=== PATIENT | male | born 2000 | race African-American/Black ===

== ENCOUNTER 2023-09-09 13:59 | Emergency (ER) | payer BC, SELFPAY ==
[2023-09-09 14:13] VITALS: BP 128/70; BP 131/72; PULSE 72; PULSE 73; RESP 18; TEMP 36.7; O2SAT 99; BMI 25.9
--- NOTE | 2023-09-09 14:38 | ED_ITS ---
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 he tells me he has no psychiatric history takes no medications this has never happened to him before. he notes that there was a rumor started about him at school which he will not disclose and he cannot get past it. he knows everyone believes it and it bothers him. He also feels pressure to admit that it is true but he will not. He is only having a hard time with that. complaint: anxiety Onset (ago): day(s) Duration: intermittent History of same: No Relieving factors: none Exacerbating factors: other Context: significant life stressor Associated psychiatric symptoms: none Associated symptoms: denies other symptoms Treatments prior to arrival: placed on mental health hold Related Data Allergies Allergy/AdvReac Type Severity Reaction Status Date / Time No Known Allergies Allergy Verified 09/09/23 14:13 Review of Systems Review of Systems: Constitutional : No Fever, No Chills ENT/Mouth : No Ear Pain, No Nasal Congestion, No sore throat Eyes: No Eye Pain, No Swelling, No Redness Cardiovascular : No Chest Pain, No SOB Respiratory : No Cough, No Sputum, No Dyspnea Gastrointestinal : No Nausea, No Vomiting, No Diarrhea, No Hematochezia, No Melena Genitourinary : No Dysuria, No Urinary Frequency, No Hematuria Musculoskeletal : No Myalgias Skin : No Skin Lesions, No rash Neuro : No Weakness, No Numbness, No Paresthesias, No Dizziness, No Headache Psych : positive Anxiety, no Depression, no SI/HI All other systems reviewed and are negative PMFSH Past Medical History Source: old records reviewed Onset Date is defined in the Problem List Problems that require an onset date and time if occurred within 24 hrs of arrival to the ED Aortic Dissection and Rupture; Neurologic impairment; Cardiopulmonary Arrest; Endotracheal Intubation; Insertion or Replacement of Mechanical Circulatory Assist Device Medical History No pertinent past medical history Social History Social History Smoked in Last 30 Days: No Use of substances other than those prescribed or required for medical reasons: No Physical Exam Vital Signs: Vital Signs: Last Vital Signs Temp 98.0 F 09/09/23 14:13 Pulse 73 09/09/23 14:13 Resp 18 09/09/23 14:13 BP 128/70 09/09/23 14:13 Pulse Ox 99 09/09/23 14:13 O2 Del Method Room Air 09/09/23 14:13 BMI result Body Mass Index 25.9 Appearance: Alert. Oriented X3. No acute distress. calm and cooperative he is not looking around the room, he is not agitated, he is not responding to internal stimuli. Eyes: Pupils equal, round and reactive to light. ENT: Pharynx normal. Neck: Normal inspection. Neck supple. CVS: Normal heart rate and rhythm. Pulses normal. Respiratory: No respiratory distress. Breath sounds normal. Abdomen: Soft and non-tender. Skin: Skin warm and dry. Normal skin color. Normal skin turgor. Extremities: No lower extremity edema. No calf ttp Neuro: Oriented X 3. No motor deficit. No sensory deficit. Course Course Course Narrative: Physician observation started at 306pm. Patient placed in physician observation because the patient needed more time for CARE team to place patient. At the time observation was started the patient's vitals were stable, patient is alert and oriented, Neuro: nonfocal, CV RRR, Lungs clear Medical Decision Making Medical Decision Making [facility] Narrative: 23 yo male with no sig PMH here with c/o being upset about a rumor about him at school - campus notes he is paranoid and in fact he has a full manifesto they have found. He is a section 12 inpatient bed search and will need labs. Differential Diagnosis Differential Diagnoses: The differential diagnosis associated with the presentation includes paranoia Admission/Observation Consideration of admission/observation: Escalation of care including admission/observation considered observe for placement Consult Healthcare Provider Management of the patient was discussed with: Behavioral Health Provider (inpatient) Lab Data [facility] Lab Attestation statement: I reviewed the patient's lab results. Labs: Lab Results 09/09/23 Range/Units 14:45 Urine Color Yellow Urine Appearance Clear Urine pH 8.0 (5.0-9.0) Ur Specific [place] <= 1.005 (1.005-1.025) Urine Protein Negative (Neg-Trace) mg/dL Urine Glucose (UA) Negative (Negative) mg/dL Urine Ketones Negative (Negative) mg/dL Urine Blood Negative (Negative) Urine Nitrite Negative (Negative) Ur Leukocyte Esterase Negative (Negative) Urine Opiates Screen Not Detected (Not Detect) Urine Fentanyl Screen Not Detected (Not Detect) Ur Barbiturates Screen Not Detected (Not Detect) Ur Phencyclidine Scrn Not Detected (Not Detect) Ur Amphetamines Screen Not Detected (Not Detect) U Benzodiazepines Scrn Not Detected (Not Detect) Urine Cocaine Screen Not Detected (Not Detect) U Marijuana (THC) Screen Not Detected (Not Detect) Independent Historian Clinical information obtained from an independent historian. History obtained from or confirmed by: EMS Discharge Plan Discharge Clinical Impression: Acute paranoia Patient Disposition: Still a Patient Interventions: Hannibal-Suicide Risk Severity Scale Last Done: 09/09/23 14:16
--- NOTE | 2023-09-09 14:46 | MHC.CARE ---
Maria Fernanda Chacon w [facility] ([phone]) called w/ expect for this student who has been paranoid, believes people are talking about him, looking at him in a judging manner, and he emailed one of the college crystal to defend himself against these allegations (delusions) but the prasanth who received the email shared it, and it seemed intended to be more broadly distributed to the entire campus. Concerned he has been decompensating for a while.
[2023-09-09 14:55] LABS: Appearance Urine Clear; Color Urine Yellow; Glucose Urine UA Negative (Negative); Leukocyte Esterase Urine Negative (Negative); Nitrite Urine Negative (Negative); Specific Gravity - Urine <= 1.005 (1.005-1.025); Urine Blood Negative (Negative); Urine Ketones Negative (Negative); Urine Protein Negative (Neg-Trace)
--- NOTE | 2023-09-09 14:55 | PC.NURSE ---
trey mayberry at bedside to eval pt- not responding to internal stimuli, no prior psych hx noted, no distress, no si/hi/halluc reported.
[2023-09-09 15:00] LABS: Amphetamine Screen Urine Not Detected (Not Detect); Bacteria Urine None Seen (None Seen); Barbiturates, Urine Not Detected (Not Detect); Benzodiazepines Screen Urine Not Detected (Not Detect); Cannabinoid Screen Urine Not Detected (Not Detect); Cocaine Screen Urine Not Detected (Not Detect); Fentanyl, urine Not Detected (Not Detect); Hyaline Casts Urine 0-2 /LPF (0-2); Opiate Screen Urine Not Detected (Not Detect); Phencyclidine Screen Urine Not Detected (Not Detect); RBC Urine 0-2 /HPF (0-2); Squamous Epithelial Cell Urine 0-2 /HPF (0-2); WBC Urine 0-5 /HPF (0-5)
--- NOTE | 2023-09-09 15:06 | PC.NURSE ---
tech at bedside drawing bloodwork now.
[2023-09-09 15:10] LABS: COVID-19 Test Negative (Negative); IDNOW Serial# 9DB6401D
[2023-09-09 15:21] LABS: MANUAL DIFF FLAG NO
[2023-09-09 15:22] LABS: Basophils Percent Auto 0.8 % (0-2); Eosinophils Absolute Auto 0.4 X10*3/uL (0.0-0.4); Eosinophils Percent Auto 9.5 % (0-4); Hematocrit 46.8 % (42.0-52.0); Hemoglobin 16.2 g/dl (14.0-18.0); Lymphocytes Absolute Auto 1.4 X10*3/uL (1.2-4.9); Lymphocytes Percent Auto 36.6 % (20-40); Mean Corpuscular HGB Conc 34.6 g/dl (31.0-36.0); Mean Corpuscular Hemoglobin 30.4 pg (27.0-33.0); Mean Corpuscular Volume 87.8 fL (80.0-98.0); Mean Platelet Volume 12.4 fL (9.4-12.4); Monocytes Absolute Auto 0.2 X10*3/uL (0.1-1.2); Monocytes Percent Auto 6.1 % (2-11); Neutrophils Absolute Auto 1.8 x10*3/uL (2.0-8.3); Platelet Count 114 X10*3/uL (160-400); Red Blood Count 5.33 X10*6/uL (4.60-5.80); Red Cell Distribution Width 11.3 % (11.0-16.0); White Blood Count 3.8 X10*3/uL (4.8-10.8)
[2023-09-09 15:37] LABS: Ethanol < 10 mg/dL
[2023-09-09 15:39] LABS: Alanine Aminotransferase 13 U/L (0-40); Alkaline Phosphatase 74 U/L (39-117); Anion Gap 12 (12-20); Aspartate Amino Transferase 19 U/L (5-37); Bilirubin Direct 0.2 mg/dL (0.0-0.5); Bilirubin Total 0.7 mg/dL (0.0-1.0); Blood Urea Nitrogen 15 mg/dL (9-16); Calcium 10.1 mg/dL (8.4-10.2); Carbon Dioxide 27 mmol/L (22-29); Chloride 106 mmol/L (96-108); Creatinine Clr Calc Pharmacy 112.2; Estimated Glomerular Filt Rate > 60; Glucose Random 88 mg/dL (60-115); Potassium 4.1 mmol/L (3.3-5.1); Sodium 141 mmol/L (135-145); Total Protein 8.7 g/dL (6.5-8.0)
[2023-09-09 15:40] LABS: Acetaminophen LAB < 3 mcg/mL (<30); Salicylate < 5.0 mg/dL (15-30)
--- NOTE | 2023-09-09 20:43 | MHC.CARE ---
CARE Team evaluation complete. Disposition not reached after consulting with Dr. Zee via phone. Pt will be a psych consult and the order has been put in by the ED provider. director call clinician at [facility] has been updated with this information (Violeta Cole; [phone]). POD RN, ED provider and Pt are aware.
[2023-09-09 22:15] VITALS: BP 132/74; PULSE 60; RESP 18; TEMP 36.9; O2SAT 99
--- NOTE | 2023-09-10 09:20 | PC.NURSE ---
assumed care of pt at 0700. pt awake, ate breakfast, and is now sitting at the desk in room. pt denies SI/HI. wondering when he will see the psych doctor . pt also asking when he will be out of here. laughing when t/w said there is no plan yet. pt sts it's funny that I'm here . pt is calm and cooperative. vitals obtained. awaiting psych consult. plan of care ongoing.
[2023-09-10 09:28] VITALS: BP 144/72; PULSE 72; RESP 16; TEMP 36.9; O2SAT 99
--- NOTE | 2023-09-10 10:58 | PC.NURSE ---
pt came out of room requesting a cup of water. pt provided with water. pt asking how to take off bandage without heat meaning, pain. pt encouraged to take a shower and the water will make it not hurt as much. pt sts he will take a shower later. currently sitting in community area.
--- NOTE | 2023-09-10 11:26 | PC.NURSE ---
pt with care team.
--- NOTE | 2023-09-10 12:48 | MHC.CARE ---
Pt was reassessed by CARE team, plan is for discharge back to [facility]. Transportation will be arranged by the [facility] and will communicate with this inspector automatic typewriter to determine when the pt will be picked up from the ED.
--- NOTE | 2023-09-10 13:18 | PC.NURSE ---
pt ride minutes away. pt provided with belongings. awaiting transportation.
== END 2023-09-10 13:32 | disposition home or self-care (01) ==
PROVIDERS: Emergency Provider Emergency Medicine
DX: F60.0 Paranoid personality disorder (principal); F41.9 Anxiety disorder, unspecified; Z11.52 Encounter for screening for COVID-19
CPT/HCPCS: 36415; 80048; 80076; 80143; 80179; 80307; 81001; 83735; 85025; 87635; 99284; S9485

== ENCOUNTER 2024-04-23 12:27 | Inpatient (IN) | payer BC, SELFPAY ==
--- NOTE | 2024-04-23 12:35 | ED.GENADULT ---
HPI - General Adult General Chief complaint: Psychiatric Symptoms Stated complaint: PSYCH EP,PD ON BOARD,COMBATIVE,PREPARE TO Time Seen by Provider: 04/23/24 12:35 History of Present Illness ED Provider: Alex WOLFE narrative: The patient is a 23-year-old male who is from [facility]. He recently has been a student at [employer]. He has recently been expelled from the [employer] for behavioral reasons. 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 Attempts have been made by the [employer] health services to manage his behavior but all of these attempts seemed to have failed and ultimately the [employer] felt it had to expel the patient. Apparently yesterday he was told that he was expelled and he was given transfer airport to catch a plane to take him to his home country. Apparently he was dropped off at [place] airport but failed to get on the plane. Today he apparently was found trying to get back onto campus looking for the pursuing. Apparently he had left a message on her phone answering machine that implied possible suicidal and homicidal thoughts. The patient was apprehended by [facility] police by paramedics. He was combative with [facility] police and paramedics and received IM haloperidol and midazolam with paramedics. Related Data Allergies Allergy/AdvReac Type Severity Reaction Status Date / Time No Known Allergies Allergy Verified 04/23/24 13:03 Review of Systems Review of Systems: Yes Unobtainable due to mental status PMFSH Past Medical History Medical History No pertinent past medical history Social History Social History Advance Directives: No Advance Directives Information Provided: No Do you have a plan to hurt others: No Plan Physical Exam ED Vital Signs: Vital Signs - 24 hr 04/23/24 12:59 04/23/24 16:07 04/23/24 18:00 Temperature 97.9 F 97.8 F 97.2 F Pulse Rate 60 55 52 Respiratory Rate 16 14 18 Blood Pressure 102/38 L 91/34 L 112/54 L Pulse Oximetry 97 100 99 Oxygen Delivery Method Room Air 04/23/24 19:14 Temperature 98.1 F Pulse Rate 46 L Respiratory Rate 14 Blood Pressure 108/56 L Pulse Oximetry 100 Oxygen Delivery Method Room Air BMI result Body Mass Index 25.4 Const Other: The patient arrived somnolent. He had apparently received haloperidol the pre-hospital setting. He is an athletic and muscular looking 23-year-old. [facility] Other: Face is symmetrical. There is a very small laceration about 4 mm in length near the lateral end of the right eyebrow. No other signs of trauma to the face. No intraoral injury. Dentition intact. No trismus. Eyes Other: Pupils were round equal, conjunctivae clear, extraocular movements intact. Eyelids nonswollen. Neck Other: Moving his neck easily Resp Effort & Inspection: normal respiratory effort Auscultation: clear to auscultation bilaterally Cardio Rate: regular rate Rhythm: regular rhythm Heart sounds: S1 normal heart sound present and S2 normal heart sound present GI Other: Abdomen is soft and nontender Skin Other: There is a 4 mm very small and not very deep laceration to the skin of the face near the lateral aspect of the right eyebrow. Otherwise the skin is intact and unremarkable Neuro Other: The patient seemed somewhat sedated initially but became extremely agitated and combative with any interaction. He has no facial asymmetry. His speech sounded clear. He moves his extremities symmetrically with normal strength and coordination. Extrem Other: No injuries to the extremities Psych Other: The patient seemed sedated initially but became very agitated with any interaction. Medications Administered Discontinued Medications Generic Name Dose Route Start Last Admin Trade Name Freq PRN Reason Stop Dose Admin Diazepam 10 mg 04/23/24 13:56 04/23/24 14:01 Diazepam 10 Mg/2 Ml Cartridge IVPUSH 04/23/24 13:57 10 mg STAT STA Administration Lactated Ringer's 1,000 mls @ 999 mls/hr 04/23/24 16:45 04/23/24 18:10 Lr IV 04/23/24 17:45 Infused .Q1H1M ROSETTE Infusion Olanzapine 10 mg 04/23/24 12:39 04/23/24 12:50 Olanzapine 10 Mg Vial IM 04/23/24 12:40 10 mg ONCE ONE Administration Medical Decision Making Medical Decision Making MDM Narrative: The patient is a 23-year-old male who was brought to the emergency department by ambulance on a section 12 from [employer]. He has been a student at [employer] but has recently been expelled from the [employer] because of erratic and threatening behavior. The patient is from [employer] [facility] and yesterday [facility] had attempted to make arrangements to get the patient on a plane to return home. However apparently the patient was brought to local airport but never border the plane and then returned to [employer] [facility] where he continued male student at [employer]. [employer] [facility] police intercepted the patient. Apparently the patient had sent a threatening message to the female student that suggested possibly both suicidality and homicidality. Therefore a section 12 was issued and he was brought here. The patient was combative with the [employer] [facility] [employer] [facility] police and paramedics and he received IM haloperidol from the paramedics. When he arrived here he was mildly sedated and became agitated and combative so that he was placed in restraints and given additional sedation with diazepam. The patient has a very small and shallow laceration to the skin of the face lateral to the right eye. He has no other concerning findings on exam. During the remainder of my shift the patient has remained sedated by olanzapine and diazepam. He was in 4 point restraints for awhile but was removed from these when it seemed safe to do so. He has been out of restraints for several hours at the end of my shift. The patient will need to be seen by the care team. A consult is in place. I will be signing the patient out to the oncoming emergency physician at change of shift. Lab Data 04/23/24 13:06 Labs: Lab Results 04/23/24 04/23/24 Range/Units 13:06 18:13 WBC 3.7 L (4.8-10.8) X10*3/uL RBC 4.57 L (4.60-5.80) X10*6/uL Hgb 14.5 (14.0-18.0) g/dl Hct 41.1 L (42.0-52.0) % MCV 89.9 (80.0-98.0) fL MCH 31.7 (27.0-33.0) pg MCHC 35.3 (31.0-36.0) g/dl RDW 11.9 (11.0-16.0) % Plt Count 116 L (160-400) X10*3/uL MPV 12.8 H (9.4-12.4) fL Immature Gran % (Auto) 0.3 (0.0-0.4) % Neut % (Auto) 59.7 (45-73) % Lymph % (Auto) 28.2 (20-40) % Hardy % (Auto) 7.2 (2-11) % Eos % (Auto) 3.8 (0-4) % Baso % (Auto) 0.8 (0-2) % Lymph # (Auto) 1.1 L (1.2-4.9) X10*3/uL Hardy # (Auto) 0.3 (0.1-1.2) X10*3/uL Eos # (Auto) 0.1 (0.0-0.4) X10*3/uL Baso # (Auto) 0.0 (0.0-0.2) X10*3/uL Abs Immat Gran (auto) 0.01 (0.00-0.03) X10*3/uL Absolute Neuts (auto) 2.2 (2.0-8.3) x10*3/uL Absolute Nucleated RBC 0.000 (0.0-0.012) X10*3/uL Nucleated RBC % (auto) 0.0 (0.0-0.2) /100WBC Urine Color Yellow Urine Appearance Clear Urine pH 6.0 (5.0-9.0) Ur Specific [place] 1.015 (1.005-1.025) Urine Protein Negative (Neg-Trace) mg/dL Urine Glucose (UA) Negative (Negative) mg/dL Urine Ketones 15 (Negative) mg/dL Urine Blood Negative (Negative) Urine Nitrite Negative (Negative) Ur Leukocyte Esterase Negative (Negative) Urine Opiates Screen Not Detected (Not Detect) Ur Buprenorphine Scrn Not Detected (Not Detect) ng/mL Ur Oxycodone Screen Not Detected (Not Detect) ng/mL Urine Methadone Screen Not Detected (Not Detect) ng/mL Urine Fentanyl Screen Not Detected (Not Detect) Ur Barbiturates Screen Not Detected (Not Detect) Ur Phencyclidine Scrn Not Detected (Not Detect) Ur Amphetamines Screen Not Detected (Not Detect) U Benzodiazepines Scrn POSITIVE H (Not Detect) Urine Cocaine Screen Not Detected (Not Detect) U Marijuana (THC) Screen Not Detected (Not Detect) Ethyl Alcohol < 10 mg/dL Critical Care Time Critical Care Time Critical Care Time: Yes Total Critical Care Time: 35 Attestation: The patient was critically ill with a high probability of imminent or life-threatening deterioration. ?I spent greater than 30 minutes of discontinuous time evaluating the patient, delivering critical care at the bedside, discussing evaluating data with consultants. ?Critical care time does not include time spent performing separately billable procedures or teaching. ?Time spent performing critical care with 35 minutes. Discharge Plan Discharge Clinical Impression: Delusional disorder Patient Disposition: Still a Patient Print Language: Singaporean
[2024-04-23] MEDS: OLANZapine 10 MG VIAL IM (12:50)
[2024-04-23 12:59] VITALS: BP 102/38; PULSE 60; RESP 16; TEMP 36.6; O2SAT 97; BMI 25.4
[2024-04-23 13:11] LABS: MANUAL DIFF FLAG NO
[2024-04-23 13:14] LABS: Basophils Percent Auto 0.8 % (0-2); Eosinophils Absolute Auto 0.1 X10*3/uL (0.0-0.4); Eosinophils Percent Auto 3.8 % (0-4); Hematocrit 41.1 % (42.0-52.0); Hemoglobin 14.5 g/dl (14.0-18.0); Imm Gran Abs Auto 0.01 X10*3/uL (0.00-0.03); Imm Gran Pct Auto 0.3 % (0.0-0.4); Lymphocytes Absolute Auto 1.1 X10*3/uL (1.2-4.9); Lymphocytes Percent Auto 28.2 % (20-40); Mean Corpuscular HGB Conc 35.3 g/dl (31.0-36.0); Mean Corpuscular Hemoglobin 31.7 pg (27.0-33.0); Mean Corpuscular Volume 89.9 fL (80.0-98.0); Mean Platelet Volume 12.8 fL (9.4-12.4); Monocytes Absolute Auto 0.3 X10*3/uL (0.1-1.2); Monocytes Percent Auto 7.2 % (2-11); Neutrophils Absolute Auto 2.2 x10*3/uL (2.0-8.3); Neutrophils Percent Auto 59.7 % (45-73); Platelet Count 116 X10*3/uL (160-400); Red Blood Count 4.57 X10*6/uL (4.60-5.80); Red Cell Distribution Width 11.9 % (11.0-16.0); White Blood Count 3.7 X10*3/uL (4.8-10.8)
[2024-04-23 13:36] LABS: Ethanol < 10 mg/dL
--- NOTE | 2024-04-23 13:54 | PC.NURSE ---
patient presented to the ED with [place] [employer] and EMS, patient placed in ED stretcher, became combative with staff security at bedside, patient needed to be placed in 4 point restraints, IM restraints, see paper charting. 18# placed in the right FA, labs drawn and sent to lab. patient remains in restraints. respirations equal and unlabored, skin dry and intact. patient noted to have small abrasion on right eye lid, bleeding controlled, abrasion cleaned.
[2024-04-23] MEDS: diazePAM 10 MG/2 ML CARTRIDGE IVPUSH (14:01)
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
--- NOTE | 2024-04-23 15:22 | PC.NURSE ---
patient removed from restraints, changed over into hospital attire
[2024-04-23 16:07] VITALS: BP 91/34; PULSE 55; RESP 14; TEMP 36.6; O2SAT 100
--- NOTE | 2024-04-23 16:09 | PC.NURSE ---
patient resting quietly in bed, respirations even and unlabored, skin dry and intact. patient will not answer any questions, remains in behavioral control
[2024-04-23] MEDS: Lactated Ringers 1,000 ML 999 ML IV (16:41)
--- NOTE | 2024-04-23 17:57 | MHC.CARE ---
Addendum entered by Aye Nichole LCSW 04/23/24 19:54: Laurie should be called when there is a disposition: [phone] Original Note: Received a call from [facility] on-call clinician (Laurie Mcintosh; [phone]) who reports that Pt's room was searched by staff today where they found a bunch of printed pictures of the girl he has been following-- they looked like pictures he took without her knowing. She reports that multiple documents were found that he had made which indicated the girl's schedule, where he had looked for her and where she wasn't.
[2024-04-23 18:00] VITALS: BP 112/54; PULSE 52; RESP 18; TEMP 36.2; O2SAT 99
--- NOTE | 2024-04-23 18:09 | PC.NURSE ---
patient VSS, patient awakens to verbal stimuli. patient used bedside urinal, output 900 cc urine. urine sample obtained.
--- NOTE | 2024-04-23 18:23 | MHC.CARE ---
CARE Team attempted to meet with the pt at approx 1815, but the pt was not able to participate in the assessment. Pt was slurring his words and would not open his eyes for t/w. This could be due to all the medications that the pt received earlier in the day. CARE Team will make another attempt to meet with the pt later this evening.
[2024-04-23 18:32] LABS: Appearance Urine Clear; Color Urine Yellow; Glucose Urine UA Negative (Negative); Leukocyte Esterase Urine Negative (Negative); Nitrite Urine Negative (Negative); Specific Gravity - Urine 1.015 (1.005-1.025); Urine Blood Negative (Negative); Urine Ketones 15 mg/dL (Negative); Urine Protein Negative (Neg-Trace)
[2024-04-23 18:39] LABS: Amphetamine Screen Urine Not Detected (Not Detect); Barbiturates, Urine Not Detected (Not Detect); Benzodiazepines Screen Urine POSITIVE (Not Detect); Buprenorphine Scr Not Detected (Not Detect); Cannabinoid Screen Urine Not Detected (Not Detect); Cocaine Screen Urine Not Detected (Not Detect); Fentanyl, urine Not Detected (Not Detect); Methadone Screen, Urine Not Detected (Not Detect); Opiate Screen Urine Not Detected (Not Detect); Oxycodone Screen Urine Not Detected (Not Detect); Phencyclidine Screen Urine Not Detected (Not Detect)
[2024-04-23 19:14] VITALS: BP 108/56; PULSE 46; RESP 14; TEMP 36.7; O2SAT 100
--- NOTE | 2024-04-23 19:15 | MHC.EDTECH ---
This tech took over care of patient/sitter for this patient at 1900,vitals taken,HR is low 46,RN was made aware,patient placed on the event marketing intern at this time,offered patient his food tray,patient refused and went back to sleep.
--- NOTE | 2024-04-23 21:17 | MHC.EDTECH ---
Patient took off monitor,and refused all vitals,RN is aware at bedside
[2024-04-23 21:18] VITALS: PULSE 52; RESP 18
[2024-04-23 22:15] LABS: Alanine Aminotransferase 15 U/L (0-40); Albumin Level 4.4 g/dL (3.5-5.0); Alkaline Phosphatase 47 U/L (39-117); Anion Gap 16 (12-20); Aspartate Amino Transferase 26 U/L (5-37); Bilirubin Direct 0.1 mg/dL (0.0-0.5); Bilirubin Total 0.5 mg/dL (0.0-1.0); Blood Urea Nitrogen 17 mg/dL (9-16); Calcium 9.7 mg/dL (8.4-10.2); Carbon Dioxide 19 mmol/L (22-29); Chloride 109 mmol/L (96-108); Creatinine Clr Calc Pharmacy 100.5; Estimated Glomerular Filt Rate > 60; Glucose Random 116 mg/dL (60-115); Potassium 4.2 mmol/L (3.3-5.1); Sodium 140 mmol/L (135-145); Total Protein 7.8 g/dL (6.5-8.0)
--- NOTE | 2024-04-24 04:03 | PC.NURSE ---
Pt up out of bed stating he is leaving and he doesn't care what time it is. Security called to bedside. PO Ativan ordered per Dr. Phelan, pt refuses at this time. Agreeable to laying back in bed at this time.
[2024-04-24 06:53] VITALS: BP 107/60; PULSE 57; RESP 16; TEMP 37.1; O2SAT 98
[2024-04-24 11:47] VITALS: RESP 16
--- NOTE | 2024-04-24 15:09 | PHA.MEDREC ---
Addendum entered by Sonal Ley RPh 04/24/24 15:27: Reviewed by [facility] Original Note: Pharmacy Consult ? Medication Reconciliation Pharmacy has completed the medication reconciliation. Patient confirmed they are not taking any medications currently.
--- NOTE | 2024-04-24 16:26 | MHC.CARE ---
Dana with [facility] has called numerous times for disposition. [facility] disposition was relayed to her. Glass Installer's cell number Laurie Loyola was given if any information is needed after hours.
[2024-04-24 18:06] VITALS: BP 123/78; PULSE 78; RESP 18; TEMP 36.8; O2SAT 100
--- NOTE | 2024-04-24 18:59 | PC.NURSE ---
this rn assumed care of pt, pt resting in stretcher, no acute distress noted.
--- NOTE | 2024-04-25 02:30 | PC.NURSE ---
resting quielty, resp with ease, no s/s of acute distress,
--- NOTE | 2024-04-25 05:35 | PC.NURSE ---
pt awake and alert at this time, pt ambulatory to bathroom with steady gait at this time.
[2024-04-25 06:23] VITALS: BP 131/75; PULSE 75; RESP 17; TEMP 37.2; O2SAT 100
--- NOTE | 2024-04-25 09:22 | PC.NURSE ---
Patient appears to be in no apparent distress this am, ate small amount of breakfast, ambulated to bathroom and back to room. Offers no complaints to this RN. Continue plan of care for inpatient bedsearch
[2024-04-25 12:49] VITALS: BP 137/71; PULSE 62; RESP 18; TEMP 36.7; O2SAT 100
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
--- NOTE | 2024-04-25 16:34 | PC.ADMIT ---
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 Pt had been placed on a plan and was unable to follow. The school bought him a ticket to [employer] and brought him to [place], but the pt returned to the school and began searching for the student again. Pt made the comment? that one of them (students) would be harmed.The police were notified and he was brought to the hospital. Pt required a restraint for aggression in the field and in the ED.Pt denied all this reported behavior with TW and insisted he doesn?t belong here. Pt was pleasant and calm, but refused to answer most questions when asked by TW.? Pt tox screen was negative. Pt was A&O x4.? Pt denied SI/HI/AH/VH. Pt has no ideation, plan or intent to harm self or others. Pt denies any medical issues or concerns. Pt receives not psychiatric care and is not on any medications. Skin check was completed w/o a difficulty, skin is intact. Pt placed on 15 minute safety checks.
[2024-04-25 19:19] VITALS: BMI 24.1
[2024-04-25 19:50] VITALS: BP 132/60; PULSE 93; RESP 16; TEMP 37.3; O2SAT 99
[2024-04-26 08:35] VITALS: BP 137/78; PULSE 60; RESP 16; TEMP 36.6; O2SAT 99
[2024-04-26 09:07] LABS: Estimated Average Glucose 100 mg/dL; Hemoglobin A1C 134.9327 umol/L; Hemoglobin A1c % 5.1 % (<6.0); Total Hemoglobin (HGBA1C) 4143.1794 umol/L
[2024-04-26 09:10] LABS: Cholesterol 153 mg/dL (<200); HDL Cholesterol 38 mg/dL (>40); LDL Cholesterol Calculated 104 mg/dL (<100); Triglycerides 58 mg/dL (<150)
[2024-04-26 09:20] LABS: Free T4 (Free Thyroxine) 1.02 ng/dL (0.71-1.85)
[2024-04-26 09:37] LABS: Folate 10.3 ng/mL (> or = 4.0); Vitamin B12 327 pg/mL (200-900)
--- NOTE | 2024-04-26 16:06 | P.PNPSI_ITS ---
Subjective Subjective Date of Service: 04/26/24 Reason For Visit: stalking behaviors Interim History: calm, cooperative. states he will not take medication. asking for discharge. informed he will likely be discharged tuesday at the expiration of his 12b. no questions or complaints otherwise. per staff, showered, slept well. Mental Status Exam Mental Status Exam Narrative: adequately dressed and groomed. cooperative. no PMA/PMR. speech incr rate and amount. nml loudness, decr latency. thoughts linear and logical in superficial interaction. affect hyper-intense, non-labile, flexible. mood euthymic. no SI/SIBI/HI/AVH expressed. Diagnostics Vital Signs (24Hr): Vital Signs - 24 hr 04/25/24 19:50 04/26/24 08:35 Temperature 99.1 F 97.8 F Pulse Rate 93 60 Respiratory Rate 16 16 Blood Pressure 132/60 137/78 Pulse Oximetry 99 99 Oxygen Delivery Method Room Air Room Air BMI result Body Mass Index 24.1 Labs 04/23/24 13:06 04/23/24 13:06 Labs: Laboratory Results - last 48 hr 04/26/24 07:42 Estimat Average Glucose 100 Hemoglobin A1c % 5.1 Triglycerides 58 Cholesterol 153 LDL Cholesterol, Calc 104 H HDL Cholesterol 38 L Vitamin B12 327 Folate 10.3 TSH 1.30 Free T4 1.02 Medications Medications Current Medications Acetaminophen (Acetaminophen 325 Mg Tablet) 650 mg PO Q6H PRN PRN Reason: Headache/Pain Mild Scale (1-3) Al Hydroxide/Mg Hydroxide (Magnesium Hydrox/Alum Hydrox 30 Ml Oral.Susp) 30 ml PO Q6H PRN PRN Reason: Heartburn/Nausea Aripiprazole (Aripiprazole 5 Mg Tablet) 5 mg PO DAILY [facility] Last Admin: 04/26/24 15:26 Dose: Not Given Hydroxyzine HCl (Hydroxyzine Hcl 25 Mg Tablet) 25 mg PO Q6H PRN PRN Reason: Anxiety Magnesium Hydroxide (Milk Of Magnesia 30 Ml Oral.Susp) 30 ml PO DAILY PRN PRN Reason: Constipation Olanzapine (Olanzapine Odt 10 Mg Tab.Rapdis) 10 mg TRANSLINGU Q4H PRN PRN Reason: agitation Trazodone HCl (Trazodone Hcl 50 Mg Tablet) 50 mg PO BEDTIME MRX1 PRN PRN Reason: Insomnia Allergies Allergies Allergy/AdvReac Type Severity Reaction Status Date / Time No Known Allergies Allergy Verified 04/23/24 13:03 Assessment & Plan Assessment & Plan (1) Delusional disorder: Status: Acute Code(s): F22 - Delusional disorders Plan 04/25: contain, observe, educate. collect collateral info. 04/26: warrant has been issued for pt's arrest. 12b up tuesday. planning to discharge tuesday unless situation changes. prescribed abilify 5 mg daily, which pt is refusing. Reason for continued inpatient stay Substantial Risk for: harm to self and harm to others Time Spent With Patient Time: Total time managing care of this patient today __25__ minutes.
[2024-04-26 20:05] VITALS: BP 137/76; PULSE 73; RESP 16; TEMP 36.6; O2SAT 100
[2024-04-27 08:00] VITALS: RESP 18
--- NOTE | 2024-04-27 13:37 | P.PNPSI_ITS ---
Subjective Subjective Date of Service: 04/27/24 Reason For Visit: stalking behaviors Interim History: calm, cooperative. denies any complaints, no requests. planning to discharge to the street on tuesday. per staff, 12b up 03/30. refusing meds. withdrawn. up at 040. showered. Mental Status Exam Mental Status Exam Narrative: adequately dressed and groomed. cooperative. no PMA/PMR. speech incr rate, nml amount. nml loudness, decr latency. thoughts linear and logical in superficial interaction. affect hyper-intense, non-labile, flexible. mood euthymic. no SI/SIBI/HI/AVH expressed. Diagnostics Vital Signs (24Hr): Vital Signs - 24 hr 04/26/24 20:05 04/27/24 08:00 Temperature 97.9 F Pulse Rate 73 Respiratory Rate 16 18 Blood Pressure 137/76 Pulse Oximetry 100 Oxygen Delivery Method Room Air BMI result Body Mass Index 24.1 Labs 04/23/24 13:06 04/23/24 13:06 Labs: Laboratory Results - last 48 hr 04/26/24 07:42 Estimat Average Glucose 100 Hemoglobin A1c % 5.1 Triglycerides 58 Cholesterol 153 LDL Cholesterol, Calc 104 H HDL Cholesterol 38 L Vitamin B12 327 Folate 10.3 TSH 1.30 Free T4 1.02 Medications Medications Current Medications Acetaminophen (Acetaminophen 325 Mg Tablet) 650 mg PO Q6H PRN PRN Reason: Headache/Pain Mild Scale (1-3) Al Hydroxide/Mg Hydroxide (Magnesium Hydrox/Alum Hydrox 30 Ml Oral.Susp) 30 ml PO Q6H PRN PRN Reason: Heartburn/Nausea Aripiprazole (Aripiprazole 5 Mg Tablet) 5 mg PO DAILY [facility] Last Admin: 04/27/24 09:41 Dose: Not Given Hydroxyzine HCl (Hydroxyzine Hcl 25 Mg Tablet) 25 mg PO Q6H PRN PRN Reason: Anxiety Magnesium Hydroxide (Milk Of Magnesia 30 Ml Oral.Susp) 30 ml PO DAILY PRN PRN Reason: Constipation Olanzapine (Olanzapine Odt 10 Mg Tab.Rapdis) 10 mg TRANSLINGU Q4H PRN PRN Reason: agitation Trazodone HCl (Trazodone Hcl 50 Mg Tablet) 50 mg PO BEDTIME MRX1 PRN PRN Reason: Insomnia Allergies Allergies Allergy/AdvReac Type Severity Reaction Status Date / Time No Known Allergies Allergy Verified 04/23/24 13:03 Assessment & Plan Assessment & Plan (1) Delusional disorder: Status: Acute Code(s): F22 - Delusional disorders Plan 04/25: contain, observe, educate. collect collateral info. 04/26: warrant has been issued for pt's arrest. 12b up tuesday. planning to discharge tuesday unless situation changes. prescribed abilify 5 mg daily, which pt is refusing. 04/27: refusing meds. no change in presentation. planning for discharge friday 03/30, when section 12b expires. student counseling [facility] has been informed of the discharge plan by KELLY Agudelo. Reason for continued inpatient stay Substantial Risk for: harm to self, harm to others and inability to function Time Spent With Patient Time: Total time managing care of this patient today __25__ minutes.
[2024-04-27 20:00] VITALS: RESP 14
--- NOTE | 2024-04-28 08:05 | HO.PSYCHPN ---
Subjective Subjective Date of Service: 04/28/24 Reason For Visit: stalking behaviors Subjective Notes: Section 12B Interim History: Met with patient. Discussed with Nursing. Continues to decline medications. Very limited insight regarding admission circumstances and ongoing concerns. Spending most of his time in his room singing Judaism songs. Reports he has no concerns regarding being in the hospital, but also does not feel he needs to be there. Reports he will speak with the [employer] around discharge planning and if he cannot return to college, then he will [place]. Medication Compliance: No Side effects from medications: No Attending Groups: No Review of Systems Acute medical concerns: No Review of Systems Review of Systems Unremarkable Mental Status Exam Mental Status Exam Narrative: adequately dressed and groomed. in room singing Judaism songs. Able to stop same and engage in interview. cooperative. no PMA/PMR. speech incr rate, nml amount. nml loudness, decr latency. thoughts linear and logical in superficial interaction. affect hyper-intense, non-labile, flexible. mood euthymic. no SI/SIBI/HI/AVH expressed. Diagnostics Vital Signs (24Hr): Vital Signs - 24 hr 04/27/24 20:00 Respiratory Rate 14 BMI result Body Mass Index 24.1 Labs 04/23/24 13:06 04/23/24 13:06 Labs: Laboratory Results - last 48 hr 04/26/24 07:42 Estimat Average Glucose 100 Hemoglobin A1c % 5.1 Triglycerides 58 Cholesterol 153 LDL Cholesterol, Calc 104 H HDL Cholesterol 38 L Vitamin B12 327 Folate 10.3 TSH 1.30 Free T4 1.02 Medications Medications Current Medications Acetaminophen (Acetaminophen 325 Mg Tablet) 650 mg PO Q6H PRN PRN Reason: Headache/Pain Mild Scale (1-3) Al Hydroxide/Mg Hydroxide (Magnesium Hydrox/Alum Hydrox 30 Ml Oral.Susp) 30 ml PO Q6H PRN PRN Reason: Heartburn/Nausea Aripiprazole (Aripiprazole 5 Mg Tablet) 5 mg PO DAILY [facility] Last Admin: 04/27/24 09:41 Dose: Not Given Hydroxyzine HCl (Hydroxyzine Hcl 25 Mg Tablet) 25 mg PO Q6H PRN PRN Reason: Anxiety Magnesium Hydroxide (Milk Of Magnesia 30 Ml Oral.Susp) 30 ml PO DAILY PRN PRN Reason: Constipation Olanzapine (Olanzapine Odt 10 Mg Tab.Rapdis) 10 mg TRANSLINGU Q4H PRN PRN Reason: agitation Trazodone HCl (Trazodone Hcl 50 Mg Tablet) 50 mg PO BEDTIME MRX1 PRN PRN Reason: Insomnia Allergies Allergies Allergy/AdvReac Type Severity Reaction Status Date / Time No Known Allergies Allergy Verified 04/23/24 13:03 Assessment & Plan Assessment & Plan (1) Delusional disorder: Status: Acute Code(s): F22 - Delusional disorders Plan 04/25: contain, observe, educate. collect collateral info. 04/26: warrant has been issued for pt's arrest. 12b up tuesday. planning to discharge tuesday unless situation changes. prescribed abilify 5 mg daily, which pt is refusing. 04/27: refusing meds. no change in presentation. planning for discharge friday 03/30, when section 12b expires. student counseling at [facility] has been informed of the discharge plan by KELLY Agudelo. 04/28: No changes Reason for continued inpatient stay Substantial Risk for: harm to others Time Spent With Patient Time: Total time managing care of this patient today ____ minutes.
[2024-04-28 21:03] VITALS: RESP 14
--- NOTE | 2024-04-29 08:10 | P.PNPSI_ITS ---
Subjective Subjective Date of Service: 04/29/24 Reason For Visit: stalking behaviors Medical Problems Affecting Mental Status: No Interim History: Met with patient. Discussed with Nursing. Continues to decline medications. going limited insight regarding hospitalization and circumstances. Focused on discharge. Denies all symptoms including depression, SI, HI or hallucinations. when asked about restricting food /fasting states I do not have to tell you, do I? . Medication Compliance: No Side effects from medications: No Attending Groups: No Review of Systems Acute medical concerns: No Review of Systems Review of Systems Unremarkable Mental Status Exam Mental Status Exam Narrative: adequately dressed and groomed. in room singing [employer]. Able to stop same and engage in interview. cooperative. no PMA/PMR. speech incr rate, nml amount. nml loudness, decr latency. thoughts linear and logical in superficial interaction. affect hyper-intense, non-labile, flexible. mood euthymic. no SI/SIBI/HI/AVH expressed. Diagnostics Vital Signs (24Hr): Vital Signs - 24 hr 04/28/24 21:03 Respiratory Rate 14 BMI result Body Mass Index 24.1 Labs 04/23/24 13:06 04/23/24 13:06 Medications Medications Current Medications Acetaminophen (Acetaminophen 325 Mg Tablet) 650 mg PO Q6H PRN PRN Reason: Headache/Pain Mild Scale (1-3) Al Hydroxide/Mg Hydroxide (Magnesium Hydrox/Alum Hydrox 30 Ml Oral.Susp) 30 ml PO Q6H PRN PRN Reason: Heartburn/Nausea Aripiprazole (Aripiprazole 5 Mg Tablet) 5 mg PO DAILY [facility] Last Admin: 04/29/24 08:03 Dose: Not Given Hydroxyzine HCl (Hydroxyzine Hcl 25 Mg Tablet) 25 mg PO Q6H PRN PRN Reason: Anxiety Magnesium Hydroxide (Milk Of Magnesia 30 Ml Oral.Susp) 30 ml PO DAILY PRN PRN Reason: Constipation Olanzapine (Olanzapine Odt 10 Mg Tab.Rapdis) 10 mg TRANSLINGU Q4H PRN PRN Reason: agitation Trazodone HCl (Trazodone Hcl 50 Mg Tablet) 50 mg PO BEDTIME MRX1 PRN PRN Reason: Insomnia Allergies Allergies Allergy/AdvReac Type Severity Reaction Status Date / Time No Known Allergies Allergy Verified 04/23/24 13:03 Assessment & Plan Assessment & Plan (1) Delusional disorder: Status: Acute Code(s): F22 - Delusional disorders Plan 04/25: contain, observe, educate. collect collateral info. 04/26: warrant has been issued for pt's arrest. 12b up tuesday. planning to discharge tuesday unless situation changes. prescribed abilify 5 mg daily, which pt is refusing. 04/27: refusing meds. no change in presentation. planning for discharge friday 03/30, when section 12b expires. student counseling at [facility] has been informed of the discharge plan by KELLY Agudelo. 04/29: No changes Reason for continued inpatient stay Substantial Risk for: harm to others Time Spent With Patient Time: Total time managing care of this patient today ____ minutes.
[2024-04-29 20:07] VITALS: RESP 16
--- NOTE | 2024-04-30 15:40 | P.PNPSI_ITS ---
Subjective Subjective Date of Service: 04/30/24 Reason For Visit: stalking behaviors Interim History: pt disorganized, hyper-jewish, labile, delusional today. states he believes we are trying to turn him into a woman and that we are using witchcraft on him. he asserted this inspector automatic typewriter wants him to . singing loudly in his room in the morning. per staff, did not sleep at all last night. 12b up today. singing loudly. fasted all day yesterday. refusing VS. pt's father has called multiple times but pt refuses to speak with him. security called as pt kicked an exit door. he was able to be de-escalated. Mental Status Exam Mental Status Exam Narrative: adequately dressed and groomed. not cooperative. PMA of yelling, crying, pacing. speech incr rate, amount, loudness, decr latency. thoughts disorganized and bizarre, accusing staff of trying to turn him into a woman and of using witchcraft on him. affect hyper-intense, labile. mood not assessed. denies SI/SIBI. refuses to verify that he is not experiencing HI. no AVH expressed. Diagnostics Vital Signs (24Hr): Vital Signs - 24 hr 04/29/24 20:07 Respiratory Rate 16 BMI result Body Mass Index 24.1 Labs 04/23/24 13:06 04/23/24 13:06 Medications Medications Current Medications Acetaminophen (Acetaminophen 325 Mg Tablet) 650 mg PO Q6H PRN PRN Reason: Headache/Pain Mild Scale (1-3) Al Hydroxide/Mg Hydroxide (Magnesium Hydrox/Alum Hydrox 30 Ml Oral.Susp) 30 ml PO Q6H PRN PRN Reason: Heartburn/Nausea Aripiprazole (Aripiprazole 5 Mg Tablet) 5 mg PO DAILY [facility] Last Admin: 04/30/24 08:03 Dose: Not Given Hydroxyzine HCl (Hydroxyzine Hcl 25 Mg Tablet) 25 mg PO Q6H PRN PRN Reason: Anxiety Magnesium Hydroxide (Milk Of Magnesia 30 Ml Oral.Susp) 30 ml PO DAILY PRN PRN Reason: Constipation Olanzapine (Olanzapine Odt 10 Mg Tab.Rapdis) 10 mg TRANSLINGU Q4H PRN PRN Reason: agitation Trazodone HCl (Trazodone Hcl 50 Mg Tablet) 50 mg PO BEDTIME MRX1 PRN PRN Reason: Insomnia Allergies Allergies Allergy/AdvReac Type Severity Reaction Status Date / Time No Known Allergies Allergy Verified 04/23/24 13:03 Assessment & Plan Assessment & Plan (1) Delusional disorder: Status: Acute Code(s): F22 - Delusional disorders Plan 04/25: contain, observe, educate. collect collateral info. 04/26: warrant has been issued for pt's arrest. 12b up tuesday. planning to discharge tuesday unless situation changes. prescribed abilify 5 mg daily, which pt is refusing. 04/27: refusing meds. no change in presentation. planning for discharge friday 03/30, when section 12b expires. student counseling at [facility] has been informed of the discharge plan by KELLY Agudelo. 04/29: No changes 04/30: refusing meds. frankly psychotic/manic today. disorganized thoughts, hyper-jewish, labile, delusional, no sleep. accusing staff of witchcraft and trying to turn him into a woman. filed for commitment. kicked an exit door, prompting security to be called. Reason for continued inpatient stay Substantial Risk for: harm to self, harm to others and inability to function Time Spent With Patient Time: Total time managing care of this patient today __55__ minutes.
[2024-04-30 20:31] VITALS: RESP 16
--- NOTE | 2024-05-01 15:37 | HO.PSYCHPN ---
Subjective Subjective Date of Service: 05/01/24 Reason For Visit: stalking behaviors Subjective Notes: Inman Warning Interim History: sitting on floor of his room singing/chanting loudly. shredded paper all over the room, like confetti. MD asks what happened, pt remains silent for at least 30 seconds, finally says, i account only to ham[facility]. i do not need to account to you. MD asked if there were anything MD could do for patient today, other than discharge him. pt stated, i don't want you to do anything to me. MD was joined by KELLY Agudelo, who asked about TE for [facility]. pt did not answer in the affirmative to allow contact with [facility], KELLY Agudelo informed pt she interpreted that as a no and would not be discussing his status with [facility]. pt said, you are continuing your evil plans, and added something about the transgender agenda and suggested [facility] staff communicate closely with centre hall staff. per [facility] staffing program manager, angry, paranoid, agitated. kicked exit door again overnight. send me to [facility]. isolyadira zelaya. at 0215 announced at nursing station that he would be leaving now. told no, then was loud, throwing things in his room. send me to senior living or just shoot me. slept on floor a couple of hours. talking about hospital food being poisoned. Mental Status Exam Mental Status Exam Narrative: adequately dressed and groomed. not cooperative. PMA of loud, rapid speech. speech incr rate, amount, loudness, decr latency. thoughts disorganized and bizarre, accusing staff of trying to harm him in some way. affect hyper-intense, labile. mood not assessed. no SI/HI/AVH expressed. Diagnostics Vital Signs (24Hr): Vital Signs - 24 hr 04/30/24 20:31 Respiratory Rate 16 BMI result Body Mass Index 24.1 Labs 04/23/24 13:06 04/23/24 13:06 Medications Medications Current Medications Acetaminophen (Acetaminophen 325 Mg Tablet) 650 mg PO Q6H PRN PRN Reason: Headache/Pain Mild Scale (1-3) Al Hydroxide/Mg Hydroxide (Magnesium Hydrox/Alum Hydrox 30 Ml Oral.Susp) 30 ml PO Q6H PRN PRN Reason: Heartburn/Nausea Aripiprazole (Aripiprazole 5 Mg Tablet) 5 mg PO DAILY [facility] Last Admin: 05/01/24 08:40 Dose: Not Given Hydroxyzine HCl (Hydroxyzine Hcl 25 Mg Tablet) 25 mg PO Q6H PRN PRN Reason: Anxiety Magnesium Hydroxide (Milk Of Magnesia 30 Ml Oral.Susp) 30 ml PO DAILY PRN PRN Reason: Constipation Olanzapine (Olanzapine Odt 10 Mg Tab.Rapdis) 10 mg TRANSLINGU Q4H PRN PRN Reason: agitation Trazodone HCl (Trazodone Hcl 50 Mg Tablet) 50 mg PO BEDTIME MRX1 PRN PRN Reason: Insomnia Allergies Allergies Allergy/AdvReac Type Severity Reaction Status Date / Time No Known Allergies Allergy Verified 04/23/24 13:03 Assessment & Plan Assessment & Plan (1) Natasha: Status: Acute Code(s): F30.9 - Manic episode, unspecified Plan 04/25: contain, observe, educate. collect collateral info. 04/26: warrant has been issued for pt's arrest. 12b up tuesday. planning to discharge tuesday unless situation changes. prescribed abilify 5 mg daily, which pt is refusing. 04/27: refusing meds. no change in presentation. planning for discharge friday 03/30, when section 12b expires. student counseling at [facility] has been informed of the discharge plan by KELLY Agudelo. 04/29: No changes 04/30: refusing meds. frankly psychotic/manic today. disorganized thoughts, hyper-hindu, labile, delusional, no sleep. accusing staff of witchcraft and trying to turn him into a woman. filed for commitment. kicked an exit door, prompting security to be called. 05/01: kicked exit doors again overnight, send me to senior living or just shoot me. talking about hospital food being poisoned. i only account to [employer]. you are continuing your evil plans. refusing medications. refused to meet with doughnut batter mixer today. Reason for continued inpatient stay Substantial Risk for: harm to self, harm to others and inability to function Time Spent With Patient Time: Total time managing care of this patient today _25___ minutes.
[2024-05-01 20:00] VITALS: RESP 17
--- NOTE | 2024-05-01 20:50 | PC.NURSE ---
safety check change-patient wandering into female patient rooms. when re directed, turned and then was standing in front of the [place] exit demanding discharge. placed on CO status when in milieu, 15 minute checks when in his room.
--- NOTE | 2024-05-01 20:53 | PC.NURSE ---
patient was verbally informed of safety check plan. requires reinforcement.
--- NOTE | 2024-05-02 11:24 | P.PNPSI_ITS ---
Subjective Subjective Date of Service: 05/02/24 Reason For Visit: stalking behaviors Subjective Notes: Section 7 Interim History: Pt continues to decline medications. He was in bed, would not wake up after his account underwriter turned on light, called his name several times. He did same with RN. not participating in any conversation with staff today. Diagnostics Vital Signs (24Hr): Vital Signs - 24 hr 05/01/24 20:00 Respiratory Rate 17 BMI result Body Mass Index 24.1 Labs 04/23/24 13:06 04/23/24 13:06 Medications Medications Current Medications Acetaminophen (Acetaminophen 325 Mg Tablet) 650 mg PO Q6H PRN PRN Reason: Headache/Pain Mild Scale (1-3) Al Hydroxide/Mg Hydroxide (Magnesium Hydrox/Alum Hydrox 30 Ml Oral.Susp) 30 ml PO Q6H PRN PRN Reason: Heartburn/Nausea Aripiprazole (Aripiprazole 5 Mg Tablet) 5 mg PO DAILY [facility] Last Admin: 05/02/24 09:11 Dose: Not Given Hydroxyzine HCl (Hydroxyzine Hcl 25 Mg Tablet) 25 mg PO Q6H PRN PRN Reason: Anxiety Magnesium Hydroxide (Milk Of Magnesia 30 Ml Oral.Susp) 30 ml PO DAILY PRN PRN Reason: Constipation Olanzapine (Olanzapine Odt 10 Mg Tab.Rapdis) 10 mg TRANSLINGU Q4H PRN PRN Reason: agitation Trazodone HCl (Trazodone Hcl 50 Mg Tablet) 50 mg PO BEDTIME MRX1 PRN PRN Reason: Insomnia Allergies Allergies Allergy/AdvReac Type Severity Reaction Status Date / Time No Known Allergies Allergy Verified 04/23/24 13:03 Assessment & Plan Assessment & Plan (1) Natasha: Status: Acute Code(s): F30.9 - Manic episode, unspecified Plan 04/25: contain, observe, educate. collect collateral info. 04/26: warrant has been issued for pt's arrest. 12b up tuesday. planning to discharge tuesday unless situation changes. prescribed abilify 5 mg daily, which pt is refusing. 04/27: refusing meds. no change in presentation. planning for discharge friday 03/30, when section 12b expires. student counseling at [facility] has been informed of the discharge plan by KELLY Agudelo. 04/29: No changes 04/30: refusing meds. frankly psychotic/manic today. disorganized thoughts, hyper-spiritism, labile, delusional, no sleep. accusing staff of witchcraft and trying to turn him into a woman. filed for commitment. kicked an exit door, prompting security to be called. 05/01: kicked exit doors again overnight, send me to half-way or just shoot me. talking about hospital food being poisoned. i only account to [facility]. you are continuing your evil plans. refusing medications. refused to meet with operations technician today. 05/02 continue tx. Reason for continued inpatient stay Substantial Risk for: harm to others and inability to function Time Spent With Patient Time: Total time managing care of this patient today ____ minutes.
[2024-05-02 20:00] VITALS: RESP 16
[2024-05-03] MEDS: LORazepam 2 MG/ML VIAL IM (14:38)
[2024-05-03] MEDS: diphenhydrAMINE HCL 50 MG/ML VIAL IM (14:38)
[2024-05-03] MEDS: Haloperidol Lactate 5 MG/ML VIAL 10 MG IM (14:38)
--- NOTE | 2024-05-03 15:09 | HO.PSYEVENT ---
Event Note Date of Service: 05/03/24 Psych Restraint Event Note: 1428 pt attempted to elope and was physically restrained. he was put in restraint chair and given chemical restraints. MD saw pt around 1450 and pt was conversant and appeared adequately comfortable in restraint chair; some pt able top wiggle/move all extremities. he was saying he [place] return to the [place] . pt refusing VS, per staff. Time Spent With Patient Time: Total time managing care of this patient today ____ minutes.
--- NOTE | 2024-05-03 15:12 | HO.PSYCHPN ---
Subjective Subjective Date of Service: 05/03/24 Reason For Visit: stalking behaviors Interim History: agitated throughout the day, pressing on exit doors repeatedly throughout unit. perseverative on his desire to leave the hospital. accusing MD of wanting to kill him, of trying to make him suicide. telling staff to kill him, saying staff could poison him easily if they wanted. 1430 or so attempted elopement required restraint, medications given. per staff, on CO while in milieu due to having been wandering into female peers' rooms 2 nights ago, as well as exit-seeking (kicking doors as well). per staff, refusing meds and VS. no singing yesterday. spent most of day in room. Mental Status Exam Mental Status Exam Narrative: adequately dressed and groomed. not cooperative. PMA of loud, rapid speech. speech incr rate, amount, loudness, decr latency. thoughts perseverative, accusing staff of wanting him , asking to be killed. affect hyper-intense, labile. mood not assessed. no SI/HI/AVH expressed. Diagnostics Vital Signs (24Hr): Vital Signs - 24 hr 05/02/24 20:00 Respiratory Rate 16 BMI result Body Mass Index 24.1 Labs 04/23/24 13:06 04/23/24 13:06 Medications Medications Current Medications Acetaminophen (Acetaminophen 325 Mg Tablet) 650 mg PO Q6H PRN PRN Reason: Headache/Pain Mild Scale (1-3) Al Hydroxide/Mg Hydroxide (Magnesium Hydrox/Alum Hydrox 30 Ml Oral.Susp) 30 ml PO Q6H PRN PRN Reason: Heartburn/Nausea Aripiprazole (Aripiprazole 5 Mg Tablet) 5 mg PO DAILY [facility] Last Admin: 05/03/24 08:49 Dose: Not Given Hydroxyzine HCl (Hydroxyzine Hcl 25 Mg Tablet) 25 mg PO Q6H PRN PRN Reason: Anxiety Magnesium Hydroxide (Milk Of Magnesia 30 Ml Oral.Susp) 30 ml PO DAILY PRN PRN Reason: Constipation Olanzapine (Olanzapine Odt 10 Mg Tab.Rapdis) 10 mg TRANSLINGU Q4H PRN PRN Reason: agitation Trazodone HCl (Trazodone Hcl 50 Mg Tablet) 50 mg PO BEDTIME MRX1 PRN PRN Reason: Insomnia Allergies Allergies Allergy/AdvReac Type Severity Reaction Status Date / Time No Known Allergies Allergy Verified 04/23/24 13:03 Assessment & Plan Assessment & Plan (1) Natasha: Status: Acute Code(s): F30.9 - Manic episode, unspecified Plan 04/25: contain, observe, educate. collect collateral info. 04/26: warrant has been issued for pt's arrest. 12b up tuesday. planning to discharge tuesday unless situation changes. prescribed abilify 5 mg daily, which pt is refusing. 04/27: refusing meds. no change in presentation. planning for discharge friday 03/30, when section 12b expires. student counseling at [facility] has been informed of the discharge plan by KELLY Agudelo. 04/29: No changes 04/30: refusing meds. frankly psychotic/manic today. disorganized thoughts, hyper-zoroastrian, labile, delusional, no sleep. accusing staff of witchcraft and trying to turn him into a woman. filed for commitment. kicked an exit door, prompting security to be called. 05/01: kicked exit doors again overnight, send me to retirement or just shoot me. talking about hospital food being poisoned. i only account to [employer]. you are continuing your evil plans. refusing medications. refused to meet with federal air marshal today. 05/02 continue tx. 05/03: loud, labile, exit-seeking. required med/phys restraint x 1 due to elopement attempt. demanding discharge. refusing meds. continue to offer meds. hearing scheduled for tuesday. Reason for continued inpatient stay Substantial Risk for: harm to self, harm to others and inability to function Time Spent With Patient Time: Total time managing care of this patient today __45__ minutes.
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
[2024-05-03 20:00] VITALS: RESP 16
[2024-05-04 09:49] VITALS: RESP 16
--- NOTE | 2024-05-04 14:30 | P.PNPSI_ITS ---
Subjective Subjective Date of Service: 05/04/24 Reason For Visit: stalking behaviors Interim History: observed interacting with staff attempting to access numbers from his phone. calm, cooperative. attempted interview pt was asleep. it was felt to be more therapeutic to allow pt to sleep than to rouse for interview. per staff, denies Sx. agitated, aggressive. attempted elopement, restraint incident. Mental Status Exam Mental Status Exam Narrative: adequately dressed and groomed. cooperative. no PMA/PMR. speech not observed. affect normo-intense, non-labile. mood not assessed. no SI/SIBI/HI/AVH expressed. Diagnostics Vital Signs (24Hr): Vital Signs - 24 hr 05/03/24 20:00 05/04/24 09:49 Respiratory Rate 16 16 BMI result Body Mass Index 24.1 Labs 04/23/24 13:06 04/23/24 13:06 Medications Medications Current Medications Acetaminophen (Acetaminophen 325 Mg Tablet) 650 mg PO Q6H PRN PRN Reason: Headache/Pain Mild Scale (1-3) Al Hydroxide/Mg Hydroxide (Magnesium Hydrox/Alum Hydrox 30 Ml Oral.Susp) 30 ml PO Q6H PRN PRN Reason: Heartburn/Nausea Aripiprazole (Aripiprazole 5 Mg Tablet) 5 mg PO DAILY [facility] Last Admin: 05/04/24 09:49 Dose: Not Given Hydroxyzine HCl (Hydroxyzine Hcl 25 Mg Tablet) 25 mg PO Q6H PRN PRN Reason: Anxiety Magnesium Hydroxide (Milk Of Magnesia 30 Ml Oral.Susp) 30 ml PO DAILY PRN PRN Reason: Constipation Olanzapine (Olanzapine Odt 10 Mg Tab.Rapdis) 10 mg TRANSLINGU Q4H PRN PRN Reason: agitation Trazodone HCl (Trazodone Hcl 50 Mg Tablet) 50 mg PO BEDTIME MRX1 PRN PRN Reason: Insomnia Allergies Allergies Allergy/AdvReac Type Severity Reaction Status Date / Time No Known Allergies Allergy Verified 04/23/24 13:03 Assessment & Plan Assessment & Plan (1) Natasha: Status: Acute Code(s): F30.9 - Manic episode, unspecified Plan 04/25: contain, observe, educate. collect collateral info. 04/26: warrant has been issued for pt's arrest. 12b up tuesday. planning to discharge tuesday unless situation changes. prescribed abilify 5 mg daily, which pt is refusing. 04/27: refusing meds. no change in presentation. planning for discharge friday 03/30, when section 12b expires. student counseling at [facility] has been informed of the discharge plan by KELLY Agudelo. 04/29: No changes 04/30: refusing meds. frankly psychotic/manic today. disorganized thoughts, hyper-confucianism, labile, delusional, no sleep. accusing staff of witchcraft and trying to turn him into a woman. filed for commitment. kicked an exit door, prompting security to be called. 05/01: kicked exit doors again overnight, send me to nursing home or just shoot me. talking about hospital food being poisoned. i only account to [employer]. you are continuing your evil plans. refusing medications. refused to meet with cytotechnologist/histotechnologist today. 05/02 continue tx. 05/03: loud, labile, exit-seeking. required med/phys restraint x 1 due to elopement attempt. demanding discharge. refusing meds. continue to offer meds. hearing scheduled for tuesday. 05/04: calm, trying to get into phone to get numbers. declining same numbers from KELLY Agudelo. sleeping in afternoon. slept most of evening and all NOC last night. Reason for continued inpatient stay Substantial Risk for: harm to self, harm to others and inability to function Time Spent With Patient Time: Total time managing care of this patient today ____ minutes.
[2024-05-04 20:10] VITALS: RESP 18
--- NOTE | 2024-05-05 09:52 | HO.PSYCHPN ---
Subjective Subjective Date of Service: 05/05/24 Reason For Visit: stalking behaviors Subjective Notes: Section 7 Interim History: Pt up all night signing confucianist songs. He kept several pts up. He had signs of Jehovah, following Jehovah and being aware of false prophets. He reports he believes he is the donaldiah' He reports hearing voices of Yves telling him that he has to preach to the world for salvation. He reports girl he was looking for in the community he was looking for her to preach to her. He is sure he felt the same way and was looking for him but evil forces preventing him from doing so. He denies SI/HI. He declines medications, he does not think he has a mental illness, even after explaining that symptoms he is presenting with are signs of this. Review of Systems Review of Systems Unremarkable Yes Unobtainable due to mental status Mental Status Exam Mental Status Exam Narrative: adequately dressed and groomed. cooperative. no PMA/PMR. speech not observed. affect normo-intense, non-labile. mood not assessed. no SI/SIBI/HI/AVH expressed. Diagnostics Vital Signs (24Hr): Vital Signs - 24 hr 05/04/24 20:10 Respiratory Rate 18 BMI result Body Mass Index 24.1 Labs 04/23/24 13:06 04/23/24 13:06 Medications Medications Current Medications Acetaminophen (Acetaminophen 325 Mg Tablet) 650 mg PO Q6H PRN PRN Reason: Headache/Pain Mild Scale (1-3) Al Hydroxide/Mg Hydroxide (Magnesium Hydrox/Alum Hydrox 30 Ml Oral.Susp) 30 ml PO Q6H PRN PRN Reason: Heartburn/Nausea Aripiprazole (Aripiprazole 5 Mg Tablet) 5 mg PO DAILY [facility] Last Admin: 05/05/24 09:23 Dose: Not Given Hydroxyzine HCl (Hydroxyzine Hcl 25 Mg Tablet) 25 mg PO Q6H PRN PRN Reason: Anxiety Magnesium Hydroxide (Milk Of Magnesia 30 Ml Oral.Susp) 30 ml PO DAILY PRN PRN Reason: Constipation Olanzapine (Olanzapine Odt 10 Mg Tab.Rapdis) 10 mg TRANSLINGU Q4H PRN PRN Reason: agitation Trazodone HCl (Trazodone Hcl 50 Mg Tablet) 50 mg PO BEDTIME MRX1 PRN PRN Reason: Insomnia Allergies Allergies Allergy/AdvReac Type Severity Reaction Status Date / Time No Known Allergies Allergy Verified 04/23/24 13:03 Assessment & Plan Assessment & Plan (1) Bipolar disorder with psychotic features: Status: Acute Code(s): F31.9 - Bipolar disorder, unspecified Plan 04/25: contain, observe, educate. collect collateral info. 04/26: warrant has been issued for pt's arrest. 12b up tuesday. planning to discharge tuesday unless situation changes. prescribed abilify 5 mg daily, which pt is refusing. 04/27: refusing meds. no change in presentation. planning for discharge friday 03/30, when section 12b expires. student counseling at [facility] has been informed of the discharge plan by KELLY Agudelo. 04/29: No changes 04/30: refusing meds. frankly psychotic/manic today. disorganized thoughts, hyper-confucianist, labile, delusional, no sleep. accusing staff of witchcraft and trying to turn him into a woman. filed for commitment. kicked an exit door, prompting security to be called. 05/01: kicked exit doors again overnight, send me to penitentiary or just shoot me. talking about hospital food being poisoned. i only account to [employer]. you are continuing your evil plans. refusing medications. refused to meet with mechanical designer today. 05/02 continue tx. 05/03: loud, labile, exit-seeking. required med/phys restraint x 1 due to elopement attempt. demanding discharge. refusing meds. continue to offer meds. hearing scheduled for tuesday. 05/04: calm, trying to get into phone to get numbers. declining same numbers from KELLY Agudelo. sleeping in afternoon. slept most of evening and all NOC last night. 05/05 continue tx. pt declines medications. Reason for continued inpatient stay Substantial Risk for: harm to others and inability to function Time Spent With Patient Time: Total time managing care of this patient today ____ minutes.
[2024-05-05 20:12] VITALS: RESP 16
--- NOTE | 2024-05-06 11:49 | HO.PSYCHPN ---
Subjective Subjective Date of Service: 05/06/24 Reason For Visit: stalking behaviors Subjective Notes: Section 7 Interim History: Pt slept about few hrs, then up singing holiness songs again.He reports he believes he is the mackenzie' He reports hearing voices of Yves telling him that he has to preach to the world for salvation. He reports girl he was looking for in the community he was looking for her to preach to her. He is sure he felt the same way and was looking for him but evil forces preventing him from doing so. He denies SI/HI. He declines medications, he does not think he has a mental illness, even after explaining that symptoms he is presenting with are signs of this. Explained to pt upcoming court hearing- to determine if he is safe to discharge without psychiatric treatment. Review of Systems Review of Systems Unremarkable Yes Unobtainable due to mental status Mental Status Exam Mental Status Exam Narrative: adequately dressed and groomed. cooperative. no PMA/PMR. speech not observed. affect normo-intense, non-labile. mood not assessed. no SI/SIBI/HI/AVH expressed. Diagnostics Vital Signs (24Hr): Vital Signs - 24 hr 05/05/24 20:12 Respiratory Rate 16 BMI result Body Mass Index 24.1 Labs 04/23/24 13:06 04/23/24 13:06 Medications Medications Current Medications Acetaminophen (Acetaminophen 325 Mg Tablet) 650 mg PO Q6H PRN PRN Reason: Headache/Pain Mild Scale (1-3) Al Hydroxide/Mg Hydroxide (Magnesium Hydrox/Alum Hydrox 30 Ml Oral.Susp) 30 ml PO Q6H PRN PRN Reason: Heartburn/Nausea Aripiprazole (Aripiprazole 5 Mg Tablet) 5 mg PO DAILY [facility] Last Admin: 05/06/24 08:49 Dose: Not Given Hydroxyzine HCl (Hydroxyzine Hcl 25 Mg Tablet) 25 mg PO Q6H PRN PRN Reason: Anxiety Magnesium Hydroxide (Milk Of Magnesia 30 Ml Oral.Susp) 30 ml PO DAILY PRN PRN Reason: Constipation Olanzapine (Olanzapine Odt 10 Mg Tab.Rapdis) 10 mg TRANSLINGU Q4H PRN PRN Reason: agitation Trazodone HCl (Trazodone Hcl 50 Mg Tablet) 50 mg PO BEDTIME MRX1 PRN PRN Reason: Insomnia Allergies Allergies Allergy/AdvReac Type Severity Reaction Status Date / Time No Known Allergies Allergy Verified 04/23/24 13:03 Assessment & Plan Assessment & Plan (1) Bipolar disorder with psychotic features: Status: Acute Code(s): F31.9 - Bipolar disorder, unspecified Plan 04/25: contain, observe, educate. collect collateral info. 04/26: warrant has been issued for pt's arrest. 12b up tuesday. planning to discharge tuesday unless situation changes. prescribed abilify 5 mg daily, which pt is refusing. 04/27: refusing meds. no change in presentation. planning for discharge friday 03/30, when section 12b expires. student counseling at [facility] has been informed of the discharge plan by KELLY Agudelo. 04/29: No changes 04/30: refusing meds. frankly psychotic/manic today. disorganized thoughts, hyper-holiness, labile, delusional, no sleep. accusing staff of witchcraft and trying to turn him into a woman. filed for commitment. kicked an exit door, prompting security to be called. 05/01: kicked exit doors again overnight, send me to care home or just shoot me. talking about hospital food being poisoned. i only account to [employer]. you are continuing your evil plans. refusing medications. refused to meet with centrifugal machine tender today. 05/02 continue tx. 05/03: loud, labile, exit-seeking. required med/phys restraint x 1 due to elopement attempt. demanding discharge. refusing meds. continue to offer meds. hearing scheduled for tuesday. 05/04: calm, trying to get into phone to get numbers. declining same numbers from KELLY Agudelo. sleeping in afternoon. slept most of evening and all NOC last night. 05/05 continue tx. pt declines medications. 05/[address]. Reason for continued inpatient stay Substantial Risk for: inability to function Time Spent With Patient Time: Total time managing care of this patient today ____ minutes.
[2024-05-06 20:00] VITALS: RESP 14
--- NOTE | 2024-05-07 13:49 | HO.PSYCHPN ---
Subjective Subjective Date of Service: 05/07/24 Reason For Visit: stalking behaviors Interim History: singing loudly in his room all morning. states he does not really wish to speak with MD. MD informed him of hearing this afternoon. some paranoia around the time, as MD noted a time which was unexpected to pt, and pt expressed alarm. pt stated he is feeling afraid today. briefly attended hearing, then left after 10 minutes or so. per staff, elevated affect. hyper-rastafarian. not attending groups. slept 6-7 hours. threatening to take staff member's badge. Mental Status Exam Mental Status Exam Narrative: adequately dressed and groomed. cooperative. energetically singing in his room all morning. speech not observed. affect hyper-intense, non-labile. mood not assessed. no SI/SIBI/HI/AVH expressed. Diagnostics Vital Signs (24Hr): Vital Signs - 24 hr 05/06/24 20:00 Respiratory Rate 14 BMI result Body Mass Index 24.1 Labs 04/23/24 13:06 04/23/24 13:06 Medications Medications Current Medications Acetaminophen (Acetaminophen 325 Mg Tablet) 650 mg PO Q6H PRN PRN Reason: Headache/Pain Mild Scale (1-3) Al Hydroxide/Mg Hydroxide (Magnesium Hydrox/Alum Hydrox 30 Ml Oral.Susp) 30 ml PO Q6H PRN PRN Reason: Heartburn/Nausea Aripiprazole (Aripiprazole 5 Mg Tablet) 5 mg PO DAILY ROSETTE Last Admin: 05/07/24 08:32 Dose: Not Given Hydroxyzine HCl (Hydroxyzine Hcl 25 Mg Tablet) 25 mg PO Q6H PRN PRN Reason: Anxiety Magnesium Hydroxide (Milk Of Magnesia 30 Ml Oral.Susp) 30 ml PO DAILY PRN PRN Reason: Constipation Olanzapine (Olanzapine Odt 10 Mg Tab.Rapdis) 10 mg TRANSLINGU Q4H PRN PRN Reason: agitation Trazodone HCl (Trazodone Hcl 50 Mg Tablet) 50 mg PO BEDTIME MRX1 PRN PRN Reason: Insomnia Allergies Allergies Allergy/AdvReac Type Severity Reaction Status Date / Time No Known Allergies Allergy Verified 04/23/24 13:03 Assessment & Plan Assessment & Plan (1) Bipolar disorder with psychotic features: Status: Acute Code(s): F31.9 - Bipolar disorder, unspecified Plan 04/25: contain, observe, educate. collect collateral info. 04/26: warrant has been issued for pt's arrest. 12b up tuesday. planning to discharge tuesday unless situation changes. prescribed abilify 5 mg daily, which pt is refusing. 04/27: refusing meds. no change in presentation. planning for discharge friday 03/30, when section 12b expires. student counseling at formerly [facility] has been informed of the discharge plan by KELLY Agudelo. 04/29: No changes 04/30: refusing meds. frankly psychotic/manic today. disorganized thoughts, hyper-rastafarian, labile, delusional, no sleep. accusing staff of witchcraft and trying to turn him into a woman. filed for commitment. kicked an exit door, prompting security to be called. 05/01: kicked exit doors again overnight, send me to [facility] or just shoot me. talking about hospital food being poisoned. i only account to hamzah. you are continuing your evil plans. refusing medications. refused to meet with push connector assembler today. 05/02 continue tx. 05/03: loud, labile, exit-seeking. required med/phys restraint x 1 due to elopement attempt. demanding discharge. refusing meds. continue to offer meds. hearing scheduled for tuesday. 05/04: calm, trying to get into phone to get numbers. declining same numbers from KELLY Agudelo. sleeping in afternoon. slept most of evening and all NOC last night. 05/05 continue tx. pt declines medications. 05/[address] hearing. 05/07: no change in presentation. reported he was the [facility] over the weekend and that the voice of hamzah was commanding him to preach. committed, ordered medications. Reason for continued inpatient stay Substantial Risk for: harm to self, harm to others and inability to function Time Spent With Patient Time: Total time managing care of this patient today __170__ minutes.
[2024-05-07 20:00] VITALS: RESP 16
[2024-05-08] MEDS: diazePAM 10 MG/2 ML CARTRIDGE IM (11:59)
[2024-05-08] MEDS: Haloperidol Lactate 5 MG/ML VIAL 10 MG IM (11:59)
[2024-05-08] MEDS: diphenhydrAMINE HCL 50 MG/ML VIAL IM (12:19)
--- NOTE | 2024-05-08 12:26 | HO.EVEPSY_ITS ---
Event Note Date of Service: 05/08/24 Psych Restraint Event Note: pt refusing PO medications as ordered by the court. was given court-ordered medications as well as benadryl 50 mg to minimize any risk of adverse event due to substantial dose of IM haldol. pt seen several minutes after restraint, crying on his bed, working with KELLY Agudelo to phone his father in [facility]. did not appear to be in any physical distress. Time Spent With Patient Time: Total time managing care of this patient today ____ minutes.
--- NOTE | 2024-05-08 14:24 | P.PNPSI_ITS ---
Subjective Subjective Date of Service: 05/08/24 Reason For Visit: stalking behaviors Interim History: refusing medication despite explanation by MD of court order and IM if PO refused. irritable, stand-offish. meds given IM by staff psychologist as pt refused PO dosing. pt disconsolate after medical service technician. appears to have fallen asleep after (received haldol 10, benadryl 50, valium 10). Mental Status Exam Mental Status Exam Narrative: adequately dressed and groomed. not cooperative. PMA of yelling, crying. speech incr rate, amount, loudness, decr latency. thoughts superficially organized but with paranoid delusions, accusing staff of trying to turn him into a woman. affect hyper-intense, labile. mood not assessed. no SI/SIBI/HI/AVH expressed. Diagnostics Vital Signs (24Hr): Vital Signs - 24 hr 05/07/24 20:00 Respiratory Rate 16 BMI result Body Mass Index 24.1 Labs 04/23/24 13:06 04/23/24 13:06 Medications Medications Current Medications Acetaminophen (Acetaminophen 325 Mg Tablet) 650 mg PO Q6H PRN PRN Reason: Headache/Pain Mild Scale (1-3) Al Hydroxide/Mg Hydroxide (Magnesium Hydrox/Alum Hydrox 30 Ml Oral.Susp) 30 ml PO Q6H PRN PRN Reason: Heartburn/Nausea Diazepam (Diazepam 10 Mg/2 Ml Cartridge) 10 mg IM DAILY PRN PRN Reason: refusal of PO paliperidone Last Admin: 05/08/24 11:59 Dose: 10 mg Haloperidol Lactate (Haloperidol Lactate 5 Mg/Ml Vial) 10 mg IM DAILY PRN PRN Reason: refusal of PO paliperidone Last Admin: 05/08/24 11:59 Dose: 10 mg Hydroxyzine HCl (Hydroxyzine Hcl 25 Mg Tablet) 25 mg PO Q6H PRN PRN Reason: Anxiety [place] Carbonate ([place] Carbonate Er 300 Mg Tablet.Er) 600 mg PO BID ROSETTE Magnesium Hydroxide (Milk Of Magnesia 30 Ml Oral.Susp) 30 ml PO DAILY PRN PRN Reason: Constipation Olanzapine (Olanzapine Odt 10 Mg Tab.Rapdis) 10 mg TRANSLINGU Q4H PRN PRN Reason: agitation Paliperidone (Paliperidone Er 3 Mg Tab.Er.24) 3 mg PO DAILY ROSETTE Last Admin: 05/08/24 12:18 Dose: Not Given Trazodone HCl (Trazodone Hcl 50 Mg Tablet) 50 mg PO BEDTIME MRX1 PRN PRN Reason: Insomnia Allergies Allergies Allergy/AdvReac Type Severity Reaction Status Date / Time No Known Allergies Allergy Verified 04/23/24 13:03 Assessment & Plan Assessment & Plan (1) Bipolar disorder with psychotic features: Status: Acute Code(s): F31.9 - Bipolar disorder, unspecified Plan 04/25: contain, observe, educate. collect collateral info. 04/26: warrant has been issued for pt's arrest. 12b up tuesday. planning to discharge tuesday unless situation changes. prescribed abilify 5 mg daily, which pt is refusing. 04/27: refusing meds. no change in presentation. planning for discharge friday 03/30, when section 12b expires. student counseling at [facility] has been informed of the discharge plan by KELLY Agudelo. 04/29: No changes 04/30: refusing meds. frankly psychotic/manic today. disorganized thoughts, hyper-temple, labile, delusional, no sleep. accusing staff of witchcraft and trying to turn him into a woman. filed for commitment. kicked an exit door, prompting security to be called. 05/01: kicked exit doors again overnight, send me to custodial or just shoot me. talking about hospital food being poisoned. i only account to hamzah. you are continuing your evil plans. refusing medications. refused to meet with school transportation director today. 05/02 continue tx. 05/03: loud, labile, exit-seeking. required med/phys restraint x 1 due to elopement attempt. demanding discharge. refusing meds. continue to offer meds. hearing scheduled for tuesday. 05/04: calm, trying to get into phone to get numbers. declining same numbers from KELLY Agudelo. sleeping in afternoon. slept most of evening and all NOC last night. 05/05 continue tx. pt declines medications. 05/[address] hearing. 05/07: no change in presentation. 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 committed, ordered medications. 05/08: received IM meds as refused PO. believes we are trying to turn him into a woman. Reason for continued inpatient stay Substantial Risk for: harm to self, harm to others and inability to function Time Spent With Patient Time: Total time managing care of this patient today _35___ minutes.
--- NOTE | 2024-05-08 14:29 | PC.NURSE ---
RN approached pt with court-ordered PO Invega. Security was present. Pt was given the option to take medication by mouth or by injection. Pt stated I don't want to take any medication. RN administered Haldol 10mg IM and Valium 10mg IM per Jonas's order. Pt accepted injections without any issue. Pt also received one time order for Benadryl 50mg IM to minimize any risk of adverse event due to substantial dose of IM Haldol. Attempted to assess pt's vitals but pt refused. Pt spent majority of shift napping in room.
[2024-05-08 20:00] VITALS: RESP 16; TEMP 36.6
[2024-05-09] MEDS: Paliperidone ER 3 MG TAB.ER.24 PO (09:21)
[2024-05-09] MEDS: diphenhydrAMINE HCL 25 MG CAPSULE 50 MG PO (14:45)
[2024-05-09] MEDS: Benztropine Mesylate 1 MG TABLET PO (14:45)
[2024-05-09] MEDS: LORazepam 1 MG TABLET 2 MG PO (14:45)
--- NOTE | 2024-05-09 15:00 | HO.PSYCHPN ---
Subjective Subjective Date of Service: 05/09/24 Reason For Visit: stalking behaviors Interim History: more calm, asking to leave the hospital and return to [facility]. no signing or sikh talk today. later in afternoon appeared to have dystonic rxn of trapezius or levator scapulae perhaps. agreeable to take ativan, benadryl, and cogentin PO. informed paliperidone would be discontinued and lithium only would be given for now. per staff, withdrawn, labile. attended 1 group yesterday. slept most of the day after getting IM medications, then slept through the night. took PO invega this morning. refused lithium last night. Mental Status Exam Mental Status Exam Narrative: adequately dressed and groomed. cooperative. no PMA/PMR. speech incr rate. nml amount. nml loudness, decr latency. thoughts linear and questionably logical. affect hyper-intense, non-labile, constricted. mood not assessed. no SI/SIBI/HI/AVH expressed. Diagnostics Vital Signs (24Hr): Vital Signs - 24 hr 05/08/24 20:00 Temperature 97.8 F Respiratory Rate 16 BMI result Body Mass Index 24.1 Labs 04/23/24 13:06 04/23/24 13:06 Medications Medications Current Medications Acetaminophen (Acetaminophen 325 Mg Tablet) 650 mg PO Q6H PRN PRN Reason: Headache/Pain Mild Scale (1-3) Al Hydroxide/Mg Hydroxide (Magnesium Hydrox/Alum Hydrox 30 Ml Oral.Susp) 30 ml PO Q6H PRN PRN Reason: Heartburn/Nausea Diazepam (Diazepam 10 Mg/2 Ml Cartridge) 10 mg IM BID PRN PRN Reason: refusal of lithium Haloperidol Lactate (Haloperidol Lactate 5 Mg/Ml Vial) 5 mg IM DAILY PRN PRN Reason: refusal of PO paliperidone Hydroxyzine HCl (Hydroxyzine Hcl 25 Mg Tablet) 25 mg PO Q6H PRN PRN Reason: Anxiety [place] Carbonate ([place] Carbonate Er 300 Mg Tablet.Er) 600 mg PO BID ROSETTE Last Admin: 05/09/24 09:24 Dose: Not Given Magnesium Hydroxide (Milk Of Magnesia 30 Ml Oral.Susp) 30 ml PO DAILY PRN PRN Reason: Constipation Olanzapine (Olanzapine Odt 10 Mg Tab.Rapdis) 10 mg TRANSLINGU Q4H PRN PRN Reason: agitation Trazodone HCl (Trazodone Hcl 50 Mg Tablet) 50 mg PO BEDTIME MRX1 PRN PRN Reason: Insomnia Allergies Allergies Allergy/AdvReac Type Severity Reaction Status Date / Time No Known Allergies Allergy Verified 04/23/24 13:03 Assessment & Plan Assessment & Plan (1) Bipolar disorder with psychotic features: Status: Acute Code(s): F31.9 - Bipolar disorder, unspecified Plan 04/25: contain, observe, educate. collect collateral info. 04/26: warrant has been issued for pt's arrest. 12b up tuesday. planning to discharge tuesday unless situation changes. prescribed abilify 5 mg daily, which pt is refusing. 04/27: refusing meds. no change in presentation. planning for discharge friday 03/30, when section 12b expires. student counseling at [facility] has been informed of the discharge plan by KELLY Agudelo. 04/29: No changes 04/30: refusing meds. frankly psychotic/manic today. disorganized thoughts, hyper-sikh, labile, delusional, no sleep. accusing staff of witchcraft and trying to turn him into a woman. filed for commitment. kicked an exit door, prompting security to be called. 05/01: kicked exit doors again overnight, send me to longterm or just shoot me. talking about hospital food being poisoned. i only account to hamzah. you are continuing your evil plans. refusing medications. refused to meet with solar energy sales specialist today. 05/02 continue tx. 05/03: loud, labile, exit-seeking. required med/phys restraint x 1 due to elopement attempt. demanding discharge. refusing meds. continue to offer meds. hearing scheduled for tuesday. 05/04: calm, trying to get into phone to get numbers. declining same numbers from KELLY Agudelo. sleeping in afternoon. slept most of evening and all NOC last night. 05/05 continue tx. pt declines medications. 05/[address] hearing. 05/07: no change in presentation. 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 committed, ordered medications. 05/08: received IM meds as refused PO. believes we are trying to turn him into a woman. 05/09: asking to leave, saying he does not want meds. took PO invega this morning. dystonia this afternoon, invega DCed. took PO ativan, benadryl, cogentin. will attempt with lithium only for the time being, backed up by valium IM. seems less energetic, labile, hyper-sikh today. Reason for continued inpatient stay Substantial Risk for: harm to self, harm to others, inability to function and rapid decompensation Time Spent With Patient Time: Total time managing care of this patient today __35__ minutes.
--- NOTE | 2024-05-09 18:57 | PC.NURSE ---
Po Ativan, Benadryl and cogentin administered per Dr. Sally Pace order for suspected dystonic shoulder
[2024-05-09 20:00] VITALS: RESP 16
[2024-05-09] MEDS: Lithium Carbonate ER 300 MG TABLET.ER 600 MG PO (22:59)
[2024-05-10 07:00] VITALS: BMI 23.4
[2024-05-10 08:00] VITALS: RESP 18
[2024-05-10] MEDS: Lithium Carbonate ER 300 MG TABLET.ER 600 MG PO ×2 (09:43→20:13)
--- NOTE | 2024-05-10 13:38 | P.PNPSI_ITS ---
Subjective Subjective Date of Service: 05/10/24 Reason For Visit: stalking behaviors Interim History: dramatic shivering during early interview which pt attributes to medication. once MD moves on, it does not recur. circular conversation about his desire to leave the hospital and return to [facility]. per staff, irritable, withdrawn. dystonic Rxn. taking meds. believes we are trying to make him transgender. slept 8 hours. Mental Status Exam Mental Status Exam Narrative: adequately dressed and groomed. cooperative. no PMA/PMR. speech incr rate. nml amount. nml loudness, decr latency. thoughts perseverative. affect normo- intense, non-labile, constricted. mood not assessed. no SI/SIBI/HI/AVH expressed. Diagnostics Vital Signs (24Hr): Vital Signs - 24 hr 05/09/24 20:00 05/10/24 08:00 Respiratory Rate 16 18 BMI result Body Mass Index 24.1 Labs 04/23/24 13:06 04/23/24 13:06 Medications Medications Current Medications Acetaminophen (Acetaminophen 325 Mg Tablet) 650 mg PO Q6H PRN PRN Reason: Headache/Pain Mild Scale (1-3) Al Hydroxide/Mg Hydroxide (Magnesium Hydrox/Alum Hydrox 30 Ml Oral.Susp) 30 ml PO Q6H PRN PRN Reason: Heartburn/Nausea Diazepam (Diazepam 10 Mg/2 Ml Cartridge) 10 mg IM BID PRN PRN Reason: refusal of lithium Haloperidol Lactate (Haloperidol Lactate 5 Mg/Ml Vial) 5 mg IM DAILY PRN PRN Reason: refusal of PO paliperidone Hydroxyzine HCl (Hydroxyzine Hcl 25 Mg Tablet) 25 mg PO Q6H PRN PRN Reason: Anxiety [place] Carbonate ([place] Carbonate Er 300 Mg Tablet.Er) 600 mg PO BID RSOETTE Last Admin: 05/10/24 09:43 Dose: 600 mg Magnesium Hydroxide (Milk Of Magnesia 30 Ml Oral.Susp) 30 ml PO DAILY PRN PRN Reason: Constipation Olanzapine (Olanzapine Odt 10 Mg Tab.Rapdis) 10 mg TRANSLINGU Q4H PRN PRN Reason: agitation Trazodone HCl (Trazodone Hcl 50 Mg Tablet) 50 mg PO BEDTIME MRX1 PRN PRN Reason: Insomnia Allergies Allergies Allergy/AdvReac Type Severity Reaction Status Date / Time No Known Allergies Allergy Verified 04/23/24 13:03 Assessment & Plan Assessment & Plan (1) Bipolar disorder with psychotic features: Status: Acute Code(s): F31.9 - Bipolar disorder, unspecified Plan 04/25: contain, observe, educate. collect collateral info. 04/26: warrant has been issued for pt's arrest. 12b up tuesday. planning to discharge tuesday unless situation changes. prescribed abilify 5 mg daily, which pt is refusing. 04/27: refusing meds. no change in presentation. planning for discharge friday 03/30, when section 12b expires. student counseling at [facility] has been informed of the discharge plan by KELLY Agudelo. 04/29: No changes 04/30: refusing meds. frankly psychotic/manic today. disorganized thoughts, hyper-hinduism, labile, delusional, no sleep. accusing staff of witchcraft and trying to turn him into a woman. filed for commitment. kicked an exit door, prompting security to be called. 05/01: kicked exit doors again overnight, send me to retirement or just shoot me. talking about hospital food being poisoned. i only account to hamzah. you are continuing your evil plans. refusing medications. refused to meet with manager of procurement today. 05/02 continue tx. 05/03: loud, labile, exit-seeking. required med/phys restraint x 1 due to elopement attempt. demanding discharge. refusing meds. continue to offer meds. hearing scheduled for tuesday. 05/04: calm, trying to get into phone to get numbers. declining same numbers from KELLY Agudelo. sleeping in afternoon. slept most of evening and all NOC last night. 05/05 continue tx. pt declines medications. 05/[address]. 05/07: no change in presentation. reported he was the [facility] over the weekend and that the voice of hamzah was commanding him to preach. committed, ordered medications. 05/08: received IM meds as refused PO. believes we are trying to turn him into a woman. 05/09: asking to leave, saying he does not want meds. took PO invega this morning. dystonia this afternoon, invega DCed. took PO ativan, benadryl, cogentin. will attempt with lithium only for the time being, backed up by valium IM. seems less energetic, labile, hyper-hinduism today. 05/10: calm, but perseverative about discharge. taking lithium. continue current mgmt. paranoid delusions we are trying to turn him transgendered. remains focused on object of his stalking. Reason for continued inpatient stay Substantial Risk for: harm to self, harm to others and inability to function Time Spent With Patient Time: Total time managing care of this patient today __25__ minutes.
[2024-05-10 20:00] VITALS: RESP 16
[2024-05-11] MEDS: LITHIUM CITRATE 600 MG PO ×2 (09:21→20:17)
--- NOTE | 2024-05-11 13:15 | P.PNPSI_ITS ---
Subjective Subjective Date of Service: 05/11/24 Reason For Visit: stalking behaviors Interim History: hyperverbal, grandiose, hyper-restorationism. signs taped all around his room with restorationism quotes and statements. one extolling the virtue of the object of his stalking. has written out a list of questions/arguments for MD, going through each with MD. requesting discharge. challenging mental illness diagnosis. per staff, guarded. taking meds. singing and chanting. showered. reading bible most of shift. slept well. Mental Status Exam Mental Status Exam Narrative: adequately dressed and groomed. cooperative. no PMA/PMR, but very animated. speech incr rate, amount, loudness, decr latency. thoughts perseverative. affect hyper-intense, min-labile, full range. mood not assessed. no SI/SIBI/HI/AVH expressed. Diagnostics Vital Signs (24Hr): Vital Signs - 24 hr 05/10/24 20:00 Respiratory Rate 16 BMI result Body Mass Index 23.4 Labs 04/23/24 13:06 04/23/24 13:06 Medications Medications Current Medications Acetaminophen (Acetaminophen 325 Mg Tablet) 650 mg PO Q6H PRN PRN Reason: Headache/Pain Mild Scale (1-3) Al Hydroxide/Mg Hydroxide (Magnesium Hydrox/Alum Hydrox 30 Ml Oral.Susp) 30 ml PO Q6H PRN PRN Reason: Heartburn/Nausea Aripiprazole (Aripiprazole 5 Mg Tablet) 5 mg PO DAILY [facility] Diazepam (Diazepam 10 Mg/2 Ml Cartridge) 10 mg IM BID PRN PRN Reason: refusal of lithium Diphenhydramine HCl (Diphenhydramine Hcl 25 Mg Capsule) 50 mg PO DAILY [facility] Fluphenazine HCl (Fluphenazine Hcl 2.5 Mg/Ml 10 Ml Vial) 1.25 mg IM DAILY PRN PRN Reason: refusal of PO abilify Hydroxyzine HCl (Hydroxyzine Hcl 25 Mg Tablet) 25 mg PO Q6H PRN PRN Reason: Anxiety [place] Citrate ([place] Citrate Oral [place] 8 Meq (300 Mg)/5 Ml) 600 mg PO BID [facility] Last Admin: 05/11/24 09:21 Dose: 600 mg Magnesium Hydroxide (Milk Of Magnesia 30 Ml Oral.Susp) 30 ml PO DAILY PRN PRN Reason: Constipation Olanzapine (Olanzapine Odt 10 Mg Tab.Rapdis) 10 mg TRANSLINGU Q4H PRN PRN Reason: agitation Trazodone HCl (Trazodone Hcl 50 Mg Tablet) 50 mg PO BEDTIME MRX1 PRN PRN Reason: Insomnia Allergies Allergies Allergy/AdvReac Type Severity Reaction Status Date / Time No Known Allergies Allergy Verified 04/23/24 13:03 Assessment & Plan Assessment & Plan (1) Bipolar disorder with psychotic features: Status: Acute Code(s): F31.9 - Bipolar disorder, unspecified Plan 04/25: contain, observe, educate. collect collateral info. 04/26: warrant has been issued for pt's arrest. 12b up tuesday. planning to discharge tuesday unless situation changes. prescribed abilify 5 mg daily, which pt is refusing. 04/27: refusing meds. no change in presentation. planning for discharge friday 03/30, when section 12b expires. student counseling at [facility] has been informed of the discharge plan by KELLY Agudelo. 04/29: No changes 04/30: refusing meds. frankly psychotic/manic today. disorganized thoughts, hyper-restorationism, labile, delusional, no sleep. accusing staff of witchcraft and trying to turn him into a woman. filed for commitment. kicked an exit door, prompting security to be called. 05/01: kicked exit doors again overnight, send me to long term or just shoot me. talking about hospital food being poisoned. i only account to hamzah. you are continuing your evil plans. refusing medications. refused to meet with mechanical apprentice today. 05/02 continue tx. 05/03: loud, labile, exit-seeking. required med/phys restraint x 1 due to elopement attempt. demanding discharge. refusing meds. continue to offer meds. hearing scheduled for tuesday. 05/04: calm, trying to get into phone to get numbers. declining same numbers from KELLY Agudelo. sleeping in afternoon. slept most of evening and all NOC last night. 05/05 continue tx. pt declines medications. 05/[address]. 05/07: no change in presentation. 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 committed, ordered medications. 05/08: received IM meds as refused PO. believes we are trying to turn him into a woman. 05/09: asking to leave, saying he does not want meds. took PO invega this morning. dystonia this afternoon, invega DCed. took PO ativan, benadryl, cogentin. will attempt with lithium only for the time being, backed up by valium IM. seems less energetic, labile, hyper-restorationism today. 05/10: calm, but perseverative about discharge. taking lithium. continue current mgmt. paranoid delusions we are trying to turn him transgendered. remains focused on object of his stalking. 05/11: much more manic Sx today. re-trial of anti-psychotics. start with low- dose abilify with fluphenazine back-up. lithium switched to liquid formulation today. on 30 min CO after meds. Reason for continued inpatient stay Substantial Risk for: harm to self, harm to others and inability to function Time Spent With Patient Time: Total time managing care of this patient today __35__ minutes.
[2024-05-11] MEDS: diazePAM 10 MG/2 ML CARTRIDGE IM (14:05)
[2024-05-11] MEDS: fluPHENAZine HCL 2.5 MG/ML 10 ML VIAL 1.25 MG IM (14:05)
--- NOTE | 2024-05-11 14:12 | HO.PSYEVENT ---
Event Note Date of Service: 05/11/24 Psych Restraint Event Note: physical hold for administration of court-ordered medications. objecting with loud voice. Time Spent With Patient Time: Total time managing care of this patient today ____ minutes.
--- NOTE | 2024-05-11 15:29 | PC.NURSE ---
Pt refused oral medications. Per court order contingency medications ordered IM. Pt refused IM meds requiring 1 minute hold by security.
[2024-05-11 19:56] VITALS: RESP 16
--- NOTE | 2024-05-12 09:01 | P.PNPSI_ITS ---
Subjective Subjective Date of Service: 05/12/24 Reason For Visit: stalking behaviors Subjective Notes: Section 8 Interim History: Patient was seen and discussed in rounds today. Records and plans were reviewed. He continues to be isolative, mostly in his room. We denies any psych symptoms and was asking to be discharged. He is an elopement risk and is fresh air privileges were held today. Continues to be religiously preoccupied. Eating and sleeping adequately. No changes were made today Review of Systems Review of Systems Yes all other systems are reviewed and are negative Mental Status Exam Mental Status Exam Narrative: In today's visit he is alert, mostly cooperative. Speech is slightly pressured. Little eye contact. Affect is appropriate and intense. Religiously preoccupied. Denies AVH. No dangerous behaviors. No active SI. Cognitively is preoccupied. Judgment is marginal. Diagnostics Vital Signs (24Hr): Vital Signs - 24 hr 05/11/24 19:56 Respiratory Rate 16 BMI result Body Mass Index 23.4 Labs 04/23/24 13:06 04/23/24 13:06 Medications Medications Current Medications Acetaminophen (Acetaminophen 325 Mg Tablet) 650 mg PO Q6H PRN PRN Reason: Headache/Pain Mild Scale (1-3) Al Hydroxide/Mg Hydroxide (Magnesium Hydrox/Alum Hydrox 30 Ml Oral.Susp) 30 ml PO Q6H PRN PRN Reason: Heartburn/Nausea Aripiprazole (Aripiprazole 5 Mg Tablet) 5 mg PO DAILY [facility] Last Admin: 05/11/24 13:44 Dose: Not Given Diazepam (Diazepam 10 Mg/2 Ml Cartridge) 10 mg IM BID PRN PRN Reason: refusal of lithium or abilify Last Admin: 05/11/24 14:05 Dose: 10 mg Diphenhydramine HCl (Diphenhydramine Hcl 25 Mg Capsule) 50 mg PO DAILY [facility] Last Admin: 05/11/24 13:45 Dose: Not Given Fluphenazine HCl (Fluphenazine Hcl 2.5 Mg/Ml 10 Ml Vial) 1.25 mg IM DAILY PRN PRN Reason: refusal of PO abilify Last Admin: 05/11/24 14:05 Dose: 1.25 mg Hydroxyzine HCl (Hydroxyzine Hcl 25 Mg Tablet) 25 mg PO Q6H PRN PRN Reason: Anxiety [place] Citrate ([place] Citrate Oral Tierney 8 Meq (300 Mg)/5 Ml) 600 mg PO BID [facility] Last Admin: 05/11/24 20:17 Dose: 600 mg Magnesium Hydroxide (Milk Of Magnesia 30 Ml Oral.Susp) 30 ml PO DAILY PRN PRN Reason: Constipation Olanzapine (Olanzapine Odt 10 Mg Tab.Rapdis) 10 mg TRANSLINGU Q4H PRN PRN Reason: agitation Trazodone HCl (Trazodone Hcl 50 Mg Tablet) 50 mg PO BEDTIME MRX1 PRN PRN Reason: Insomnia Allergies Allergies Allergy/AdvReac Type Severity Reaction Status Date / Time No Known Allergies Allergy Verified 04/23/24 13:03 Assessment & Plan Assessment & Plan (1) Bipolar disorder with psychotic features: Status: Acute Code(s): F31.9 - Bipolar disorder, unspecified Plan 04/25: contain, observe, educate. collect collateral info. 04/26: warrant has been issued for pt's arrest. 12b up tuesday. planning to discharge tuesday unless situation changes. prescribed abilify 5 mg daily, which pt is refusing. 04/27: refusing meds. no change in presentation. planning for discharge friday 03/30, when section 12b expires. student counseling at [facility] has been informed of the discharge plan by KELLY Agudelo. 04/29: No changes 04/30: refusing meds. frankly psychotic/manic today. disorganized thoughts, hyper-uatsdin, labile, delusional, no sleep. accusing staff of witchcraft and trying to turn him into a woman. filed for commitment. kicked an exit door, prompting security to be called. 05/01: kicked exit doors again overnight, send me to [facility] or just shoot me. talking about hospital food being poisoned. i only account to [employer]. you are continuing your evil plans. refusing medications. refused to meet with automotive engineering teacher today. 05/02 continue tx. 05/03: loud, labile, exit-seeking. required med/phys restraint x 1 due to elopement attempt. demanding discharge. refusing meds. continue to offer meds. hearing scheduled for tuesday. 05/04: calm, trying to get into phone to get numbers. declining same numbers from KELLY Agudelo. sleeping in afternoon. slept most of evening and all NOC last night. 05/05 continue tx. pt declines medications. 05/[address]. 05/07: no change in presentation. 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 committed, ordered medications. 05/08: received IM meds as refused PO. believes we are trying to turn him into a woman. 05/09: asking to leave, saying he does not want meds. took PO invega this morning. dystonia this afternoon, invega DCed. took PO ativan, benadryl, cogentin. will attempt with lithium only for the time being, backed up by valium IM. seems less energetic, labile, hyper-uatsdin today. 05/10: calm, but perseverative about discharge. taking lithium. continue current mgmt. paranoid delusions we are trying to turn him transgendered. remains focused on object of his stalking. 05/11: much more manic Sx today. re-trial of anti-psychotics. start with low- dose abilify with fluphenazine back-up. lithium switched to liquid formulation today. on 30 min CO after meds. 05/12: Continue current regimen and plans Reason for continued inpatient stay Substantial Risk for: med/psych decompensation Time Spent With Patient Time: Total time managing care of this patient today ____ minutes.
[2024-05-12] MEDS: LITHIUM CITRATE 600 MG PO ×2 (09:49→20:08)
[2024-05-12] MEDS: diphenhydrAMINE HCL 25 MG CAPSULE 50 MG PO (09:49)
[2024-05-12] MEDS: ARIPiprazole 5 MG TABLET PO (09:49)
[2024-05-12 20:00] VITALS: RESP 16
[2024-05-13] MEDS: LITHIUM CITRATE 600 MG PO ×2 (09:18→22:56)
[2024-05-13] MEDS: ARIPiprazole 5 MG TABLET PO (09:18)
[2024-05-13] MEDS: diphenhydrAMINE HCL 25 MG CAPSULE 50 MG PO (09:18)
--- NOTE | 2024-05-13 09:40 | P.PNPSI_ITS ---
Subjective Subjective Date of Service: 05/13/24 Reason For Visit: stalking behaviors Subjective Notes: Section 8 Interim History: Patient was seen and discussed in rounds today. Records and plans were reviewed. He is mostly in his room, reading the Bible and is religiously preoccupied. Eating and sleeping well. He denies any side effects and had a lot of questions about why he is being held here against his will and I tried to explain to him but he is not quite able to grasp the situation. No changes were made today. Review of Systems Review of Systems Yes all other systems are reviewed and are negative Mental Status Exam Mental Status Exam Narrative: In today's visit he is alert, mostly cooperative. Speech is slightly pressured. Little eye contact. Affect is appropriate and intense. Religiously preoccupied. Denies AVH. No dangerous behaviors. No active SI. Cognitively is preoccupied. Judgment is marginal. Diagnostics Vital Signs (24Hr): Vital Signs - 24 hr 05/12/24 20:00 Respiratory Rate 16 BMI result Body Mass Index 23.4 Labs 04/23/24 13:06 04/23/24 13:06 Medications Medications Current Medications Acetaminophen (Acetaminophen 325 Mg Tablet) 650 mg PO Q6H PRN PRN Reason: Headache/Pain Mild Scale (1-3) Al Hydroxide/Mg Hydroxide (Magnesium Hydrox/Alum Hydrox 30 Ml Oral.Susp) 30 ml PO Q6H PRN PRN Reason: Heartburn/Nausea Aripiprazole (Aripiprazole 5 Mg Tablet) 5 mg PO DAILY [facility] Last Admin: 05/13/24 09:18 Dose: 5 mg Diazepam (Diazepam 10 Mg/2 Ml Cartridge) 10 mg IM BID PRN PRN Reason: refusal of lithium or abilify Last Admin: 05/11/24 14:05 Dose: 10 mg Diphenhydramine HCl (Diphenhydramine Hcl 25 Mg Capsule) 50 mg PO DAILY [facility] Last Admin: 05/13/24 09:18 Dose: 50 mg Fluphenazine HCl (Fluphenazine Hcl 2.5 Mg/Ml 10 Ml Vial) 1.25 mg IM DAILY PRN PRN Reason: refusal of PO abilify Last Admin: 05/11/24 14:05 Dose: 1.25 mg Hydroxyzine HCl (Hydroxyzine Hcl 25 Mg Tablet) 25 mg PO Q6H PRN PRN Reason: Anxiety [place] Citrate ([place] Citrate Oral Tierney 8 Meq (300 Mg)/5 Ml) 600 mg PO BID [facility] Last Admin: 05/13/24 09:18 Dose: 600 mg Magnesium Hydroxide (Milk Of Magnesia 30 Ml Oral.Susp) 30 ml PO DAILY PRN PRN Reason: Constipation Olanzapine (Olanzapine Odt 10 Mg Tab.Rapdis) 10 mg TRANSLINGU Q4H PRN PRN Reason: agitation Trazodone HCl (Trazodone Hcl 50 Mg Tablet) 50 mg PO BEDTIME MRX1 PRN PRN Reason: Insomnia Allergies Allergies Allergy/AdvReac Type Severity Reaction Status Date / Time No Known Allergies Allergy Verified 04/23/24 13:03 Assessment & Plan Assessment & Plan (1) Bipolar disorder with psychotic features: Status: Acute Code(s): F31.9 - Bipolar disorder, unspecified Plan 04/25: contain, observe, educate. collect collateral info. 04/26: warrant has been issued for pt's arrest. 12b up tuesday. planning to discharge tuesday unless situation changes. prescribed abilify 5 mg daily, which pt is refusing. 04/27: refusing meds. no change in presentation. planning for discharge friday 03/30, when section 12b expires. student counseling at [facility] has been informed of the discharge plan by KELLY Agudelo. 04/29: No changes 04/30: refusing meds. frankly psychotic/manic today. disorganized thoughts, hyper-anabaptist, labile, delusional, no sleep. accusing staff of witchcraft and trying to turn him into a woman. filed for commitment. kicked an exit door, prompting security to be called. 05/01: kicked exit doors again overnight, send me to [facility] or just shoot me. talking about hospital food being poisoned. i only account to [employer]. you are continuing your evil plans. refusing medications. refused to meet with top tile decorator today. 05/02 continue tx. 05/03: loud, labile, exit-seeking. required med/phys restraint x 1 due to elopement attempt. demanding discharge. refusing meds. continue to offer meds. hearing scheduled for tuesday. 05/04: calm, trying to get into phone to get numbers. declining same numbers from KELLY Agudelo. sleeping in afternoon. slept most of evening and all NOC last night. 05/05 continue tx. pt declines medications. 05/[address]. 05/07: no change in presentation. reported he was the [facility] over the weekend and that the voice of hamzah was commanding him to preach. committed, ordered medications. 05/08: received IM meds as refused PO. believes we are trying to turn him into a woman. 05/09: asking to leave, saying he does not want meds. took PO invega this morning. dystonia this afternoon, invega DCed. took PO ativan, benadryl, cogentin. will attempt with lithium only for the time being, backed up by valium IM. seems less energetic, labile, hyper-anabaptist today. 05/10: calm, but perseverative about discharge. taking lithium. continue current mgmt. paranoid delusions we are trying to turn him transgendered. remains focused on object of his stalking. 05/11: much more manic Sx today. re-trial of anti-psychotics. start with low- dose abilify with fluphenazine back-up. lithium switched to liquid formulation today. on 30 min CO after meds. 05/12: Continue current regimen and plans 05/13: Continue current regimen and plans Reason for continued inpatient stay Substantial Risk for: med/psych decompensation Time Spent With Patient Time: Total time managing care of this patient today ____ minutes.
[2024-05-13 20:06] VITALS: RESP 16
[2024-05-14] MEDS: ARIPiprazole 5 MG TABLET PO (09:19)
[2024-05-14] MEDS: LITHIUM CITRATE 600 MG PO ×2 (09:19→21:41)
[2024-05-14] MEDS: diphenhydrAMINE HCL 25 MG CAPSULE 50 MG PO (09:19)
[2024-05-14] MEDS: chlorproMAZINE HCl 100 MG TABLET PO (10:53)
[2024-05-14] MEDS: LORazepam 1 MG TABLET 2 MG PO (10:53)
--- NOTE | 2024-05-14 13:37 | HO.PSYCHPN ---
Subjective Subjective Date of Service: 05/14/24 Reason For Visit: stalking behaviors Interim History: perseverative about discharging today. alleges we are trying to make him have sex with a man or with any woman on the unit. blocks MD's egress from room, refuses to allow MD to leave after repeated requests to do so. MD yells for help, staff from [facility] force door open, moving patient, who steps aside laughing. per staff, taking meds. isolative. slept well. Mental Status Exam Mental Status Exam Narrative: adequately dressed and groomed. variably cooperative. no PMA/PMR, but very animated. speech incr rate, amount, loudness, decr latency. thoughts perseverative. affect hyper-intense, min-labile, full range. mood not assessed. no SI/SIBI/HI/AVH expressed. Diagnostics Vital Signs (24Hr): Vital Signs - 24 hr 05/13/24 20:06 Respiratory Rate 16 BMI result Body Mass Index 23.4 Labs 04/23/24 13:06 04/23/24 13:06 Medications Medications Current Medications Acetaminophen (Acetaminophen 325 Mg Tablet) 650 mg PO Q6H PRN PRN Reason: Headache/Pain Mild Scale (1-3) Al Hydroxide/Mg Hydroxide (Magnesium Hydrox/Alum Hydrox 30 Ml Oral.Susp) 30 ml PO Q6H PRN PRN Reason: Heartburn/Nausea Aripiprazole (Aripiprazole 10 Mg Tablet) 10 mg PO DAILY [facility] Diazepam (Diazepam 10 Mg/2 Ml Cartridge) 10 mg IM BID PRN PRN Reason: refusal of lithium or abilify Last Admin: 05/11/24 14:05 Dose: 10 mg Diphenhydramine HCl (Diphenhydramine Hcl 25 Mg Capsule) 50 mg PO DAILY [facility] Last Admin: 05/14/24 09:19 Dose: 50 mg Fluphenazine HCl (Fluphenazine Hcl 2.5 Mg/Ml 10 Ml Vial) 1.25 mg IM DAILY PRN PRN Reason: refusal of PO abilify Last Admin: 05/11/24 14:05 Dose: 1.25 mg Hydroxyzine HCl (Hydroxyzine Hcl 25 Mg Tablet) 25 mg PO Q6H PRN PRN Reason: Anxiety [place] Citrate ([place] Citrate Oral Tierney 8 Meq (300 Mg)/5 Ml) 600 mg PO BID [facility] Last Admin: 05/14/24 09:19 Dose: 600 mg Magnesium Hydroxide (Milk Of Magnesia 30 Ml Oral.Susp) 30 ml PO DAILY PRN PRN Reason: Constipation Olanzapine (Olanzapine Odt 10 Mg Tab.Rapdis) 10 mg TRANSLINGU Q4H PRN PRN Reason: agitation Trazodone HCl (Trazodone Hcl 50 Mg Tablet) 50 mg PO BEDTIME MRX1 PRN PRN Reason: Insomnia Allergies Allergies Allergy/AdvReac Type Severity Reaction Status Date / Time No Known Allergies Allergy Verified 04/23/24 13:03 Assessment & Plan Assessment & Plan (1) Bipolar disorder with psychotic features: Status: Acute Code(s): F31.9 - Bipolar disorder, unspecified Plan 04/25: contain, observe, educate. collect collateral info. 04/26: warrant has been issued for pt's arrest. 12b up tuesday. planning to discharge tuesday unless situation changes. prescribed abilify 5 mg daily, which pt is refusing. 04/27: refusing meds. no change in presentation. planning for discharge friday 03/30, when section 12b expires. student counseling at [facility] has been informed of the discharge plan by KELLY Agudelo. 04/29: No changes 04/30: refusing meds. frankly psychotic/manic today. disorganized thoughts, hyper-mandaen, labile, delusional, no sleep. accusing staff of witchcraft and trying to turn him into a woman. filed for commitment. kicked an exit door, prompting security to be called. 05/01: kicked exit doors again overnight, send me to long-term or just shoot me. talking about hospital food being poisoned. i only account to [facility]. you are continuing your evil plans. refusing medications. refused to meet with calibration technician today. 05/02 continue tx. 05/03: loud, labile, exit-seeking. required med/phys restraint x 1 due to elopement attempt. demanding discharge. refusing meds. continue to offer meds. hearing scheduled for tuesday. 05/04: calm, trying to get into phone to get numbers. declining same numbers from KELLY Agudelo. sleeping in afternoon. slept most of evening and all NOC last night. 05/05 continue tx. pt declines medications. 05/[address]. 05/07: no change in presentation. 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 committed, ordered medications. 05/08: received IM meds as refused PO. believes we are trying to turn him into a woman. 05/09: asking to leave, saying he does not want meds. took PO invega this morning. dystonia this afternoon, invega DCed. took PO ativan, benadryl, cogentin. will attempt with lithium only for the time being, backed up by valium IM. seems less energetic, labile, hyper-mandaen today. 05/10: calm, but perseverative about discharge. taking lithium. continue current mgmt. paranoid delusions we are trying to turn him transgendered. remains focused on object of his stalking. 05/11: much more manic Sx today. re-trial of anti-psychotics. start with low-dose abilify with fluphenazine back-up. lithium switched to liquid formulation today. on 30 min CO after meds. 05/12: Continue current regimen and plans 05/13: Continue current regimen and plans 05/14: blocking MD's egress from room demanding immediate discharge. accepted thorazine 100 and ativan 2 PO. initial rapid pacing up and down the [place], eventually settled. check labs 05/16. Reason for continued inpatient stay Substantial Risk for: harm to self, harm to others, inability to function and rapid decompensation Time Spent With Patient Time: Total time managing care of this patient today __35__ minutes.
[2024-05-14 21:53] VITALS: RESP 16
--- NOTE | 2024-05-15 03:52 | PC.NURSE ---
This RN attempted to place an international call for the patient several times however each time the call was placed for either number the service stated that the phone number was invalid. This information will be passed to the clinical coordinator for clarification. patient stated theat he wishes he could make the call himself without having staff assist him with the call
[2024-05-15] MEDS: diazePAM 10 MG/2 ML CARTRIDGE IM (11:38)
[2024-05-15] MEDS: fluPHENAZine HCL 2.5 MG/ML 10 ML VIAL IM (11:38)
[2024-05-15 11:40] VITALS: BP 137/73; PULSE 110; RESP 24; TEMP 37.2; O2SAT 100
[2024-05-15 11:55] VITALS: BP 123/67; PULSE 89; RESP 18; TEMP 37.2; O2SAT 99
[2024-05-15 12:10] VITALS: BP 111/62; PULSE 80; RESP 16; TEMP 37; O2SAT 98
--- NOTE | 2024-05-15 12:10 | PC.NURSE ---
Patient refused prescribed court ordered oral medications this morning. He was informed that he would receive contingency medications IM. Security was called and pt was held physically and then assisted to chair restraint. He was agitated, thrashing and uncooperative with this process. He was yelling, I am not casper, I don't believe in your transgender society. I know you want to kill me. IM medications were administered per MD and court order.
--- NOTE | 2024-05-15 12:30 | HO.PSYEVENT ---
Event Note Date of Service: 05/15/24 Psych Restraint Event Note: [address]-ordered medications. physical hold and restraint chair were needed. Time Spent With Patient Time: Total time managing care of this patient today ____ minutes.
--- NOTE | 2024-05-15 13:07 | P.PNPSI_ITS ---
Subjective Subjective Date of Service: 05/15/24 Reason For Visit: stalking behaviors Interim History: perseverative, circular conversation about being discharged from the hospital. expressing paranoid delusions that we are giving him medicine to turn him into a woman. later during restraint to give court ordered medications alleges we are trying to get him to have sex with men. required physical hold and restraint chair for meds. per staff, angry, agitated. got ativan and thorazine yesterday after blocking MD in his room. mostly pleasant eves. slept most of the afternoon through 0300, then was up. Mental Status Exam Mental Status Exam Narrative: adequately dressed and groomed. not cooperative. no PMA/PMR, but very animated. speech incr rate, amount, loudness, decr latency. thoughts perseverative, paranoid delusions. affect hyper-intense, min-labile, full range. mood not assessed. no SI/SIBI/HI/AVH expressed. Diagnostics Vital Signs (24Hr): Vital Signs - 24 hr 05/14/24 21:53 05/15/24 11:40 05/15/24 11:55 Temperature 99.0 F 98.9 F Pulse Rate 110 H 89 Respiratory Rate 16 24 H 18 Blood Pressure 137/73 123/67 Pulse Oximetry 100 99 Oxygen Delivery Method Room Air Room Air 05/15/24 12:10 Temperature 98.6 F Pulse Rate 80 Respiratory Rate 16 Blood Pressure 111/62 Pulse Oximetry 98 Oxygen Delivery Method Room Air BMI result Body Mass Index 23.4 Labs 04/23/24 13:06 04/23/24 13:06 Medications Medications Current Medications Acetaminophen (Acetaminophen 325 Mg Tablet) 650 mg PO Q6H PRN PRN Reason: Headache/Pain Mild Scale (1-3) Al Hydroxide/Mg Hydroxide (Magnesium Hydrox/Alum Hydrox 30 Ml Oral.Susp) 30 ml PO Q6H PRN PRN Reason: Heartburn/Nausea Aripiprazole (Aripiprazole 10 Mg Tablet) 10 mg PO DAILY [facility] Last Admin: 05/15/24 10:35 Dose: Not Given Diazepam (Diazepam 10 Mg/2 Ml Cartridge) 10 mg IM BID PRN PRN Reason: refusal of lithium or abilify Last Admin: 05/15/24 11:38 Dose: 10 mg Diphenhydramine HCl (Diphenhydramine Hcl 25 Mg Capsule) 50 mg PO DAILY [facility] Last Admin: 05/15/24 10:36 Dose: Not Given Fluphenazine HCl (Fluphenazine Hcl 2.5 Mg/Ml 10 Ml Vial) 2.5 mg IM DAILY PRN PRN Reason: refusal of PO abilify Last Admin: 05/15/24 11:38 Dose: 2.5 mg Hydroxyzine HCl (Hydroxyzine Hcl 25 Mg Tablet) 25 mg PO Q6H PRN PRN Reason: Anxiety [place] Citrate ([place] Citrate Oral Tierney 8 Meq (300 Mg)/5 Ml) 600 mg PO BID [facility] Last Admin: 05/15/24 10:36 Dose: Not Given Magnesium Hydroxide (Milk Of Magnesia 30 Ml Oral.Susp) 30 ml PO DAILY PRN PRN Reason: Constipation Olanzapine (Olanzapine Odt 10 Mg Tab.Rapdis) 10 mg TRANSLINGU Q4H PRN PRN Reason: agitation Trazodone HCl (Trazodone Hcl 50 Mg Tablet) 50 mg PO BEDTIME MRX1 PRN PRN Reason: Insomnia Allergies Allergies Allergy/AdvReac Type Severity Reaction Status Date / Time No Known Allergies Allergy Verified 04/23/24 13:03 Assessment & Plan Assessment & Plan (1) Bipolar disorder with psychotic features: Status: Acute Code(s): F31.9 - Bipolar disorder, unspecified Plan 04/25: contain, observe, educate. collect collateral info. 04/26: warrant has been issued for pt's arrest. 12b up tuesday. planning to discharge tuesday unless situation changes. prescribed abilify 5 mg daily, which pt is refusing. 04/27: refusing meds. no change in presentation. planning for discharge friday 03/30, when section 12b expires. [facility] plan by KELLY Agudelo. 04/29: No changes 04/30: refusing meds. frankly psychotic/manic today. disorganized thoughts, hyper-sabianism, labile, delusional, no sleep. accusing staff of witchcraft and trying to turn him into a woman. filed for commitment. kicked an exit door, prompting security to be called. 05/01: kicked exit doors again overnight, send me to snf or just shoot me. talking about hospital food being poisoned. i only account to [facility]. you are continuing your evil plans. refusing medications. refused to meet with intake specialist today. 05/02 continue tx. 05/03: loud, labile, exit-seeking. required med/phys restraint x 1 due to elopement attempt. demanding discharge. refusing meds. continue to offer meds. hearing scheduled for tuesday. 05/04: calm, trying to get into phone to get numbers. declining same numbers from KELLY Agudelo. sleeping in afternoon. slept most of evening and all NOC last night. 05/05 continue tx. pt declines medications. 05/[address]. 05/07: no change in presentation. reported he was the [facility] over the weekend and that the voice of hamzah was commanding him to preach. committed, ordered medications. 05/08: received IM meds as refused PO. believes we are trying to turn him into a woman. 05/09: asking to leave, saying he does not want meds. took PO invega this morning. dystonia this afternoon, invega DCed. took PO ativan, benadryl, cogentin. will attempt with lithium only for the time being, backed up by valium IM. seems less energetic, labile, hyper-sabianism today. 05/10: calm, but perseverative about discharge. taking lithium. continue current mgmt. paranoid delusions we are trying to turn him transgendered. remains focused on object of his stalking. 05/11: much more manic Sx today. re-trial of anti-psychotics. start with low- dose abilify with fluphenazine back-up. lithium switched to liquid formulation today. on 30 min CO after meds. 05/12: Continue current regimen and plans 05/13: Continue current regimen and plans 05/14: blocking MD's egress from room demanding immediate discharge. accepted thorazine 100 and ativan 2 PO. initial rapid pacing up and down the [place], eventually settled. check labs 05/16. 05/15: believes we are giving him medication to turn him into a woman, believes we are trying to get him to have sex with men. required restraint chair for court-ordered medication. Reason for continued inpatient stay Substantial Risk for: harm to self, harm to others and inability to function Time Spent With Patient Time: Total time managing care of this patient today __55__ minutes.
[2024-05-15] MEDS: LITHIUM CITRATE 600 MG PO (22:10)
[2024-05-16] MEDS: diphenhydrAMINE HCL 25 MG CAPSULE 50 MG PO (09:06)
[2024-05-16] MEDS: LITHIUM CITRATE 600 MG PO ×2 (09:06→21:16)
[2024-05-16] MEDS: ARIPiprazole 10 MG TABLET PO (09:06)
--- NOTE | 2024-05-16 14:18 | HO.PSYCHPN ---
Subjective Subjective Date of Service: 05/16/24 Reason For Visit: stalking behaviors Interim History: calm, cooperative. c/o medications making him shiver, otherwise no complaints. only request is discharge. per staff, paranoid, labile. just kill me, i'm not casper! took meds PO last night and this morning. Mental Status Exam Mental Status Exam Narrative: adequately dressed and groomed. cooperative. no PMA/PMR. speech incr rate. nml amount. nml loudness, decr latency. thoughts perseverative. affect normo-intense, non-labile, constricted. mood i am in a good mood. no SI/SIBI/HI/AVH expressed. Diagnostics Vital Signs (24Hr): BMI result Body Mass Index 23.4 Labs 04/23/24 13:06 04/23/24 13:06 Medications Medications Current Medications Acetaminophen (Acetaminophen 325 Mg Tablet) 650 mg PO Q6H PRN PRN Reason: Headache/Pain Mild Scale (1-3) Al Hydroxide/Mg Hydroxide (Magnesium Hydrox/Alum Hydrox 30 Ml Oral.Susp) 30 ml PO Q6H PRN PRN Reason: Heartburn/Nausea Aripiprazole (Aripiprazole 15 Mg Tablet) 15 mg PO DAILY [facility] Diazepam (Diazepam 10 Mg/2 Ml Cartridge) 10 mg IM BID PRN PRN Reason: refusal of lithium or abilify Last Admin: 05/15/24 11:38 Dose: 10 mg Diphenhydramine HCl (Diphenhydramine Hcl 25 Mg Capsule) 50 mg PO DAILY [facility] Last Admin: 05/16/24 09:06 Dose: 50 mg Fluphenazine HCl (Fluphenazine Hcl 2.5 Mg/Ml 10 Ml Vial) 3.75 mg IM DAILY PRN PRN Reason: refusal of PO abilify Hydroxyzine HCl (Hydroxyzine Hcl 25 Mg Tablet) 25 mg PO Q6H PRN PRN Reason: Anxiety [place] Citrate ([place] Citrate Oral Tierney 8 Meq (300 Mg)/5 Ml) 600 mg PO BID [facility] Last Admin: 05/16/24 09:06 Dose: 600 mg Magnesium Hydroxide (Milk Of Magnesia 30 Ml Oral.Susp) 30 ml PO DAILY PRN PRN Reason: Constipation Olanzapine (Olanzapine Odt 10 Mg Tab.Rapdis) 10 mg TRANSLINGU Q4H PRN PRN Reason: agitation Trazodone HCl (Trazodone Hcl 50 Mg Tablet) 50 mg PO BEDTIME MRX1 PRN PRN Reason: Insomnia Allergies Allergies Allergy/AdvReac Type Severity Reaction Status Date / Time No Known Allergies Allergy Verified 04/23/24 13:03 Assessment & Plan Assessment & Plan (1) Bipolar disorder with psychotic features: Status: Acute Code(s): F31.9 - Bipolar disorder, unspecified Plan 04/25: contain, observe, educate. collect collateral info. 04/26: warrant has been issued for pt's arrest. 12b up tuesday. planning to discharge tuesday unless situation changes. prescribed abilify 5 mg daily, which pt is refusing. 04/27: refusing meds. no change in presentation. planning for discharge friday 03/30, when section 12b expires. student counseling at [facility] has been informed of the discharge plan by KELLY Agudelo. 04/29: No changes 04/30: refusing meds. frankly psychotic/manic today. disorganized thoughts, hyper-mandaen, labile, delusional, no sleep. accusing staff of witchcraft and trying to turn him into a woman. filed for commitment. kicked an exit door, prompting security to be called. 05/01: kicked exit doors again overnight, send me to [facility] or just shoot me. talking about hospital food being poisoned. i only account to [facility]. you are continuing your evil plans. refusing medications. refused to meet with fuel oil clerk today. 05/02 continue tx. 05/03: loud, labile, exit-seeking. required med/phys restraint x 1 due to elopement attempt. demanding discharge. refusing meds. continue to offer meds. hearing scheduled for tuesday. 05/04: calm, trying to get into phone to get numbers. declining same numbers from KELLY Agudelo. sleeping in afternoon. slept most of evening and all NOC last night. 05/05 continue tx. pt declines medications. 05/[address] hearing. 05/07: no change in presentation. 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 committed, ordered medications. 05/08: received IM meds as refused PO. believes we are trying to turn him into a woman. 05/09: asking to leave, saying he does not want meds. took PO invega this morning. dystonia this afternoon, invega DCed. took PO ativan, benadryl, cogentin. will attempt with lithium only for the time being, backed up by valium IM. seems less energetic, labile, hyper-mandaen today. 05/10: calm, but perseverative about discharge. taking lithium. continue current mgmt. paranoid delusions we are trying to turn him transgendered. remains focused on object of his stalking. 05/11: much more manic Sx today. re-trial of anti-psychotics. start with low-dose abilify with fluphenazine back-up. lithium switched to liquid formulation today. on 30 min CO after meds. 05/12: Continue current regimen and plans 05/13: Continue current regimen and plans 05/14: blocking MD's egress from room demanding immediate discharge. accepted thorazine 100 and ativan 2 PO. initial rapid pacing up and down the [place], eventually settled. check labs 05/16. 05/15: believes we are giving him medication to turn him into a woman, believes we are trying to get him to have sex with men. required restraint chair for court-ordered medication. required medications IM. 05/16: more subdued today. took meds PO last night and this morning. increase abilify to 15 mg daily. delay labs as pt has missed lithium dosing. Reason for continued inpatient stay Substantial Risk for: harm to self, harm to others, inability to function and rapid decompensation Time Spent With Patient Time: Total time managing care of this patient today __25__ minutes.
[2024-05-17 07:00] VITALS: BMI 52.1
[2024-05-17] MEDS: ARIPiprazole 15 MG TABLET PO (09:06)
[2024-05-17] MEDS: diphenhydrAMINE HCL 25 MG CAPSULE 50 MG PO (09:06)
[2024-05-17] MEDS: LITHIUM CITRATE 600 MG PO ×2 (09:06→20:57)
--- NOTE | 2024-05-17 13:21 | P.PNPSI_ITS ---
Subjective Subjective Date of Service: 05/17/24 Reason For Visit: stalking behaviors Interim History: calm, in his room. states he is great. informed of plan to continue to increase abilify by 5 mg daily until reaching 30 mg. also informed of plan to check lithium level and reenal fxn tonight. pt states MD should know the effect on his body of medications and attacks MD's professionalism, states he will decline to allow blood draw tonight. per staff, dep/anx. taking meds PO. attended a couple groups. showered at 0245. +RIS, slept about 7 hours. Mental Status Exam Mental Status Exam Narrative: adequately dressed and groomed. cooperative. no PMA/PMR. speech incr rate. nml amount. nml loudness, decr latency. thoughts linear. affect hyper- intense, min-labile, constricted. mood great. no SI/SIBI/HI/AVH expressed. Diagnostics Vital Signs (24Hr): BMI result Body Mass Index 52.1 Labs 04/23/24 13:06 04/23/24 13:06 Medications Medications Current Medications Acetaminophen (Acetaminophen 325 Mg Tablet) 650 mg PO Q6H PRN PRN Reason: Headache/Pain Mild Scale (1-3) Al Hydroxide/Mg Hydroxide (Magnesium Hydrox/Alum Hydrox 30 Ml Oral.Susp) 30 ml PO Q6H PRN PRN Reason: Heartburn/Nausea Aripiprazole (Aripiprazole 20 Mg Tablet) 20 mg PO DAILY [facility] Diazepam (Diazepam 10 Mg/2 Ml Cartridge) 10 mg IM BID PRN PRN Reason: refusal of lithium or abilify Last Admin: 05/15/24 11:38 Dose: 10 mg Diphenhydramine HCl (Diphenhydramine Hcl 25 Mg Capsule) 50 mg PO DAILY [facility] Last Admin: 05/17/24 09:06 Dose: 50 mg Fluphenazine HCl (Fluphenazine Hcl 2.5 Mg/Ml 10 Ml Vial) 3.75 mg IM DAILY PRN PRN Reason: refusal of PO abilify Hydroxyzine HCl (Hydroxyzine Hcl 25 Mg Tablet) 25 mg PO Q6H PRN PRN Reason: Anxiety [place] Citrate ([place] Citrate Oral Tierney 8 Meq (300 Mg)/5 Ml) 600 mg PO BID [facility] Last Admin: 05/17/24 09:06 Dose: 600 mg Magnesium Hydroxide (Milk Of Magnesia 30 Ml Oral.Susp) 30 ml PO DAILY PRN PRN Reason: Constipation Olanzapine (Olanzapine Odt 10 Mg Tab.Rapdis) 10 mg TRANSLINGU Q4H PRN PRN Reason: agitation Trazodone HCl (Trazodone Hcl 50 Mg Tablet) 50 mg PO BEDTIME MRX1 PRN PRN Reason: Insomnia Allergies Allergies Allergy/AdvReac Type Severity Reaction Status Date / Time No Known Allergies Allergy Verified 04/23/24 13:03 Assessment & Plan Assessment & Plan (1) Bipolar disorder with psychotic features: Status: Acute Code(s): F31.9 - Bipolar disorder, unspecified Plan 04/25: contain, observe, educate. collect collateral info. 04/26: warrant has been issued for pt's arrest. 12b up tuesday. planning to discharge tuesday unless situation changes. prescribed abilify 5 mg daily, which pt is refusing. 04/27: refusing meds. no change in presentation. planning for discharge friday 03/30, when section 12b expires. student counseling at [facility] has been informed of the discharge plan by KELLY Agudelo. 04/29: No changes 04/30: refusing meds. frankly psychotic/manic today. disorganized thoughts, hyper-mormonism, labile, delusional, no sleep. accusing staff of witchcraft and trying to turn him into a woman. filed for commitment. kicked an exit door, prompting security to be called. 05/01: kicked exit doors again overnight, send me to [facility] or just shoot me. talking about hospital food being poisoned. i only account to [facility]. you are continuing your evil plans. refusing medications. refused to meet with divorce lawyer today. 05/02 continue tx. 05/03: loud, labile, exit-seeking. required med/phys restraint x 1 due to elopement attempt. demanding discharge. refusing meds. continue to offer meds. hearing scheduled for tuesday. 05/04: calm, trying to get into phone to get numbers. declining same numbers from KELLY Agudelo. sleeping in afternoon. slept most of evening and all NOC last night. 05/05 continue tx. pt declines medications. 05/[address] hearing. 05/07: no change in presentation. 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 committed, ordered medications. 05/08: received IM meds as refused PO. believes we are trying to turn him into a woman. 05/09: asking to leave, saying he does not want meds. took PO invega this morning. dystonia this afternoon, invega DCed. took PO ativan, benadryl, cogentin. will attempt with lithium only for the time being, backed up by valium IM. seems less energetic, labile, hyper-mormonism today. 05/10: calm, but perseverative about discharge. taking lithium. continue current mgmt. paranoid delusions we are trying to turn him transgendered. remains focused on object of his stalking. 05/11: much more manic Sx today. re-trial of anti-psychotics. start with low- dose abilify with fluphenazine back-up. lithium switched to liquid formulation today. on 30 min CO after meds. 05/12: Continue current regimen and plans 05/13: Continue current regimen and plans 05/14: blocking MD's egress from room demanding immediate discharge. accepted thorazine 100 and ativan 2 PO. initial rapid pacing up and down the [place], eventually settled. check labs 05/16. 05/15: believes we are giving him medication to turn him into a woman, believes we are trying to get him to have sex with men. required restraint chair for court-ordered medication. required medications IM. 05/16: more subdued today. took meds PO last night and this morning. increase abilify to 15 mg daily. delay labs as pt has missed lithium dosing. 05/17: labs ordered. increase abilify dosing to 20 mg daily as of tomorrow. Reason for continued inpatient stay Substantial Risk for: harm to self, harm to others and inability to function Time Spent With Patient Time: Total time managing care of this patient today __25__ minutes.
[2024-05-18 08:00] VITALS: BP 144/67; PULSE 87; RESP 16; TEMP 37; O2SAT 100
[2024-05-18] MEDS: ARIPiprazole 20 MG TABLET PO (09:30)
[2024-05-18] MEDS: diphenhydrAMINE HCL 25 MG CAPSULE 50 MG PO (09:31)
[2024-05-18] MEDS: LITHIUM CITRATE 600 MG PO ×2 (09:32→22:32)
--- NOTE | 2024-05-18 14:30 | HO.PSYCHPN ---
Subjective Subjective Date of Service: 05/18/24 Reason For Visit: stalking behaviors Interim History: perhaps more calm. continues to believe we are trying to turn him into a trans woman and get him to sleep with anyone on the unit. per staff, full affect, taking meds PO. less pressured. no behavioral issues. Mental Status Exam Mental Status Exam Narrative: adequately dressed and groomed. cooperative. no PMA/PMR. speech incr rate. nml amount. nml loudness, decr latency. thoughts linear, paranid delusions. affect hyper-intense, min-labile, constricted. mood great. no SI/SIBI/HI/AVH expressed. Diagnostics Vital Signs (24Hr): Vital Signs - 24 hr 05/18/24 08:00 Temperature 98.6 F Pulse Rate 87 Respiratory Rate 16 Blood Pressure 144/67 H Pulse Oximetry 100 Oxygen Delivery Method Room Air BMI result Body Mass Index 52.1 Labs 04/23/24 13:06 04/23/24 13:06 Medications Medications Current Medications Acetaminophen (Acetaminophen 325 Mg Tablet) 650 mg PO Q6H PRN PRN Reason: Headache/Pain Mild Scale (1-3) Al Hydroxide/Mg Hydroxide (Magnesium Hydrox/Alum Hydrox 30 Ml Oral.Susp) 30 ml PO Q6H PRN PRN Reason: Heartburn/Nausea Aripiprazole (Aripiprazole 5 Mg Tablet) 25 mg PO ONCE ONE Stop: 05/18/24 21:01 Aripiprazole (Aripiprazole 30 Mg Tablet) 30 mg PO BEDTIME [facility] Diazepam (Diazepam 10 Mg/2 Ml Cartridge) 10 mg IM BID PRN PRN Reason: refusal of lithium or abilify Last Admin: 05/15/24 11:38 Dose: 10 mg Diphenhydramine HCl (Diphenhydramine Hcl 25 Mg Capsule) 50 mg PO DAILY [facility] Last Admin: 05/18/24 09:31 Dose: 50 mg Fluphenazine HCl (Fluphenazine Hcl 2.5 Mg/Ml 10 Ml Vial) 3.75 mg IM DAILY PRN PRN Reason: refusal of PO abilify Hydroxyzine HCl (Hydroxyzine Hcl 25 Mg Tablet) 25 mg PO Q6H PRN PRN Reason: Anxiety [place] Citrate ([place] Citrate Oral Tierney 8 Meq (300 Mg)/5 Ml) 600 mg PO BID [facility] Last Admin: 05/18/24 09:32 Dose: 600 mg Magnesium Hydroxide (Milk Of Magnesia 30 Ml Oral.Susp) 30 ml PO DAILY PRN PRN Reason: Constipation Olanzapine (Olanzapine Odt 10 Mg Tab.Rapdis) 10 mg TRANSLINGU Q4H PRN PRN Reason: agitation Trazodone HCl (Trazodone Hcl 50 Mg Tablet) 50 mg PO BEDTIME MRX1 PRN PRN Reason: Insomnia Allergies Allergies Allergy/AdvReac Type Severity Reaction Status Date / Time No Known Allergies Allergy Verified 04/23/24 13:03 Assessment & Plan Assessment & Plan (1) Bipolar disorder with psychotic features: Status: Acute Code(s): F31.9 - Bipolar disorder, unspecified Plan 04/25: contain, observe, educate. collect collateral info. 04/26: warrant has been issued for pt's arrest. 12b up tuesday. planning to discharge tuesday unless situation changes. prescribed abilify 5 mg daily, which pt is refusing. 04/27: refusing meds. no change in presentation. planning for discharge friday 03/30, when section 12b expires. student counseling at [facility] has been informed of the discharge plan by KELLY Agudelo. 04/29: No changes 04/30: refusing meds. frankly psychotic/manic today. disorganized thoughts, hyper-baptism, labile, delusional, no sleep. accusing staff of witchcraft and trying to turn him into a woman. filed for commitment. kicked an exit door, prompting security to be called. 05/01: kicked exit doors again overnight, send me to [facility] or just shoot me. talking about hospital food being poisoned. i only account to [employer]. you are continuing your evil plans. refusing medications. refused to meet with home health aide today. 05/02 continue tx. 05/03: loud, labile, exit-seeking. required med/phys restraint x 1 due to elopement attempt. demanding discharge. refusing meds. continue to offer meds. hearing scheduled for tuesday. 05/04: calm, trying to get into phone to get numbers. declining same numbers from KELLY Agudelo. sleeping in afternoon. slept most of evening and all NOC last night. 05/05 continue tx. pt declines medications. 05/[address] hearing. 05/07: no change in presentation. 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 committed, ordered medications. 05/08: received IM meds as refused PO. believes we are trying to turn him into a woman. 05/09: asking to leave, saying he does not want meds. took PO invega this morning. dystonia this afternoon, invega DCed. took PO ativan, benadryl, cogentin. will attempt with lithium only for the time being, backed up by valium IM. seems less energetic, labile, hyper-baptism today. 05/10: calm, but perseverative about discharge. taking lithium. continue current mgmt. paranoid delusions we are trying to turn him transgendered. remains focused on object of his stalking. 05/11: much more manic Sx today. re-trial of anti-psychotics. start with low-dose abilify with fluphenazine back-up. lithium switched to liquid formulation today. on 30 min CO after meds. 05/12: Continue current regimen and plans 05/13: Continue current regimen and plans 05/14: blocking MD's egress from room demanding immediate discharge. accepted thorazine 100 and ativan 2 PO. initial rapid pacing up and down the [place], eventually settled. check labs 05/16. 05/15: believes we are giving him medication to turn him into a woman, believes we are trying to get him to have sex with men. required restraint chair for court-ordered medication. required medications IM. 05/16: more subdued today. took meds PO last night and this morning. increase abilify to 15 mg daily. delay labs as pt has missed lithium dosing. 05/17: labs ordered. increase abilify dosing to 20 mg daily as of tomorrow. 05/18: refused labs. less labile and agitated. remains with paranoid delusions. labs ordered again. abilify to 25 mg tonight and 30 mg as of tomorrow night. Reason for continued inpatient stay Substantial Risk for: harm to self, harm to others, inability to function and rapid decompensation Time Spent With Patient Time: Total time managing care of this patient today __25__ minutes.
[2024-05-18 20:20] VITALS: RESP 16
[2024-05-19] MEDS: diphenhydrAMINE HCL 25 MG CAPSULE 50 MG PO (08:50)
[2024-05-19] MEDS: LITHIUM CITRATE 600 MG PO ×2 (08:50→22:05)
--- NOTE | 2024-05-19 10:08 | HO.PSYCHPN ---
Subjective Subjective Date of Service: 05/19/24 Reason For Visit: stalking behaviors Subjective Notes: Section 8 Interim History: Reviewed with Dr. Kirk. Keeping to self. Singing loudly in room. Malodorous. Calm and polite during assessment. Patient guarded during conversation. He reports feeling okay ; denies any issues at this time. Medication Compliance: Yes Side effects from medications: No Review of Systems Review of Systems Yes Unobtainable due to mental status Mental Status Exam Mental Status Exam Patient Appearance: Malodorous Patient Orientation: Person, Place and Situation Level of Consciousness: Awake and Alert Patient Behavior: Guarded and Good Eye Contact Mood Description: Calm Ability to Follow Directions: Fair Speech Pattern: Soft-Spoken Diagnostics Vital Signs (24Hr): Vital Signs - 24 hr 05/18/24 20:20 Respiratory Rate 16 BMI result Body Mass Index 52.1 Labs 04/23/24 13:06 04/23/24 13:06 Medications Medications Current Medications Acetaminophen (Acetaminophen 325 Mg Tablet) 650 mg PO Q6H PRN PRN Reason: Headache/Pain Mild Scale (1-3) Al Hydroxide/Mg Hydroxide (Magnesium Hydrox/Alum Hydrox 30 Ml Oral.Susp) 30 ml PO Q6H PRN PRN Reason: Heartburn/Nausea Aripiprazole (Aripiprazole 30 Mg Tablet) 30 mg PO BEDTIME [facility] Diazepam (Diazepam 10 Mg/2 Ml Cartridge) 10 mg IM BID PRN PRN Reason: refusal of lithium or abilify Last Admin: 05/15/24 11:38 Dose: 10 mg Diphenhydramine HCl (Diphenhydramine Hcl 25 Mg Capsule) 50 mg PO DAILY [facility] Last Admin: 05/19/24 08:50 Dose: 50 mg Fluphenazine HCl (Fluphenazine Hcl 2.5 Mg/Ml 10 Ml Vial) 3.75 mg IM DAILY PRN PRN Reason: refusal of PO abilify Hydroxyzine HCl (Hydroxyzine Hcl 25 Mg Tablet) 25 mg PO Q6H PRN PRN Reason: Anxiety [place] Citrate ([place]y Citrate Oral Tierney 8 Meq (300 Mg)/5 Ml) 600 mg PO BID [facility] Last Admin: 05/19/24 08:50 Dose: 600 mg Magnesium Hydroxide (Milk Of Magnesia 30 Ml Oral.Susp) 30 ml PO DAILY PRN PRN Reason: Constipation Olanzapine (Olanzapine Odt 10 Mg Tab.Rapdis) 10 mg TRANSLINGU Q4H PRN PRN Reason: agitation Trazodone HCl (Trazodone Hcl 50 Mg Tablet) 50 mg PO BEDTIME MRX1 PRN PRN Reason: Insomnia Allergies Allergies Allergy/AdvReac Type Severity Reaction Status Date / Time No Known Allergies Allergy Verified 04/23/24 13:03 Assessment & Plan Assessment & Plan (1) Bipolar disorder with psychotic features: Status: Acute Code(s): F31.9 - Bipolar disorder, unspecified Plan 04/25: contain, observe, educate. collect collateral info. 04/26: warrant has been issued for pt's arrest. 12b up tuesday. planning to discharge tuesday unless situation changes. prescribed abilify 5 mg daily, which pt is refusing. 04/27: refusing meds. no change in presentation. planning for discharge friday 03/30, when section 12b expires. student counseling at [facility] has been informed of the discharge plan by KELLY Agudelo. 04/29: No changes 04/30: refusing meds. frankly psychotic/manic today. disorganized thoughts, hyper-jew, labile, delusional, no sleep. accusing staff of witchcraft and trying to turn him into a woman. filed for commitment. kicked an exit door, prompting security to be called. 05/01: kicked exit doors again overnight, send me to shelter or just shoot me. talking about hospital food being poisoned. i only account to [facility]. you are continuing your evil plans. refusing medications. refused to meet with mobile ui/ux designer today. 05/02 continue tx. 05/03: loud, labile, exit-seeking. required med/phys restraint x 1 due to elopement attempt. demanding discharge. refusing meds. continue to offer meds. hearing scheduled for tuesday. 05/04: calm, trying to get into phone to get numbers. declining same numbers from KELLY Agudelo. sleeping in afternoon. slept most of evening and all NOC last night. 05/05 continue tx. pt declines medications. 05/[address] hearing. 05/07: no change in presentation. [facility] and that the voice of hamzah was commanding him to preach. committed, ordered medications. 05/08: received IM meds as refused PO. believes we are trying to turn him into a woman. 05/09: asking to leave, saying he does not want meds. took PO invega this morning. dystonia this afternoon, invega DCed. took PO ativan, benadryl, cogentin. will attempt with lithium only for the time being, backed up by valium IM. seems less energetic, labile, hyper-jew today. 05/10: calm, but perseverative about discharge. taking lithium. continue current mgmt. paranoid delusions we are trying to turn him transgendered. remains focused on object of his stalking. 05/11: much more manic Sx today. re-trial of anti-psychotics. start with low-dose abilify with fluphenazine back-up. lithium switched to liquid formulation today. on 30 min CO after meds. 05/12: Continue current regimen and plans 05/13: Continue current regimen and plans 05/14: blocking MD's egress from room demanding immediate discharge. accepted thorazine 100 and ativan 2 PO. initial rapid pacing up and down the [place], eventually settled. check labs 05/16. 05/15: believes we are giving him medication to turn him into a woman, believes we are trying to get him to have sex with men. required restraint chair for court-ordered medication. required medications IM. 05/16: more subdued today. took meds PO last night and this morning. increase abilify to 15 mg daily. delay labs as pt has missed lithium dosing. 05/17: labs ordered. increase abilify dosing to 20 mg daily as of tomorrow. 05/18: refused labs. less labile and agitated. remains with paranoid delusions. labs ordered again. abilify to 25 mg tonight and 30 mg as of tomorrow night. 05/19: Continue current treatment plan. Reason for continued inpatient stay Substantial Risk for: med/psych decompensation Time Spent With Patient Time: Total time managing care of this patient today _20___ minutes.
[2024-05-19 21:50] VITALS: RESP 16
[2024-05-19] MEDS: ARIPiprazole 30 MG TABLET PO (22:05)
--- NOTE | 2024-05-20 08:59 | P.PNPSI_ITS ---
Subjective Subjective Date of Service: 05/20/24 Reason For Visit: stalking behaviors Subjective Notes: Section 7 Interim History: Reviewed with Dr. Kirk. Similar to yesterday's presentation. Singing loudly in room. Malodorous. Calm and polite during assessment. guarded during conversation. He reports feeling okay ; denies any issues at this time. Denies SI/HI. Medication Compliance: Yes Side effects from medications: No Attending Groups: No Review of Systems Review of Systems Yes Unobtainable due to mental status Mental Status Exam Mental Status Exam Patient Appearance: Malodorous Patient Orientation: Person, Place and Situation Level of Consciousness: Awake and Alert Patient Behavior: Guarded and Good Eye Contact Mood Description: Calm Affect Description: Blunted Ability to Follow Directions: Fair Speech Pattern: Soft-Spoken Diagnostics Vital Signs (24Hr): Vital Signs - 24 hr 05/19/24 21:50 Respiratory Rate 16 BMI result Body Mass Index 52.1 Labs 04/23/24 13:06 04/23/24 13:06 Medications Medications Current Medications Acetaminophen (Acetaminophen 325 Mg Tablet) 650 mg PO Q6H PRN PRN Reason: Headache/Pain Mild Scale (1-3) Al Hydroxide/Mg Hydroxide (Magnesium Hydrox/Alum Hydrox 30 Ml Oral.Susp) 30 ml PO Q6H PRN PRN Reason: Heartburn/Nausea Aripiprazole (Aripiprazole 30 Mg Tablet) 30 mg PO BEDTIME [facility] Last Admin: 05/19/24 22:05 Dose: 30 mg Diazepam (Diazepam 10 Mg/2 Ml Cartridge) 10 mg IM BID PRN PRN Reason: refusal of lithium or abilify Last Admin: 05/15/24 11:38 Dose: 10 mg Diphenhydramine HCl (Diphenhydramine Hcl 25 Mg Capsule) 50 mg PO DAILY [facility] Last Admin: 05/19/24 08:50 Dose: 50 mg Fluphenazine HCl (Fluphenazine Hcl 2.5 Mg/Ml 10 Ml Vial) 3.75 mg IM DAILY PRN PRN Reason: refusal of PO abilify Hydroxyzine HCl (Hydroxyzine Hcl 25 Mg Tablet) 25 mg PO Q6H PRN PRN Reason: Anxiety [place] Citrate ([place] Citrate Oral Tierney 8 Meq (300 Mg)/5 Ml) 600 mg PO BID [facility] Last Admin: 05/19/24 22:05 Dose: 600 mg Magnesium Hydroxide (Milk Of Magnesia 30 Ml Oral.Susp) 30 ml PO DAILY PRN PRN Reason: Constipation Olanzapine (Olanzapine Odt 10 Mg Tab.Rapdis) 10 mg TRANSLINGU Q4H PRN PRN Reason: agitation Trazodone HCl (Trazodone Hcl 50 Mg Tablet) 50 mg PO BEDTIME MRX1 PRN PRN Reason: Insomnia Allergies Allergies Allergy/AdvReac Type Severity Reaction Status Date / Time No Known Allergies Allergy Verified 04/23/24 13:03 Assessment & Plan Assessment & Plan (1) Bipolar disorder with psychotic features: Status: Acute Code(s): F31.9 - Bipolar disorder, unspecified Plan 04/25: contain, observe, educate. collect collateral info. 04/26: warrant has been issued for pt's arrest. 12b up tuesday. planning to discharge tuesday unless situation changes. prescribed abilify 5 mg daily, which pt is refusing. 04/27: refusing meds. no change in presentation. planning for discharge friday 03/30, when section 12b expires. student counseling at [facility] has been informed of the discharge plan by KELLY Agudelo. 04/29: No changes 04/30: refusing meds. frankly psychotic/manic today. disorganized thoughts, hyper-faith, labile, delusional, no sleep. accusing staff of witchcraft and trying to turn him into a woman. filed for commitment. kicked an exit door, prompting security to be called. 05/01: kicked exit doors again overnight, send me to long term or just shoot me. talking about hospital food being poisoned. i only account to [facility]. you are continuing your evil plans. refusing medications. refused to meet with display director today. 05/02 continue tx. 05/03: loud, labile, exit-seeking. required med/phys restraint x 1 due to elopement attempt. demanding discharge. refusing meds. continue to offer meds. hearing scheduled for tuesday. 05/04: calm, trying to get into phone to get numbers. declining same numbers from KELLY Agudelo. sleeping in afternoon. slept most of evening and all NOC last night. 05/05 continue tx. pt declines medications. 05/[address] hearing. 05/07: no change in presentation. 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 committed, ordered medications. 05/08: received IM meds as refused PO. believes we are trying to turn him into a woman. 05/09: asking to leave, saying he does not want meds. took PO invega this morning. dystonia this afternoon, invega DCed. took PO ativan, benadryl, cogentin. will attempt with lithium only for the time being, backed up by valium IM. seems less energetic, labile, hyper-faith today. 05/10: calm, but perseverative about discharge. taking lithium. continue current mgmt. paranoid delusions we are trying to turn him transgendered. remains focused on object of his stalking. 05/11: much more manic Sx today. re-trial of anti-psychotics. start with low- dose abilify with fluphenazine back-up. lithium switched to liquid formulation today. on 30 min CO after meds. 05/12: Continue current regimen and plans 05/13: Continue current regimen and plans 05/14: blocking MD's egress from room demanding immediate discharge. accepted thorazine 100 and ativan 2 PO. initial rapid pacing up and down the [place], eventually settled. check labs 05/16. 05/15: believes we are giving him medication to turn him into a woman, believes we are trying to get him to have sex with men. required restraint chair for court-ordered medication. required medications IM. 05/16: more subdued today. took meds PO last night and this morning. increase abilify to 15 mg daily. delay labs as pt has missed lithium dosing. 05/17: labs ordered. increase abilify dosing to 20 mg daily as of tomorrow. 05/18: refused labs. less labile and agitated. remains with paranoid delusions. labs ordered again. abilify to 25 mg tonight and 30 mg as of tomorrow night. 05/19: Continue current treatment plan. 05/20: Similar to yesterday's presentation. Continue current treatment plan. Reason for continued inpatient stay Substantial Risk for: med/psych decompensation Time Spent With Patient Time: Total time managing care of this patient today _20___ minutes.
[2024-05-20] MEDS: diphenhydrAMINE HCL 25 MG CAPSULE 50 MG PO (10:20)
[2024-05-20] MEDS: Lithium Carbonate 300 MG TABLET 600 MG PO ×2 (10:20→21:29)
[2024-05-20] MEDS: ARIPiprazole 30 MG TABLET PO (21:24)
[2024-05-21] MEDS: diazePAM 10 MG/2 ML CARTRIDGE IM ×2 (10:26→22:51)
--- NOTE | 2024-05-21 10:35 | HO.PSYEVENT ---
Event Note Date of Service: 05/21/24 Psych Restraint Event Note: pt refusing PO meds. per patton order, IM back-ups given, requiring physical hold. Time Spent With Patient Time: Total time managing care of this patient today ____ minutes.
--- NOTE | 2024-05-21 11:59 | PC.NURSE ---
Rocky refused MD prescribed court ordered oral medications this morning. He then declined IM contingency medications. He was placed in a physical hold for IM medication administration. No adverse effects noted. He refused vital signs.
--- NOTE | 2024-05-21 15:35 | HO.PSYCHPN ---
Subjective Subjective Date of Service: 05/21/24 Reason For Visit: stalking behaviors Interim History: refused PO meds today, got IMs. calm afterward, met with MD and medical student. asking to be repatriated to [facility]. denying mental illness. asking to speak with non destructive testing engineer. advised to call his power equipment mechanics instructor. per staff, denies anx/dep. taking meds all w/e. slept all NOC. Mental Status Exam Mental Status Exam Narrative: adequately dressed and groomed. cooperative. no PMA/PMR. speech incr rate. nml amount. decr loudness, decr latency. thoughts linear, illogical. affect normo-intense, non-labile, constricted. mood not assessed. no SI/SIBI/HI/AVH expressed. Diagnostics Vital Signs (24Hr): BMI result Body Mass Index 52.1 Labs 04/23/24 13:06 04/23/24 13:06 Medications Medications Current Medications Acetaminophen (Acetaminophen 325 Mg Tablet) 650 mg PO Q6H PRN PRN Reason: Headache/Pain Mild Scale (1-3) Al Hydroxide/Mg Hydroxide (Magnesium Hydrox/Alum Hydrox 30 Ml Oral.Susp) 30 ml PO Q6H PRN PRN Reason: Heartburn/Nausea Aripiprazole (Aripiprazole 30 Mg Tablet) 30 mg PO BEDTIME [facility] Last Admin: 05/20/24 21:24 Dose: 30 mg Diazepam (Diazepam 10 Mg/2 Ml Cartridge) 10 mg IM BID PRN PRN Reason: refusal of lithium or abilify Last Admin: 05/21/24 10:26 Dose: 10 mg Diphenhydramine HCl (Diphenhydramine Hcl 25 Mg Capsule) 50 mg PO DAILY [facility] Last Admin: 05/21/24 09:38 Dose: Not Given Fluphenazine HCl (Fluphenazine Hcl 2.5 Mg/Ml 10 Ml Vial) 5 mg IM DAILY PRN PRN Reason: refusal of PO abilify Hydroxyzine HCl (Hydroxyzine Hcl 25 Mg Tablet) 25 mg PO Q6H PRN PRN Reason: Anxiety [place] Citrate ([place] Citrate Oral Tierney 8 Meq (300 Mg)/5 Ml) 600 mg PO BID [facility] Last Admin: 05/21/24 09:38 Dose: Not Given Magnesium Hydroxide (Milk Of Magnesia 30 Ml Oral.Susp) 30 ml PO DAILY PRN PRN Reason: Constipation Olanzapine (Olanzapine Odt 10 Mg Tab.Rapdis) 10 mg TRANSLINGU Q4H PRN PRN Reason: agitation Trazodone HCl (Trazodone Hcl 50 Mg Tablet) 50 mg PO BEDTIME MRX1 PRN PRN Reason: Insomnia Allergies Allergies Allergy/AdvReac Type Severity Reaction Status Date / Time No Known Allergies Allergy Verified 04/23/24 13:03 Assessment & Plan Assessment & Plan (1) Bipolar disorder with psychotic features: Status: Acute Code(s): F31.9 - Bipolar disorder, unspecified Plan 04/25: contain, observe, educate. collect collateral info. 04/26: warrant has been issued for pt's arrest. 12b up tuesday. planning to discharge tuesday unless situation changes. prescribed abilify 5 mg daily, which pt is refusing. 04/27: refusing meds. no change in presentation. planning for discharge friday 03/30, when section 12b expires. student counseling at [facility] has been informed of the discharge plan by KELLY Agudelo. 04/29: No changes 04/30: refusing meds. frankly psychotic/manic today. disorganized thoughts, hyper-hinduism, labile, delusional, no sleep. accusing staff of witchcraft and trying to turn him into a woman. filed for commitment. kicked an exit door, prompting security to be called. 05/01: kicked exit doors again overnight, send me to senior living or just shoot me. talking about hospital food being poisoned. i only account to [facility]. you are continuing your evil plans. refusing medications. refused to meet with power equipment mechanics instructor today. 05/02 continue tx. 05/03: loud, labile, exit-seeking. required med/phys restraint x 1 due to elopement attempt. demanding discharge. refusing meds. continue to offer meds. hearing scheduled for tuesday. 05/04: calm, trying to get into phone to get numbers. declining same numbers from KELLY Agudelo. sleeping in afternoon. slept most of evening and all NOC last night. 05/05 continue tx. pt declines medications. 05/[address]. 05/07: no change in presentation. reported [facility] and that the voice of hamzah was commanding him to preach. committed, ordered medications. 05/08: received IM meds as refused PO. believes we are trying to turn him into a woman. 05/09: asking to leave, saying he does not want meds. took PO invega this morning. dystonia this afternoon, invega DCed. took PO ativan, benadryl, cogentin. will attempt with lithium only for the time being, backed up by valium IM. seems less energetic, labile, hyper-hinduism today. 05/10: calm, but perseverative about discharge. taking lithium. continue current mgmt. paranoid delusions we are trying to turn him transgendered. remains focused on object of his stalking. 05/11: much more manic Sx today. re-trial of anti-psychotics. start with low-dose abilify with fluphenazine back-up. lithium switched to liquid formulation today. on 30 min CO after meds. 05/12: Continue current regimen and plans 05/13: Continue current regimen and plans 05/14: blocking MD's egress from room demanding immediate discharge. accepted thorazine 100 and ativan 2 PO. initial rapid pacing up and down the [place], eventually settled. check labs 05/16. 05/15: believes we are giving him medication to turn him into a woman, believes we are trying to get him to have sex with men. required restraint chair for court-ordered medication. required medications IM. 05/16: more subdued today. took meds PO last night and this morning. increase abilify to 15 mg daily. delay labs as pt has missed lithium dosing. 05/17: labs ordered. increase abilify dosing to 20 mg daily as of tomorrow. 05/18: refused labs. less labile and agitated. remains with paranoid delusions. labs ordered again. abilify to 25 mg tonight and 30 mg as of tomorrow night. 05/19: Continue current treatment plan. 05/20: Similar to yesterday's presentation. Continue current treatment plan. 05/21: refused PO meds this morning (too PO all w/e). received IMs. continut current mgmt. Reason for continued inpatient stay Substantial Risk for: harm to self, inability to function and rapid decompensation Time Spent With Patient Time: Total time managing care of this patient today ___25_ minutes.
[2024-05-21] MEDS: fluPHENAZine HCL 2.5 MG/ML 10 ML VIAL 5 MG IM (22:48)
--- NOTE | 2024-05-22 04:14 | PC.NURSE ---
writings posted in patients room includes a sigh that reads -Sujatha Ibarra my only choice forever
--- NOTE | 2024-05-22 04:35 | PC.NURSE ---
Pt refused HS meds and requested for IM meds. Hence, IM Valium and IM Fluphenazine was administered per Jonas's order. IM Valium vial was wasted and duly witness during withdrawal due to spillage/inadequate dose.
[2024-05-22] MEDS: diphenhydrAMINE HCL 25 MG CAPSULE 50 MG PO (09:30)
[2024-05-22] MEDS: LITHIUM CITRATE 600 MG PO ×2 (09:30→21:29)
--- NOTE | 2024-05-22 13:46 | P.PNPSI_ITS ---
Subjective Subjective Date of Service: 05/22/24 Reason For Visit: stalking behaviors Interim History: lying in bed asleep. rouses self. states he is feeling fine, asks to return to [place] country. per staff, labile, isolative. refused HS Meds, got IMs last NOC. slept through the NOC. Mental Status Exam Mental Status Exam Narrative: adequately dressed and groomed. cooperative. no PMA/PMR. speech decr rate, amount. decr loudness, incr latency. thoughts linear, illogical. affect normo-intense, non-labile, constricted. mood not assessed. no SI/SIBI/HI/AVH expressed. Diagnostics Vital Signs (24Hr): BMI result Body Mass Index 52.1 Labs 04/23/24 13:06 04/23/24 13:06 Medications Medications Current Medications Acetaminophen (Acetaminophen 325 Mg Tablet) 650 mg PO Q6H PRN PRN Reason: Headache/Pain Mild Scale (1-3) Al Hydroxide/Mg Hydroxide (Magnesium Hydrox/Alum Hydrox 30 Ml Oral.Susp) 30 ml PO Q6H PRN PRN Reason: Heartburn/Nausea Aripiprazole (Aripiprazole 30 Mg Tablet) 30 mg PO BEDTIME [facility] Last Admin: 05/21/24 22:44 Dose: Not Given Diazepam (Diazepam 10 Mg/2 Ml Cartridge) 10 mg IM BID PRN PRN Reason: refusal of lithium or abilify Last Admin: 05/21/24 22:51 Dose: 10 mg Diphenhydramine HCl (Diphenhydramine Hcl 25 Mg Capsule) 50 mg PO DAILY [facility] Last Admin: 05/22/24 09:30 Dose: 50 mg Fluphenazine HCl (Fluphenazine Hcl 2.5 Mg/Ml 10 Ml Vial) 5 mg IM DAILY PRN PRN Reason: refusal of PO abilify Last Admin: 05/21/24 22:48 Dose: 5 mg Hydroxyzine HCl (Hydroxyzine Hcl 25 Mg Tablet) 25 mg PO Q6H PRN PRN Reason: Anxiety [place] Citrate ([place] Citrate Oral Tierney 8 Meq (300 Mg)/5 Ml) 600 mg PO BID [facility] Last Admin: 05/22/24 09:30 Dose: 600 mg Magnesium Hydroxide (Milk Of Magnesia 30 Ml Oral.Susp) 30 ml PO DAILY PRN PRN Reason: Constipation Olanzapine (Olanzapine Odt 10 Mg Tab.Rapdis) 10 mg TRANSLINGU Q4H PRN PRN Reason: agitation Trazodone HCl (Trazodone Hcl 50 Mg Tablet) 50 mg PO BEDTIME MRX1 PRN PRN Reason: Insomnia Allergies Allergies Allergy/AdvReac Type Severity Reaction Status Date / Time No Known Allergies Allergy Verified 04/23/24 13:03 Assessment & Plan Assessment & Plan (1) Bipolar disorder with psychotic features: Status: Acute Code(s): F31.9 - Bipolar disorder, unspecified Plan 04/25: contain, observe, educate. collect collateral info. 04/26: warrant has been issued for pt's arrest. 12b up tuesday. planning to discharge tuesday unless situation changes. prescribed abilify 5 mg daily, which pt is refusing. 04/27: refusing meds. no change in presentation. planning for discharge friday 03/30, when section 12b expires. student counseling at [facility] has been informed of the discharge plan by KELLY Agudelo. 04/29: No changes 04/30: refusing meds. frankly psychotic/manic today. disorganized thoughts, hyper-shinto, labile, delusional, no sleep. accusing staff of witchcraft and trying to turn him into a woman. filed for commitment. kicked an exit door, prompting security to be called. 05/01: kicked exit doors again overnight, send me to penitentiary or just shoot me. talking about hospital food being poisoned. i only account to [facility]. you are continuing your evil plans. refusing medications. refused to meet with mill labor supervisor today. 05/02 continue tx. 05/03: loud, labile, exit-seeking. required med/phys restraint x 1 due to elopement attempt. demanding discharge. refusing meds. continue to offer meds. hearing scheduled for tuesday. 05/04: calm, trying to get into phone to get numbers. declining same numbers from KELLY Agudelo. sleeping in afternoon. slept most of evening and all NOC last night. 05/05 continue tx. pt declines medications. 05/[address]. 05/07: no change in presentation. 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 committed, ordered medications. 05/08: received IM meds as refused PO. believes we are trying to turn him into a woman. 05/09: asking to leave, saying he does not want meds. took PO invega this morning. dystonia this afternoon, invega DCed. took PO ativan, benadryl, cogentin. will attempt with lithium only for the time being, backed up by valium IM. seems less energetic, labile, hyper-shinto today. 05/10: calm, but perseverative about discharge. taking lithium. continue current mgmt. paranoid delusions we are trying to turn him transgendered. remains focused on object of his stalking. 05/11: much more manic Sx today. re-trial of anti-psychotics. start with low- dose abilify with fluphenazine back-up. lithium switched to liquid formulation today. on 30 min CO after meds. 05/12: Continue current regimen and plans 05/13: Continue current regimen and plans 05/14: blocking MD's egress from room demanding immediate discharge. accepted thorazine 100 and ativan 2 PO. initial rapid pacing up and down the [place], eventually settled. check labs 05/16. 05/15: believes we are giving him medication to turn him into a woman, believes we are trying to get him to have sex with men. required restraint chair for court-ordered medication. required medications IM. 05/16: more subdued today. took meds PO last night and this morning. increase abilify to 15 mg daily. delay labs as pt has missed lithium dosing. 05/17: labs ordered. increase abilify dosing to 20 mg daily as of tomorrow. 05/18: refused labs. less labile and agitated. remains with paranoid delusions. labs ordered again. abilify to 25 mg tonight and 30 mg as of tomorrow night. 05/19: Continue current treatment plan. 05/20: Similar to yesterday's presentation. Continue current treatment plan. 05/21: refused PO meds this morning (took PO all w/e). received IMs. continue current mgmt. 05/22: refused PO last night and got IMs. took PO today. per collateral from KELLY Agudelo, improved insight, increased flexibility in thinking. continue current mgmt. Reason for continued inpatient stay Substantial Risk for: harm to self, harm to others, inability to function and rapid decompensation Time Spent With Patient Time: Total time managing care of this patient today _25___ minutes.
[2024-05-22] MEDS: ARIPiprazole 30 MG TABLET PO (21:29)
[2024-05-23] MEDS: diphenhydrAMINE HCL 25 MG CAPSULE 50 MG PO (09:09)
[2024-05-23] MEDS: LITHIUM CITRATE 600 MG PO ×2 (09:10→22:31)
--- NOTE | 2024-05-23 12:55 | P.PNPSI_ITS ---
Subjective Subjective Date of Service: 05/23/24 Reason For Visit: stalking behaviors Interim History: calm, appears somewhat tired or sedated. denies feeling that medications this morning have made him such, rather blames it on IM meds from tuesday. reports he is feeling fine. asking how much longer he'll need to remain in the hospital. observed lying in his bed resting later in the morning. per staff, flat, withdrawn, guarded. PO meds. not singing. not social. slept 8 hours. Mental Status Exam Mental Status Exam Narrative: adequately dressed and groomed. cooperative. no PMA/PMR. speech decr rate, amount. decr loudness, incr latency. thoughts linear, logical. affect normo- intense, non-labile, constricted. mood not assessed. no SI/SIBI/HI/AVH expressed. Diagnostics Vital Signs (24Hr): BMI result Body Mass Index 52.1 Labs 04/23/24 13:06 04/23/24 13:06 Medications Medications Current Medications Acetaminophen (Acetaminophen 325 Mg Tablet) 650 mg PO Q6H PRN PRN Reason: Headache/Pain Mild Scale (1-3) Al Hydroxide/Mg Hydroxide (Magnesium Hydrox/Alum Hydrox 30 Ml Oral.Susp) 30 ml PO Q6H PRN PRN Reason: Heartburn/Nausea Aripiprazole (Aripiprazole 30 Mg Tablet) 30 mg PO BEDTIME [facility] Last Admin: 05/22/24 21:29 Dose: 30 mg Diazepam (Diazepam 10 Mg/2 Ml Cartridge) 10 mg IM BID PRN PRN Reason: refusal of lithium or abilify Last Admin: 05/21/24 22:51 Dose: 10 mg Diphenhydramine HCl (Diphenhydramine Hcl 25 Mg Capsule) 50 mg PO DAILY [facility] Last Admin: 05/23/24 09:09 Dose: 50 mg Fluphenazine HCl (Fluphenazine Hcl 2.5 Mg/Ml 10 Ml Vial) 5 mg IM DAILY PRN PRN Reason: refusal of PO abilify Last Admin: 05/21/24 22:48 Dose: 5 mg Hydroxyzine HCl (Hydroxyzine Hcl 25 Mg Tablet) 25 mg PO Q6H PRN PRN Reason: Anxiety [place] Citrate ([place] Citrate Oral Tierney 8 Meq (300 Mg)/5 Ml) 600 mg PO BID [facility] Last Admin: 05/23/24 09:10 Dose: 600 mg Magnesium Hydroxide (Milk Of Magnesia 30 Ml Oral.Susp) 30 ml PO DAILY PRN PRN Reason: Constipation Olanzapine (Olanzapine Odt 10 Mg Tab.Rapdis) 10 mg TRANSLINGU Q4H PRN PRN Reason: agitation Trazodone HCl (Trazodone Hcl 50 Mg Tablet) 50 mg PO BEDTIME MRX1 PRN PRN Reason: Insomnia Allergies Allergies Allergy/AdvReac Type Severity Reaction Status Date / Time No Known Allergies Allergy Verified 04/23/24 13:03 Assessment & Plan Assessment & Plan (1) Bipolar disorder with psychotic features: Status: Acute Code(s): F31.9 - Bipolar disorder, unspecified Plan 04/25: contain, observe, educate. collect collateral info. 04/26: warrant has been issued for pt's arrest. 12b up tuesday. planning to discharge tuesday unless situation changes. prescribed abilify 5 mg daily, which pt is refusing. 04/27: refusing meds. no change in presentation. planning for discharge friday 03/30, when section 12b expires. student counseling at [facility] has been informed of the discharge plan by KELLY Agudelo. 04/29: No changes 04/30: refusing meds. frankly psychotic/manic today. disorganized thoughts, hyper-shinto, labile, delusional, no sleep. accusing staff of witchcraft and trying to turn him into a woman. filed for commitment. kicked an exit door, prompting security to be called. 05/01: kicked exit doors again overnight, send me to long-term or just shoot me. talking about hospital food being poisoned. i only account to [facility]. you are continuing your evil plans. refusing medications. refused to meet with it applications analyst today. 05/02 continue tx. 05/03: loud, labile, exit-seeking. required med/phys restraint x 1 due to elopement attempt. demanding discharge. refusing meds. continue to offer meds. hearing scheduled for tuesday. 05/04: calm, trying to get into phone to get numbers. declining same numbers from KELLY Agudelo. sleeping in afternoon. slept most of evening and all NOC last night. 05/05 continue tx. pt declines medications. 05/[address] hearing. 05/07: no change in presentation. 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 committed, ordered medications. 05/08: received IM meds as refused PO. believes we are trying to turn him into a woman. 05/09: asking to leave, saying he does not want meds. took PO invega this morning. dystonia this afternoon, invega DCed. took PO ativan, benadryl, cogentin. will attempt with lithium only for the time being, backed up by valium IM. seems less energetic, labile, hyper-shinto today. 05/10: calm, but perseverative about discharge. taking lithium. continue current mgmt. paranoid delusions we are trying to turn him transgendered. remains focused on object of his stalking. 05/11: much more manic Sx today. re-trial of anti-psychotics. start with low- dose abilify with fluphenazine back-up. lithium switched to liquid formulation today. on 30 min CO after meds. 05/12: Continue current regimen and plans 05/13: Continue current regimen and plans 05/14: blocking MD's egress from room demanding immediate discharge. accepted thorazine 100 and ativan 2 PO. initial rapid pacing up and down the [place], eventually settled. check labs 05/16. 05/15: believes we are giving him medication to turn him into a woman, believes we are trying to get him to have sex with men. required restraint chair for court-ordered medication. required medications IM. 05/16: more subdued today. took meds PO last night and this morning. increase abilify to 15 mg daily. delay labs as pt has missed lithium dosing. 05/17: labs ordered. increase abilify dosing to 20 mg daily as of tomorrow. 05/18: refused labs. less labile and agitated. remains with paranoid delusions. labs ordered again. abilify to 25 mg tonight and 30 mg as of tomorrow night. 05/19: Continue current treatment plan. 05/20: Similar to yesterday's presentation. Continue current treatment plan. 05/21: refused PO meds this morning (took PO all w/e). received IMs. continue current mgmt. 05/22: refused PO last night and got IMs. took PO today. per collateral from KELLY Agudelo, improved insight, increased flexibility in thinking. continue current mgmt. 05/23: calm, appears tired. napping in the morning. PO meds. no singing in the past day. slept 8 hours. declining labs. continue current mgmt. Reason for continued inpatient stay Substantial Risk for: harm to self, harm to others, inability to function and rapid decompensation Time Spent With Patient Time: Total time managing care of this patient today __25__ minutes.
[2024-05-23 21:46] VITALS: RESP 16
[2024-05-23] MEDS: ARIPiprazole 30 MG TABLET PO (22:31)
[2024-05-24 07:00] VITALS: BMI 24.0
[2024-05-24 08:00] VITALS: RESP 18
[2024-05-24] MEDS: diphenhydrAMINE HCL 25 MG CAPSULE 50 MG PO (09:04)
[2024-05-24] MEDS: LITHIUM CITRATE 600 MG PO ×2 (09:04→21:01)
--- NOTE | 2024-05-24 13:24 | HO.PSYCHPN ---
Subjective Subjective Date of Service: 05/24/24 Reason For Visit: stalking behaviors Interim History: calm, soft-spoken. reports he is feeling fine. c/o some constipation, declines stool softener. per staff, blunted, visible. guarded. in bed all shift eves. denies issues. taking meds. slept 7 hours. Mental Status Exam Mental Status Exam Narrative: adequately dressed and groomed. cooperative. no PMA/PMR. speech nml rate, amount. decr loudness, nml latency. thoughts linear, logical. affect hypo-intense, non-labile, constricted. mood euthymic. no SI/SIBI/HI/AVH expressed. Diagnostics Vital Signs (24Hr): Vital Signs - 24 hr 05/23/24 21:46 05/24/24 08:00 Respiratory Rate 16 18 BMI result Body Mass Index 24.0 Labs 04/23/24 13:06 04/23/24 13:06 Medications Medications Current Medications Acetaminophen (Acetaminophen 325 Mg Tablet) 650 mg PO Q6H PRN PRN Reason: Headache/Pain Mild Scale (1-3) Al Hydroxide/Mg Hydroxide (Magnesium Hydrox/Alum Hydrox 30 Ml Oral.Susp) 30 ml PO Q6H PRN PRN Reason: Heartburn/Nausea Aripiprazole (Aripiprazole 30 Mg Tablet) 30 mg PO BEDTIME [facility] Last Admin: 05/23/24 22:31 Dose: 30 mg Diazepam (Diazepam 10 Mg/2 Ml Cartridge) 10 mg IM BID PRN PRN Reason: refusal of lithium or abilify Last Admin: 05/21/24 22:51 Dose: 10 mg Diphenhydramine HCl (Diphenhydramine Hcl 25 Mg Capsule) 50 mg PO DAILY [facility] Last Admin: 05/24/24 09:04 Dose: 50 mg Fluphenazine HCl (Fluphenazine Hcl 2.5 Mg/Ml 10 Ml Vial) 5 mg IM DAILY PRN PRN Reason: refusal of PO abilify Last Admin: 05/21/24 22:48 Dose: 5 mg Hydroxyzine HCl (Hydroxyzine Hcl 25 Mg Tablet) 25 mg PO Q6H PRN PRN Reason: Anxiety [place] Citrate ([place] Citrate Oral Tierney 8 Meq (300 Mg)/5 Ml) 600 mg PO BID [facility] Last Admin: 05/24/24 09:04 Dose: 600 mg Magnesium Hydroxide (Milk Of Magnesia 30 Ml Oral.Susp) 30 ml PO DAILY PRN PRN Reason: Constipation Olanzapine (Olanzapine Odt 10 Mg Tab.Rapdis) 10 mg TRANSLINGU Q4H PRN PRN Reason: agitation Trazodone HCl (Trazodone Hcl 50 Mg Tablet) 50 mg PO BEDTIME MRX1 PRN PRN Reason: Insomnia Allergies Allergies Allergy/AdvReac Type Severity Reaction Status Date / Time No Known Allergies Allergy Verified 04/23/24 13:03 Assessment & Plan Assessment & Plan (1) Bipolar disorder with psychotic features: Status: Acute Code(s): F31.9 - Bipolar disorder, unspecified Plan 04/25: contain, observe, educate. collect collateral info. 04/26: warrant has been issued for pt's arrest. 12b up tuesday. planning to discharge tuesday unless situation changes. prescribed abilify 5 mg daily, which pt is refusing. 04/27: refusing meds. no change in presentation. planning for discharge friday 03/30, when section 12b expires. student counseling at [facility] has been informed of the discharge plan by KELLY Agudelo. 04/29: No changes 04/30: refusing meds. frankly psychotic/manic today. disorganized thoughts, hyper-mosque, labile, delusional, no sleep. accusing staff of witchcraft and trying to turn him into a woman. filed for commitment. kicked an exit door, prompting security to be called. 05/01: kicked exit doors again overnight, send me to [facility] or just shoot me. talking about hospital food being poisoned. i only account to [facility]. you are continuing your evil plans. refusing medications. refused to meet with outreach nurse today. 05/02 continue tx. 05/03: loud, labile, exit-seeking. required med/phys restraint x 1 due to elopement attempt. demanding discharge. refusing meds. continue to offer meds. hearing scheduled for tuesday. 05/04: calm, trying to get into phone to get numbers. declining same numbers from KELLY Agudelo. sleeping in afternoon. slept most of evening and all NOC last night. 05/05 continue tx. pt declines medications. 05/[address]. 05/07: no change in presentation. 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 committed, ordered medications. 05/08: received IM meds as refused PO. believes we are trying to turn him into a woman. 05/09: asking to leave, saying he does not want meds. took PO invega this morning. dystonia this afternoon, invega DCed. took PO ativan, benadryl, cogentin. will attempt with lithium only for the time being, backed up by valium IM. seems less energetic, labile, hyper-mosque today. 05/10: calm, but perseverative about discharge. taking lithium. continue current mgmt. paranoid delusions we are trying to turn him transgendered. remains focused on object of his stalking. 05/11: much more manic Sx today. re-trial of anti-psychotics. start with low-dose abilify with fluphenazine back-up. lithium switched to liquid formulation today. on 30 min CO after meds. 05/12: Continue current regimen and plans 05/13: Continue current regimen and plans 05/14: blocking MD's egress from room demanding immediate discharge. accepted thorazine 100 and ativan 2 PO. initial rapid pacing up and down the [place], eventually settled. check labs 05/16. 05/15: believes we are giving him medication to turn him into a woman, believes we are trying to get him to have sex with men. required restraint chair for court-ordered medication. required medications IM. 05/16: more subdued today. took meds PO last night and this morning. increase abilify to 15 mg daily. delay labs as pt has missed lithium dosing. 05/17: labs ordered. increase abilify dosing to 20 mg daily as of tomorrow. 05/18: refused labs. less labile and agitated. remains with paranoid delusions. labs ordered again. abilify to 25 mg tonight and 30 mg as of tomorrow night. 05/19: Continue current treatment plan. 05/20: Similar to yesterday's presentation. Continue current treatment plan. 05/21: refused PO meds this morning (took PO all w/e). received IMs. continue current mgmt. 05/22: refused PO last night and got IMs. took PO today. per collateral from KELLY Agudelo, improved insight, increased flexibility in thinking. continue current mgmt. 05/23: calm, appears tired. napping in the morning. PO meds. no singing in the past day. slept 8 hours. declining labs. continue current mgmt. 05/24: calm, quiet. no notable events or behaviors. continues far more subdued than prior. slept well. Reason for continued inpatient stay Substantial Risk for: harm to self, harm to others, inability to function and rapid decompensation Time Spent With Patient Time: Total time managing care of this patient today __25__ minutes.
[2024-05-24 20:18] VITALS: RESP 16
[2024-05-24] MEDS: ARIPiprazole 30 MG TABLET PO (21:01)
[2024-05-25] MEDS: LITHIUM CITRATE 600 MG PO ×2 (09:30→20:30)
[2024-05-25] MEDS: diphenhydrAMINE HCL 25 MG CAPSULE 50 MG PO ×2 (09:30→20:30)
--- NOTE | 2024-05-25 13:48 | P.PNPSI_ITS ---
Subjective Subjective Date of Service: 05/25/24 Reason For Visit: stalking behaviors Interim History: calm, soft-spoken, linear, logical. asking to take more medication than MD is suggesting (benadryl 50 rather than 25) agreeable to move benadryl to . per staff, denies Sx. affect depressed, brighter eves. some groups. some humor eves. laughing with nurse. refused VS. taking meds PO. sleeping. Mental Status Exam Mental Status Exam Narrative: adequately dressed and groomed. cooperative. no PMA/PMR. speech nml rate, amount. decr loudness, nml latency. thoughts linear, logical. affect hypo- intense, non-labile, constricted. mood euthymic. no SI/SIBI/HI/AVH expressed. Diagnostics Vital Signs (24Hr): Vital Signs - 24 hr 05/24/24 20:18 Respiratory Rate 16 BMI result Body Mass Index 24.0 Labs 04/23/24 13:06 04/23/24 13:06 Medications Medications Current Medications Acetaminophen (Acetaminophen 325 Mg Tablet) 650 mg PO Q6H PRN PRN Reason: Headache/Pain Mild Scale (1-3) Al Hydroxide/Mg Hydroxide (Magnesium Hydrox/Alum Hydrox 30 Ml Oral.Susp) 30 ml PO Q6H PRN PRN Reason: Heartburn/Nausea Aripiprazole (Aripiprazole 30 Mg Tablet) 30 mg PO BEDTIME [facility] Last Admin: 05/24/24 21:01 Dose: 30 mg Diazepam (Diazepam 10 Mg/2 Ml Cartridge) 10 mg IM BID PRN PRN Reason: refusal of lithium or abilify Last Admin: 05/21/24 22:51 Dose: 10 mg Diphenhydramine HCl (Diphenhydramine Hcl 25 Mg Capsule) 50 mg PO BEDTIME [facility] Fluphenazine HCl (Fluphenazine Hcl 2.5 Mg/Ml 10 Ml Vial) 5 mg IM DAILY PRN PRN Reason: refusal of PO abilify Last Admin: 05/21/24 22:48 Dose: 5 mg Hydroxyzine HCl (Hydroxyzine Hcl 25 Mg Tablet) 25 mg PO Q6H PRN PRN Reason: Anxiety [place] Citrate ([place] Citrate Oral Tierney 8 Meq (300 Mg)/5 Ml) 600 mg PO BID [facility] Last Admin: 05/25/24 09:30 Dose: 600 mg Magnesium Hydroxide (Milk Of Magnesia 30 Ml Oral.Susp) 30 ml PO DAILY PRN PRN Reason: Constipation Olanzapine (Olanzapine Odt 10 Mg Tab.Rapdis) 10 mg TRANSLINGU Q4H PRN PRN Reason: agitation Trazodone HCl (Trazodone Hcl 50 Mg Tablet) 50 mg PO BEDTIME MRX1 PRN PRN Reason: Insomnia Allergies Allergies Allergy/AdvReac Type Severity Reaction Status Date / Time No Known Allergies Allergy Verified 04/23/24 13:03 Assessment & Plan Assessment & Plan (1) Bipolar disorder with psychotic features: Status: Acute Code(s): F31.9 - Bipolar disorder, unspecified Plan 04/25: contain, observe, educate. collect collateral info. 04/26: warrant has been issued for pt's arrest. 12b up tuesday. planning to discharge tuesday unless situation changes. prescribed abilify 5 mg daily, which pt is refusing. 04/27: refusing meds. no change in presentation. planning for discharge friday 03/30, when section 12b expires. student counseling at [facility] has been informed of the discharge plan by KELLY Agudelo. 04/29: No changes 04/30: refusing meds. frankly psychotic/manic today. disorganized thoughts, hyper-sikhism, labile, delusional, no sleep. accusing staff of witchcraft and trying to turn him into a woman. filed for commitment. kicked an exit door, prompting security to be called. 05/01: kicked exit doors again overnight, send me to detention or just shoot me. talking about hospital food being poisoned. i only account to [facility]. you are continuing your evil plans. refusing medications. refused to meet with home connect lpn today. 05/02 continue tx. 05/03: loud, labile, exit-seeking. required med/phys restraint x 1 due to elopement attempt. demanding discharge. refusing meds. continue to offer meds. hearing scheduled for tuesday. 05/04: calm, trying to get into phone to get numbers. declining same numbers from KELLY Agudelo. sleeping in afternoon. slept most of evening and all NOC last night. 05/05 continue tx. pt declines medications. 05/[address]. 05/07: no change in presentation. reported he [facility] and that the voice of hamzah was commanding him to preach. committed, ordered medications. 05/08: received IM meds as refused PO. believes we are trying to turn him into a woman. 05/09: asking to leave, saying he does not want meds. took PO invega this morning. dystonia this afternoon, invega DCed. took PO ativan, benadryl, cogentin. will attempt with lithium only for the time being, backed up by valium IM. seems less energetic, labile, hyper-sikhism today. 05/10: calm, but perseverative about discharge. taking lithium. continue current mgmt. paranoid delusions we are trying to turn him transgendered. remains focused on object of his stalking. 05/11: much more manic Sx today. re-trial of anti-psychotics. start with low- dose abilify with fluphenazine back-up. lithium switched to liquid formulation today. on 30 min CO after meds. 05/12: Continue current regimen and plans 05/13: Continue current regimen and plans 05/14: blocking MD's egress from room demanding immediate discharge. accepted thorazine 100 and ativan 2 PO. initial rapid pacing up and down the [place], eventually settled. check labs 05/16. 05/15: believes we are giving him medication to turn him into a woman, believes we are trying to get him to have sex with men. required restraint chair for court-ordered medication. required medications IM. 05/16: more subdued today. took meds PO last night and this morning. increase abilify to 15 mg daily. delay labs as pt has missed lithium dosing. 05/17: labs ordered. increase abilify dosing to 20 mg daily as of tomorrow. 05/18: refused labs. less labile and agitated. remains with paranoid delusions. labs ordered again. abilify to 25 mg tonight and 30 mg as of tomorrow night. 05/19: Continue current treatment plan. 05/20: Similar to yesterday's presentation. Continue current treatment plan. 05/21: refused PO meds this morning (took PO all w/e). received IMs. continue current mgmt. 05/22: refused PO last night and got IMs. took PO today. per collateral from KELLY Agudelo, improved insight, increased flexibility in thinking. continue current mgmt. 05/23: calm, appears tired. napping in the morning. PO meds. no singing in the past day. slept 8 hours. declining labs. continue current mgmt. 05/24: calm, quiet. no notable events or behaviors. continues far more subdued than prior. slept well. 05/25: stable presentation. continue current mgmt. Reason for continued inpatient stay Substantial Risk for: harm to self, harm to others, inability to function and rapid decompensation Time Spent With Patient Time: Total time managing care of this patient today __25__ minutes.
[2024-05-25 20:00] VITALS: BP 143/79; PULSE 98; RESP 16; TEMP 37; O2SAT 100
[2024-05-25] MEDS: ARIPiprazole 30 MG TABLET PO (20:30)
--- NOTE | 2024-05-26 08:16 | HO.PSYCHPN ---
Subjective Subjective Date of Service: 05/26/24 Reason For Visit: stalking behaviors Subjective Notes: Section 8 Healthcare Proxy: No Guardianship: No Medical Problems Affecting Mental Status: No Interim History: 23yo with no insight into issues that got him to hospital- Reports he is taking medication and that side effects would get better with time- nursing reports some humor- Medication Compliance: Yes Side effects from medications: Yes (but wouldn't specify) Attending Groups: Intermittent Review of Systems Acute medical concerns: No Medical Review of Systems: unchanged Mental Status Exam Mental Status Exam Patient Appearance: Well Grooomed and Appropriate Patient Orientation: Person, Place, Time and Situation Level of Consciousness: Awake and Alert Patient Behavior: Cooperative, Passive and Good Eye Contact Mood Description: Anxious Affect Description: Blunted Patient Cognition Impaired: No Ability to Follow Directions: Fair Speech Pattern: Appropriate and Poor Articulation (due to Slovak 2nd language) Thought Process: Intact and Goal Oriented Abnormal Motor Activity Signs and Symptoms: Restlessness Judgement: Poor Diagnostics Vital Signs (24Hr): Vital Signs - 24 hr 05/25/24 20:00 Temperature 98.6 F Pulse Rate 98 Respiratory Rate 16 Blood Pressure 143/79 H Pulse Oximetry 100 Oxygen Delivery Method Room Air BMI result Body Mass Index 24.0 Labs 04/23/24 13:06 04/23/24 13:06 Medications Medications Current Medications Acetaminophen (Acetaminophen 325 Mg Tablet) 650 mg PO Q6H PRN PRN Reason: Headache/Pain Mild Scale (1-3) Al Hydroxide/Mg Hydroxide (Magnesium Hydrox/Alum Hydrox 30 Ml Oral.Susp) 30 ml PO Q6H PRN PRN Reason: Heartburn/Nausea Aripiprazole (Aripiprazole 30 Mg Tablet) 30 mg PO BEDTIME [facility] Last Admin: 05/25/24 20:30 Dose: 30 mg Diazepam (Diazepam 10 Mg/2 Ml Cartridge) 10 mg IM BID PRN PRN Reason: refusal of lithium or abilify Last Admin: 05/21/24 22:51 Dose: 10 mg Diphenhydramine HCl (Diphenhydramine Hcl 25 Mg Capsule) 50 mg PO BEDTIME [facility] Last Admin: 05/25/24 20:30 Dose: 50 mg Fluphenazine HCl (Fluphenazine Hcl 2.5 Mg/Ml 10 Ml Vial) 5 mg IM DAILY PRN PRN Reason: refusal of PO abilify Last Admin: 05/21/24 22:48 Dose: 5 mg Hydroxyzine HCl (Hydroxyzine Hcl 25 Mg Tablet) 25 mg PO Q6H PRN PRN Reason: Anxiety [place] Citrate ([place]incent Citrate Oral Tierney 8 Meq (300 Mg)/5 Ml) 600 mg PO BID [facility] Last Admin: 05/25/24 20:30 Dose: 600 mg Magnesium Hydroxide (Milk Of Magnesia 30 Ml Oral.Susp) 30 ml PO DAILY PRN PRN Reason: Constipation Olanzapine (Olanzapine Odt 10 Mg Tab.Rapdis) 10 mg TRANSLINGU Q4H PRN PRN Reason: agitation Trazodone HCl (Trazodone Hcl 50 Mg Tablet) 50 mg PO BEDTIME MRX1 PRN PRN Reason: Insomnia Allergies Allergies Allergy/AdvReac Type Severity Reaction Status Date / Time No Known Allergies Allergy Verified 04/23/24 13:03 Assessment & Plan Assessment & Plan (1) Bipolar disorder with psychotic features: Status: Acute Code(s): F31.9 - Bipolar disorder, unspecified Plan 04/25: contain, observe, educate. collect collateral info. 04/26: warrant has been issued for pt's arrest. 12b up tuesday. planning to discharge tuesday unless situation changes. prescribed abilify 5 mg daily, which pt is refusing. 04/27: refusing meds. no change in presentation. planning for discharge friday 03/30, when section 12b expires. student counseling at [facility] has been informed of the discharge plan by KELLY Agudelo. 04/29: No changes 04/30: refusing meds. frankly psychotic/manic today. disorganized thoughts, hyper-mandaeism, labile, delusional, no sleep. accusing staff of witchcraft and trying to turn him into a woman. filed for commitment. kicked an exit door, prompting security to be called. 05/01: kicked exit doors again overnight, send me to shelter or just shoot me. talking about hospital food being poisoned. i only account to leif. you are continuing your evil plans. refusing medications. refused to meet with conche loader and unloader today. 05/02 continue tx. 05/03: loud, labile, exit-seeking. required med/phys restraint x 1 due to elopement attempt. demanding discharge. refusing meds. continue to offer meds. hearing scheduled for tuesday. 05/04: calm, trying to get into phone to get numbers. declining same numbers from KELLY Agudelo. sleeping in afternoon. slept most of evening and all NOC last night. 05/05 continue tx. pt declines medications. 05/[address] hearing. 05/07: no change in presentation. 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 committed, ordered medications. 05/08: received IM meds as refused PO. believes we are trying to turn him into a woman. 05/09: asking to leave, saying he does not want meds. took PO invega this morning. dystonia this afternoon, invega DCed. took PO ativan, benadryl, cogentin. will attempt with lithium only for the time being, backed up by valium IM. seems less energetic, labile, hyper-mandaeism today. 05/10: calm, but perseverative about discharge. taking lithium. continue current mgmt. paranoid delusions we are trying to turn him transgendered. remains focused on object of his stalking. 05/11: much more manic Sx today. re-trial of anti-psychotics. start with low-dose abilify with fluphenazine back-up. lithium switched to liquid formulation today. on 30 min CO after meds. 05/12: Continue current regimen and plans 05/13: Continue current regimen and plans 05/14: blocking MD's egress from room demanding immediate discharge. accepted thorazine 100 and ativan 2 PO. initial rapid pacing up and down the [place], eventually settled. check labs 05/16. 05/15: believes we are giving him medication to turn him into a woman, believes we are trying to get him to have sex with men. required restraint chair for court-ordered medication. required medications IM. 05/16: more subdued today. took meds PO last night and this morning. increase abilify to 15 mg daily. delay labs as pt has missed lithium dosing. 05/17: labs ordered. increase abilify dosing to 20 mg daily as of tomorrow. 05/18: refused labs. less labile and agitated. remains with paranoid delusions. labs ordered again. abilify to 25 mg tonight and 30 mg as of tomorrow night. 05/19: Continue current treatment plan. 05/20: Similar to yesterday's presentation. Continue current treatment plan. 05/21: refused PO meds this morning (took PO all w/e). received IMs. continue current mgmt. 05/22: refused PO last night and got IMs. took PO today. per collateral from KELLY Agudelo, improved insight, increased flexibility in thinking. continue current mgmt. 05/23: calm, appears tired. napping in the morning. PO meds. no singing in the past day. slept 8 hours. declining labs. continue current mgmt. 05/24: calm, quiet. no notable events or behaviors. continues far more subdued than prior. slept well. 05/25: stable presentation. continue current mgmt. 05/26 CTP Patient educated on: medication risk/benefits Informed Consent: understands Reason for continued inpatient stay Substantial Risk for: rapid decompensation Time Spent With Patient Time: Total time managing care of this patient today ____ minutes.
[2024-05-26] MEDS: LITHIUM CITRATE 600 MG PO ×2 (08:57→20:03)
[2024-05-26 20:00] VITALS: RESP 16
[2024-05-26] MEDS: diphenhydrAMINE HCL 25 MG CAPSULE 50 MG PO (20:03)
[2024-05-26] MEDS: ARIPiprazole 30 MG TABLET PO (20:03)
[2024-05-27] MEDS: LITHIUM CITRATE 600 MG PO ×2 (08:32→20:15)
--- NOTE | 2024-05-27 11:00 | HO.PSYCHPN ---
Subjective Subjective Date of Service: 05/27/24 Reason For Visit: stalking behaviors Subjective Notes: Section 8 Healthcare Proxy: No Guardianship: No Medical Problems Affecting Mental Status: No Interim History: 23 yo who is hard to hear with his manner of speech out in open area- problems with poor articulation due to Amharic as 2nd language or also disorganized TP? factor unclear- IN his room he asked why I keep asking him about thoughts of harming others- and told pt that was standard question to most patients who come in- Pt reports he is taking lithium and some tremor but hopes it will improve over time- currently planning to go back to [facility] prior to restarting [facility] or other return to [place]=- Attempt was made to give him fresh air break but Security didn't feel comfortable- Nursing played cards with him but then pt leaned over to kiss nurse- and contacted MD about need for CO again- Will keep on 5min checks and see if any further incidents- Medication Compliance: Yes Side effects from medications: Yes (mild tremor) Attending Groups: Yes Review of Systems Acute medical concerns: Yes constipation denies bm x 6 days Review of Systems: mild tremor from lithium Mental Status Exam Mental Status Exam Patient Appearance: Appropriate Patient Orientation: Person, Place, Time and Situation Level of Consciousness: Awake and Alert Patient Behavior: Invasion - Personal Space Mood Description: Calm Affect Description: Blunted Patient Cognition Impaired: No Ability to Follow Directions: Fair Speech Pattern: Poor Articulation Hallucinations: None Thought Process: Intact Thought Content: positive for Circumstantial Judgement: Fair (-poor- given leaning in to attempt kiss nurse/staff) Diagnostics Vital Signs (24Hr): Vital Signs - 24 hr 05/26/24 20:00 Respiratory Rate 16 BMI result Body Mass Index 24.0 Labs 04/23/24 13:06 04/23/24 13:06 Medications Medications Current Medications Acetaminophen (Acetaminophen 325 Mg Tablet) 650 mg PO Q6H PRN PRN Reason: Headache/Pain Mild Scale (1-3) Al Hydroxide/Mg Hydroxide (Magnesium Hydrox/Alum Hydrox 30 Ml Oral.Susp) 30 ml PO Q6H PRN PRN Reason: Heartburn/Nausea Aripiprazole (Aripiprazole 30 Mg Tablet) 30 mg PO BEDTIME [facility] Last Admin: 05/26/24 20:03 Dose: 30 mg Diazepam (Diazepam 10 Mg/2 Ml Cartridge) 10 mg IM BID PRN PRN Reason: refusal of lithium or abilify Last Admin: 05/21/24 22:51 Dose: 10 mg Diphenhydramine HCl (Diphenhydramine Hcl 25 Mg Capsule) 50 mg PO BEDTIME [facility] Last Admin: 05/26/24 20:03 Dose: 50 mg Fluphenazine HCl (Fluphenazine Hcl 2.5 Mg/Ml 10 Ml Vial) 5 mg IM DAILY PRN PRN Reason: refusal of PO abilify Last Admin: 05/21/24 22:48 Dose: 5 mg Hydroxyzine HCl (Hydroxyzine Hcl 25 Mg Tablet) 25 mg PO Q6H PRN PRN Reason: Anxiety [place] Citrate ([place] Citrate Oral Tierney 8 Meq (300 Mg)/5 Ml) 600 mg PO BID [facility] Last Admin: 05/27/24 08:32 Dose: 600 mg Magnesium Hydroxide (Milk Of Magnesia 30 Ml Oral.Susp) 30 ml PO DAILY PRN PRN Reason: Constipation Olanzapine (Olanzapine Odt 10 Mg Tab.Rapdis) 10 mg TRANSLINGU Q4H PRN PRN Reason: agitation Trazodone HCl (Trazodone Hcl 50 Mg Tablet) 50 mg PO BEDTIME MRX1 PRN PRN Reason: Insomnia Allergies Allergies Allergy/AdvReac Type Severity Reaction Status Date / Time No Known Allergies Allergy Verified 04/23/24 13:03 Assessment & Plan Assessment & Plan (1) Bipolar disorder with psychotic features: Status: Acute Code(s): F31.9 - Bipolar disorder, unspecified Plan 04/25: contain, observe, educate. collect collateral info. 04/26: warrant has been issued for pt's arrest. 12 up tuesday. planning to discharge tuesday unless situation changes. prescribed abilify 5 mg daily, which pt is refusing. 04/27: refusing meds. no change in presentation. planning for discharge friday 03/30, when section 12b expires. [facility] by KELLY Agudelo. 04/29: No changes 04/30: refusing meds. frankly psychotic/manic today. disorganized thoughts, hyper-anabaptism, labile, delusional, no sleep. accusing staff of witchcraft and trying to turn him into a woman. filed for commitment. kicked an exit door, prompting security to be called. 9/10: kicked exit doors again overnight, send me to retirement or just shoot me. talking about hospital food being poisoned. i only account to [facility]. you are continuing your evil plans. refusing medications. refused to meet with animal husbandry teacher today. 05/02 continue tx. 05/03: loud, labile, exit-seeking. required med/phys restraint x 1 due to elopement attempt. demanding discharge. refusing meds. continue to offer meds. hearing scheduled for tuesday. 05/04: calm, trying to get into phone to get numbers. declining same numbers from KELLY Agudelo. sleeping in afternoon. slept most of evening and all NOC last night. 05/05 continue tx. pt declines medications. 05/[address] hearing. 05/07: no change in presentation. 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 committed, ordered medications. 05/08: received IM meds as refused PO. believes we are trying to turn him into a woman. 05/09: asking to leave, saying he does not want meds. took PO invega this morning. dystonia this afternoon, invega DCed. took PO ativan, benadryl, cogentin. will attempt with lithium only for the time being, backed up by valium IM. seems less energetic, labile, hyper-anabaptism today. 05/10: calm, but perseverative about discharge. taking lithium. continue current mgmt. paranoid delusions we are trying to turn him transgendered. remains focused on object of his stalking. 05/11: much more manic Sx today. re-trial of anti-psychotics. start with low-dose abilify with fluphenazine back-up. lithium switched to liquid formulation today. on 30 min CO after meds. 05/12: Continue current regimen and plans 05/13: Continue current regimen and plans 05/14: blocking MD's egress from room demanding immediate discharge. accepted thorazine 100 and ativan 2 PO. initial rapid pacing up and down the [place], eventually settled. check labs 05/16. 05/15: believes we are giving him medication to turn him into a woman, believes we are trying to get him to have sex with men. required restraint chair for court-ordered medication. required medications IM. 05/16: more subdued today. took meds PO last night and this morning. increase abilify to 15 mg daily. delay labs as pt has missed lithium dosing. 05/17: labs ordered. increase abilify dosing to 20 mg daily as of tomorrow. 05/18: refused labs. less labile and agitated. remains with paranoid delusions. labs ordered again. abilify to 25 mg tonight and 30 mg as of tomorrow night. 05/19: Continue current treatment plan. 05/20: Similar to yesterday's presentation. Continue current treatment plan. 05/21: refused PO meds this morning (took PO all w/e). received IMs. continue current mgmt. 05/22: refused PO last night and got IMs. took PO today. per collateral from KELLY Agudelo, improved insight, increased flexibility in thinking. continue current mgmt. 05/23: calm, appears tired. napping in the morning. PO meds. no singing in the past day. slept 8 hours. declining labs. continue current mgmt. 05/24: calm, quiet. no notable events or behaviors. continues far more subdued than prior. slept well. 05/25: stable presentation. continue current mgmt. 05/26 CTP 05/27 - some inapp behaviors with staff- keep on 5s, CTP Patient educated on: medication risk/benefits Informed Consent: understands and further education needed (around boundaries with staff/others) Reason for continued inpatient stay Substantial Risk for: inability to function and rapid decompensation Time Spent With Patient Time: Total time managing care of this patient today ____ minutes.
--- NOTE | 2024-05-27 15:26 | PC.NURSE ---
Patient and RN engaged in card game, patient stood up, placed his hands on this RN's shoulders and began to lean forward toward web content writer's face, invading personal boundaries. This RN immediately stood up and blocked patient from getting closer. RN set firm limits with patient regarding personal boundaries and maintaining personal space. Informed patient touching others was not acceptable behavior. Patient stated I'm sorry I thought I could do that , he apologized and verbalized understanding of maintaining personal boundaries/space. Dr. Arias notified, advised to keep patient on 5 minute safety checks at this time.
[2024-05-27 19:46] VITALS: BP 149/85; PULSE 90; TEMP 36.8; O2SAT 98
[2024-05-27] MEDS: diphenhydrAMINE HCL 25 MG CAPSULE 50 MG PO (20:15)
[2024-05-27] MEDS: Psyllium seed 3.7 GM PACKET PO (20:15)
[2024-05-27] MEDS: ARIPiprazole 30 MG TABLET PO (20:15)
[2024-05-28] MEDS: LITHIUM CITRATE 600 MG PO ×2 (08:47→20:47)
[2024-05-28 13:51] LABS: Anion Gap 9 (12-20); Blood Urea Nitrogen 10 mg/dL (9-16); Calcium 10.5 mg/dL (8.4-10.2); Carbon Dioxide 28 mmol/L (22-29); Chloride 105 mmol/L (96-108); Estimated Glomerular Filt Rate > 60; Glucose Random 116 mg/dL (60-115); Potassium 4.1 mmol/L (3.3-5.1); Sodium 138 mmol/L (135-145)
--- NOTE | 2024-05-28 13:52 | P.PNPSI_ITS ---
Subjective Subjective Date of Service: 05/28/24 Reason For Visit: stalking behaviors Interim History: appeared somewhat somnolent. cooperative. more reasonable than previously. states he has forgotten about the object of his stalking, but of course has not. does discuss with more apparent insight that if someone tells you once, twice they don't want to be in touch with you, then you should leave them alone. he states he made a mistake. discusses his desire to return to [facility] and pursue research. requesting MD contact [facility] on his behalf. per staff, attending groups. invading personal space with RN, touching her shoulders. slept 7 hours. increasingly bright and cheerful. no singing. Mental Status Exam Mental Status Exam Narrative: adequately dressed and groomed. cooperative. no PMA/PMR. speech nml rate, amount. decr loudness, nml latency. thoughts linear, logical. affect hypo- intense, non-labile, constricted. mood euthymic. no SI/SIBI/HI/AVH expressed. Diagnostics Vital Signs (24Hr): Vital Signs - 24 hr 05/27/24 19:46 Temperature 98.2 F Pulse Rate 90 Blood Pressure 149/85 H Pulse Oximetry 98 Oxygen Delivery Method Room Air BMI result Body Mass Index 24.0 Labs 04/23/24 13:06 05/28/24 13:24 Labs: Laboratory Results - last 48 hr 05/28/24 13:24 Sodium 138 Potassium 4.1 Chloride 105 Carbon Dioxide 28 Anion Gap 9 L BUN 10 Creatinine 0.98 Estim Creat Clear Calc 121.0 Estimated GFR > 60 Random Glucose 116 H Calcium 10.5 H D [place] 0.80 Medications Medications Current Medications Acetaminophen (Acetaminophen 325 Mg Tablet) 650 mg PO Q6H PRN PRN Reason: Headache/Pain Mild Scale (1-3) Al Hydroxide/Mg Hydroxide (Magnesium Hydrox/Alum Hydrox 30 Ml Oral.Susp) 30 ml PO Q6H PRN PRN Reason: Heartburn/Nausea Aripiprazole (Aripiprazole 30 Mg Tablet) 30 mg PO BEDTIME ROSETTE Last Admin: 05/27/24 20:15 Dose: 30 mg Diazepam (Diazepam 10 Mg/2 Ml Cartridge) 10 mg IM BID PRN PRN Reason: refusal of lithium or abilify Last Admin: 05/21/24 22:51 Dose: 10 mg Diphenhydramine HCl (Diphenhydramine Hcl 25 Mg Capsule) 50 mg PO BEDTIME [facility] Last Admin: 05/27/24 20:15 Dose: 50 mg Fluphenazine HCl (Fluphenazine Hcl 2.5 Mg/Ml 10 Ml Vial) 5 mg IM DAILY PRN PRN Reason: refusal of PO abilify Last Admin: 05/21/24 22:48 Dose: 5 mg Hydroxyzine HCl (Hydroxyzine Hcl 25 Mg Tablet) 25 mg PO Q6H PRN PRN Reason: Anxiety [place] Citrate ([place] Citrate Oral Tierney 8 Meq (300 Mg)/5 Ml) 600 mg PO BID [facility] Last Admin: 05/28/24 08:47 Dose: 600 mg Magnesium Hydroxide (Milk Of Magnesia 30 Ml Oral.Susp) 30 ml PO DAILY PRN PRN Reason: Constipation Olanzapine (Olanzapine Odt 10 Mg Tab.Rapdis) 10 mg TRANSLINGU Q4H PRN PRN Reason: agitation Trazodone HCl (Trazodone Hcl 50 Mg Tablet) 50 mg PO BEDTIME MRX1 PRN PRN Reason: Insomnia Allergies Allergies Allergy/AdvReac Type Severity Reaction Status Date / Time No Known Allergies Allergy Verified 04/23/24 13:03 Assessment & Plan Assessment & Plan (1) Bipolar disorder with psychotic features: Status: Acute Code(s): F31.9 - Bipolar disorder, unspecified Plan 04/25: contain, observe, educate. collect collateral info. 04/26: warrant has been issued for pt's arrest. 12b up tuesday. planning to discharge tuesday unless situation changes. prescribed abilify 5 mg daily, which pt is refusing. 04/27: refusing meds. no change in presentation. planning for discharge friday 03/30, when section 12b expires. student counseling at [facility] has been informed of the discharge plan by KELLY Agudelo. 04/29: No changes 04/30: refusing meds. frankly psychotic/manic today. disorganized thoughts, hyper-jain, labile, delusional, no sleep. accusing staff of witchcraft and trying to turn him into a woman. filed for commitment. kicked an exit door, prompting security to be called. 05/01: kicked exit doors again overnight, send me to [facility] or just shoot me. talking about hospital food being poisoned. i only account to hamzah. you are continuing your evil plans. refusing medications. refused to meet with aircraft powertrain repairer today. 05/02 continue tx. 05/03: loud, labile, exit-seeking. required med/phys restraint x 1 due to elopement attempt. demanding discharge. refusing meds. continue to offer meds. hearing scheduled for tuesday. 05/04: calm, trying to get into phone to get numbers. declining same numbers from KELLY Agudelo. sleeping in afternoon. slept most of evening and all NOC last night. 05/05 continue tx. pt declines medications. 05/[address]. 05/07: no change in presentation. [facility] and that the voice of marthajuan jdustin was commanding him to preach. committed, ordered medications. 05/08: received IM meds as refused PO. believes we are trying to turn him into a woman. 05/09: asking to leave, saying he does not want meds. took PO invega this morning. dystonia this afternoon, invega DCed. took PO ativan, benadryl, cogentin. will attempt with lithium only for the time being, backed up by valium IM. seems less energetic, labile, hyper-jain today. 05/10: calm, but perseverative about discharge. taking lithium. continue current mgmt. paranoid delusions we are trying to turn him transgendered. remains focused on object of his stalking. 05/11: much more manic Sx today. re-trial of anti-psychotics. start with low- dose abilify with fluphenazine back-up. lithium switched to liquid formulation today. on 30 min CO after meds. 05/12: Continue current regimen and plans 05/13: Continue current regimen and plans 05/14: blocking MD's egress from room demanding immediate discharge. accepted thorazine 100 and ativan 2 PO. initial rapid pacing up and down the [place], eventually settled. check labs 05/16. 05/15: believes we are giving him medication to turn him into a woman, believes we are trying to get him to have sex with men. required restraint chair for court-ordered medication. required medications IM. 05/16: more subdued today. took meds PO last night and this morning. increase abilify to 15 mg daily. delay labs as pt has missed lithium dosing. 05/17: labs ordered. increase abilify dosing to 20 mg daily as of tomorrow. 05/18: refused labs. less labile and agitated. remains with paranoid delusions. labs ordered again. abilify to 25 mg tonight and 30 mg as of tomorrow night. 05/19: Continue current treatment plan. 05/20: Similar to yesterday's presentation. Continue current treatment plan. 05/21: refused PO meds this morning (took PO all w/e). received IMs. continue current mgmt. 05/22: refused PO last night and got IMs. took PO today. per collateral from KELLY Agudelo, improved insight, increased flexibility in thinking. continue current mgmt. 05/23: calm, appears tired. napping in the morning. PO meds. no singing in the past day. slept 8 hours. declining labs. continue current mgmt. 05/24: calm, quiet. no notable events or behaviors. continues far more subdued than prior. slept well. 05/25: stable presentation. continue current mgmt. 05/26 CTP 05/27 - some inapp behaviors with staff- keep on 5s, CTP 05/28: touching female RN on shoulders. some wandering into others' rooms. more logical and with more insight than ever previous in interacting with this policy writer typist. allowed lithium level, which is 0.8. labs otherwise reassuring. declined bowel regimen. continue current mgmt. Reason for continued inpatient stay Substantial Risk for: harm to self, harm to others, inability to function and rapid decompensation Time Spent With Patient Time: Total time managing care of this patient today _35___ minutes.
[2024-05-28] MEDS: Milk of Magnesia 30 ML ORAL.SUSP PO (16:42)
[2024-05-28] MEDS: polyethylene glycoL 3350 17 GM POWD.PACK PO (18:35)
[2024-05-28 19:36] VITALS: BP 160/86; PULSE 100; TEMP 36.8; O2SAT 100
[2024-05-28] MEDS: ARIPiprazole 30 MG TABLET PO (20:47)
[2024-05-28] MEDS: diphenhydrAMINE HCL 25 MG CAPSULE 50 MG PO (20:47)
[2024-05-29] MEDS: LITHIUM CITRATE 600 MG PO ×2 (08:30→20:26)
[2024-05-29 09:25] VITALS: RESP 18
[2024-05-29 13:58] VITALS: BP 155/73
--- NOTE | 2024-05-29 16:02 | HO.PSYCHPN ---
Subjective Subjective Date of Service: 05/29/24 Reason For Visit: stalking behaviors Interim History: calm, cooperative. soft spoken. resistant to med changes, but informed benadryl will be decreased to 25 mg tonight in attempt to streamline regimen. reports he has already filled out an TE for [email or web address]. per staff, flat, withdrawn. attending groups. med-compliant. more broad affect, cheerful. Mental Status Exam Mental Status Exam Narrative: adequately dressed and groomed. cooperative. no PMA/PMR. speech nml rate, amount. decr loudness, nml latency. thoughts linear, logical. affect hypo-intense, non-labile, constricted. mood euthymic. no SI/SIBI/HI/AVH expressed. Diagnostics Vital Signs (24Hr): Vital Signs - 24 hr 05/28/24 19:36 05/29/24 09:25 05/29/24 13:58 Temperature 98.2 F Pulse Rate 100 Respiratory Rate 18 Blood Pressure 160/86 H 155/73 H Pulse Oximetry 100 Oxygen Delivery Method Room Air BMI result Body Mass Index 24.0 Labs 04/23/24 13:06 05/28/24 13:24 Labs: Laboratory Results - last 48 hr 05/28/24 13:24 Sodium 138 Potassium 4.1 Chloride 105 Carbon Dioxide 28 Anion Gap 9 L BUN 10 Creatinine 0.98 Estim Creat Clear Calc 121.0 Estimated GFR > 60 Random Glucose 116 H Calcium 10.5 H D [place] 0.80 Medications Medications Current Medications Acetaminophen (Acetaminophen 325 Mg Tablet) 650 mg PO Q6H PRN PRN Reason: Headache/Pain Mild Scale (1-3) Al Hydroxide/Mg Hydroxide (Magnesium Hydrox/Alum Hydrox 30 Ml Oral.Susp) 30 ml PO Q6H PRN PRN Reason: Heartburn/Nausea Aripiprazole (Aripiprazole 30 Mg Tablet) 30 mg PO BEDTIME ROSETTE Last Admin: 05/28/24 20:47 Dose: 30 mg Diazepam (Diazepam 10 Mg/2 Ml Cartridge) 10 mg IM BID PRN PRN Reason: refusal of lithium or abilify Last Admin: 05/21/24 22:51 Dose: 10 mg Diphenhydramine HCl (Diphenhydramine Hcl 25 Mg Capsule) 25 mg PO BEDTIME ROSETTE Fluphenazine HCl (Fluphenazine Hcl 2.5 Mg/Ml 10 Ml Vial) 5 mg IM DAILY PRN PRN Reason: refusal of PO abilify Last Admin: 05/21/24 22:48 Dose: 5 mg Hydroxyzine HCl (Hydroxyzine Hcl 25 Mg Tablet) 25 mg PO Q6H PRN PRN Reason: Anxiety [place] Citrate ([place] Citrate Oral Tierney 8 Meq (300 Mg)/5 Ml) 600 mg PO BID ROSETTE Last Admin: 05/29/24 08:30 Dose: 600 mg Magnesium Hydroxide (Milk Of Magnesia 30 Ml Oral.Susp) 30 ml PO DAILY PRN PRN Reason: Constipation Last Admin: 05/28/24 16:42 Dose: 30 ml Olanzapine (Olanzapine Odt 10 Mg Tab.Rapdis) 10 mg TRANSLINGU Q4H PRN PRN Reason: agitation Polyethylene Glycol (Polyethylene Glycol 3350 17 Gm Powd.Pack) 17 gm PO DAILY PRN PRN Reason: Constipation Last Admin: 05/28/24 18:35 Dose: 17 gm Trazodone HCl (Trazodone Hcl 50 Mg Tablet) 50 mg PO BEDTIME MRX1 PRN PRN Reason: Insomnia Allergies Allergies Allergy/AdvReac Type Severity Reaction Status Date / Time No Known Allergies Allergy Verified 04/23/24 13:03 Assessment & Plan Assessment & Plan (1) Bipolar disorder with psychotic features: Status: Acute Code(s): F31.9 - Bipolar disorder, unspecified Plan 04/25: contain, observe, educate. collect collateral info. 04/26: warrant has been issued for pt's arrest. 12b up tuesday. planning to discharge tuesday unless situation changes. prescribed abilify 5 mg daily, which pt is refusing. 04/27: refusing meds. no change in presentation. planning for discharge friday 03/30, when section 12b expires. student counseling at formerly [facility] has been informed of the discharge plan by KELLY Agudelo. 04/29: No changes 04/30: refusing meds. frankly psychotic/manic today. disorganized thoughts, hyper-hinduism, labile, delusional, no sleep. accusing staff of witchcraft and trying to turn him into a woman. filed for commitment. kicked an exit door, prompting security to be called. 05/01: kicked exit doors again overnight, send me to prison or just shoot me. talking about hospital food being poisoned. i only account to hamzah. you are continuing your evil plans. refusing medications. refused to meet with customer service engineer today. 05/02 continue tx. 05/03: loud, labile, exit-seeking. required med/phys restraint x 1 due to elopement attempt. demanding discharge. refusing meds. continue to offer meds. hearing scheduled for tuesday. 05/04: calm, trying to get into phone to get numbers. declining same numbers from KELLY Agudelo. sleeping in afternoon. slept most of evening and all NOC last night. 05/05 continue tx. pt declines medications. 05/[address] hearing. 05/07: no change in presentation. [facility] and that the voice of hamzah was commanding him to preach. committed, ordered medications. 05/08: received IM meds as refused PO. believes we are trying to turn him into a woman. 05/09: asking to leave, saying he does not want meds. took PO invega this morning. dystonia this afternoon, invega DCed. took PO ativan, benadryl, cogentin. will attempt with lithium only for the time being, backed up by valium IM. seems less energetic, labile, hyper-hinduism today. 05/10: calm, but perseverative about discharge. taking lithium. continue current mgmt. paranoid delusions we are trying to turn him transgendered. remains focused on object of his stalking. 05/11: much more manic Sx today. re-trial of anti-psychotics. start with low-dose abilify with fluphenazine back-up. lithium switched to liquid formulation today. on 30 min CO after meds. 05/12: Continue current regimen and plans 05/13: Continue current regimen and plans 05/14: blocking MD's egress from room demanding immediate discharge. accepted thorazine 100 and ativan 2 PO. initial rapid pacing up and down the [place], eventually settled. check labs 05/16. 05/15: believes we are giving him medication to turn him into a woman, believes we are trying to get him to have sex with men. required restraint chair for court-ordered medication. required medications IM. 05/16: more subdued today. took meds PO last night and this morning. increase abilify to 15 mg daily. delay labs as pt has missed lithium dosing. 05/17: labs ordered. increase abilify dosing to 20 mg daily as of tomorrow. 05/18: refused labs. less labile and agitated. remains with paranoid delusions. labs ordered again. abilify to 25 mg tonight and 30 mg as of tomorrow night. 05/19: Continue current treatment plan. 05/20: Similar to yesterday's presentation. Continue current treatment plan. 05/21: refused PO meds this morning (took PO all w/e). received IMs. continue current mgmt. 05/22: refused PO last night and got IMs. took PO today. per collateral from KELLY Agudelo, improved insight, increased flexibility in thinking. continue current mgmt. 05/23: calm, appears tired. napping in the morning. PO meds. no singing in the past day. slept 8 hours. declining labs. continue current mgmt. 05/24: calm, quiet. no notable events or behaviors. continues far more subdued than prior. slept well. 05/25: stable presentation. continue current mgmt. 05/26 CTP 05/27 - some inapp behaviors with staff- keep on 5s, CTP 05/28: touching female RN on shoulders. some wandering into others' rooms. more logical and with more insight than ever previous in interacting with this contract technical writer. allowed lithium level, which is 0.8. labs otherwise reassuring. declined bowel regimen. continue current mgmt. 05/29: appears as yesterday. no notable events. labs reviewed with pt. decrease benadryl to 25 mg QHS. Reason for continued inpatient stay Substantial Risk for: harm to self, harm to others, inability to function and rapid decompensation Time Spent With Patient Time: Total time managing care of this patient today __25__ minutes.
[2024-05-29] MEDS: ARIPiprazole 30 MG TABLET PO (20:25)
[2024-05-29] MEDS: diphenhydrAMINE HCL 25 MG CAPSULE PO (20:25)
[2024-05-30 07:15] VITALS: BP 142/83; PULSE 102; RESP 18; TEMP 36.4; O2SAT 100
[2024-05-30] MEDS: LITHIUM CITRATE 600 MG PO ×2 (08:26→20:48)
[2024-05-30] MEDS: Milk of Magnesia 30 ML ORAL.SUSP PO (09:34)
[2024-05-30 10:46] VITALS: BP 134/74; PULSE 88; RESP 16; TEMP 36.9; O2SAT 98
--- NOTE | 2024-05-30 14:14 | P.PNPSI_ITS ---
Subjective Subjective Date of Service: 05/30/24 Reason For Visit: stalking behaviors Interim History: up and about morning, resting in bed afternoon. reports he feels well. appears tired. informed of plan to decrease abilify to 20 mg moving forward and to DC benadryl. appears to be in agreement. no questions or complaints. per staff, visible. taking meds. shivering episode. refusing VS. slept 6.5 hours. Mental Status Exam Mental Status Exam Narrative: adequately dressed and groomed. cooperative. general PMR. speech decr rate, amount. decr loudness, incr latency. thoughts linear, logical. affect hypo- intense, non-labile, constricted. mood euthymic. no SI/SIBI/HI/AVH expressed. Diagnostics Vital Signs (24Hr): Vital Signs - 24 hr 05/30/24 07:15 05/30/24 10:46 Temperature 97.5 F 98.4 F Pulse Rate 102 H 88 Respiratory Rate 18 16 Blood Pressure 142/83 H 134/74 Pulse Oximetry 100 98 Oxygen Delivery Method Room Air Room Air BMI result Body Mass Index 24.0 Labs 04/23/24 13:06 05/28/24 13:24 Medications Medications Current Medications Acetaminophen (Acetaminophen 325 Mg Tablet) 650 mg PO Q6H PRN PRN Reason: Headache/Pain Mild Scale (1-3) Al Hydroxide/Mg Hydroxide (Magnesium Hydrox/Alum Hydrox 30 Ml Oral.Susp) 30 ml PO Q6H PRN PRN Reason: Heartburn/Nausea Aripiprazole (Aripiprazole 20 Mg Tablet) 20 mg PO BEDTIME COUNTS [facility] Diazepam (Diazepam 10 Mg/2 Ml Cartridge) 10 mg IM BID PRN PRN Reason: refusal of lithium or abilify Last Admin: 05/21/24 22:51 Dose: 10 mg Fluphenazine HCl (Fluphenazine Hcl 2.5 Mg/Ml 10 Ml Vial) 5 mg IM DAILY PRN PRN Reason: refusal of PO abilify Last Admin: 05/21/24 22:48 Dose: 5 mg Hydroxyzine HCl (Hydroxyzine Hcl 25 Mg Tablet) 25 mg PO Q6H PRN PRN Reason: Anxiety [place] Citrate ([place] Citrate Oral [place] 8 Meq (300 Mg)/5 Ml) 600 mg PO BID COUNTS [facility] Last Admin: 05/30/24 08:26 Dose: 600 mg Magnesium Hydroxide (Milk Of Magnesia 30 Ml Oral.Susp) 30 ml PO DAILY PRN PRN Reason: Constipation Last Admin: 05/30/24 09:34 Dose: 30 ml Olanzapine (Olanzapine Odt 10 Mg Tab.Rapdis) 10 mg TRANSLINGU Q4H PRN PRN Reason: agitation Polyethylene Glycol (Polyethylene Glycol 3350 17 Gm Powd.Pack) 17 gm PO DAILY PRN PRN Reason: Constipation Last Admin: 05/28/24 18:35 Dose: 17 gm Trazodone HCl (Trazodone Hcl 50 Mg Tablet) 50 mg PO BEDTIME MRX1 PRN PRN Reason: Insomnia Allergies Allergies Allergy/AdvReac Type Severity Reaction Status Date / Time No Known Allergies Allergy Verified 04/23/24 13:03 Assessment & Plan Assessment & Plan (1) Bipolar disorder with psychotic features: Status: Acute Code(s): F31.9 - Bipolar disorder, unspecified Plan 04/25: contain, observe, educate. collect collateral info. 04/26: warrant has been issued for pt's arrest. 12b up tuesday. planning to discharge tuesday unless situation changes. prescribed abilify 5 mg daily, which pt is refusing. 04/27: refusing meds. no change in presentation. planning for discharge friday 03/30, when section 12b expires. student counseling at [facility] has been informed of the discharge plan by KELLY Agudelo. 04/29: No changes 04/30: refusing meds. frankly psychotic/manic today. disorganized thoughts, hyper-moravian, labile, delusional, no sleep. accusing staff of witchcraft and trying to turn him into a woman. filed for commitment. kicked an exit door, prompting security to be called. 05/01: kicked exit doors again overnight, send me to half-way or just shoot me. talking about hospital food being poisoned. i only account to [employer]. you are continuing your evil plans. refusing medications. refused to meet with clinical data manager today. 05/02 continue tx. 05/03: loud, labile, exit-seeking. required med/phys restraint x 1 due to elopement attempt. demanding discharge. refusing meds. continue to offer meds. hearing scheduled for tuesday. 05/04: calm, trying to get into phone to get numbers. declining same numbers from KELLY Agudelo. sleeping in afternoon. slept most of evening and all NOC last night. 05/05 continue tx. pt declines medications. 05/[address] hearing. 05/07: no change in presentation. 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 committed, ordered medications. 05/08: received IM meds as refused PO. believes we are trying to turn him into a woman. 05/09: asking to leave, saying he does not want meds. took PO invega this morning. dystonia this afternoon, invega DCed. took PO ativan, benadryl, cogentin. will attempt with lithium only for the time being, backed up by valium IM. seems less energetic, labile, hyper-moravian today. 05/10: calm, but perseverative about discharge. taking lithium. continue current mgmt. paranoid delusions we are trying to turn him transgendered. remains focused on object of his stalking. 05/11: much more manic Sx today. re-trial of anti-psychotics. start with low- dose abilify with fluphenazine back-up. lithium switched to liquid formulation today. on 30 min CO after meds. 05/12: Continue current regimen and plans 05/13: Continue current regimen and plans 05/14: blocking MD's egress from room demanding immediate discharge. accepted thorazine 100 and ativan 2 PO. initial rapid pacing up and down the [place], eventually settled. check labs 05/16. 05/15: believes we are giving him medication to turn him into a woman, believes we are trying to get him to have sex with men. required restraint chair for court-ordered medication. required medications IM. 05/16: more subdued today. took meds PO last night and this morning. increase abilify to 15 mg daily. delay labs as pt has missed lithium dosing. 05/17: labs ordered. increase abilify dosing to 20 mg daily as of tomorrow. 05/18: refused labs. less labile and agitated. remains with paranoid delusions. labs ordered again. abilify to 25 mg tonight and 30 mg as of tomorrow night. 05/19: Continue current treatment plan. 05/20: Similar to yesterday's presentation. Continue current treatment plan. 05/21: refused PO meds this morning (took PO all w/e). received IMs. continue current mgmt. 05/22: refused PO last night and got IMs. took PO today. per collateral from KELLY Agudelo, improved insight, increased flexibility in thinking. continue current mgmt. 05/23: calm, appears tired. napping in the morning. PO meds. no singing in the past day. slept 8 hours. declining labs. continue current mgmt. 05/24: calm, quiet. no notable events or behaviors. continues far more subdued than prior. slept well. 05/25: stable presentation. continue current mgmt. 05/26 CTP 05/27 - some inapp behaviors with staff- keep on 5s, CTP 05/28: touching female RN on shoulders. some wandering into others' rooms. more logical and with more insight than ever previous in interacting with this engineering writer. allowed lithium level, which is 0.8. labs otherwise reassuring. declined bowel regimen. continue current mgmt. 05/29: appears as yesterday. no notable events. labs reviewed with pt. decrease benadryl to 25 mg QHS. 05/30: DC benadryl. lower abilify from 30 mg QHS to 20 mg QHS due to sedation/confusion for past several days. slept 6.5 hours. appears flat, tired. Reason for continued inpatient stay Substantial Risk for: inability to function and rapid decompensation Time Spent With Patient Time: Total time managing care of this patient today __25__ minutes.
[2024-05-30] MEDS: ARIPiprazole 20 MG TABLET PO (20:47)
[2024-05-31 07:00] VITALS: BMI 24.1
[2024-05-31 07:39] VITALS: BP 127/84; PULSE 91; RESP 18; TEMP 37.4; O2SAT 100
[2024-05-31] MEDS: LITHIUM CITRATE 600 MG PO ×2 (08:45→21:12)
--- NOTE | 2024-05-31 14:38 | P.PNPSI_ITS ---
Subjective Subjective Date of Service: 05/31/24 Reason For Visit: stalking behaviors Interim History: calm, cooperative. appears a bit tired. c/o feeling tired and that his brain is not working. per staff, attending groups. taking meds. knocking on others' doors. c/o feeling tired, heavy, can't think. Mental Status Exam Mental Status Exam Narrative: adequately dressed and groomed. cooperative. general PMR. speech decr rate, amount. decr loudness, incr latency. thoughts linear, logical. affect hypo- intense, non-labile, constricted. mood euthymic. no SI/SIBI/HI/AVH expressed. Diagnostics Vital Signs (24Hr): Vital Signs - 24 hr 05/31/24 07:39 Temperature 99.4 F Pulse Rate 91 Respiratory Rate 18 Blood Pressure 127/84 Pulse Oximetry 100 Oxygen Delivery Method Room Air BMI result Body Mass Index 24.1 Labs 04/23/24 13:06 05/28/24 13:24 Medications Medications Current Medications Acetaminophen (Acetaminophen 325 Mg Tablet) 650 mg PO Q6H PRN PRN Reason: Headache/Pain Mild Scale (1-3) Al Hydroxide/Mg Hydroxide (Magnesium Hydrox/Alum Hydrox 30 Ml Oral.Susp) 30 ml PO Q6H PRN PRN Reason: Heartburn/Nausea Aripiprazole (Aripiprazole 20 Mg Tablet) 20 mg PO BEDTIME [facility] Last Admin: 05/30/24 20:47 Dose: 20 mg Diazepam (Diazepam 10 Mg/2 Ml Cartridge) 10 mg IM BID PRN PRN Reason: refusal of lithium or abilify Last Admin: 05/21/24 22:51 Dose: 10 mg Fluphenazine HCl (Fluphenazine Hcl 2.5 Mg/Ml 10 Ml Vial) 5 mg IM DAILY PRN PRN Reason: refusal of PO abilify Last Admin: 05/21/24 22:48 Dose: 5 mg Hydroxyzine HCl (Hydroxyzine Hcl 25 Mg Tablet) 25 mg PO Q6H PRN PRN Reason: Anxiety [place] Citrate ([place] Citrate Oral Tierney 8 Meq (300 Mg)/5 Ml) 600 mg PO BID ROSETTE Last Admin: 05/31/24 08:45 Dose: 600 mg Magnesium Hydroxide (Milk Of Magnesia 30 Ml Oral.Susp) 30 ml PO DAILY PRN PRN Reason: Constipation Last Admin: 05/30/24 09:34 Dose: 30 ml Olanzapine (Olanzapine Odt 10 Mg Tab.Rapdis) 10 mg TRANSLINGU Q4H PRN PRN Reason: agitation Polyethylene Glycol (Polyethylene Glycol 3350 17 Gm Powd.Pack) 17 gm PO DAILY PRN PRN Reason: Constipation Last Admin: 05/28/24 18:35 Dose: 17 gm Trazodone HCl (Trazodone Hcl 50 Mg Tablet) 50 mg PO BEDTIME MRX1 PRN PRN Reason: Insomnia Allergies Allergies Allergy/AdvReac Type Severity Reaction Status Date / Time No Known Allergies Allergy Verified 04/23/24 13:03 Assessment & Plan Assessment & Plan (1) Bipolar disorder with psychotic features: Status: Acute Code(s): F31.9 - Bipolar disorder, unspecified Plan 04/25: contain, observe, educate. collect collateral info. 04/26: warrant has been issued for pt's arrest. 12b up tuesday. planning to discharge tuesday unless situation changes. prescribed abilify 5 mg daily, which pt is refusing. 04/27: refusing meds. no change in presentation. planning for discharge friday 03/30, when section 12b expires. [facility] by KELLY Agudelo. 04/29: No changes 04/30: refusing meds. frankly psychotic/manic today. disorganized thoughts, hyper-bahai, labile, delusional, no sleep. accusing staff of witchcraft and trying to turn him into a woman. filed for commitment. kicked an exit door, prompting security to be called. 05/01: kicked exit doors again overnight, send me to senior living or just shoot me. talking about hospital food being poisoned. i only account to [facility]. you are continuing your evil plans. refusing medications. refused to meet with manager of selection and assessment today. 05/02 continue tx. 05/03: loud, labile, exit-seeking. required med/phys restraint x 1 due to elopement attempt. demanding discharge. refusing meds. continue to offer meds. hearing scheduled for tuesday. 05/04: calm, trying to get into phone to get numbers. declining same numbers from KELLY Agudelo. sleeping in afternoon. slept most of evening and all NOC last night. 05/05 continue tx. pt declines medications. 05/[address] hearing. 05/07: no change in presentation. 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 committed, ordered medications. 05/08: received IM meds as refused PO. believes we are trying to turn him into a woman. 05/09: asking to leave, saying he does not want meds. took PO invega this morning. dystonia this afternoon, invega DCed. took PO ativan, benadryl, cogentin. will attempt with lithium only for the time being, backed up by valium IM. seems less energetic, labile, hyper-bahai today. 05/10: calm, but perseverative about discharge. taking lithium. continue current mgmt. paranoid delusions we are trying to turn him transgendered. remains focused on object of his stalking. 05/11: much more manic Sx today. re-trial of anti-psychotics. start with low- dose abilify with fluphenazine back-up. lithium switched to liquid formulation today. on 30 min CO after meds. 05/12: Continue current regimen and plans 05/13: Continue current regimen and plans 05/14: blocking MD's egress from room demanding immediate discharge. accepted thorazine 100 and ativan 2 PO. initial rapid pacing up and down the [place], eventually settled. check labs 05/16. 05/15: believes we are giving him medication to turn him into a woman, believes we are trying to get him to have sex with men. required restraint chair for court-ordered medication. required medications IM. 05/16: more subdued today. took meds PO last night and this morning. increase abilify to 15 mg daily. delay labs as pt has missed lithium dosing. 05/17: labs ordered. increase abilify dosing to 20 mg daily as of tomorrow. 05/18: refused labs. less labile and agitated. remains with paranoid delusions. labs ordered again. abilify to 25 mg tonight and 30 mg as of tomorrow night. 05/19: Continue current treatment plan. 05/20: Similar to yesterday's presentation. Continue current treatment plan. 05/21: refused PO meds this morning (took PO all w/e). received IMs. continue current mgmt. 05/22: refused PO last night and got IMs. took PO today. per collateral from KELLY Agudelo, improved insight, increased flexibility in thinking. continue current mgmt. 05/23: calm, appears tired. napping in the morning. PO meds. no singing in the past day. slept 8 hours. declining labs. continue current mgmt. 05/24: calm, quiet. no notable events or behaviors. continues far more subdued than prior. slept well. 05/25: stable presentation. continue current mgmt. 05/26 CTP 05/27 - some inapp behaviors with staff- keep on 5s, CTP 05/28: touching female RN on shoulders. some wandering into others' rooms. more logical and with more insight than ever previous in interacting with this securities underwriter. allowed lithium level, which is 0.8. labs otherwise reassuring. declined bowel regimen. continue current mgmt. 05/29: appears as yesterday. no notable events. labs reviewed with pt. decrease benadryl to 25 mg QHS. 05/30: DC benadryl. lower abilify from 30 mg QHS to 20 mg QHS due to sedation/confusion for past several days. slept 6.5 hours. appears flat, tired. 05/31: less sedated today. continue current mgmt. Reason for continued inpatient stay Substantial Risk for: harm to self, harm to others, inability to function and rapid decompensation Time Spent With Patient Time: Total time managing care of this patient today __25__ minutes.
[2024-05-31] MEDS: polyethylene glycoL 3350 17 GM POWD.PACK PO (15:59)
[2024-05-31] MEDS: ARIPiprazole 20 MG TABLET PO (21:12)
[2024-06-01 07:52] VITALS: BP 150/77; PULSE 98; RESP 16; TEMP 36.9; O2SAT 100
[2024-06-01] MEDS: LITHIUM CITRATE 600 MG PO ×2 (08:32→21:20)
--- NOTE | 2024-06-01 13:14 | PC.NURSE ---
Rocky attempted to kiss a female staff member while playing cards. He was able to be redirected, Soraida Robni MD made aware.
--- NOTE | 2024-06-01 15:26 | P.PNPSI_ITS ---
Subjective Subjective Date of Service: 06/01/24 Reason For Visit: stalking behaviors Interim History: attempting to look quite tired when with this racebook writer, looking rather wide awake when observed in the milieu. c/o sedation from medication. per staff, flat, subdued. attempted to kiss female CO today. c/o feeling tired from meds. slept 8 hours. Mental Status Exam Mental Status Exam Narrative: adequately dressed and groomed. cooperative. general PMR. speech decr rate, amount. decr loudness, incr latency. thoughts linear, logical. affect hypo- intense, non-labile, constricted. mood euthymic. no SI/SIBI/HI/AVH expressed. Diagnostics Vital Signs (24Hr): Vital Signs - 24 hr 06/01/24 07:52 Temperature 98.4 F Pulse Rate 98 Respiratory Rate 16 Blood Pressure 150/77 H Pulse Oximetry 100 Oxygen Delivery Method Room Air BMI result Body Mass Index 24.1 Labs 04/23/24 13:06 05/28/24 13:24 Medications Medications Current Medications Acetaminophen (Acetaminophen 325 Mg Tablet) 650 mg PO Q6H PRN PRN Reason: Headache/Pain Mild Scale (1-3) Al Hydroxide/Mg Hydroxide (Magnesium Hydrox/Alum Hydrox 30 Ml Oral.Susp) 30 ml PO Q6H PRN PRN Reason: Heartburn/Nausea Aripiprazole (Aripiprazole 20 Mg Tablet) 20 mg PO BEDTIME [facility] Last Admin: 05/31/24 21:12 Dose: 20 mg Diazepam (Diazepam 10 Mg/2 Ml Cartridge) 10 mg IM BID PRN PRN Reason: refusal of lithium or abilify Last Admin: 05/21/24 22:51 Dose: 10 mg Fluphenazine HCl (Fluphenazine Hcl 2.5 Mg/Ml 10 Ml Vial) 5 mg IM DAILY PRN PRN Reason: refusal of PO abilify Last Admin: 05/21/24 22:48 Dose: 5 mg Hydroxyzine HCl (Hydroxyzine Hcl 25 Mg Tablet) 25 mg PO Q6H PRN PRN Reason: Anxiety [place] Citrate ([place] Citrate Oral Tierney 8 Meq (300 Mg)/5 Ml) 600 mg PO BID ROSETTE Last Admin: 06/01/24 08:32 Dose: 600 mg Magnesium Hydroxide (Milk Of Magnesia 30 Ml Oral.Susp) 30 ml PO DAILY PRN PRN Reason: Constipation Last Admin: 05/30/24 09:34 Dose: 30 ml Olanzapine (Olanzapine Odt 10 Mg Tab.Rapdis) 10 mg TRANSLINGU Q4H PRN PRN Reason: agitation Polyethylene Glycol (Polyethylene Glycol 3350 17 Gm Powd.Pack) 17 gm PO DAILY PRN PRN Reason: Constipation Last Admin: 05/31/24 15:59 Dose: 17 gm Trazodone HCl (Trazodone Hcl 50 Mg Tablet) 50 mg PO BEDTIME MRX1 PRN PRN Reason: Insomnia Allergies Allergies Allergy/AdvReac Type Severity Reaction Status Date / Time No Known Allergies Allergy Verified 04/23/24 13:03 Assessment & Plan Assessment & Plan (1) Bipolar disorder with psychotic features: Status: Acute Code(s): F31.9 - Bipolar disorder, unspecified Plan 04/25: contain, observe, educate. collect collateral info. 04/26: warrant has been issued for pt's arrest. 12b up tuesday. planning to discharge tuesday unless situation changes. prescribed abilify 5 mg daily, which pt is refusing. 04/27: refusing meds. no change in presentation. planning for discharge friday 03/30, when section 12b expires. student counseling at [facility] has been informed of the discharge plan by KELLY Agudelo. 04/29: No changes 04/30: refusing meds. frankly psychotic/manic today. disorganized thoughts, hyper-protestant, labile, delusional, no sleep. accusing staff of witchcraft and trying to turn him into a woman. filed for commitment. kicked an exit door, prompting security to be called. 05/01: kicked exit doors again overnight, send me to group home or just shoot me. talking about hospital food being poisoned. i only account to [employer]. you are continuing your evil plans. refusing medications. refused to meet with resolution expert today. 05/02 continue tx. 05/03: loud, labile, exit-seeking. required med/phys restraint x 1 due to elopement attempt. demanding discharge. refusing meds. continue to offer meds. hearing scheduled for tuesday. 05/04: calm, trying to get into phone to get numbers. declining same numbers from KELLY Agudelo. sleeping in afternoon. slept most of evening and all NOC last night. 05/05 continue tx. pt declines medications. 05/[address] hearing. 05/07: no change in presentation. 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 committed, ordered medications. 05/08: received IM meds as refused PO. believes we are trying to turn him into a woman. 05/09: asking to leave, saying he does not want meds. took PO invega this morning. dystonia this afternoon, invega DCed. took PO ativan, benadryl, cogentin. will attempt with lithium only for the time being, backed up by valium IM. seems less energetic, labile, hyper-protestant today. 05/10: calm, but perseverative about discharge. taking lithium. continue current mgmt. paranoid delusions we are trying to turn him transgendered. remains focused on object of his stalking. 05/11: much more manic Sx today. re-trial of anti-psychotics. start with low- dose abilify with fluphenazine back-up. lithium switched to liquid formulation today. on 30 min CO after meds. 05/12: Continue current regimen and plans 05/13: Continue current regimen and plans 05/14: blocking MD's egress from room demanding immediate discharge. accepted thorazine 100 and ativan 2 PO. initial rapid pacing up and down the [place], eventually settled. check labs 05/16. 05/15: believes we are giving him medication to turn him into a woman, believes we are trying to get him to have sex with men. required restraint chair for court-ordered medication. required medications IM. 05/16: more subdued today. took meds PO last night and this morning. increase abilify to 15 mg daily. delay labs as pt has missed lithium dosing. 05/17: labs ordered. increase abilify dosing to 20 mg daily as of tomorrow. 05/18: refused labs. less labile and agitated. remains with paranoid delusions. labs ordered again. abilify to 25 mg tonight and 30 mg as of tomorrow night. 05/19: Continue current treatment plan. 05/20: Similar to yesterday's presentation. Continue current treatment plan. 05/21: refused PO meds this morning (took PO all w/e). received IMs. continue current mgmt. 05/22: refused PO last night and got IMs. took PO today. per collateral from KELLY Agudelo, improved insight, increased flexibility in thinking. continue current mgmt. 05/23: calm, appears tired. napping in the morning. PO meds. no singing in the past day. slept 8 hours. declining labs. continue current mgmt. 05/24: calm, quiet. no notable events or behaviors. continues far more subdued than prior. slept well. 05/25: stable presentation. continue current mgmt. 05/26 CTP 05/27 - some inapp behaviors with staff- keep on 5s, CTP 05/28: touching female RN on shoulders. some wandering into others' rooms. more logical and with more insight than ever previous in interacting with this racebook writer. allowed lithium level, which is 0.8. labs otherwise reassuring. declined bowel regimen. continue current mgmt. 05/29: appears as yesterday. no notable events. labs reviewed with pt. decrease benadryl to 25 mg QHS. 05/30: DC benadryl. lower abilify from 30 mg QHS to 20 mg QHS due to sedation/confusion for past several days. slept 6.5 hours. appears flat, tired. 05/31: less sedated today. continue current mgmt. 06/01: as for yesterday. attempted to kiss female staff doing CO today. Reason for continued inpatient stay Substantial Risk for: harm to self, harm to others, inability to function and rapid decompensation Time Spent With Patient Time: Total time managing care of this patient today __35__ minutes.
[2024-06-01 20:05] VITALS: BP 140/88; PULSE 100; RESP 18; TEMP 37.2; O2SAT 98
[2024-06-01] MEDS: ARIPiprazole 20 MG TABLET PO (21:20)
[2024-06-02] MEDS: LITHIUM CITRATE 600 MG PO ×2 (08:35→20:43)
[2024-06-02 12:25] VITALS: BP 146/67; PULSE 93; RESP 16; TEMP 37.2; O2SAT 98
[2024-06-02] MEDS: Docusate Sodium 100 MG CAPSULE PO ×2 (12:37→20:43)
--- NOTE | 2024-06-02 19:30 | HO.PSYCHPN ---
Subjective Subjective Date of Service: 06/02/24 Reason For Visit: stalking behaviors Interim History: calm, cooperative. appears more awake. states to MD, i feel like my brain is being weakened. also c/o blurry vision and stutter speech when he is initiating speech. asks for something to help with bowels, agrees to colace. per staff, no groups. taking meds. slept 8+ hours. Mental Status Exam Mental Status Exam Narrative: adequately dressed and groomed. cooperative. less PMR. speech decr rate, nml amount. decr loudness, nml latency. thoughts linear, logical. affect hypo-intense, non-labile, constricted. mood euthymic. no SI/SIBI/HI/AVH expressed. Diagnostics Vital Signs (24Hr): Vital Signs - 24 hr 06/01/24 20:05 06/02/24 12:25 Temperature 98.9 F 99.0 F Pulse Rate 100 93 Respiratory Rate 18 16 Blood Pressure 140/88 H 146/67 H Pulse Oximetry 98 98 Oxygen Delivery Method Room Air Room Air BMI result Body Mass Index 24.1 Labs 04/23/24 13:06 05/28/24 13:24 Medications Medications Current Medications Acetaminophen (Acetaminophen 325 Mg Tablet) 650 mg PO Q6H PRN PRN Reason: Headache/Pain Mild Scale (1-3) Al Hydroxide/Mg Hydroxide (Magnesium Hydrox/Alum Hydrox 30 Ml Oral.Susp) 30 ml PO Q6H PRN PRN Reason: Heartburn/Nausea Aripiprazole (Aripiprazole 20 Mg Tablet) 20 mg PO BEDTIME [facility] Last Admin: 06/01/24 21:20 Dose: 20 mg Diazepam (Diazepam 10 Mg/2 Ml Cartridge) 10 mg IM BID PRN PRN Reason: refusal of lithium or abilify Last Admin: 05/21/24 22:51 Dose: 10 mg Docusate Sodium (Docusate Sodium 100 Mg Capsule) 100 mg PO BID [facility] Last Admin: 06/02/24 12:37 Dose: 100 mg Fluphenazine HCl (Fluphenazine Hcl 2.5 Mg/Ml 10 Ml Vial) 5 mg IM DAILY PRN PRN Reason: refusal of PO abilify Last Admin: 05/21/24 22:48 Dose: 5 mg Hydroxyzine HCl (Hydroxyzine Hcl 25 Mg Tablet) 25 mg PO Q6H PRN PRN Reason: Anxiety [place] Citrate ([place] Citrate Oral Tierney 8 Meq (300 Mg)/5 Ml) 600 mg PO BID ROSETTE Last Admin: 06/02/24 08:35 Dose: 600 mg Magnesium Hydroxide (Milk Of Magnesia 30 Ml Oral.Susp) 30 ml PO DAILY PRN PRN Reason: Constipation Last Admin: 05/30/24 09:34 Dose: 30 ml Olanzapine (Olanzapine Odt 10 Mg Tab.Rapdis) 10 mg TRANSLINGU Q4H PRN PRN Reason: agitation Polyethylene Glycol (Polyethylene Glycol 3350 17 Gm Powd.Pack) 17 gm PO DAILY PRN PRN Reason: Constipation Last Admin: 05/31/24 15:59 Dose: 17 gm Trazodone HCl (Trazodone Hcl 50 Mg Tablet) 50 mg PO BEDTIME MRX1 PRN PRN Reason: Insomnia Allergies Allergies Allergy/AdvReac Type Severity Reaction Status Date / Time No Known Allergies Allergy Verified 04/23/24 13:03 Assessment & Plan Assessment & Plan (1) Bipolar disorder with psychotic features: Status: Acute Code(s): F31.9 - Bipolar disorder, unspecified Plan 04/25: contain, observe, educate. collect collateral info. 04/26: warrant has been issued for pt's arrest. 12b up tuesday. planning to discharge tuesday unless situation changes. prescribed abilify 5 mg daily, which pt is refusing. 04/27: refusing meds. no change in presentation. planning for discharge friday 03/30, when section 12b expires. student counseling at [facility] has been informed of the discharge plan by KELLY Agudelo. 04/29: No changes 04/30: refusing meds. frankly psychotic/manic today. disorganized thoughts, hyper-yazidi, labile, delusional, no sleep. accusing staff of witchcraft and trying to turn him into a woman. filed for commitment. kicked an exit door, prompting security to be called. 05/01: kicked exit doors again overnight, send me to [facility] or just shoot me. talking about hospital food being poisoned. i only account to [facility]. you are continuing your evil plans. refusing medications. refused to meet with gift shop clerk today. 05/02 continue tx. 05/03: loud, labile, exit-seeking. required med/phys restraint x 1 due to elopement attempt. demanding discharge. refusing meds. continue to offer meds. hearing scheduled for tuesday. 05/04: calm, trying to get into phone to get numbers. declining same numbers from KELLY Agudelo. sleeping in afternoon. slept most of evening and all NOC last night. 05/05 continue tx. pt declines medications. 05/[address] hearing. 05/07: no change in presentation. reported he was the [facility] over the weekend and that the voice of hamzah was commanding him to preach. committed, ordered medications. 05/08: received IM meds as refused PO. believes we are trying to turn him into a woman. 05/09: asking to leave, saying he does not want meds. took PO invega this morning. dystonia this afternoon, invega DCed. took PO ativan, benadryl, cogentin. will attempt with lithium only for the time being, backed up by valium IM. seems less energetic, labile, hyper-yazidi today. 05/10: calm, but perseverative about discharge. taking lithium. continue current mgmt. paranoid delusions we are trying to turn him transgendered. remains focused on object of his stalking. 05/11: much more manic Sx today. re-trial of anti-psychotics. start with low-dose abilify with fluphenazine back-up. lithium switched to liquid formulation today. on 30 min CO after meds. 05/12: Continue current regimen and plans 05/13: Continue current regimen and plans 05/14: blocking MD's egress from room demanding immediate discharge. accepted thorazine 100 and ativan 2 PO. initial rapid pacing up and down the [place], eventually settled. check labs 05/16. 05/15: believes we are giving him medication to turn him into a woman, believes we are trying to get him to have sex with men. required restraint chair for court-ordered medication. required medications IM. 05/16: more subdued today. took meds PO last night and this morning. increase abilify to 15 mg daily. delay labs as pt has missed lithium dosing. 05/17: labs ordered. increase abilify dosing to 20 mg daily as of tomorrow. 05/18: refused labs. less labile and agitated. remains with paranoid delusions. labs ordered again. abilify to 25 mg tonight and 30 mg as of tomorrow night. 05/19: Continue current treatment plan. 05/20: Similar to yesterday's presentation. Continue current treatment plan. 05/21: refused PO meds this morning (took PO all w/e). received IMs. continue current mgmt. 05/22: refused PO last night and got IMs. took PO today. per collateral from KELLY Agudelo, improved insight, increased flexibility in thinking. continue current mgmt. 05/23: calm, appears tired. napping in the morning. PO meds. no singing in the past day. slept 8 hours. declining labs. continue current mgmt. 05/24: calm, quiet. no notable events or behaviors. continues far more subdued than prior. slept well. 05/25: stable presentation. continue current mgmt. 05/26 CTP 10/ - some inapp behaviors with staff- keep on 5s, CTP 05/28: touching female RN on shoulders. some wandering into others' rooms. more logical and with more insight than ever previous in interacting with this travel writer. allowed lithium level, which is 0.8. labs otherwise reassuring. declined bowel regimen. continue current mgmt. 05/29: appears as yesterday. no notable events. labs reviewed with pt. decrease benadryl to 25 mg QHS. 05/30: DC benadryl. lower abilify from 30 mg QHS to 20 mg QHS due to sedation/confusion for past several days. slept 6.5 hours. appears flat, tired. 05/31: less sedated today. continue current mgmt. 06/01: as for yesterday. attempted to kiss female staff doing CO today. 06/02: appearing more awake than several days ago. c/o blurry vision, stuttering, brain being weakened. continue current mgmt. Reason for continued inpatient stay Substantial Risk for: harm to self, harm to others, inability to function and rapid decompensation Time Spent With Patient Time: Total time managing care of this patient today _25___ minutes.
[2024-06-02 19:56] VITALS: BP 136/91; PULSE 95; RESP 16; TEMP 36.9; O2SAT 100
[2024-06-02] MEDS: ARIPiprazole 20 MG TABLET PO (20:43)
[2024-06-02] MEDS: polyethylene glycoL 3350 17 GM POWD.PACK PO (20:47)
[2024-06-03 07:33] VITALS: BP 134/86; PULSE 97; RESP 16; TEMP 36.9; O2SAT 100
[2024-06-03] MEDS: Docusate Sodium 100 MG CAPSULE PO ×2 (08:49→21:07)
[2024-06-03] MEDS: LITHIUM CITRATE 600 MG PO ×2 (08:49→21:07)
[2024-06-03] MEDS: polyethylene glycoL 3350 17 GM POWD.PACK PO (08:49)
--- NOTE | 2024-06-03 17:20 | HO.PSYCHPN ---
Subjective Subjective Date of Service: 06/03/24 Reason For Visit: stalking behaviors Interim History: calm, cooperative. appears more awake, denies feeling tired. per staff, denies dep/anx. blunted. withdrawn, guarded. taking meds. pleasant. broader affect with 1:1 engagement. responds to humor. excessively watching female peer. slept 8-9 hours. Mental Status Exam Mental Status Exam Narrative: adequately dressed and groomed. cooperative. less PMR. speech decr rate, nml amount. decr loudness, nml latency. thoughts linear, logical. affect hypo-intense, non-labile, constricted. mood euthymic. no SI/SIBI/HI/AVH expressed. Diagnostics Vital Signs (24Hr): Vital Signs - 24 hr 06/02/24 19:56 06/03/24 07:33 Temperature 98.4 F 98.5 F Pulse Rate 95 97 Respiratory Rate 16 16 Blood Pressure 136/91 H 134/86 Pulse Oximetry 100 100 Oxygen Delivery Method Room Air Room Air BMI result Body Mass Index 24.1 Labs 04/23/24 13:06 05/28/24 13:24 Medications Medications Current Medications Acetaminophen (Acetaminophen 325 Mg Tablet) 650 mg PO Q6H PRN PRN Reason: Headache/Pain Mild Scale (1-3) Al Hydroxide/Mg Hydroxide (Magnesium Hydrox/Alum Hydrox 30 Ml Oral.Susp) 30 ml PO Q6H PRN PRN Reason: Heartburn/Nausea Aripiprazole (Aripiprazole 20 Mg Tablet) 20 mg PO BEDTIME [facility] Last Admin: 06/02/24 20:43 Dose: 20 mg Diazepam (Diazepam 10 Mg/2 Ml Cartridge) 10 mg IM BID PRN PRN Reason: refusal of lithium or abilify Last Admin: 05/21/24 22:51 Dose: 10 mg Docusate Sodium (Docusate Sodium 100 Mg Capsule) 100 mg PO BID [facility] Last Admin: 06/03/24 08:49 Dose: 100 mg Fluphenazine HCl (Fluphenazine Hcl 2.5 Mg/Ml 10 Ml Vial) 5 mg IM DAILY PRN PRN Reason: refusal of PO abilify Last Admin: 05/21/24 22:48 Dose: 5 mg Hydroxyzine HCl (Hydroxyzine Hcl 25 Mg Tablet) 25 mg PO Q6H PRN PRN Reason: Anxiety [place] Citrate ([place] Citrate Oral Tierney 8 Meq (300 Mg)/5 Ml) 600 mg PO BID [facility] Last Admin: 06/03/24 08:49 Dose: 600 mg Magnesium Hydroxide (Milk Of Magnesia 30 Ml Oral.Susp) 30 ml PO DAILY PRN PRN Reason: Constipation Last Admin: 05/30/24 09:34 Dose: 30 ml Olanzapine (Olanzapine Odt 10 Mg Tab.Rapdis) 10 mg TRANSLINGU Q4H PRN PRN Reason: agitation Polyethylene Glycol (Polyethylene Glycol 3350 17 Gm Powd.Pack) 17 gm PO DAILY PRN PRN Reason: Constipation Last Admin: 06/03/24 08:49 Dose: 17 gm Trazodone HCl (Trazodone Hcl 50 Mg Tablet) 50 mg PO BEDTIME MRX1 PRN PRN Reason: Insomnia Allergies Allergies Allergy/AdvReac Type Severity Reaction Status Date / Time No Known Allergies Allergy Verified 04/23/24 13:03 Assessment & Plan Assessment & Plan (1) Bipolar disorder with psychotic features: Status: Acute Code(s): F31.9 - Bipolar disorder, unspecified Plan 04/25: contain, observe, educate. collect collateral info. 04/26: warrant has been issued for pt's arrest. 12b up tuesday. planning to discharge tuesday unless situation changes. prescribed abilify 5 mg daily, which pt is refusing. 04/27: refusing meds. no change in presentation. planning for discharge friday 03/30, when section 12b expires. student counseling at [facility] has been informed of the discharge plan by KELLY Agudelo. 04/29: No changes 04/30: refusing meds. frankly psychotic/manic today. disorganized thoughts, hyper-sabianism, labile, delusional, no sleep. accusing staff of witchcraft and trying to turn him into a woman. filed for commitment. kicked an exit door, prompting security to be called. 05/01: kicked exit doors again overnight, send me to group home or just shoot me. talking about hospital food being poisoned. i only account to [facility]. you are continuing your evil plans. refusing medications. refused to meet with auditor in charge today. 05/02 continue tx. 05/03: loud, labile, exit-seeking. required med/phys restraint x 1 due to elopement attempt. demanding discharge. refusing meds. continue to offer meds. hearing scheduled for tuesday. 05/04: calm, trying to get into phone to get numbers. declining same numbers from KELLY Agudelo. sleeping in afternoon. slept most of evening and all NOC last night. 05/05 continue tx. pt declines medications. 05/[address] hearing. 05/07: no change in presentation. 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 committed, ordered medications. 05/08: received IM meds as refused PO. believes we are trying to turn him into a woman. 05/09: asking to leave, saying he does not want meds. took PO invega this morning. dystonia this afternoon, invega DCed. took PO ativan, benadryl, cogentin. will attempt with lithium only for the time being, backed up by valium IM. seems less energetic, labile, hyper-sabianism today. 05/10: calm, but perseverative about discharge. taking lithium. continue current mgmt. paranoid delusions we are trying to turn him transgendered. remains focused on object of his stalking. 05/11: much more manic Sx today. re-trial of anti-psychotics. start with low-dose abilify with fluphenazine back-up. lithium switched to liquid formulation today. on 30 min CO after meds. 05/12: Continue current regimen and plans 05/13: Continue current regimen and plans 05/14: blocking MD's egress from room demanding immediate discharge. accepted thorazine 100 and ativan 2 PO. initial rapid pacing up and down the [place], eventually settled. check labs 05/16. 05/15: believes we are giving him medication to turn him into a woman, believes we are trying to get him to have sex with men. required restraint chair for court-ordered medication. required medications IM. 05/16: more subdued today. took meds PO last night and this morning. increase abilify to 15 mg daily. delay labs as pt has missed lithium dosing. 05/17: labs ordered. increase abilify dosing to 20 mg daily as of tomorrow. 05/18: refused labs. less labile and agitated. remains with paranoid delusions. labs ordered again. abilify to 25 mg tonight and 30 mg as of tomorrow night. 05/19: Continue current treatment plan. 05/20: Similar to yesterday's presentation. Continue current treatment plan. 05/21: refused PO meds this morning (took PO all w/e). received IMs. continue current mgmt. 05/22: refused PO last night and got IMs. took PO today. per collateral from KELLY Agudelo, improved insight, increased flexibility in thinking. continue current mgmt. 05/23: calm, appears tired. napping in the morning. PO meds. no singing in the past day. slept 8 hours. declining labs. continue current mgmt. 05/24: calm, quiet. no notable events or behaviors. continues far more subdued than prior. slept well. 05/25: stable presentation. continue current mgmt. 05/26 CTP 05/27 - some inapp behaviors with staff- keep on 5s, CTP 05/28: touching female RN on shoulders. some wandering into others' rooms. more logical and with more insight than ever previous in interacting with this bond writer. allowed lithium level, which is 0.8. labs otherwise reassuring. declined bowel regimen. continue current mgmt. 05/29: appears as yesterday. no notable events. labs reviewed with pt. decrease benadryl to 25 mg QHS. 05/30: DC benadryl. lower abilify from 30 mg QHS to 20 mg QHS due to sedation/confusion for past several days. slept 6.5 hours. appears flat, tired. 05/31: less sedated today. continue current mgmt. 06/01: as for yesterday. attempted to kiss female staff doing CO today. 06/02: appearing more awake than several days ago. c/o blurry vision, stuttering, brain being weakened. continue current mgmt. 06/03: appears more awake. no complaints. continue current mgmt. paying excessive attention to young female peer, making her uncomfortable. Reason for continued inpatient stay Substantial Risk for: harm to self, harm to others, inability to function and rapid decompensation Time Spent With Patient Time: Total time managing care of this patient today ____ minutes.
[2024-06-03 19:55] VITALS: BP 142/80; PULSE 88; RESP 16; TEMP 36.6; O2SAT 100
[2024-06-03] MEDS: ARIPiprazole 20 MG TABLET PO (21:07)
[2024-06-04 07:41] VITALS: BP 132/81; PULSE 87; RESP 16; TEMP 37.1; O2SAT 100
[2024-06-04] MEDS: LITHIUM CITRATE 600 MG PO ×2 (08:42→20:21)
[2024-06-04] MEDS: Docusate Sodium 100 MG CAPSULE PO (08:42)
[2024-06-04] MEDS: Lactulose 20 GM/30 ML SOLUTION 30 GM PO (09:55)
--- NOTE | 2024-06-04 17:46 | HO.PSYCHPN ---
Subjective Subjective Date of Service: 06/04/24 Reason For Visit: stalking behaviors Interim History: c/o constipation. agreeable to lactulose. no complaints or requests otherwise. per staff, slept well. Mental Status Exam Mental Status Exam Narrative: adequately dressed and groomed. cooperative. less PMR. speech decr rate, nml amount. decr loudness, nml latency. thoughts linear, logical. affect normo-intense, non-labile, constricted. mood euthymic. no SI/SIBI/HI/AVH expressed. Diagnostics Vital Signs (24Hr): Vital Signs - 24 hr 06/03/24 19:55 06/04/24 07:41 Temperature 97.9 F 98.7 F Pulse Rate 88 87 Respiratory Rate 16 16 Blood Pressure 142/80 H 132/81 Pulse Oximetry 100 100 Oxygen Delivery Method Room Air Room Air BMI result Body Mass Index 24.1 Labs 04/23/24 13:06 05/28/24 13:24 Medications Medications Current Medications Acetaminophen (Acetaminophen 325 Mg Tablet) 650 mg PO Q6H PRN PRN Reason: Headache/Pain Mild Scale (1-3) Al Hydroxide/Mg Hydroxide (Magnesium Hydrox/Alum Hydrox 30 Ml Oral.Susp) 30 ml PO Q6H PRN PRN Reason: Heartburn/Nausea Aripiprazole (Aripiprazole 20 Mg Tablet) 20 mg PO BEDTIME [facility] Last Admin: 06/03/24 21:07 Dose: 20 mg Diazepam (Diazepam 10 Mg/2 Ml Cartridge) 10 mg IM BID PRN PRN Reason: refusal of lithium or abilify Last Admin: 05/21/24 22:51 Dose: 10 mg Docusate Sodium (Docusate Sodium 100 Mg Capsule) 200 mg PO BID [facility] Fluphenazine HCl (Fluphenazine Hcl 2.5 Mg/Ml 10 Ml Vial) 5 mg IM DAILY PRN PRN Reason: refusal of PO abilify Last Admin: 05/21/24 22:48 Dose: 5 mg Hydroxyzine HCl (Hydroxyzine Hcl 25 Mg Tablet) 25 mg PO Q6H PRN PRN Reason: Anxiety Lactulose (Lactulose 20 Gm/30 Ml Solution) 30 gm PO DAILY PRN PRN Reason: Constipation Last Admin: 06/04/24 09:55 Dose: 30 gm [place] Citrate ([place] Citrate Oral Tierney 8 Meq (300 Mg)/5 Ml) 600 mg PO BID [facility] Last Admin: 06/04/24 08:42 Dose: 600 mg Magnesium Hydroxide (Milk Of Magnesia 30 Ml Oral.Susp) 30 ml PO DAILY PRN PRN Reason: Constipation Last Admin: 05/30/24 09:34 Dose: 30 ml Olanzapine (Olanzapine Odt 10 Mg Tab.Rapdis) 10 mg TRANSLINGU Q4H PRN PRN Reason: agitation Polyethylene Glycol (Polyethylene Glycol 3350 17 Gm Powd.Pack) 17 gm PO DAILY PRN PRN Reason: Constipation Last Admin: 06/03/24 08:49 Dose: 17 gm Trazodone HCl (Trazodone Hcl 50 Mg Tablet) 50 mg PO BEDTIME MRX1 PRN PRN Reason: Insomnia Allergies Allergies Allergy/AdvReac Type Severity Reaction Status Date / Time No Known Allergies Allergy Verified 04/23/24 13:03 Assessment & Plan Assessment & Plan (1) Bipolar disorder with psychotic features: Status: Acute Code(s): F31.9 - Bipolar disorder, unspecified Plan 04/25: contain, observe, educate. collect collateral info. 04/26: warrant has been issued for pt's arrest. 12b up tuesday. planning to discharge tuesday unless situation changes. prescribed abilify 5 mg daily, which pt is refusing. 04/27: refusing meds. no change in presentation. planning for discharge friday 03/30, when section 12b expires. student counseling at [facility] has been informed of the discharge plan by KELLY Agudelo. 04/29: No changes 04/30: refusing meds. frankly psychotic/manic today. disorganized thoughts, hyper-spiritism, labile, delusional, no sleep. accusing staff of witchcraft and trying to turn him into a woman. filed for commitment. kicked an exit door, prompting security to be called. 05/01: kicked exit doors again overnight, send me to group home or just shoot me. talking about hospital food being poisoned. i only account to [facility]. you are continuing your evil plans. refusing medications. refused to meet with film processing shift supervisor today. 05/02 continue tx. 05/03: loud, labile, exit-seeking. required med/phys restraint x 1 due to elopement attempt. demanding discharge. refusing meds. continue to offer meds. hearing scheduled for tuesday. 05/04: calm, trying to get into phone to get numbers. declining same numbers from KELLY Agudelo. sleeping in afternoon. slept most of evening and all NOC last night. 05/05 continue tx. pt declines medications. 05/[address] hearing. 05/07: no change in presentation. 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 committed, ordered medications. 05/08: received IM meds as refused PO. believes we are trying to turn him into a woman. 05/09: asking to leave, saying he does not want meds. took PO invega this morning. dystonia this afternoon, invega DCed. took PO ativan, benadryl, cogentin. will attempt with lithium only for the time being, backed up by valium IM. seems less energetic, labile, hyper-spiritism today. 05/10: calm, but perseverative about discharge. taking lithium. continue current mgmt. paranoid delusions we are trying to turn him transgendered. remains focused on object of his stalking. 05/11: much more manic Sx today. re-trial of anti-psychotics. start with low-dose abilify with fluphenazine back-up. lithium switched to liquid formulation today. on 30 min CO after meds. 05/12: Continue current regimen and plans 05/13: Continue current regimen and plans 05/14: blocking MD's egress from room demanding immediate discharge. accepted thorazine 100 and ativan 2 PO. initial rapid pacing up and down the [place], eventually settled. check labs 05/16. 05/15: believes we are giving him medication to turn him into a woman, believes we are trying to get him to have sex with men. required restraint chair for court-ordered medication. required medications IM. 05/16: more subdued today. took meds PO last night and this morning. increase abilify to 15 mg daily. delay labs as pt has missed lithium dosing. 05/17: labs ordered. increase abilify dosing to 20 mg daily as of tomorrow. 05/18: refused labs. less labile and agitated. remains with paranoid delusions. labs ordered again. abilify to 25 mg tonight and 30 mg as of tomorrow night. 05/19: Continue current treatment plan. 05/20: Similar to yesterday's presentation. Continue current treatment plan. 05/21: refused PO meds this morning (took PO all w/e). received IMs. continue current mgmt. 05/22: refused PO last night and got IMs. took PO today. per collateral from KELLY Agudelo, improved insight, increased flexibility in thinking. continue current mgmt. 05/23: calm, appears tired. napping in the morning. PO meds. no singing in the past day. slept 8 hours. declining labs. continue current mgmt. 05/24: calm, quiet. no notable events or behaviors. continues far more subdued than prior. slept well. 05/25: stable presentation. continue current mgmt. 05/26 CTP 05/27 - some inapp behaviors with staff- keep on 5s, CTP 05/28: touching female RN on shoulders. some wandering into others' rooms. more logical and with more insight than ever previous in interacting with this junior technical writer. allowed lithium level, which is 0.8. labs otherwise reassuring. declined bowel regimen. continue current mgmt. 05/29: appears as yesterday. no notable events. labs reviewed with pt. decrease benadryl to 25 mg QHS. 05/30: DC benadryl. lower abilify from 30 mg QHS to 20 mg QHS due to sedation/confusion for past several days. slept 6.5 hours. appears flat, tired. 05/31: less sedated today. continue current mgmt. 06/01: as for yesterday. attempted to kiss female staff doing CO today. 06/02: appearing more awake than several days ago. c/o blurry vision, stuttering, brain being weakened. continue current mgmt. 06/03: appears more awake. no complaints. continue current mgmt. paying excessive attention to young female peer, making her uncomfortable. 06/04: stable presentation. continue current mgmt. T/C abilify [facility] soon. Reason for continued inpatient stay Substantial Risk for: harm to self, harm to others and rapid decompensation Time Spent With Patient Time: Total time managing care of this patient today ____ minutes.
[2024-06-04] MEDS: ARIPiprazole 20 MG TABLET PO (20:20)
[2024-06-04] MEDS: Docusate Sodium 100 MG CAPSULE 200 MG PO (20:20)
[2024-06-05 08:00] VITALS: RESP 18
[2024-06-05] MEDS: Docusate Sodium 100 MG CAPSULE 200 MG PO ×2 (08:33→19:19)
[2024-06-05] MEDS: LITHIUM CITRATE 600 MG PO ×2 (08:33→19:20)
--- NOTE | 2024-06-05 15:29 | HO.PSYCHPN ---
Subjective Subjective Date of Service: 06/05/24 Reason For Visit: stalking behaviors Interim History: calm, cooperative, subdued. had a BM. agreeable to start ST[facility]ENSON abilify. declines to change lithium to pill formulation. per staff, staring at female peer. isolative. no issues. slept about 7 hours. Mental Status Exam Mental Status Exam Narrative: adequately dressed and groomed. cooperative. less PMR. speech decr rate, nml amount. decr loudness, nml latency. thoughts linear, logical. affect normo-intense, non-labile, constricted. mood euthymic. no SI/SIBI/HI/AVH expressed. Diagnostics Vital Signs (24Hr): Vital Signs - 24 hr 06/05/24 08:00 Respiratory Rate 18 BMI result Body Mass Index 24.1 Labs 04/23/24 13:06 05/28/24 13:24 Medications Medications Current Medications Acetaminophen (Acetaminophen 325 Mg Tablet) 650 mg PO Q6H PRN PRN Reason: Headache/Pain Mild Scale (1-3) Al Hydroxide/Mg Hydroxide (Magnesium Hydrox/Alum Hydrox 30 Ml Oral.Susp) 30 ml PO Q6H PRN PRN Reason: Heartburn/Nausea Aripiprazole (Aripiprazole 20 Mg Tablet) 20 mg PO BEDTIME [facility] Stop: 06/19/24 21:01 Last Admin: 06/04/24 20:20 Dose: 20 mg Diazepam (Diazepam 10 Mg/2 Ml Cartridge) 10 mg IM BID PRN PRN Reason: refusal of lithium or abilify Last Admin: 05/21/24 22:51 Dose: 10 mg Docusate Sodium (Docusate Sodium 100 Mg Capsule) 200 mg PO BID [facility] Last Admin: 06/05/24 08:33 Dose: 200 mg Fluphenazine HCl (Fluphenazine Hcl 2.5 Mg/Ml 10 Ml Vial) 5 mg IM DAILY PRN PRN Reason: refusal of PO abilify Last Admin: 05/21/24 22:48 Dose: 5 mg Hydroxyzine HCl (Hydroxyzine Hcl 25 Mg Tablet) 25 mg PO Q6H PRN PRN Reason: Anxiety Lactulose (Lactulose 20 Gm/30 Ml Solution) 30 gm PO DAILY PRN PRN Reason: Constipation Last Admin: 06/04/24 09:55 Dose: 30 gm [place] Citrate ([place] Citrate Oral [place] 8 Meq (300 Mg)/5 Ml) 600 mg PO BID [facility] Last Admin: 06/05/24 08:33 Dose: 600 mg Magnesium Hydroxide (Milk Of Magnesia 30 Ml Oral.Susp) 30 ml PO DAILY PRN PRN Reason: Constipation Last Admin: 05/30/24 09:34 Dose: 30 ml Olanzapine (Olanzapine Odt 10 Mg Tab.Rapdis) 10 mg TRANSLINGU Q4H PRN PRN Reason: agitation Polyethylene Glycol (Polyethylene Glycol 3350 17 Gm Powd.Pack) 17 gm PO DAILY PRN PRN Reason: Constipation Last Admin: 06/03/24 08:49 Dose: 17 gm Trazodone HCl (Trazodone Hcl 50 Mg Tablet) 50 mg PO BEDTIME MRX1 PRN PRN Reason: Insomnia Allergies Allergies Allergy/AdvReac Type Severity Reaction Status Date / Time No Known Allergies Allergy Verified 04/23/24 13:03 Assessment & Plan Assessment & Plan (1) Bipolar disorder with psychotic features: Status: Acute Code(s): F31.9 - Bipolar disorder, unspecified Plan 04/25: contain, observe, educate. collect collateral info. 04/26: warrant has been issued for pt's arrest. 12b up tuesday. planning to discharge tuesday unless situation changes. prescribed abilify 5 mg daily, which pt is refusing. 04/27: refusing meds. no change in presentation. planning for discharge friday 03/30, when section 12b expires. [facility] by KELLY Agudelo. 04/29: No changes 04/30: refusing meds. frankly psychotic/manic today. disorganized thoughts, hyper-orthodoxy, labile, delusional, no sleep. accusing staff of witchcraft and trying to turn him into a woman. filed for commitment. kicked an exit door, prompting security to be called. 05/01: kicked exit doors again overnight, send me to group home or just shoot me. talking about hospital food being poisoned. i only account to [facility] you are continuing your evil plans. refusing medications. refused to meet with elementary reading tutor today. 05/02 continue tx. 05/03: loud, labile, exit-seeking. required med/phys restraint x 1 due to elopement attempt. demanding discharge. refusing meds. continue to offer meds. hearing scheduled for tuesday. 05/04: calm, trying to get into phone to get numbers. declining same numbers from KELLY Agudelo. sleeping in afternoon. slept most of evening and all NOC last night. 05/05 continue tx. pt declines medications. 05/[address] hearing. 05/07: no change in presentation. 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 committed, ordered medications. 05/08: received IM meds as refused PO. believes we are trying to turn him into a woman. 05/09: asking to leave, saying he does not want meds. took PO invega this morning. dystonia this afternoon, invega DCed. took PO ativan, benadryl, cogentin. will attempt with lithium only for the time being, backed up by valium IM. seems less energetic, labile, hyper-orthodoxy today. 05/10: calm, but perseverative about discharge. taking lithium. continue current mgmt. paranoid delusions we are trying to turn him transgendered. remains focused on object of his stalking. 05/11: much more manic Sx today. re-trial of anti-psychotics. start with low-dose abilify with fluphenazine back-up. lithium switched to liquid formulation today. on 30 min CO after meds. 05/12: Continue current regimen and plans 05/13: Continue current regimen and plans 05/14: blocking MD's egress from room demanding immediate discharge. accepted thorazine 100 and ativan 2 PO. initial rapid pacing up and down the [place], eventually settled. check labs 05/16. 05/15: believes we are giving him medication to turn him into a woman, believes we are trying to get him to have sex with men. required restraint chair for court-ordered medication. required medications IM. 05/16: more subdued today. took meds PO last night and this morning. increase abilify to 15 mg daily. delay labs as pt has missed lithium dosing. 05/17: labs ordered. increase abilify dosing to 20 mg daily as of tomorrow. 05/18: refused labs. less labile and agitated. remains with paranoid delusions. labs ordered again. abilify to 25 mg tonight and 30 mg as of tomorrow night. 05/19: Continue current treatment plan. 05/20: Similar to yesterday's presentation. Continue current treatment plan. 05/21: refused PO meds this morning (took PO all w/e). received IMs. continue current mgmt. 05/22: refused PO last night and got IMs. took PO today. per collateral from KELLY Agudelo, improved insight, increased flexibility in thinking. continue current mgmt. 05/23: calm, appears tired. napping in the morning. PO meds. no singing in the past day. slept 8 hours. declining labs. continue current mgmt. 05/24: calm, quiet. no notable events or behaviors. continues far more subdued than prior. slept well. 05/25: stable presentation. continue current mgmt. 05/26 CTP 05/27 - some inapp behaviors with staff- keep on 5s, CTP 05/28: touching female RN on shoulders. some wandering into others' rooms. more logical and with more insight than ever previous in interacting with this life underwriter. allowed lithium level, which is 0.8. labs otherwise reassuring. declined bowel regimen. continue current mgmt. 05/29: appears as yesterday. no notable events. labs reviewed with pt. decrease benadryl to 25 mg QHS. 05/30: DC benadryl. lower abilify from 30 mg QHS to 20 mg QHS due to sedation/confusion for past several days. slept 6.5 hours. appears flat, tired. 05/31: less sedated today. continue current mgmt. 06/01: as for yesterday. attempted to kiss female staff doing CO today. 06/02: appearing more awake than several days ago. c/o blurry vision, stuttering, brain being weakened. continue current mgmt. 06/03: appears more awake. no complaints. continue current mgmt. paying excessive attention to young female peer, making her uncomfortable. 06/04: stable presentation. continue current mgmt. T/C abilify [facility] soon. 06/05: declines to change lithium to tab form. had BM with lactulose. agre4s to abilify [facility]EVENSNO. will give 400 mg IM tomorrow and DC PO abilify after 2 weeks. then continue 400 mg IM Q30 days from first ST[facility]ENSON. Reason for continued inpatient stay Substantial Risk for: harm to self, harm to others, inability to function and rapid decompensation Time Spent With Patient Time: Total time managing care of this patient today _25___ minutes.
[2024-06-05] MEDS: ARIPiprazole 20 MG TABLET PO (19:19)
[2024-06-06] MEDS: Docusate Sodium 100 MG CAPSULE 200 MG PO ×2 (09:24→20:24)
[2024-06-06] MEDS: LITHIUM CITRATE 600 MG PO ×2 (09:24→20:23)
[2024-06-06] MEDS: ARIPiprazole ER 400 MG SUSER.SYR IM (09:34)
--- NOTE | 2024-06-06 11:03 | HO.PSYCHPN ---
Subjective Subjective Date of Service: 06/06/24 Reason For Visit: stalking behaviors Subjective Notes: Section 8 Interim History: Reviewed with Dr. Kirk. Active on unit. attending groups. social with select peers. Pt reports feeling okay today; superficially pleasant. denies any issues at this time. He reports sleeping well. Medication Compliance: Yes Side effects from medications: No Attending Groups: Yes Review of Systems Constitutional: Reports as per HPI Eyes: Reports as per HPI Reports as per HPI Cardiovascular: Reports as per HPI Respiratory: Reports as per HPI Gastrointestinal: Reports as per HPI Genitourinary: Reports as per HPI Musculoskeletal: Reports as per HPI Skin/Breast: Reports as per HPI Reports as per HPI Psychiatric: Reports as per HPI Endocrine: Reports as per HPI Hematologic/Lymphatic: Reports as per HPI Allergic/Immunologic: Reports as per HPI Mental Status Exam Mental Status Exam Narrative: Pt is alert and oriented; behavior is calm; dressed in casual attire; mood is described as good ; eye contact appropriate; Speech is normal rate, volume and not pressured; superficially pleasant. Diagnostics Vital Signs (24Hr): BMI result Body Mass Index 24.1 Labs 04/23/24 13:06 05/28/24 13:24 Medications Medications Current Medications Acetaminophen (Acetaminophen 325 Mg Tablet) 650 mg PO Q6H PRN PRN Reason: Headache/Pain Mild Scale (1-3) Al Hydroxide/Mg Hydroxide (Magnesium Hydrox/Alum Hydrox 30 Ml Oral.Susp) 30 ml PO Q6H PRN PRN Reason: Heartburn/Nausea Aripiprazole (Aripiprazole 20 Mg Tablet) 20 mg PO BEDTIME [facility] Stop: 06/19/24 21:01 Last Admin: 06/05/24 19:19 Dose: 20 mg Aripiprazole (Aripiprazole Er 400 Mg Suser.Syr) 400 mg IM Q30D [facility] Last Admin: 06/06/24 09:34 Dose: 400 mg Diazepam (Diazepam 10 Mg/2 Ml Cartridge) 10 mg IM BID PRN PRN Reason: refusal of lithium or abilify Last Admin: 05/21/24 22:51 Dose: 10 mg Docusate Sodium (Docusate Sodium 100 Mg Capsule) 200 mg PO BID [facility] Last Admin: 06/06/24 09:24 Dose: 200 mg Fluphenazine HCl (Fluphenazine Hcl 2.5 Mg/Ml 10 Ml Vial) 5 mg IM DAILY PRN PRN Reason: refusal of PO abilify Last Admin: 05/21/24 22:48 Dose: 5 mg Hydroxyzine HCl (Hydroxyzine Hcl 25 Mg Tablet) 25 mg PO Q6H PRN PRN Reason: Anxiety Lactulose (Lactulose 20 Gm/30 Ml Solution) 30 gm PO DAILY PRN PRN Reason: Constipation Last Admin: 06/04/24 09:55 Dose: 30 gm [place] Citrate ([place] Citrate Oral Tierney 8 Meq (300 Mg)/5 Ml) 600 mg PO BID ROSETTE Last Admin: 06/06/24 09:24 Dose: 600 mg Magnesium Hydroxide (Milk Of Magnesia 30 Ml Oral.Susp) 30 ml PO DAILY PRN PRN Reason: Constipation Last Admin: 05/30/24 09:34 Dose: 30 ml Olanzapine (Olanzapine Odt 10 Mg Tab.Rapdis) 10 mg TRANSLINGU Q4H PRN PRN Reason: agitation Polyethylene Glycol (Polyethylene Glycol 3350 17 Gm Powd.Pack) 17 gm PO DAILY PRN PRN Reason: Constipation Last Admin: 06/03/24 08:49 Dose: 17 gm Trazodone HCl (Trazodone Hcl 50 Mg Tablet) 50 mg PO BEDTIME MRX1 PRN PRN Reason: Insomnia Allergies Allergies Allergy/AdvReac Type Severity Reaction Status Date / Time No Known Allergies Allergy Verified 04/23/24 13:03 Assessment & Plan Assessment & Plan (1) Bipolar disorder with psychotic features: Status: Acute Code(s): F31.9 - Bipolar disorder, unspecified Plan 04/25: contain, observe, educate. collect collateral info. 04/26: warrant has been issued for pt's arrest. 12b up tuesday. planning to discharge tuesday unless situation changes. prescribed abilify 5 mg daily, which pt is refusing. 04/27: refusing meds. no change in presentation. planning for discharge friday 03/30, when section 12b expires. student counseling at [facility] has been informed of the discharge plan by KELLY Agudelo. 04/29: No changes 04/30: refusing meds. frankly psychotic/manic today. disorganized thoughts, hyper-roman catholic, labile, delusional, no sleep. accusing staff of witchcraft and trying to turn him into a woman. filed for commitment. kicked an exit door, prompting security to be called. 05/01: kicked exit doors again overnight, send me to senior care or just shoot me. talking about hospital food being poisoned. i only account to jaycearianne. you are continuing your evil plans. refusing medications. refused to meet with spark tester today. 05/02 continue tx. 05/03: loud, labile, exit-seeking. required med/phys restraint x 1 due to elopement attempt. demanding discharge. refusing meds. continue to offer meds. hearing scheduled for tuesday. 05/04: calm, trying to get into phone to get numbers. declining same numbers from KELLY Agudelo. sleeping in afternoon. slept most of evening and all NOC last night. 05/05 continue tx. pt declines medications. 05/[address] hearing. 05/07: no change in presentation. 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 committed, ordered medications. 05/08: received IM meds as refused PO. believes we are trying to turn him into a woman. 05/09: asking to leave, saying he does not want meds. took PO invega this morning. dystonia this afternoon, invega DCed. took PO ativan, benadryl, cogentin. will attempt with lithium only for the time being, backed up by valium IM. seems less energetic, labile, hyper-roman catholic today. 05/10: calm, but perseverative about discharge. taking lithium. continue current mgmt. paranoid delusions we are trying to turn him transgendered. remains focused on object of his stalking. 05/11: much more manic Sx today. re-trial of anti-psychotics. start with low-dose abilify with fluphenazine back-up. lithium switched to liquid formulation today. on 30 min CO after meds. 05/12: Continue current regimen and plans 05/13: Continue current regimen and plans 05/14: blocking MD's egress from room demanding immediate discharge. accepted thorazine 100 and ativan 2 PO. initial rapid pacing up and down the [place], eventually settled. check labs 05/16. 05/15: believes we are giving him medication to turn him into a woman, believes we are trying to get him to have sex with men. required restraint chair for court-ordered medication. required medications IM. 05/16: more subdued today. took meds PO last night and this morning. increase abilify to 15 mg daily. delay labs as pt has missed lithium dosing. 05/17: labs ordered. increase abilify dosing to 20 mg daily as of tomorrow. 05/18: refused labs. less labile and agitated. remains with paranoid delusions. labs ordered again. abilify to 25 mg tonight and 30 mg as of tomorrow night. 05/19: Continue current treatment plan. 05/20: Similar to yesterday's presentation. Continue current treatment plan. 05/21: refused PO meds this morning (took PO all w/e). received IMs. continue current mgmt. 05/22: refused PO last night and got IMs. took PO today. per collateral from KELLY Agudelo, improved insight, increased flexibility in thinking. continue current mgmt. 05/23: calm, appears tired. napping in the morning. PO meds. no singing in the past day. slept 8 hours. declining labs. continue current mgmt. 05/24: calm, quiet. no notable events or behaviors. continues far more subdued than prior. slept well. 05/25: stable presentation. continue current mgmt. 05/26 CTP 05/27 - some inapp behaviors with staff- keep on 5s, CTP 05/28: touching female RN on shoulders. some wandering into others' rooms. more logical and with more insight than ever previous in interacting with this telegraphic typewriter operator. allowed lithium level, which is 0.8. labs otherwise reassuring. declined bowel regimen. continue current mgmt. 05/29: appears as yesterday. no notable events. labs reviewed with pt. decrease benadryl to 25 mg QHS. 05/30: DC benadryl. lower abilify from 30 mg QHS to 20 mg QHS due to sedation/confusion for past several days. slept 6.5 hours. appears flat, tired. 05/31: less sedated today. continue current mgmt. 06/01: as for yesterday. attempted to kiss female staff doing CO today. 06/02: appearing more awake than several days ago. c/o blurry vision, stuttering, brain being weakened. continue current mgmt. 06/03: appears more awake. no complaints. continue current mgmt. paying excessive attention to young female peer, making her uncomfortable. 06/04: stable presentation. continue current mgmt. T/C abilify STEVENSON soon. 06/05: declines to change lithium to tab form. had BM with lactulose. agre4s to abilify STEVENSON. will give 400 mg IM tomorrow and DC PO abilify after 2 weeks. then continue 400 mg IM Q30 days from first TSEVENSON. 06/06: continue current tx plan. Reason for continued inpatient stay Substantial Risk for: med/psych decompensation Time Spent With Patient Time: Total time managing care of this patient today _20___ minutes.
[2024-06-06 15:17] VITALS: BP 141/71; PULSE 79; RESP 18; TEMP 36.9; O2SAT 100
[2024-06-06 20:00] VITALS: BP 134/68; PULSE 80; RESP 16; TEMP 37.2; O2SAT 99
[2024-06-06] MEDS: ARIPiprazole 20 MG TABLET PO (20:29)
[2024-06-07 07:00] VITALS: BMI 24.7
[2024-06-07] MEDS: Docusate Sodium 100 MG CAPSULE 200 MG PO ×2 (09:23→20:37)
[2024-06-07] MEDS: LITHIUM CITRATE 600 MG PO ×2 (09:24→20:36)
[2024-06-07 09:39] VITALS: BP 132/70; PULSE 112; RESP 18; TEMP 36.7; O2SAT 95
--- NOTE | 2024-06-07 15:03 | P.PNPSI_ITS ---
Subjective Subjective Date of Service: 06/07/24 Reason For Visit: stalking behaviors Interim History: calm, cooperative. called [facility] with KELLY Agudelo today, outcome indeterminate. the [facility] will send information to pt here re disciplinary procedure. suggested pt allow TE for us to speak with DA re his charges. per staff, taking meds. full range of affect. singing in his room a bit, not as loudly as prior. reporting he hears the voice of god. Mental Status Exam Mental Status Exam Narrative: adequately dressed and groomed. cooperative. no PMA/PMR. speech nml rate, nml amount. decr loudness, nml latency. thoughts linear, logical. affect normo- intense, non-labile, constricted. mood euthymic. no SI/SIBI/HI/AVH expressed. Diagnostics Vital Signs (24Hr): Vital Signs - 24 hr 06/06/24 15:17 06/06/24 20:00 06/07/24 09:39 Temperature 98.4 F 99 F 98.0 F Pulse Rate 79 80 112 H Respiratory Rate 18 16 18 Blood Pressure 141/71 H 134/68 132/70 Pulse Oximetry 100 99 95 Oxygen Delivery Method Room Air Room Air Room Air BMI result Body Mass Index 24.7 Labs 04/23/24 13:06 05/28/24 13:24 Medications Medications Current Medications Acetaminophen (Acetaminophen 325 Mg Tablet) 650 mg PO Q6H PRN PRN Reason: Headache/Pain Mild Scale (1-3) Al Hydroxide/Mg Hydroxide (Magnesium Hydrox/Alum Hydrox 30 Ml Oral.Susp) 30 ml PO Q6H PRN PRN Reason: Heartburn/Nausea Aripiprazole (Aripiprazole 20 Mg Tablet) 20 mg PO BEDTIME [facility] Stop: 06/19/24 21:01 Last Admin: 06/06/24 20:29 Dose: 20 mg Aripiprazole (Aripiprazole Er 400 Mg Suser.Syr) 400 mg IM Q30D [facility] Last Admin: 06/06/24 09:34 Dose: 400 mg Diazepam (Diazepam 10 Mg/2 Ml Cartridge) 10 mg IM BID PRN PRN Reason: refusal of lithium or abilify Last Admin: 05/21/24 22:51 Dose: 10 mg Docusate Sodium (Docusate Sodium 100 Mg Capsule) 200 mg PO BID [facility] Last Admin: 10/17/24 09:23 Dose: 200 mg Fluphenazine HCl (Fluphenazine Hcl 2.5 Mg/Ml 10 Ml Vial) 5 mg IM DAILY PRN PRN Reason: refusal of PO abilify Last Admin: 05/21/24 22:48 Dose: 5 mg Hydroxyzine HCl (Hydroxyzine Hcl 25 Mg Tablet) 25 mg PO Q6H PRN PRN Reason: Anxiety Lactulose (Lactulose 20 Gm/30 Ml Solution) 30 gm PO DAILY PRN PRN Reason: Constipation Last Admin: 06/04/24 09:55 Dose: 30 gm [place] Citrate ([place] Citrate Oral Tierney 8 Meq (300 Mg)/5 Ml) 600 mg PO BID [facility]ET[facility] Last Admin: 06/07/24 09:24 Dose: 600 mg Magnesium Hydroxide (Milk Of Magnesia 30 Ml Oral.Susp) 30 ml PO DAILY PRN PRN Reason: Constipation Last Admin: 05/30/24 09:34 Dose: 30 ml Olanzapine (Olanzapine Odt 10 Mg Tab.Rapdis) 10 mg TRANSLINGU Q4H PRN PRN Reason: agitation Polyethylene Glycol (Polyethylene Glycol 3350 17 Gm Powd.Pack) 17 gm PO DAILY PRN PRN Reason: Constipation Last Admin: 06/03/24 08:49 Dose: 17 gm Trazodone HCl (Trazodone Hcl 50 Mg Tablet) 50 mg PO BEDTIME MRX1 PRN PRN Reason: Insomnia Allergies Allergies Allergy/AdvReac Type Severity Reaction Status Date / Time No Known Allergies Allergy Verified 04/23/24 13:03 Assessment & Plan Assessment & Plan (1) Bipolar disorder with psychotic features: Status: Acute Code(s): F31.9 - Bipolar disorder, unspecified Plan 04/25: contain, observe, educate. collect collateral info. 04/26: warrant has been issued for pt's arrest. 12b up tuesday. planning to discharge tuesday unless situation changes. prescribed abilify 5 mg daily, which pt is refusing. 04/27: refusing meds. no change in presentation. planning for discharge friday 03/30, when section 12b expires. student counseling at [facility] has been informed of the discharge plan by KELLY Agudelo. 04/29: No changes 04/30: refusing meds. frankly psychotic/manic today. disorganized thoughts, hyper-roman catholic, labile, delusional, no sleep. accusing staff of witchcraft and trying to turn him into a woman. filed for commitment. kicked an exit door, prompting security to be called. 05/01: kicked exit doors again overnight, send me to custodial or just shoot me. talking about hospital food being poisoned. i only account to hamzah. you are continuing your evil plans. refusing medications. refused to meet with crop setting out machine operator today. 05/02 continue tx. 05/03: loud, labile, exit-seeking. required med/phys restraint x 1 due to elopement attempt. demanding discharge. refusing meds. continue to offer meds. hearing scheduled for tuesday. 05/04: calm, trying to get into phone to get numbers. declining same numbers from KELLY Agudelo. sleeping in afternoon. slept most of evening and all NOC last night. 05/05 continue tx. pt declines medications. 05/[address]. 05/07: no change in presentation. reported he was the 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 committed, ordered medications. 05/08: received IM meds as refused PO. believes we are trying to turn him into a woman. 05/09: asking to leave, saying he does not want meds. took PO invega this morning. dystonia this afternoon, invega DCed. took PO ativan, benadryl, cogentin. will attempt with lithium only for the time being, backed up by valium IM. seems less energetic, labile, hyper-roman catholic today. 05/10: calm, but perseverative about discharge. taking lithium. continue current mgmt. paranoid delusions we are trying to turn him transgendered. remains focused on object of his stalking. 05/11: much more manic Sx today. re-trial of anti-psychotics. start with low- dose abilify with fluphenazine back-up. lithium switched to liquid formulation today. on 30 min CO after meds. 05/12: Continue current regimen and plans 05/13: Continue current regimen and plans 05/14: blocking MD's egress from room demanding immediate discharge. accepted thorazine 100 and ativan 2 PO. initial rapid pacing up and down the [place], eventually settled. check labs 05/16. 05/15: believes we are giving him medication to turn him into a woman, believes we are trying to get him to have sex with men. required restraint chair for court-ordered medication. required medications IM. 05/16: more subdued today. took meds PO last night and this morning. increase abilify to 15 mg daily. delay labs as pt has missed lithium dosing. 05/17: labs ordered. increase abilify dosing to 20 mg daily as of tomorrow. 05/18: refused labs. less labile and agitated. remains with paranoid delusions. labs ordered again. abilify to 25 mg tonight and 30 mg as of tomorrow night. 05/19: Continue current treatment plan. 05/20: Similar to yesterday's presentation. Continue current treatment plan. 05/21: refused PO meds this morning (took PO all w/e). received IMs. continue current mgmt. 05/22: refused PO last night and got IMs. took PO today. per collateral from KELLY Agudelo, improved insight, increased flexibility in thinking. continue current mgmt. 05/23: calm, appears tired. napping in the morning. PO meds. no singing in the past day. slept 8 hours. declining labs. continue current mgmt. 05/24: calm, quiet. no notable events or behaviors. continues far more subdued than prior. slept well. 05/25: stable presentation. continue current mgmt. 05/26 CTP 10/6 - some inapp behaviors with staff- keep on 5s, CTP 107: touching female RN on shoulders. some wandering into others' rooms. more logical and with more insight than ever previous in interacting with this show card writer. allowed lithium level, which is 0.8. labs otherwise reassuring. declined bowel regimen. continue current mgmt. 05/29: appears as yesterday. no notable events. labs reviewed with pt. decrease benadryl to 25 mg QHS. 05/30: DC benadryl. lower abilify from 30 mg QHS to 20 mg QHS due to sedation/confusion for past several days. slept 6.5 hours. appears flat, tired. 05/31: less sedated today. continue current mgmt. 06/01: as for yesterday. attempted to kiss female staff doing CO today. 06/02: appearing more awake than several days ago. c/o blurry vision, stuttering, brain being weakened. continue current mgmt. 06/03: appears more awake. no complaints. continue current mgmt. paying excessive attention to young female peer, making her uncomfortable. 06/04: stable presentation. continue current mgmt. T/C abilify STEVENSON soon. 06/05: declines to change lithium to tab form. had BM with lactulose. agrees to abilify STEVENSON. will give 400 mg IM tomorrow and DC PO abilify after 2 weeks. then continue 400 mg IM Q30 days from first STEVENSON. 06/06: continue current tx plan. 06/07: pt and KELLY Agudelo spoke with [employer] staff; school to send info to pt re disciplinary process. requested TE to speak with DA. no notable events or behaviors otherwise, continue current mgmt. Reason for continued inpatient stay Substantial Risk for: inability to function and rapid decompensation Time Spent With Patient Time: Total time managing care of this patient today _25___ minutes.
[2024-06-07 19:50] VITALS: BP 141/77; PULSE 83; RESP 16; TEMP 36.9; O2SAT 100
[2024-06-07] MEDS: ARIPiprazole 20 MG TABLET PO (20:36)
[2024-06-08 07:41] VITALS: BP 135/73; PULSE 72; RESP 16; TEMP 36.5
[2024-06-08] MEDS: LITHIUM CITRATE 600 MG PO ×2 (09:12→21:44)
[2024-06-08] MEDS: Docusate Sodium 100 MG CAPSULE 200 MG PO ×2 (09:12→21:44)
--- NOTE | 2024-06-08 15:02 | P.PNPSI_ITS ---
Subjective Subjective Date of Service: 06/08/24 Reason For Visit: stalking behaviors Interim History: c/o blurry vision, feeling tired. per staff, visible, taking medications. attending groups. it is like waves. some 'ups,' but not too many 'ups.' c/o blurry vision. Mental Status Exam Mental Status Exam Narrative: adequately dressed and groomed. cooperative. no PMA/PMR. speech nml rate, nml amount. decr loudness, nml latency. thoughts linear, logical. affect normo- intense, non-labile, constricted. mood euthymic. no SI/SIBI/HI/AVH expressed. Diagnostics Vital Signs (24Hr): Vital Signs - 24 hr 06/07/24 19:50 06/08/24 07:41 Temperature 98.4 F 97.7 F Pulse Rate 83 72 Respiratory Rate 16 16 Blood Pressure 141/77 H 135/73 Pulse Oximetry 100 Oxygen Delivery Method Room Air Room Air BMI result Body Mass Index 24.7 Labs 04/23/24 13:06 05/28/24 13:24 Medications Medications Current Medications Acetaminophen (Acetaminophen 325 Mg Tablet) 650 mg PO Q6H PRN PRN Reason: Headache/Pain Mild Scale (1-3) Al Hydroxide/Mg Hydroxide (Magnesium Hydrox/Alum Hydrox 30 Ml Oral.Susp) 30 ml PO Q6H PRN PRN Reason: Heartburn/Nausea Aripiprazole (Aripiprazole 20 Mg Tablet) 20 mg PO BEDTIME [facility] Stop: 06/19/24 21:01 Last Admin: 06/07/24 20:36 Dose: 20 mg Aripiprazole (Aripiprazole Er 400 Mg Suser.Syr) 400 mg IM Q30D [facility] Last Admin: 06/06/24 09:34 Dose: 400 mg Diazepam (Diazepam 10 Mg/2 Ml Cartridge) 10 mg IM BID PRN PRN Reason: refusal of lithium or abilify Last Admin: 05/21/24 22:51 Dose: 10 mg Docusate Sodium (Docusate Sodium 100 Mg Capsule) 200 mg PO BID [facility] Last Admin: 06/08/24 09:12 Dose: 200 mg Fluphenazine HCl (Fluphenazine Hcl 2.5 Mg/Ml 10 Ml Vial) 5 mg IM DAILY PRN PRN Reason: refusal of PO abilify Last Admin: 05/21/24 22:48 Dose: 5 mg Hydroxyzine HCl (Hydroxyzine Hcl 25 Mg Tablet) 25 mg PO Q6H PRN PRN Reason: Anxiety Lactulose (Lactulose 20 Gm/30 Ml Solution) 30 gm PO DAILY PRN PRN Reason: Constipation Last Admin: 06/04/24 09:55 Dose: 30 gm [place] Citrate ([place] Citrate Oral Tierney 8 Meq (300 Mg)/5 Ml) 600 mg PO BID [facility] Last Admin: 06/08/24 09:12 Dose: 600 mg Magnesium Hydroxide (Milk Of Magnesia 30 Ml Oral.Susp) 30 ml PO DAILY PRN PRN Reason: Constipation Last Admin: 05/30/24 09:34 Dose: 30 ml Olanzapine (Olanzapine Odt 10 Mg Tab.Rapdis) 10 mg TRANSLINGU Q4H PRN PRN Reason: agitation Polyethylene Glycol (Polyethylene Glycol 3350 17 Gm Powd.Pack) 17 gm PO DAILY PRN PRN Reason: Constipation Last Admin: 06/03/24 08:49 Dose: 17 gm Trazodone HCl (Trazodone Hcl 50 Mg Tablet) 50 mg PO BEDTIME MRX1 PRN PRN Reason: Insomnia Allergies Allergies Allergy/AdvReac Type Severity Reaction Status Date / Time No Known Allergies Allergy Verified 04/23/24 13:03 Assessment & Plan Assessment & Plan (1) Bipolar disorder with psychotic features: Status: Acute Code(s): F31.9 - Bipolar disorder, unspecified Plan 04/25: contain, observe, educate. collect collateral info. 04/26: warrant has been issued for pt's arrest. 12b up tuesday. planning to discharge tuesday unless situation changes. prescribed abilify 5 mg daily, which pt is refusing. 04/27: refusing meds. no change in presentation. planning for discharge friday 03/30, when section 12b expires. student counseling at [facility], [facility] has been informed of the discharge plan by KELLY Agudelo. 04/29: No changes 04/30: refusing meds. frankly psychotic/manic today. disorganized thoughts, hyper-jain, labile, delusional, no sleep. accusing staff of witchcraft and trying to turn him into a woman. filed for commitment. kicked an exit door, prompting security to be called. 05/01: kicked exit doors again overnight, send me to [facility] or just shoot me. talking about hospital food being poisoned. i only account to [facility]. you are continuing your evil plans. refusing medications. refused to meet with district sales coordinator today. 05/02 continue tx. 05/03: loud, labile, exit-seeking. required med/phys restraint x 1 due to elopement attempt. demanding discharge. refusing meds. continue to offer meds. hearing scheduled for tuesday. 05/04: calm, trying to get into phone to get numbers. declining same numbers from KELLY Agudelo. sleeping in afternoon. slept most of evening and all NOC last night. 05/05 continue tx. pt declines medications. 05/[address] hearing. 05/07: no change in presentation. 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 committed, ordered medications. 05/08: received IM meds as refused PO. believes we are trying to turn him into a woman. 05/09: asking to leave, saying he does not want meds. took PO invega this morning. dystonia this afternoon, invega DCed. took PO ativan, benadryl, cogentin. will attempt with lithium only for the time being, backed up by valium IM. seems less energetic, labile, hyper-jain today. 05/10: calm, but perseverative about discharge. taking lithium. continue current mgmt. paranoid delusions we are trying to turn him transgendered. remains focused on object of his stalking. 05/11: much more manic Sx today. re-trial of anti-psychotics. start with low- dose abilify with fluphenazine back-up. lithium switched to liquid formulation today. on 30 min CO after meds. 05/12: Continue current regimen and plans 05/13: Continue current regimen and plans 05/14: blocking MD's egress from room demanding immediate discharge. accepted thorazine 100 and ativan 2 PO. initial rapid pacing up and down the [place], eventually settled. check labs 05/16. 05/15: believes we are giving him medication to turn him into a woman, believes we are trying to get him to have sex with men. required restraint chair for court-ordered medication. required medications IM. 9/25: more subdued today. took meds PO last night and this morning. increase abilify to 15 mg daily. delay labs as pt has missed lithium dosing. 05/17: labs ordered. increase abilify dosing to 20 mg daily as of tomorrow. 05/18: refused labs. less labile and agitated. remains with paranoid delusions. labs ordered again. abilify to 25 mg tonight and 30 mg as of tomorrow night. 05/19: Continue current treatment plan. 05/20: Similar to yesterday's presentation. Continue current treatment plan. 05/21: refused PO meds this morning (took PO all w/e). received IMs. continue current mgmt. 05/22: refused PO last night and got IMs. took PO today. per collateral from KELLY Agudelo, improved insight, increased flexibility in thinking. continue current mgmt. 05/23: calm, appears tired. napping in the morning. PO meds. no singing in the past day. slept 8 hours. declining labs. continue current mgmt. 05/24: calm, quiet. no notable events or behaviors. continues far more subdued than prior. slept well. 05/25: stable presentation. continue current mgmt. 05/26 CTP / - some inapp behaviors with staff- keep on 5s, CTP 05/28: touching female RN on shoulders. some wandering into others' rooms. more logical and with more insight than ever previous in interacting with this field underwriter. allowed lithium level, which is 0.8. labs otherwise reassuring. declined bowel regimen. continue current mgmt. 05/29: appears as yesterday. no notable events. labs reviewed with pt. decrease benadryl to 25 mg QHS. 05/30: DC benadryl. lower abilify from 30 mg QHS to 20 mg QHS due to sedation/confusion for past several days. slept 6.5 hours. appears flat, tired. 05/31: less sedated today. continue current mgmt. 06/01: as for yesterday. attempted to kiss female staff doing CO today. 06/02: appearing more awake than several days ago. c/o blurry vision, stuttering, brain being weakened. continue current mgmt. 06/03: appears more awake. no complaints. continue current mgmt. paying excessive attention to young female peer, making her uncomfortable. 06/04: stable presentation. continue current mgmt. T/C abilify [place] soon. 06/05: declines to change lithium to tab form. had BM with lactulose. agrees to abilify ST[place]. will give 400 mg IM tomorrow and DC PO abilify after 2 weeks. then continue 400 mg IM Q30 days from first [facility]. 06/06: continue current tx plan. 06/07: pt and KELLY Agudelo spoke with [employer] staff; [facility] to send info to pt re disciplinary process. requested [facility] to speak with DA. no notable events or behaviors otherwise, continue current mgmt. 06/08: c/o blurry vision and tiredness. describing his mood as more stable than prior. continue current mgmt. Reason for continued inpatient stay Substantial Risk for: harm to self, harm to others, inability to function and rapid decompensation Time Spent With Patient Time: Total time managing care of this patient today _25___ minutes.
[2024-06-08] MEDS: ARIPiprazole 20 MG TABLET PO (21:44)
[2024-06-09] MEDS: LITHIUM CITRATE 600 MG PO ×2 (08:46→20:30)
[2024-06-09] MEDS: Docusate Sodium 100 MG CAPSULE 200 MG PO ×2 (08:47→20:29)
--- NOTE | 2024-06-09 09:23 | P.PNPSI_ITS ---
Subjective Subjective Date of Service: 06/09/24 Reason For Visit: stalking behaviors Subjective Notes: Section 7 and Section 8 Interim History: The nursing staff reported the patient had been more organized he had been seen playing cards. He participate limited in groups he slept 9 hours. On interview the patient denies new symptoms. Denies side-effects Mental Status Exam Mental Status Exam Patient Appearance: Appropriate Patient Orientation: Person and Situation Level of Consciousness: Awake and Appropriate Patient Behavior: Guarded and Passive Mood Description: Withdrawn Affect Description: Constricted Patient Cognition Impaired: Yes Ability to Follow Directions: Good Speech Pattern: Clear Hallucinations: None Delusions: Ideas of Reference Thought Process: Distracted and Slowed Thinking Thought Content: positive for Coila and positive for Poverty of Content Judgement: Poor Diagnostics Vital Signs (24Hr): BMI result Body Mass Index 24.7 Labs 04/23/24 13:06 05/28/24 13:24 Medications Medications Current Medications Acetaminophen (Acetaminophen 325 Mg Tablet) 650 mg PO Q6H PRN PRN Reason: Headache/Pain Mild Scale (1-3) Al Hydroxide/Mg Hydroxide (Magnesium Hydrox/Alum Hydrox 30 Ml Oral.Susp) 30 ml PO Q6H PRN PRN Reason: Heartburn/Nausea Aripiprazole (Aripiprazole 20 Mg Tablet) 20 mg PO BEDTIME [facility] Stop: 06/19/24 21:01 Last Admin: 06/08/24 21:44 Dose: 20 mg Aripiprazole (Aripiprazole Er 400 Mg Suser.Syr) 400 mg IM Q30D [facility] Last Admin: 06/06/24 09:34 Dose: 400 mg Diazepam (Diazepam 10 Mg/2 Ml Cartridge) 10 mg IM BID PRN PRN Reason: refusal of lithium or abilify Last Admin: 05/21/24 22:51 Dose: 10 mg Docusate Sodium (Docusate Sodium 100 Mg Capsule) 200 mg PO BID [facility] Last Admin: 06/09/24 08:47 Dose: 200 mg Fluphenazine HCl (Fluphenazine Hcl 2.5 Mg/Ml 10 Ml Vial) 5 mg IM DAILY PRN PRN Reason: refusal of PO abilify Last Admin: 05/21/24 22:48 Dose: 5 mg Hydroxyzine HCl (Hydroxyzine Hcl 25 Mg Tablet) 25 mg PO Q6H PRN PRN Reason: Anxiety Lactulose (Lactulose 20 Gm/30 Ml Solution) 30 gm PO DAILY PRN PRN Reason: Constipation Last Admin: 06/04/24 09:55 Dose: 30 gm [place] Citrate ([place] Citrate Oral Tierney 8 Meq (300 Mg)/5 Ml) 600 mg PO BID [facility] Last Admin: 06/09/24 08:46 Dose: 600 mg Magnesium Hydroxide (Milk Of Magnesia 30 Ml Oral.Susp) 30 ml PO DAILY PRN PRN Reason: Constipation Last Admin: 05/30/24 09:34 Dose: 30 ml Olanzapine (Olanzapine Odt 10 Mg Tab.Rapdis) 10 mg TRANSLINGU Q4H PRN PRN Reason: agitation Polyethylene Glycol (Polyethylene Glycol 3350 17 Gm Powd.Pack) 17 gm PO DAILY PRN PRN Reason: Constipation Last Admin: 06/03/24 08:49 Dose: 17 gm Trazodone HCl (Trazodone Hcl 50 Mg Tablet) 50 mg PO BEDTIME MRX1 PRN PRN Reason: Insomnia Allergies Allergies Allergy/AdvReac Type Severity Reaction Status Date / Time No Known Allergies Allergy Verified 04/23/24 13:03 Assessment & Plan Assessment & Plan (1) Bipolar disorder with psychotic features: Status: Acute Code(s): F31.9 - Bipolar disorder, unspecified Plan 04/25: contain, observe, educate. collect collateral info. 04/26: warrant has been issued for pt's arrest. 12b up tuesday. planning to discharge tuesday unless situation changes. prescribed abilify 5 mg daily, which pt is refusing. 04/27: refusing meds. no change in presentation. planning for discharge friday 03/30, when section 12b expires. student counseling at [facility] has been informed of the discharge plan by KELLY Agudelo. 04/29: No changes 04/30: refusing meds. frankly psychotic/manic today. disorganized thoughts, hyper-zoroastrian, labile, delusional, no sleep. accusing staff of witchcraft and trying to turn him into a woman. filed for commitment. kicked an exit door, prompting security to be called. 05/01: kicked exit doors again overnight, send me to assisted or just shoot me. talking about hospital food being poisoned. i only account to [facility]. you are continuing your evil plans. refusing medications. refused to meet with loss prevention consultant today. 05/02 continue tx. 05/03: loud, labile, exit-seeking. required med/phys restraint x 1 due to elopement attempt. demanding discharge. refusing meds. continue to offer meds. hearing scheduled for tuesday. 05/04: calm, trying to get into phone to get numbers. declining same numbers from KELLY Agudelo. sleeping in afternoon. slept most of evening and all NOC last night. 05/05 continue tx. pt declines medications. 05/[address] hearing. 05/07: no change in presentation. reported he was the 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 committed, ordered medications. 05/08: received IM meds as refused PO. believes we are trying to turn him into a woman. 05/09: asking to leave, saying he does not want meds. took PO invega this morning. dystonia this afternoon, invega DCed. took PO ativan, benadryl, cogentin. will attempt with lithium only for the time being, backed up by valium IM. seems less energetic, labile, hyper-zoroastrian today. 05/10: calm, but perseverative about discharge. taking lithium. continue current mgmt. paranoid delusions we are trying to turn him transgendered. remains focused on object of his stalking. 05/11: much more manic Sx today. re-trial of anti-psychotics. start with low- dose abilify with fluphenazine back-up. lithium switched to liquid formulation today. on 30 min CO after meds. 05/12: Continue current regimen and plans 05/13: Continue current regimen and plans 05/14: blocking MD's egress from room demanding immediate discharge. accepted thorazine 100 and ativan 2 PO. initial rapid pacing up and down the [place], eventually settled. check labs 05/16. 05/15: believes we are giving him medication to turn him into a woman, believes we are trying to get him to have sex with men. required restraint chair for court-ordered medication. required medications IM. 05/16: more subdued today. took meds PO last night and this morning. increase abilify to 15 mg daily. delay labs as pt has missed lithium dosing. 05/17: labs ordered. increase abilify dosing to 20 mg daily as of tomorrow. 05/18: refused labs. less labile and agitated. remains with paranoid delusions. labs ordered again. abilify to 25 mg tonight and 30 mg as of tomorrow night. 05/19: Continue current treatment plan. 05/20: Similar to yesterday's presentation. Continue current treatment plan. 05/21: refused PO meds this morning (took PO all w/e). received IMs. continue current mgmt. 05/22: refused PO last night and got IMs. took PO today. per collateral from KELLY Agudelo, improved insight, increased flexibility in thinking. continue current mgmt. 05/23: calm, appears tired. napping in the morning. PO meds. no singing in the past day. slept 8 hours. declining labs. continue current mgmt. 05/24: calm, quiet. no notable events or behaviors. continues far more subdued than prior. slept well. 05/25: stable presentation. continue current mgmt. 05/26 CTP / - some inapp behaviors with staff- keep on 5s, CTP 05/28: touching female RN on shoulders. some wandering into others' rooms. more logical and with more insight than ever previous in interacting with this selling underwriter. allowed lithium level, which is 0.8. labs otherwise reassuring. declined bowel regimen. continue current mgmt. 05/29: appears as yesterday. no notable events. labs reviewed with pt. decrease benadryl to 25 mg QHS. 05/30: DC benadryl. lower abilify from 30 mg QHS to 20 mg QHS due to sedation/confusion for past several days. slept 6.5 hours. appears flat, tired. 05/31: less sedated today. continue current mgmt. 06/01: as for yesterday. attempted to kiss female staff doing CO today. 06/02: appearing more awake than several days ago. c/o blurry vision, stuttering, brain being weakened. continue current mgmt. 06/03: appears more awake. no complaints. continue current mgmt. paying excessive attention to young female peer, making her uncomfortable. 06/04: stable presentation. continue current mgmt. T/C abilify STEV[place]SON soon. 06/05: declines to change lithium to tab form. had BM with lactulose. agrees to abilify STEVENSON. will give 400 mg IM tomorrow and DC PO abilify after 2 weeks. then continue 400 mg IM Q30 days from first ST[facility]. 06/06: continue current tx plan. 06/07: pt and KELLY Agudelo spoke with [employer] staff; [facility] to send info to pt re disciplinary process. MD requested [facility] to speak with DA. no notable events or behaviors otherwise, continue current mgmt. 06/08: c/o blurry vision and tiredness. describing his mood as more stable than prior. continue current mgmt. 06/09 continue same treatment Reason for continued inpatient stay Substantial Risk for: inability to function, rapid decompensation and med/psych decompensation Time Spent With Patient Time: Total time managing care of this patient today _20___ minutes.
[2024-06-09] MEDS: ARIPiprazole 20 MG TABLET PO (20:29)
--- NOTE | 2024-06-10 08:00 | P.PNPSI_ITS ---
Subjective Subjective Date of Service: 06/10/24 Reason For Visit: stalking behaviors Subjective Notes: Section 7 and Section 8 Interim History: The nursing staff reported the patient had been social pleasant, he verbalized that he [place] go [place] to [place]. He slept 8 hours. On interview the patient denies new symptoms. Compliant with treatment Mental Status Exam Mental Status Exam Patient Appearance: Appropriate Patient Orientation: Person and Situation Level of Consciousness: Awake Patient Behavior: Appropriate and Cooperative Mood Description: Calm Affect Description: Constricted Patient Cognition Impaired: Yes Ability to Follow Directions: Good Speech Pattern: Clear Hallucinations: None Delusions: Ideas of Reference Thought Process: Distracted and Evasive Thought Content: positive for Circumstantial Judgement: Fair Diagnostics Vital Signs (24Hr): BMI result Body Mass Index 24.7 Labs 04/23/24 13:06 05/28/24 13:24 Medications Medications Current Medications Acetaminophen (Acetaminophen 325 Mg Tablet) 650 mg PO Q6H PRN PRN Reason: Headache/Pain Mild Scale (1-3) Al Hydroxide/Mg Hydroxide (Magnesium Hydrox/Alum Hydrox 30 Ml Oral.Susp) 30 ml PO Q6H PRN PRN Reason: Heartburn/Nausea Aripiprazole (Aripiprazole 20 Mg Tablet) 20 mg PO BEDTIME [facility] Stop: 06/19/24 21:01 Last Admin: 06/09/24 20:29 Dose: 20 mg Aripiprazole (Aripiprazole Er 400 Mg Suser.Syr) 400 mg IM Q30D [facility] Last Admin: 06/06/24 09:34 Dose: 400 mg Diazepam (Diazepam 10 Mg/2 Ml Cartridge) 10 mg IM BID PRN PRN Reason: refusal of lithium or abilify Last Admin: 05/21/24 22:51 Dose: 10 mg Docusate Sodium (Docusate Sodium 100 Mg Capsule) 200 mg PO BID [facility] Last Admin: 06/09/24 20:29 Dose: 200 mg Fluphenazine HCl (Fluphenazine Hcl 2.5 Mg/Ml 10 Ml Vial) 5 mg IM DAILY PRN PRN Reason: refusal of PO abilify Last Admin: 05/21/24 22:48 Dose: 5 mg Hydroxyzine HCl (Hydroxyzine Hcl 25 Mg Tablet) 25 mg PO Q6H PRN PRN Reason: Anxiety Lactulose (Lactulose 20 Gm/30 Ml Solution) 30 gm PO DAILY PRN PRN Reason: Constipation Last Admin: 06/04/24 09:55 Dose: 30 gm [place] Citrate ([place] Citrate Oral [place] 8 Meq (300 Mg)/5 Ml) 600 mg PO BID [place] Last Admin: 06/09/24 20:30 Dose: 600 mg Magnesium Hydroxide (Milk Of Magnesia 30 Ml Oral.Susp) 30 ml PO DAILY PRN PRN Reason: Constipation Last Admin: 05/30/24 09:34 Dose: 30 ml Olanzapine (Olanzapine Odt 10 Mg Tab.Rapdis) 10 mg TRANSLINGU Q4H PRN PRN Reason: agitation Polyethylene Glycol (Polyethylene Glycol 3350 17 Gm Powd.Pack) 17 gm PO DAILY PRN PRN Reason: Constipation Last Admin: 06/03/24 08:49 Dose: 17 gm Trazodone HCl (Trazodone Hcl 50 Mg Tablet) 50 mg PO BEDTIME MRX1 PRN PRN Reason: Insomnia Allergies Allergies Allergy/AdvReac Type Severity Reaction Status Date / Time No Known Allergies Allergy Verified 04/23/24 13:03 Assessment & Plan Assessment & Plan (1) Bipolar disorder with psychotic features: Status: Acute Code(s): F31.9 - Bipolar disorder, unspecified Plan 04/25: contain, observe, educate. collect collateral info. 04/26: warrant has been issued for pt's arrest. 12b up tuesday. planning to discharge tuesday unless situation changes. prescribed abilify 5 mg daily, which pt is refusing. 04/27: refusing meds. no change in presentation. planning for discharge friday 03/30, when section 12b expires. student counseling at [facility] has been informed of the discharge plan by KELLY Agudelo. 04/29: No changes 04/30: refusing meds. frankly psychotic/manic today. disorganized thoughts, hyper-islam, labile, delusional, no sleep. accusing staff of witchcraft and trying to turn him into a woman. filed for commitment. kicked an exit door, prompting security to be called. 05/01: kicked exit doors again overnight, send me to longterm or just shoot me. talking about hospital food being poisoned. [facility] you are continuing your evil plans. refusing medications. refused to meet with tanning wheel filler today. 05/02 continue tx. 05/03: loud, labile, exit-seeking. required med/phys restraint x 1 due to elopement attempt. demanding discharge. refusing meds. continue to offer meds. hearing scheduled for tuesday. 05/04: calm, trying to get into phone to get numbers. declining same numbers from KELLY Agudelo. sleeping in afternoon. slept most of evening and all NOC last night. 05/05 continue tx. pt declines medications. 05/[address] hearing. 05/07: no change in presentation. 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 committed, ordered medications. 05/08: received IM meds as refused PO. believes we are trying to turn him into a woman. 05/09: asking to leave, saying he does not want meds. took PO invega this morning. dystonia this afternoon, invega DCed. took PO ativan, benadryl, cogentin. will attempt with lithium only for the time being, backed up by valium IM. seems less energetic, labile, hyper-islam today. 05/10: calm, but perseverative about discharge. taking lithium. continue current mgmt. paranoid delusions we are trying to turn him transgendered. remains focused on object of his stalking. 05/11: much more manic Sx today. re-trial of anti-psychotics. start with low- dose abilify with fluphenazine back-up. lithium switched to liquid formulation today. on 30 min CO after meds. 05/12: Continue current regimen and plans 05/13: Continue current regimen and plans 05/14: blocking MD's egress from room demanding immediate discharge. accepted thorazine 100 and ativan 2 PO. initial rapid pacing up and down the [place], eventually settled. check labs 05/16. 05/15: believes we are giving him medication to turn him into a woman, believes we are trying to get him to have sex with men. required restraint chair for court-ordered medication. required medications IM. 05/16: more subdued today. took meds PO last night and this morning. increase abilify to 15 mg daily. delay labs as pt has missed lithium dosing. 05/17: labs ordered. increase abilify dosing to 20 mg daily as of tomorrow. 05/18: refused labs. less labile and agitated. remains with paranoid delusions. labs ordered again. abilify to 25 mg tonight and 30 mg as of tomorrow night. 05/19: Continue current treatment plan. 05/20: Similar to yesterday's presentation. Continue current treatment plan. 05/21: refused PO meds this morning (took PO all w/e). received IMs. continue current mgmt. 05/22: refused PO last night and got IMs. took PO today. per collateral from KELLY Agudelo, improved insight, increased flexibility in thinking. continue current mgmt. 05/23: calm, appears tired. napping in the morning. PO meds. no singing in the past day. slept 8 hours. declining labs. continue current mgmt. 05/24: calm, quiet. no notable events or behaviors. continues far more subdued than prior. slept well. 05/25: stable presentation. continue current mgmt. 05/26 CTP / - some inapp behaviors with staff- keep on 5s, CTP 05/28: touching female RN on shoulders. some wandering into others' rooms. more logical and with more insight than ever previous in interacting with this filing writer. allowed lithium level, which is 0.8. labs otherwise reassuring. declined bowel regimen. continue current mgmt. 05/29: appears as yesterday. no notable events. labs reviewed with pt. decrease benadryl to 25 mg QHS. 05/30: DC benadryl. lower abilify from 30 mg QHS to 20 mg QHS due to sedation/confusion for past several days. slept 6.5 hours. appears flat, tired. 05/31: less sedated today. continue current mgmt. 06/01: as for yesterday. attempted to kiss female staff doing CO today. 06/02: appearing more awake than several days ago. c/o blurry vision, stuttering, brain being weakened. continue current mgmt. 06/03: appears more awake. no complaints. continue current mgmt. paying excessive attention to young female peer, making her uncomfortable. 06/04: stable presentation. continue current mgmt. T/C abilify [place] soon. 06/05: declines to change lithium to tab form. had BM with lactulose. agrees to abilify [place]. will give 400 mg IM tomorrow and DC PO abilify after 2 weeks. then continue 400 mg IM Q30 days from first [place]. 06/06: continue current tx plan. 06/07: pt and KELLY Agudelo spoke with [facility] [employer] staff; [facility] to send info to pt re disciplinary process. MD requested TE to speak with DA. no notable events or behaviors otherwise, continue current mgmt. 06/08: c/o blurry vision and tiredness. describing his mood as more stable than prior. continue current mgmt. 06/09 continue same treatment. 06/10 continue same treatment. Reason for continued inpatient stay Substantial Risk for: rapid decompensation and med/psych decompensation Time Spent With Patient Time: Total time managing care of this patient today __20__ minutes.
[2024-06-10] MEDS: LITHIUM CITRATE 600 MG PO ×2 (09:00→22:25)
[2024-06-10] MEDS: Docusate Sodium 100 MG CAPSULE 200 MG PO ×2 (09:32→22:25)
[2024-06-10 22:10] VITALS: BP 121/68; PULSE 81; TEMP 37; O2SAT 100
[2024-06-10] MEDS: ARIPiprazole 20 MG TABLET PO (22:25)
[2024-06-11 07:15] VITALS: BP 113/61; PULSE 87; RESP 16; TEMP 37.1; O2SAT 100
[2024-06-11] MEDS: Docusate Sodium 100 MG CAPSULE 200 MG PO ×2 (09:04→22:30)
[2024-06-11] MEDS: LITHIUM CITRATE 600 MG PO ×2 (09:04→22:30)
--- NOTE | 2024-06-11 15:09 | P.PNPSI_ITS ---
Subjective Subjective Date of Service: 06/11/24 Reason For Visit: stalking behaviors Interim History: no change in presentation. educated re difference between criminal proceedings and civil, that he is involved in 2 separate courts right now. requested permission to speak with DA on pt's behalf. per staff, flat, withdrawn, guarded. reading, chanting in his room. no issues. slept about 8 hours. Mental Status Exam Mental Status Exam Narrative: adequately dressed and groomed. cooperative. no PMA/PMR. speech nml rate, nml amount. decr loudness, nml latency. thoughts linear, logical. affect normo- intense, non-labile, constricted. mood euthymic. no SI/SIBI/HI/AVH expressed. Diagnostics Vital Signs (24Hr): Vital Signs - 24 hr 06/10/24 22:10 06/11/24 07:15 Temperature 98.6 F 98.7 F Pulse Rate 81 87 Respiratory Rate 16 Blood Pressure 121/68 113/61 Pulse Oximetry 100 100 Oxygen Delivery Method Room Air Room Air BMI result Body Mass Index 24.7 Labs 04/23/24 13:06 05/28/24 13:24 Medications Medications Current Medications Acetaminophen (Acetaminophen 325 Mg Tablet) 650 mg PO Q6H PRN PRN Reason: Headache/Pain Mild Scale (1-3) Al Hydroxide/Mg Hydroxide (Magnesium Hydrox/Alum Hydrox 30 Ml Oral.Susp) 30 ml PO Q6H PRN PRN Reason: Heartburn/Nausea Aripiprazole (Aripiprazole 20 Mg Tablet) 20 mg PO BEDTIME [facility] Stop: 06/19/24 21:01 Last Admin: 06/10/24 22:25 Dose: 20 mg Aripiprazole (Aripiprazole Er 400 Mg Suser.Syr) 400 mg IM Q30D [facility] Last Admin: 06/06/24 09:34 Dose: 400 mg Diazepam (Diazepam 10 Mg/2 Ml Cartridge) 10 mg IM BID PRN PRN Reason: refusal of lithium or abilify Last Admin: 05/21/24 22:51 Dose: 10 mg Docusate Sodium (Docusate Sodium 100 Mg Capsule) 200 mg PO BID [facility] Last Admin: 06/11/24 09:04 Dose: 200 mg Fluphenazine HCl (Fluphenazine Hcl 2.5 Mg/Ml 10 Ml Vial) 5 mg IM DAILY PRN PRN Reason: refusal of PO abilify Last Admin: 05/21/24 22:48 Dose: 5 mg Hydroxyzine HCl (Hydroxyzine Hcl 25 Mg Tablet) 25 mg PO Q6H PRN PRN Reason: Anxiety Lactulose (Lactulose 20 Gm/30 Ml Solution) 30 gm PO DAILY PRN PRN Reason: Constipation Last Admin: 06/04/24 09:55 Dose: 30 gm [place] Citrate ([place] Citrate Oral Tier[place] 8 Meq (300 Mg)/5 Ml) 600 mg PO BID [place] Last Admin: 06/11/24 09:04 Dose: 600 mg Magnesium Hydroxide (Milk Of Magnesia 30 Ml Oral.Susp) 30 ml PO DAILY PRN PRN Reason: Constipation Last Admin: 05/30/24 09:34 Dose: 30 ml Olanzapine (Olanzapine Odt 10 Mg Tab.Rapdis) 10 mg TRANSLINGU Q4H PRN PRN Reason: agitation Polyethylene Glycol (Polyethylene Glycol 3350 17 Gm Powd.Pack) 17 gm PO DAILY PRN PRN Reason: Constipation Last Admin: 06/03/24 08:49 Dose: 17 gm Trazodone HCl (Trazodone Hcl 50 Mg Tablet) 50 mg PO BEDTIME MRX1 PRN PRN Reason: Insomnia Allergies Allergies Allergy/AdvReac Type Severity Reaction Status Date / Time No Known Allergies Allergy Verified 04/23/24 13:03 Assessment & Plan Assessment & Plan (1) Bipolar disorder with psychotic features: Status: Acute Code(s): F31.9 - Bipolar disorder, unspecified Plan 04/25: contain, observe, educate. collect collateral info. 04/26: warrant has been issued for pt's arrest. 12b up tuesday. planning to discharge tuesday unless situation changes. prescribed abilify 5 mg daily, which pt is refusing. 04/27: refusing meds. no change in presentation. planning for discharge friday 03/30, when section 12b expires. student counseling at [facility] has been informed of the discharge plan by KELLY Agudelo. 04/29: No changes 04/30: refusing meds. frankly psychotic/manic today. disorganized thoughts, hyper-episcopal, labile, delusional, no sleep. accusing staff of witchcraft and trying to turn him into a woman. filed for commitment. kicked an exit door, prompting security to be called. 05/01: kicked exit doors again overnight, send me to senior care or just shoot me. talking about hospital food being poisoned. i only account to [place]. you are continuing your evil plans. refusing medications. refused to meet with environmental lawyer today. 05/02 continue tx. 05/03: loud, labile, exit-seeking. required med/phys restraint x 1 due to elopement attempt. demanding discharge. refusing meds. continue to offer meds. hearing scheduled for tuesday. 05/04: calm, trying to get into phone to get numbers. declining same numbers from KELLY Agudelo. sleeping in afternoon. slept most of evening and all NOC last night. 05/05 continue tx. pt declines medications. 05/[address] hearing. 05/07: no change in presentation. 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 committed, ordered medications. 05/08: received IM meds as refused PO. believes we are trying to turn him into a woman. 05/09: asking to leave, saying he does not want meds. took PO invega this morning. dystonia this afternoon, invega DCed. took PO ativan, benadryl, cogentin. will attempt with lithium only for the time being, backed up by valium IM. seems less energetic, labile, hyper-episcopal today. 05/10: calm, but perseverative about discharge. taking lithium. continue current mgmt. paranoid delusions we are trying to turn him transgendered. remains focused on object of his stalking. 05/11: much more manic Sx today. re-trial of anti-psychotics. start with low- dose abilify with fluphenazine back-up. lithium switched to liquid formulation today. on 30 min CO after meds. 05/12: Continue current regimen and plans 05/13: Continue current regimen and plans 05/14: blocking MD's egress from room demanding immediate discharge. accepted thorazine 100 and ativan 2 PO. initial rapid pacing up and down the [place], eventually settled. check labs 05/16. 05/15: believes we are giving him medication to turn him into a woman, believes we are trying to get him to have sex with men. required restraint chair for court-ordered medication. required medications IM. 05/16: more subdued today. took meds PO last night and this morning. increase abilify to 15 mg daily. delay labs as pt has missed lithium dosing. 05/17: labs ordered. increase abilify dosing to 20 mg daily as of tomorrow. 05/18: refused labs. less labile and agitated. remains with paranoid delusions. labs ordered again. abilify to 25 mg tonight and 30 mg as of tomorrow night. 05/19: Continue current treatment plan. 05/20: Similar to yesterday's presentation. Continue current treatment plan. 05/21: refused PO meds this morning (took PO all w/e). received IMs. continue current mgmt. 05/22: refused PO last night and got IMs. took PO today. per collateral from KELLY Agudelo, improved insight, increased flexibility in thinking. continue current mgmt. 05/23: calm, appears tired. napping in the morning. PO meds. no singing in the past day. slept 8 hours. declining labs. continue current mgmt. 05/24: calm, quiet. no notable events or behaviors. continues far more subdued than prior. slept well. 05/25: stable presentation. continue current mgmt. 05/26 CTP 05/27 - some inapp behaviors with staff- keep on 5s, CTP 05/28: touching female RN on shoulders. some wandering into others' rooms. more logical and with more insight than ever previous in interacting with this policy writer typist. allowed lithium level, which is 0.8. labs otherwise reassuring. declined bowel regimen. continue current mgmt. 05/29: appears as yesterday. no notable events. labs reviewed with pt. decrease benadryl to 25 mg QHS. 05/30: DC benadryl. lower abilify from 30 mg QHS to 20 mg QHS due to sedation/confusion for past several days. slept 6.5 hours. appears flat, tired. 05/31: less sedated today. continue current mgmt. 06/01: as for yesterday. attempted to kiss female staff doing CO today. 06/02: appearing more awake than several days ago. c/o blurry vision, stuttering, brain being weakened. continue current mgmt. 06/03: appears more awake. no complaints. continue current mgmt. paying excessive attention to young female peer, making her uncomfortable. 06/04: stable presentation. continue current mgmt. T/C abilify [place]EVENSON soon. 06/05: declines to change lithium to tab form. had BM with lactulose. agrees to abilify [place]. will give 400 mg IM tomorrow and DC PO abilify after 2 weeks. then continue 400 mg IM Q30 days from first [place]. 06/06: continue current tx plan. 06/07: pt and KELLY Agudelo spoke with [place] [employer] staff; [facility] to send info to pt re disciplinary process. MD requested TE to speak with DA. no notable events or behaviors otherwise, continue current mgmt. 06/08: c/o blurry vision and tiredness. describing his mood as more stable than prior. continue current mgmt. 06/09 continue same treatment. 06/10 continue same treatment. 06/11: stable presentation. not providing consent to speak with DA, canceling his mtg with [place] therapist and police tomorrow. Reason for continued inpatient stay Substantial Risk for: harm to self, harm to others, inability to function and rapid decompensation Time Spent With Patient Time: Total time managing care of this patient today __25__ minutes.
[2024-06-11 20:02] VITALS: RESP 16
[2024-06-11] MEDS: ARIPiprazole 20 MG TABLET PO (22:30)
[2024-06-12 08:00] VITALS: BP 133/63; PULSE 80; RESP 16; TEMP 36.9; O2SAT 100
[2024-06-12] MEDS: Docusate Sodium 100 MG CAPSULE 200 MG PO ×2 (08:43→20:37)
[2024-06-12] MEDS: LITHIUM CITRATE 600 MG PO ×2 (08:43→20:37)
--- NOTE | 2024-06-12 15:03 | P.PNPSI_ITS ---
Subjective Subjective Date of Service: 06/12/24 Reason For Visit: stalking behaviors Interim History: calm, cooperative. lobbying for release. declining to allow MD to speak with DA. serially encouraged to be in touch with legal financial specialist, as he is alleging the legal process was not properly adhered to. per staff, has mentioned something about the people he loves and not being able to mention one of them. attending groups. singing yesterday. refusing VS. in bed all shift eves. Mental Status Exam Mental Status Exam Narrative: adequately dressed and groomed. cooperative. no PMA/PMR. speech nml rate, nml amount. decr loudness, nml latency. thoughts linear, illogical (alleging zoom court hearing was illegitimate). affect normo-intense, non-labile, constricted. mood euthymic. no SI/SIBI/HI/AVH expressed. Diagnostics Vital Signs (24Hr): Vital Signs - 24 hr 06/11/24 20:02 06/12/24 08:00 Temperature 98.5 F Pulse Rate 80 Respiratory Rate 16 16 Blood Pressure 133/63 Pulse Oximetry 100 Oxygen Delivery Method Room Air BMI result Body Mass Index 24.7 Labs 04/23/24 13:06 05/28/24 13:24 Medications Medications Current Medications Acetaminophen (Acetaminophen 325 Mg Tablet) 650 mg PO Q6H PRN PRN Reason: Headache/Pain Mild Scale (1-3) Al Hydroxide/Mg Hydroxide (Magnesium Hydrox/Alum Hydrox 30 Ml Oral.Susp) 30 ml PO Q6H PRN PRN Reason: Heartburn/Nausea Aripiprazole (Aripiprazole 20 Mg Tablet) 20 mg PO BEDTIME [facility] Stop: 06/19/24 21:01 Last Admin: 06/11/24 22:30 Dose: 20 mg Aripiprazole (Aripiprazole Er 400 Mg Suser.Syr) 400 mg IM Q30D [facility] Last Admin: 06/06/24 09:34 Dose: 400 mg Diazepam (Diazepam 10 Mg/2 Ml Cartridge) 10 mg IM BID PRN PRN Reason: refusal of lithium or abilify Last Admin: 05/21/24 22:51 Dose: 10 mg Docusate Sodium (Docusate Sodium 100 Mg Capsule) 200 mg PO BID [facility] Last Admin: 06/12/24 08:43 Dose: 200 mg Fluphenazine HCl (Fluphenazine Hcl 2.5 Mg/Ml 10 Ml Vial) 5 mg IM DAILY PRN PRN Reason: refusal of PO abilify Last Admin: 05/21/24 22:48 Dose: 5 mg Hydroxyzine HCl (Hydroxyzine Hcl 25 Mg Tablet) 25 mg PO Q6H PRN PRN Reason: Anxiety Lactulose (Lactulose 20 Gm/30 Ml Solution) 30 gm PO DAILY PRN PRN Reason: Constipation Last Admin: 06/04/24 09:55 Dose: 30 gm Shiro Citrate (Shiro Citrate Oral Tierney 8 Meq (300 Mg)/5 Ml) 600 mg PO BID [facility] Last Admin: 06/12/24 08:43 Dose: 600 mg Magnesium Hydroxide (Milk Of Magnesia 30 Ml Oral.Susp) 30 ml PO DAILY PRN PRN Reason: Constipation Last Admin: 05/30/24 09:34 Dose: 30 ml Olanzapine (Olanzapine Odt 10 Mg Tab.Rapdis) 10 mg TRANSLINGU Q4H PRN PRN Reason: agitation Polyethylene Glycol (Polyethylene Glycol 3350 17 Gm Powd.Pack) 17 gm PO DAILY PRN PRN Reason: Constipation Last Admin: 06/03/24 08:49 Dose: 17 gm Trazodone HCl (Trazodone Hcl 50 Mg Tablet) 50 mg PO BEDTIME MRX1 PRN PRN Reason: Insomnia Allergies Allergies Allergy/AdvReac Type Severity Reaction Status Date / Time No Known Allergies Allergy Verified 04/23/24 13:03 Assessment & Plan Assessment & Plan (1) Bipolar disorder with psychotic features: Status: Acute Code(s): F31.9 - Bipolar disorder, unspecified Plan 04/25: contain, observe, educate. collect collateral info. 04/26: warrant has been issued for pt's arrest. 12b up tuesday. planning to discharge tuesday unless situation changes. prescribed abilify 5 mg daily, which pt is refusing. 04/27: refusing meds. no change in presentation. planning for discharge friday 03/30, when section 12b expires. student counseling at [facility] has been informed of the discharge plan by KELLY Agudelo. 04/29: No changes 04/30: refusing meds. frankly psychotic/manic today. disorganized thoughts, hyper-faith, labile, delusional, no sleep. accusing staff of witchcraft and trying to turn him into a woman. filed for commitment. kicked an exit door, prompting security to be called. 05/01: kicked exit doors again overnight, send me to correction or just shoot me. talking about hospital food being poisoned. i only account to hamzah. you are continuing your evil plans. refusing medications. refused to meet with tank car repairer today. 05/02 continue tx. 05/03: loud, labile, exit-seeking. required med/phys restraint x 1 due to elopement attempt. demanding discharge. refusing meds. continue to offer meds. hearing scheduled for tuesday. 05/04: calm, trying to get into phone to get numbers. declining same numbers from KELLY Agudelo. sleeping in afternoon. slept most of evening and all NOC last night. 05/05 continue tx. pt declines medications. 05/[address] hearing. 05/07: no change in presentation. reported he was the [facility] over the weekend and that the voice of hamzah was commanding him to preach. committed, ordered medications. 05/08: received IM meds as refused PO. believes we are trying to turn him into a woman. 05/09: asking to leave, saying he does not want meds. took PO invega this morning. dystonia this afternoon, invega DCed. took PO ativan, benadryl, cogentin. will attempt with lithium only for the time being, backed up by valium IM. seems less energetic, labile, hyper-faith today. 05/10: calm, but perseverative about discharge. taking lithium. continue current mgmt. paranoid delusions we are trying to turn him transgendered. remains focused on object of his stalking. 05/11: much more manic Sx today. re-trial of anti-psychotics. start with low- dose abilify with fluphenazine back-up. lithium switched to liquid formulation today. on 30 min CO after meds. 05/12: Continue current regimen and plans 05/13: Continue current regimen and plans 05/14: blocking MD's egress from room demanding immediate discharge. accepted thorazine 100 and ativan 2 PO. initial rapid pacing up and down the [place], eventually settled. check labs 05/16. 05/15: believes we are giving him medication to turn him into a woman, believes we are trying to get him to have sex with men. required restraint chair for court-ordered medication. required medications IM. 05/16: more subdued today. took meds PO last night and this morning. increase abilify to 15 mg daily. delay labs as pt has missed lithium dosing. 05/17: labs ordered. increase abilify dosing to 20 mg daily as of tomorrow. 05/18: refused labs. less labile and agitated. remains with paranoid delusions. labs ordered again. abilify to 25 mg tonight and 30 mg as of tomorrow night. 05/19: Continue current treatment plan. 05/20: Similar to yesterday's presentation. Continue current treatment plan. 05/21: refused PO meds this morning (took PO all w/e). received IMs. continue current mgmt. 05/22: refused PO last night and got IMs. took PO today. per collateral from KELLY Agudelo, improved insight, increased flexibility in thinking. continue current mgmt. 05/23: calm, appears tired. napping in the morning. PO meds. no singing in the past day. slept 8 hours. declining labs. continue current mgmt. 05/24: calm, quiet. no notable events or behaviors. continues far more subdued than prior. slept well. 05/25: stable presentation. continue current mgmt. 05/26 CTP 10/6 - some inapp behaviors with staff- keep on 5s, CTP 107: touching female RN on shoulders. some wandering into others' rooms. more logical and with more insight than ever previous in interacting with this customs entry writer. allowed lithium level, which is 0.8. labs otherwise reassuring. declined bowel regimen. continue current mgmt. 05/29: appears as yesterday. no notable events. labs reviewed with pt. decrease benadryl to 25 mg QHS. 05/30: DC benadryl. lower abilify from 30 mg QHS to 20 mg QHS due to sedation/confusion for past several days. slept 6.5 hours. appears flat, tired. 05/31: less sedated today. continue current mgmt. 06/01: as for yesterday. attempted to kiss female staff doing CO today. 10/12: appearing more awake than several days ago. c/o blurry vision, stuttering, brain being weakened. continue current mgmt. 06/03: appears more awake. no complaints. continue current mgmt. paying excessive attention to young female peer, making her uncomfortable. 06/04: stable presentation. continue current mgmt. T/C abilify STEVENSON soon. 06/05: declines to change lithium to tab form. had BM with lactulose. agrees to abilify STEVENSON. will give 400 mg IM tomorrow and DC PO abilify after 2 weeks. then continue 400 mg IM Q30 days from first STEVENSON. 06/06: continue current tx plan. 06/07: pt and KELLY Agudelo spoke with [employer] staff; school to send info to pt re disciplinary process. MD requested TE to speak with DA. no notable events or behaviors otherwise, continue current mgmt. 06/08: c/o blurry vision and tiredness. describing his mood as more stable than prior. continue current mgmt. 06/09 continue same treatment. 06/10 continue same treatment. 06/11: stable presentation. not providing consent to speak with DA, canceling his mtg with [place] therapist and police tomorrow. 06/12: per staff, broached the topic of people he loves and that he cannot mention one of their names. also alleging today, again, that the zoom hearing in which he was committed was illegal. informed he will remain here at least another several weeks to be able to assess how the transition from PO to STEVENSON antipsychotic is working. Reason for continued inpatient stay Substantial Risk for: harm to self, harm to others, inability to function and rapid decompensation Time Spent With Patient Time: Total time managing care of this patient today __25__ minutes.
[2024-06-12 20:00] VITALS: BP 123/59; PULSE 74; RESP 16; TEMP 37.1; O2SAT 99
[2024-06-12] MEDS: ARIPiprazole 20 MG TABLET PO (20:36)
[2024-06-13] MEDS: diazePAM 10 MG/2 ML CARTRIDGE IM (09:42)
--- NOTE | 2024-06-13 10:27 | HO.PSYEVENT ---
Event Note Date of Service: 06/13/24 Psych Restraint Event Note: refusing court-ordered medication. physical hold required to administer IM back-up. Time Spent With Patient Time: Total time managing care of this patient today ____ minutes.
--- NOTE | 2024-06-13 10:55 | PC.NURSE ---
Pt has a Jonas's order for [place]. Pt refused [place]. Pt was then offered IM vAlium. Pt refused IM Valium. Security performed a physical hold for 1 minute while RN administered IM Valium. Pt was calm and cooperative at this point, and was released directly after IM was given.
--- NOTE | 2024-06-13 11:16 | HO.BHRESTREX ---
Behavioral Restraint Exam Behavioral Health Restraint Exam Type of Restraint: Physical Hold Reason for Restraint: court meds Medical Concerns for Restraint: No medical concerns, pt w/o acute inj / no noted resp/VS abnormalities Behavioral Assessment / Plan: No further behavioral concerns, continue current plan.
--- NOTE | 2024-06-13 12:37 | P.PNPSI_ITS ---
Subjective Subjective Date of Service: 06/13/24 Reason For Visit: stalking behaviors Interim History: explains his refusal to take PO meds this morning as an expression of anger and frustration at his retirement here. aware it is counter-productive, yet does it anyway. no complaints or requests other than to be discharged and in feeling MD misled him regarding length of stay. per staff, attending groups. singing. cheerful. pacing. slept 7.5 hours. refused lithium this morning, got IM valium instead. Mental Status Exam Mental Status Exam Narrative: adequately dressed and groomed. cooperative. no PMA/PMR. speech nml rate, nml amount. decr loudness, nml latency. thoughts linear, superficially logical. affect hypo-intense, non-labile, constricted. mood euthymic. no SI/SIBI/HI/AVH expressed. Diagnostics Vital Signs (24Hr): Vital Signs - 24 hr 06/12/24 20:00 Temperature 98.7 F Pulse Rate 74 Respiratory Rate 16 Blood Pressure 123/59 L Pulse Oximetry 99 Oxygen Delivery Method Room Air BMI result Body Mass Index 24.7 Labs 04/23/24 13:06 05/28/24 13:24 Medications Medications Current Medications Acetaminophen (Acetaminophen 325 Mg Tablet) 650 mg PO Q6H PRN PRN Reason: Headache/Pain Mild Scale (1-3) Al Hydroxide/Mg Hydroxide (Magnesium Hydrox/Alum Hydrox 30 Ml Oral.Susp) 30 ml PO Q6H PRN PRN Reason: Heartburn/Nausea Aripiprazole (Aripiprazole 20 Mg Tablet) 20 mg PO BEDTIME [facility] Stop: 06/19/24 21:01 Last Admin: 06/12/24 20:36 Dose: 20 mg Aripiprazole (Aripiprazole Er 400 Mg Suser.Syr) 400 mg IM Q30D [facility] Last Admin: 06/06/24 09:34 Dose: 400 mg Diazepam (Diazepam 10 Mg/2 Ml Cartridge) 10 mg IM BID PRN PRN Reason: refusal of lithium or abilify Last Admin: 06/13/24 09:42 Dose: 10 mg Docusate Sodium (Docusate Sodium 100 Mg Capsule) 200 mg PO BID [facility] Last Admin: 06/13/24 09:43 Dose: Not Given Fluphenazine HCl (Fluphenazine Hcl 2.5 Mg/Ml 10 Ml Vial) 5 mg IM DAILY PRN PRN Reason: refusal of PO abilify Last Admin: 05/21/24 22:48 Dose: 5 mg Hydroxyzine HCl (Hydroxyzine Hcl 25 Mg Tablet) 25 mg PO Q6H PRN PRN Reason: Anxiety Lactulose (Lactulose 20 Gm/30 Ml Solution) 30 gm PO DAILY PRN PRN Reason: Constipation Last Admin: 06/04/24 09:55 Dose: 30 gm [place] Citrate ([place] Citrate Oral Tierney 8 Meq (300 Mg)/5 Ml) 600 mg PO BID [facility] Last Admin: 06/13/24 09:43 Dose: Not Given Magnesium Hydroxide (Milk Of Magnesia 30 Ml Oral.Susp) 30 ml PO DAILY PRN PRN Reason: Constipation Last Admin: 05/30/24 09:34 Dose: 30 ml Olanzapine (Olanzapine Odt 10 Mg Tab.Rapdis) 10 mg TRANSLINGU Q4H PRN PRN Reason: agitation Polyethylene Glycol (Polyethylene Glycol 3350 17 Gm Powd.Pack) 17 gm PO DAILY PRN PRN Reason: Constipation Last Admin: 06/03/24 08:49 Dose: 17 gm Trazodone HCl (Trazodone Hcl 50 Mg Tablet) 50 mg PO BEDTIME MRX1 PRN PRN Reason: Insomnia Allergies Allergies Allergy/AdvReac Type Severity Reaction Status Date / Time No Known Allergies Allergy Verified 04/23/24 13:03 Assessment & Plan Assessment & Plan (1) Bipolar disorder with psychotic features: Status: Acute Code(s): F31.9 - Bipolar disorder, unspecified Plan 04/25: contain, observe, educate. collect collateral info. 04/26: warrant has been issued for pt's arrest. 12b up tuesday. planning to discharge tuesday unless situation changes. prescribed abilify 5 mg daily, which pt is refusing. 04/27: refusing meds. no change in presentation. planning for discharge friday 03/30, when section 12b expires. student counseling at [facility] has been informed of the discharge plan by KELLY Agudelo. 04/29: No changes 04/30: refusing meds. frankly psychotic/manic today. disorganized thoughts, hyper-zoroastrian, labile, delusional, no sleep. accusing staff of witchcraft and trying to turn him into a woman. filed for commitment. kicked an exit door, prompting security to be called. 05/01: kicked exit doors again overnight, send me to alf or just shoot me. talking about hospital food being poisoned. i only account to jaycearianne. you are continuing your evil plans. refusing medications. refused to meet with technology manager today. 05/02 continue tx. 05/03: loud, labile, exit-seeking. required med/phys restraint x 1 due to elopement attempt. demanding discharge. refusing meds. continue to offer meds. hearing scheduled for tuesday. 05/04: calm, trying to get into phone to get numbers. declining same numbers from KELLY Agudelo. sleeping in afternoon. slept most of evening and all NOC last night. 05/05 continue tx. pt declines medications. 05/[address] hearing. 05/07: no change in presentation. [facility] and that the voice of hamzah was commanding him to preach. committed, ordered medications. 05/08: received IM meds as refused PO. believes we are trying to turn him into a woman. 05/09: asking to leave, saying he does not want meds. took PO invega this morning. dystonia this afternoon, invega DCed. took PO ativan, benadryl, cogentin. will attempt with lithium only for the time being, backed up by valium IM. seems less energetic, labile, hyper-zoroastrian today. 05/10: calm, but perseverative about discharge. taking lithium. continue current mgmt. paranoid delusions we are trying to turn him transgendered. remains focused on object of his stalking. 05/11: much more manic Sx today. re-trial of anti-psychotics. start with low- dose abilify with fluphenazine back-up. lithium switched to liquid formulation today. on 30 min CO after meds. 05/12: Continue current regimen and plans 05/13: Continue current regimen and plans 05/14: blocking MD's egress from room demanding immediate discharge. accepted thorazine 100 and ativan 2 PO. initial rapid pacing up and down the [place], eventually settled. check labs 05/16. 05/15: believes we are giving him medication to turn him into a woman, believes we are trying to get him to have sex with men. required restraint chair for court-ordered medication. required medications IM. 05/16: more subdued today. took meds PO last night and this morning. increase abilify to 15 mg daily. delay labs as pt has missed lithium dosing. 05/17: labs ordered. increase abilify dosing to 20 mg daily as of tomorrow. 05/18: refused labs. less labile and agitated. remains with paranoid delusions. labs ordered again. abilify to 25 mg tonight and 30 mg as of tomorrow night. 05/19: Continue current treatment plan. 05/20: Similar to yesterday's presentation. Continue current treatment plan. 05/21: refused PO meds this morning (took PO all w/e). received IMs. continue current mgmt. 05/22: refused PO last night and got IMs. took PO today. per collateral from KELLY Agudelo, improved insight, increased flexibility in thinking. continue current mgmt. 05/23: calm, appears tired. napping in the morning. PO meds. no singing in the past day. slept 8 hours. declining labs. continue current mgmt. 05/24: calm, quiet. no notable events or behaviors. continues far more subdued than prior. slept well. 05/25: stable presentation. continue current mgmt. 05/26 CTP 05/27 - some inapp behaviors with staff- keep on 5s, CTP 05/28: touching female RN on shoulders. some wandering into others' rooms. more logical and with more insight than ever previous in interacting with this designer/writer. allowed lithium level, which is 0.8. labs otherwise reassuring. declined bowel regimen. continue current mgmt. 05/29: appears as yesterday. no notable events. labs reviewed with pt. decrease benadryl to 25 mg QHS. 05/30: DC benadryl. lower abilify from 30 mg QHS to 20 mg QHS due to sedation/confusion for past several days. slept 6.5 hours. appears flat, tired. 05/31: less sedated today. continue current mgmt. 06/01: as for yesterday. attempted to kiss female staff doing CO today. 06/02: appearing more awake than several days ago. c/o blurry vision, stuttering, brain being weakened. continue current mgmt. 06/03: appears more awake. no complaints. continue current mgmt. paying excessive attention to young female peer, making her uncomfortable. 06/04: stable presentation. continue current mgmt. T/C abilify STEVENSON soon. 06/05: declines to change lithium to tab form. had BM with lactulose. agrees to abilify STEVENSON. will give 400 mg IM tomorrow and DC PO abilify after 2 weeks. then continue 400 mg IM Q30 days from first STEVENSON. 06/06: continue current tx plan. 06/07: pt and KELLY Agudelo spoke with [employer] [employer] staff; [facility] to send info to pt re disciplinary process. MD requested TE to speak with DA. no notable events or behaviors otherwise, continue current mgmt. 06/08: c/o blurry vision and tiredness. describing his mood as more stable than prior. continue current mgmt. 06/09 continue same treatment. 06/10 continue same treatment. 06/11: stable presentation. not providing consent to speak with DA, canceling his mtg with [place] therapist and police tomorrow. 06/12: per staff, broached the topic of people he loves and that he cannot mention one of their names. also alleging today, again, that the zoom hearing in which he was committed was illegal. informed he will remain here at least another several weeks to be able to assess how the transition from PO to STEVENSON antipsychotic is working. 06/13: refused lithium this morning, received valium IM. otherwise no notable behaviors since being changed from CO to Q5 min checks yesterday. continue current mgmt. PO abilify DCs 06/20. next maintenna 07/07. Reason for continued inpatient stay Substantial Risk for: harm to self, harm to others, inability to function and rapid decompensation Time Spent With Patient Time: Total time managing care of this patient today _25___ minutes.
[2024-06-13 20:00] VITALS: BP 145/79; PULSE 89; RESP 18; TEMP 36.9; O2SAT 99
[2024-06-13] MEDS: LITHIUM CITRATE 600 MG PO (20:46)
[2024-06-13] MEDS: Docusate Sodium 100 MG CAPSULE 200 MG PO (20:46)
[2024-06-13] MEDS: ARIPiprazole 20 MG TABLET PO (20:46)
[2024-06-14] MEDS: LITHIUM CITRATE 600 MG PO ×2 (08:12→20:21)
--- NOTE | 2024-06-14 14:21 | P.PNPSI_ITS ---
Subjective Subjective Date of Service: 06/14/24 Reason For Visit: stalking behaviors Interim History: no change in presentation. asking for copy of passport, asking to discharge. per staff, anxious. saying, kill me. bring me to the police station. court wasn't real yesterday when refusing PO meds. took PO last NOC and this morning. slept. i don't have mental illness. Mental Status Exam Mental Status Exam Narrative: adequately dressed and groomed. cooperative. no PMA/PMR. speech nml rate, nml amount. decr loudness, nml latency. thoughts linear, superficially logical. affect hypo-intense, non-labile, constricted. mood euthymic. no SI/SIBI/HI/AVH expressed. Diagnostics Vital Signs (24Hr): Vital Signs - 24 hr 06/13/24 20:00 Temperature 98.5 F Pulse Rate 89 Respiratory Rate 18 Blood Pressure 145/79 H Pulse Oximetry 99 Oxygen Delivery Method Room Air BMI result Body Mass Index 24.7 Labs 04/23/24 13:06 05/28/24 13:24 Medications Medications Current Medications Acetaminophen (Acetaminophen 325 Mg Tablet) 650 mg PO Q6H PRN PRN Reason: Headache/Pain Mild Scale (1-3) Al Hydroxide/Mg Hydroxide (Magnesium Hydrox/Alum Hydrox 30 Ml Oral.Susp) 30 ml PO Q6H PRN PRN Reason: Heartburn/Nausea Aripiprazole (Aripiprazole 20 Mg Tablet) 20 mg PO BEDTIME [facility] Stop: 06/19/24 21:01 Last Admin: 06/13/24 20:46 Dose: 20 mg Aripiprazole (Aripiprazole Er 400 Mg Suser.Syr) 400 mg IM Q30D [facility] Last Admin: 06/06/24 09:34 Dose: 400 mg Diazepam (Diazepam 10 Mg/2 Ml Cartridge) 10 mg IM BID PRN PRN Reason: refusal of lithium or abilify Last Admin: 06/13/24 09:42 Dose: 10 mg Docusate Sodium (Docusate Sodium 100 Mg Capsule) 200 mg PO BID [facility] Last Admin: 06/14/24 08:18 Dose: Not Given Fluphenazine HCl (Fluphenazine Hcl 2.5 Mg/Ml 10 Ml Vial) 5 mg IM DAILY PRN PRN Reason: refusal of PO abilify Last Admin: 05/21/24 22:48 Dose: 5 mg Hydroxyzine HCl (Hydroxyzine Hcl 25 Mg Tablet) 25 mg PO Q6H PRN PRN Reason: Anxiety Lactulose (Lactulose 20 Gm/30 Ml Solution) 30 gm PO DAILY PRN PRN Reason: Constipation Last Admin: 06/04/24 09:55 Dose: 30 gm [place] Citrate ([place] Citrate Oral Tierney 8 Meq (300 Mg)/5 Ml) 600 mg PO BID ROSETTE Last Admin: 06/14/24 08:12 Dose: 600 mg Magnesium Hydroxide (Milk Of Magnesia 30 Ml Oral.Susp) 30 ml PO DAILY PRN PRN Reason: Constipation Last Admin: 05/30/24 09:34 Dose: 30 ml Olanzapine (Olanzapine Odt 10 Mg Tab.Rapdis) 10 mg TRANSLINGU Q4H PRN PRN Reason: agitation Polyethylene Glycol (Polyethylene Glycol 3350 17 Gm Powd.Pack) 17 gm PO DAILY PRN PRN Reason: Constipation Last Admin: 06/03/24 08:49 Dose: 17 gm Trazodone HCl (Trazodone Hcl 50 Mg Tablet) 50 mg PO BEDTIME MRX1 PRN PRN Reason: Insomnia Allergies Allergies Allergy/AdvReac Type Severity Reaction Status Date / Time No Known Allergies Allergy Verified 04/23/24 13:03 Assessment & Plan Assessment & Plan (1) Bipolar disorder with psychotic features: Status: Acute Code(s): F31.9 - Bipolar disorder, unspecified Plan 04/25: contain, observe, educate. collect collateral info. 04/26: warrant has been issued for pt's arrest. 12b up tuesday. planning to discharge tuesday unless situation changes. prescribed abilify 5 mg daily, which pt is refusing. 04/27: refusing meds. no change in presentation. planning for discharge friday 03/30, when section 12b expires. student counseling at [facility] has been informed of the discharge plan by KELLY Agudelo. 04/29: No changes 04/30: refusing meds. frankly psychotic/manic today. disorganized thoughts, hyper-sabianist, labile, delusional, no sleep. accusing staff of witchcraft and trying to turn him into a woman. filed for commitment. kicked an exit door, prompting security to be called. 05/01: kicked exit doors again overnight, send me to alf or just shoot me. talking about hospital food being poisoned. i only account to hamzah. you are continuing your evil plans. refusing medications. refused to meet with optical brightener maker helper today. 05/02 continue tx. 05/03: loud, labile, exit-seeking. required med/phys restraint x 1 due to elopement attempt. demanding discharge. refusing meds. continue to offer meds. hearing scheduled for tuesday. 05/04: calm, trying to get into phone to get numbers. declining same numbers from KELLY Agudelo. sleeping in afternoon. slept most of evening and all NOC last night. 05/05 continue tx. pt declines medications. 05/[address]. 05/07: no change in presentation. 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 committed, ordered medications. 05/08: received IM meds as refused PO. believes we are trying to turn him into a woman. 05/09: asking to leave, saying he does not want meds. took PO invega this morning. dystonia this afternoon, invega DCed. took PO ativan, benadryl, cogentin. will attempt with lithium only for the time being, backed up by valium IM. seems less energetic, labile, hyper-sabianist today. 05/10: calm, but perseverative about discharge. taking lithium. continue current mgmt. paranoid delusions we are trying to turn him transgendered. remains focused on object of his stalking. 05/11: much more manic Sx today. re-trial of anti-psychotics. start with low- dose abilify with fluphenazine back-up. lithium switched to liquid formulation today. on 30 min CO after meds. 05/12: Continue current regimen and plans 05/13: Continue current regimen and plans 05/14: blocking MD's egress from room demanding immediate discharge. accepted thorazine 100 and ativan 2 PO. initial rapid pacing up and down the [place], eventually settled. check labs 05/16. 05/15: believes we are giving him medication to turn him into a woman, believes we are trying to get him to have sex with men. required restraint chair for court-ordered medication. required medications IM. 05/16: more subdued today. took meds PO last night and this morning. increase abilify to 15 mg daily. delay labs as pt has missed lithium dosing. 05/17: labs ordered. increase abilify dosing to 20 mg daily as of tomorrow. 05/18: refused labs. less labile and agitated. remains with paranoid delusions. labs ordered again. abilify to 25 mg tonight and 30 mg as of tomorrow night. 05/19: Continue current treatment plan. 05/20: Similar to yesterday's presentation. Continue current treatment plan. 05/21: refused PO meds this morning (took PO all w/e). received IMs. continue current mgmt. 05/22: refused PO last night and got IMs. took PO today. per collateral from KELLY Agudelo, improved insight, increased flexibility in thinking. continue current mgmt. 05/23: calm, appears tired. napping in the morning. PO meds. no singing in the past day. slept 8 hours. declining labs. continue current mgmt. 05/24: calm, quiet. no notable events or behaviors. continues far more subdued than prior. slept well. 05/25: stable presentation. continue current mgmt. 05/26 CTP 05/27 - some inapp behaviors with staff- keep on 5s, CTP 05/28: touching female RN on shoulders. some wandering into others' rooms. more logical and with more insight than ever previous in interacting with this blog writer. allowed lithium level, which is 0.8. labs otherwise reassuring. declined bowel regimen. continue current mgmt. 05/29: appears as yesterday. no notable events. labs reviewed with pt. decrease benadryl to 25 mg QHS. 05/30: DC benadryl. lower abilify from 30 mg QHS to 20 mg QHS due to sedation/confusion for past several days. slept 6.5 hours. appears flat, tired. 05/31: less sedated today. continue current mgmt. 06/01: as for yesterday. attempted to kiss female staff doing CO today. 06/02: appearing more awake than several days ago. c/o blurry vision, stuttering, brain being weakened. continue current mgmt. 06/03: appears more awake. no complaints. continue current mgmt. paying excessive attention to young female peer, making her uncomfortable. 06/04: stable presentation. continue current mgmt. T/C abilify STEVENSON soon. 06/05: declines to change lithium to tab form. had BM with lactulose. agrees to abilify STEVENSON. will give 400 mg IM tomorrow and DC PO abilify after 2 weeks. then continue 400 mg IM Q30 days from first STEVENSON. 06/06: continue current tx plan. 06/07: pt and KELLY Agudelo spoke with [facility] [employer] staff; school to send info to pt re disciplinary process. MD requested TE to speak with DA. no notable events or behaviors otherwise, continue current mgmt. 06/08: c/o blurry vision and tiredness. describing his mood as more stable than prior. continue current mgmt. 06/09 continue same treatment. 06/10 continue same treatment. 06/11: stable presentation. not providing consent to speak with DA, canceling his mtg with [facility] therapist and police tomorrow. 06/12: per staff, broached the topic of people he loves and that he cannot mention one of their names. also alleging today, again, that the zoom hearing in which he was committed was illegal. informed he will remain here at least another several weeks to be able to assess how the transition from PO to STEVENSON antipsychotic is working. 06/13: refused lithium this morning, received valium IM. otherwise no notable behaviors since being changed from CO to Q5 min checks yesterday. continue current mgmt. PO abilify DCs 06/20. next maintenna 07/07. 06/14: no change in presentation. T/C increased IM dosing of abilify versus switch to another STEVENSON. appears inadequately treated. Reason for continued inpatient stay Substantial Risk for: harm to self, harm to others, inability to function and rapid decompensation Time Spent With Patient Time: Total time managing care of this patient today __25__ minutes.
[2024-06-14 20:00] VITALS: BP 137/78; PULSE 75; RESP 16; TEMP 36.9; O2SAT 99
[2024-06-14] MEDS: ARIPiprazole 20 MG TABLET PO (20:20)
[2024-06-14] MEDS: Docusate Sodium 100 MG CAPSULE 200 MG PO (20:21)
[2024-06-15 08:56] VITALS: BP 141/78; PULSE 88; RESP 16; TEMP 37; O2SAT 100
[2024-06-15] MEDS: Docusate Sodium 100 MG CAPSULE 200 MG PO ×2 (08:57→20:50)
[2024-06-15] MEDS: LITHIUM CITRATE 600 MG PO ×2 (08:58→20:51)
--- NOTE | 2024-06-15 12:34 | HO.PSYCHPN ---
Subjective Subjective Date of Service: 06/15/24 Reason For Visit: stalking behaviors Interim History: calm, cooperative. rather lengthy discussion with MD regarding his h/o psychotic Sx as evidence for his having mental illness, which he denies. pt was encouraged to continue to take medication after discharge. per staff, taking meds. isolative. eves brighter, social. slept all NOC. Mental Status Exam Mental Status Exam Narrative: adequately dressed and groomed. cooperative. no PMA/PMR. speech nml rate, nml amount. decr loudness, nml latency. thoughts linear, superficially logical. affect normo-intense, non-labile, flexible. mood euthymic. no SI/SIBI/HI/AVH expressed. Diagnostics Vital Signs (24Hr): Vital Signs - 24 hr 06/14/24 20:00 06/15/24 08:56 Temperature 98.5 F 98.6 F Pulse Rate 75 88 Respiratory Rate 16 16 Blood Pressure 137/78 141/78 H Pulse Oximetry 99 100 Oxygen Delivery Method Room Air Room Air BMI result Body Mass Index 24.7 Labs 04/23/24 13:06 05/28/24 13:24 Medications Medications Current Medications Acetaminophen (Acetaminophen 325 Mg Tablet) 650 mg PO Q6H PRN PRN Reason: Headache/Pain Mild Scale (1-3) Al Hydroxide/Mg Hydroxide (Magnesium Hydrox/Alum Hydrox 30 Ml Oral.Susp) 30 ml PO Q6H PRN PRN Reason: Heartburn/Nausea Aripiprazole (Aripiprazole 20 Mg Tablet) 20 mg PO BEDTIME [facility] Stop: 06/19/24 21:01 Last Admin: 06/14/24 20:20 Dose: 20 mg Aripiprazole (Aripiprazole Er 400 Mg Suser.Syr) 400 mg IM Q30D [facility] Last Admin: 06/06/24 09:34 Dose: 400 mg Diazepam (Diazepam 10 Mg/2 Ml Cartridge) 10 mg IM BID PRN PRN Reason: refusal of lithium or abilify Last Admin: 06/13/24 09:42 Dose: 10 mg Docusate Sodium (Docusate Sodium 100 Mg Capsule) 200 mg PO BID [facility] Last Admin: 06/15/24 08:57 Dose: 200 mg Fluphenazine HCl (Fluphenazine Hcl 2.5 Mg/Ml 10 Ml Vial) 5 mg IM DAILY PRN PRN Reason: refusal of PO abilify Last Admin: 05/21/24 22:48 Dose: 5 mg Hydroxyzine HCl (Hydroxyzine Hcl 25 Mg Tablet) 25 mg PO Q6H PRN PRN Reason: Anxiety Lactulose (Lactulose 20 Gm/30 Ml Solution) 30 gm PO DAILY PRN PRN Reason: Constipation Last Admin: 06/04/24 09:55 Dose: 30 gm [place] Citrate ([place] Citrate Oral Tierney 8 Meq (300 Mg)/5 Ml) 600 mg PO BID ROSETTE Last Admin: 06/15/24 08:58 Dose: 600 mg Magnesium Hydroxide (Milk Of Magnesia 30 Ml Oral.Susp) 30 ml PO DAILY PRN PRN Reason: Constipation Last Admin: 05/30/24 09:34 Dose: 30 ml Olanzapine (Olanzapine Odt 10 Mg Tab.Rapdis) 10 mg TRANSLINGU Q4H PRN PRN Reason: agitation Polyethylene Glycol (Polyethylene Glycol 3350 17 Gm Powd.Pack) 17 gm PO DAILY PRN PRN Reason: Constipation Last Admin: 06/03/24 08:49 Dose: 17 gm Trazodone HCl (Trazodone Hcl 50 Mg Tablet) 50 mg PO BEDTIME MRX1 PRN PRN Reason: Insomnia Allergies Allergies Allergy/AdvReac Type Severity Reaction Status Date / Time No Known Allergies Allergy Verified 04/23/24 13:03 Assessment & Plan Assessment & Plan (1) Bipolar disorder with psychotic features: Status: Acute Code(s): F31.9 - Bipolar disorder, unspecified Plan 04/25: contain, observe, educate. collect collateral info. 04/26: warrant has been issued for pt's arrest. 12b up tuesday. planning to discharge tuesday unless situation changes. prescribed abilify 5 mg daily, which pt is refusing. 04/27: refusing meds. no change in presentation. planning for discharge friday 03/30, when section 12b expires. student counseling at [facility] has been informed of the discharge plan by KELLY Agudelo. 04/29: No changes 04/30: refusing meds. frankly psychotic/manic today. disorganized thoughts, hyper-jainism, labile, delusional, no sleep. accusing staff of witchcraft and trying to turn him into a woman. filed for commitment. kicked an exit door, prompting security to be called. 05/01: kicked exit doors again overnight, send me to [facility] or just shoot me. talking about hospital food being poisoned. i only account to leifdustin. you are continuing your evil plans. refusing medications. refused to meet with outbound sales professional today. 05/02 continue tx. 05/03: loud, labile, exit-seeking. required med/phys restraint x 1 due to elopement attempt. demanding discharge. refusing meds. continue to offer meds. hearing scheduled for tuesday. 05/04: calm, trying to get into phone to get numbers. declining same numbers from KELLY Agudelo. sleeping in afternoon. slept most of evening and all NOC last night. 05/05 continue tx. pt declines medications. 05/[address] hearing. 05/07: no change in presentation. [facility] and that the voice of hamzah was commanding him to preach. committed, ordered medications. 05/08: received IM meds as refused PO. believes we are trying to turn him into a woman. 05/09: asking to leave, saying he does not want meds. took PO invega this morning. dystonia this afternoon, invega DCed. took PO ativan, benadryl, cogentin. will attempt with lithium only for the time being, backed up by valium IM. seems less energetic, labile, hyper-jainism today. 05/10: calm, but perseverative about discharge. taking lithium. continue current mgmt. paranoid delusions we are trying to turn him transgendered. remains focused on object of his stalking. 05/11: much more manic Sx today. re-trial of anti-psychotics. start with low-dose abilify with fluphenazine back-up. lithium switched to liquid formulation today. on 30 min CO after meds. 05/12: Continue current regimen and plans 05/13: Continue current regimen and plans 05/14: blocking MD's egress from room demanding immediate discharge. accepted thorazine 100 and ativan 2 PO. initial rapid pacing up and down the [place], eventually settled. check labs 05/16. 05/15: believes we are giving him medication to turn him into a woman, believes we are trying to get him to have sex with men. required restraint chair for court-ordered medication. required medications IM. 05/16: more subdued today. took meds PO last night and this morning. increase abilify to 15 mg daily. delay labs as pt has missed lithium dosing. 05/17: labs ordered. increase abilify dosing to 20 mg daily as of tomorrow. 05/18: refused labs. less labile and agitated. remains with paranoid delusions. labs ordered again. abilify to 25 mg tonight and 30 mg as of tomorrow night. 05/19: Continue current treatment plan. 05/20: Similar to yesterday's presentation. Continue current treatment plan. 05/21: refused PO meds this morning (took PO all w/e). received IMs. continue current mgmt. 05/22: refused PO last night and got IMs. took PO today. per collateral from KELLY Agudelo, improved insight, increased flexibility in thinking. continue current mgmt. 05/23: calm, appears tired. napping in the morning. PO meds. no singing in the past day. slept 8 hours. declining labs. continue current mgmt. 05/24: calm, quiet. no notable events or behaviors. continues far more subdued than prior. slept well. 05/25: stable presentation. continue current mgmt. 05/26 CTP 05/27 - some inapp behaviors with staff- keep on 5s, CTP 05/28: touching female RN on shoulders. some wandering into others' rooms. more logical and with more insight than ever previous in interacting with this display card writer. allowed lithium level, which is 0.8. labs otherwise reassuring. declined bowel regimen. continue current mgmt. 05/29: appears as yesterday. no notable events. labs reviewed with pt. decrease benadryl to 25 mg QHS. 05/30: DC benadryl. lower abilify from 30 mg QHS to 20 mg QHS due to sedation/confusion for past several days. slept 6.5 hours. appears flat, tired. 05/31: less sedated today. continue current mgmt. 06/01: as for yesterday. attempted to kiss female staff doing CO today. 06/02: appearing more awake than several days ago. c/o blurry vision, stuttering, brain being weakened. continue current mgmt. 06/03: appears more awake. no complaints. continue current mgmt. paying excessive attention to young female peer, making her uncomfortable. 06/04: stable presentation. continue current mgmt. T/C abilify STEVENSON soon. 06/05: declines to change lithium to tab form. had BM with lactulose. agrees to abilify STEVENSON. will give 400 mg IM tomorrow and DC PO abilify after 2 weeks. then continue 400 mg IM Q30 days from first STEVENSON. 06/06: continue current tx plan. 06/07: pt and KELLY Agudelo spoke with [facility] staff; [facility] to send info to pt re disciplinary process. MD requested TE to speak with DA. no notable events or behaviors otherwise, continue current mgmt. 06/08: c/o blurry vision and tiredness. describing his mood as more stable than prior. continue current mgmt. 06/09 continue same treatment. 06/10 continue same treatment. 06/11: stable presentation. not providing consent to speak with DA, canceling his mtg with [facility] therapist and police tomorrow. 06/12: per staff, broached the topic of people he loves and that he cannot mention one of their names. also alleging today, again, that the zoom hearing in which he was committed was illegal. informed he will remain here at least another several weeks to be able to assess how the transition from PO to STEVENSON antipsychotic is working. 06/13: refused lithium this morning, received valium IM. otherwise no notable behaviors since being changed from CO to Q5 min checks yesterday. continue current mgmt. PO abilify DCs 06/20. next maintenna 07/07. 06/14: no change in presentation. T/C increased IM dosing of abilify versus switch to another STEVENSON. appears inadequately treated. 06/15: minimizing his h/o psychotic Sx. denies he has mental illness. continue current mgmt for now. Reason for continued inpatient stay Substantial Risk for: harm to self, harm to others, inability to function and rapid decompensation Time Spent With Patient Time: Total time managing care of this patient today __35__ minutes.
[2024-06-15 20:00] VITALS: RESP 16
[2024-06-15] MEDS: ARIPiprazole 20 MG TABLET PO (20:47)
[2024-06-16 08:38] VITALS: BP 140/73; PULSE 83; RESP 16; TEMP 36.8; O2SAT 100
[2024-06-16] MEDS: Docusate Sodium 100 MG CAPSULE 200 MG PO ×2 (08:40→20:50)
[2024-06-16] MEDS: LITHIUM CITRATE 600 MG PO ×2 (08:41→20:49)
--- NOTE | 2024-06-16 11:06 | P.PNPSI_ITS ---
Subjective Subjective Date of Service: 06/16/24 Reason For Visit: stalking behaviors Interim History: calm, cooperative. Adherent to medications. Appears bright. Talkative. Denies SI. Denies AVH. Isolates mostly. Slept all NOC. Review of Systems Review of Systems Unremarkable Yes all other systems are reviewed and are negative and Unobtainable due to mental status Constitutional: Reports as per HPI Eyes: Reports as per HPI Reports as per HPI Cardiovascular: Reports as per HPI Respiratory: Reports as per HPI Gastrointestinal: Reports as per HPI Genitourinary: Reports as per HPI Musculoskeletal: Reports as per HPI Skin/Breast: Reports as per HPI Reports as per HPI Psychiatric: Reports as per HPI Endocrine: Reports as per HPI Hematologic/Lymphatic: Reports as per HPI Allergic/Immunologic: Reports as per HPI Mental Status Exam Mental Status Exam Narrative: adequately dressed and groomed. cooperative. no PMA/PMR. speech nml rate, nml amount. decr loudness, nml latency. thoughts linear, superficially logical. affect normo-intense, non-labile, flexible. mood euthymic. no SI/SIBI/HI/AVH expressed. Patient Appearance: Appropriate Patient Orientation: Person and Situation Level of Consciousness: Awake Patient Behavior: Appropriate and Cooperative Mood Description: Calm Affect Description: Constricted Patient Cognition Impaired: Yes Ability to Follow Directions: Good Speech Pattern: Clear Diagnostics Vital Signs (24Hr): Vital Signs - 24 hr 06/15/24 20:00 06/16/24 08:38 Temperature 98.3 F Pulse Rate 16 L 83 Respiratory Rate 16 Blood Pressure 140/73 H Pulse Oximetry 100 BMI result Body Mass Index 24.7 Labs 04/23/24 13:06 05/28/24 13:24 Medications Medications Current Medications Acetaminophen (Acetaminophen 325 Mg Tablet) 650 mg PO Q6H PRN PRN Reason: Headache/Pain Mild Scale (1-3) Al Hydroxide/Mg Hydroxide (Magnesium Hydrox/Alum Hydrox 30 Ml Oral.Susp) 30 ml PO Q6H PRN PRN Reason: Heartburn/Nausea Aripiprazole (Aripiprazole 20 Mg Tablet) 20 mg PO BEDTIME [facility] Stop: 06/19/24 21:01 Last Admin: 06/15/24 20:47 Dose: 20 mg Aripiprazole (Aripiprazole Er 400 Mg Suser.Syr) 400 mg IM Q30D [facility] Last Admin: 06/06/24 09:34 Dose: 400 mg Diazepam (Diazepam 10 Mg/2 Ml Cartridge) 10 mg IM BID PRN PRN Reason: refusal of lithium or abilify Last Admin: 06/13/24 09:42 Dose: 10 mg Docusate Sodium (Docusate Sodium 100 Mg Capsule) 200 mg PO BID [facility] Last Admin: 06/16/24 08:40 Dose: 200 mg Fluphenazine HCl (Fluphenazine Hcl 2.5 Mg/Ml 10 Ml Vial) 5 mg IM DAILY PRN PRN Reason: refusal of PO abilify Last Admin: 05/21/24 22:48 Dose: 5 mg Hydroxyzine HCl (Hydroxyzine Hcl 25 Mg Tablet) 25 mg PO Q6H PRN PRN Reason: Anxiety Lactulose (Lactulose 20 Gm/30 Ml Solution) 30 gm PO DAILY PRN PRN Reason: Constipation Last Admin: 06/04/24 09:55 Dose: 30 gm [place] Citrate ([place] Citrate Oral Tierney 8 Meq (300 Mg)/5 Ml) 600 mg PO BID [facility] Last Admin: 06/16/24 08:41 Dose: 600 mg Magnesium Hydroxide (Milk Of Magnesia 30 Ml Oral.Susp) 30 ml PO DAILY PRN PRN Reason: Constipation Last Admin: 05/30/24 09:34 Dose: 30 ml Olanzapine (Olanzapine Odt 10 Mg Tab.Rapdis) 10 mg TRANSLINGU Q4H PRN PRN Reason: agitation Polyethylene Glycol (Polyethylene Glycol 3350 17 Gm Powd.Pack) 17 gm PO DAILY PRN PRN Reason: Constipation Last Admin: 06/03/24 08:49 Dose: 17 gm Trazodone HCl (Trazodone Hcl 50 Mg Tablet) 50 mg PO BEDTIME MRX1 PRN PRN Reason: Insomnia Allergies Allergies Allergy/AdvReac Type Severity Reaction Status Date / Time No Known Allergies Allergy Verified 04/23/24 13:03 Assessment & Plan Assessment & Plan (1) Bipolar disorder with psychotic features: Status: Acute Code(s): F31.9 - Bipolar disorder, unspecified Plan 04/25: contain, observe, educate. collect collateral info. 04/26: warrant has been issued for pt's arrest. 12b up tuesday. planning to discharge tuesday unless situation changes. prescribed abilify 5 mg daily, which pt is refusing. 04/27: refusing meds. no change in presentation. planning for discharge friday 03/30, when section 12b expires. student counseling at [facility] has been informed of the discharge plan by KELLY Agudelo. 04/29: No changes 04/30: refusing meds. frankly psychotic/manic today. disorganized thoughts, hyper-sabianism, labile, delusional, no sleep. accusing staff of witchcraft and trying to turn him into a woman. filed for commitment. kicked an exit door, prompting security to be called. 05/01: kicked exit doors again overnight, send me to [facility] or just shoot me. talking about hospital food being poisoned. i only account to leif. you are continuing your evil plans. refusing medications. refused to meet with topographical field assistant today. 05/02 continue tx. 05/03: loud, labile, exit-seeking. required med/phys restraint x 1 due to elopement attempt. demanding discharge. refusing meds. continue to offer meds. hearing scheduled for tuesday. 05/04: calm, trying to get into phone to get numbers. declining same numbers from KELLY Agudelo. sleeping in afternoon. slept most of evening and all NOC last night. 05/05 continue tx. pt declines medications. 05/[address]. 05/07: no change in presentation. 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 committed, ordered medications. 05/08: received IM meds as refused PO. believes we are trying to turn him into a woman. 05/09: asking to leave, saying he does not want meds. took PO invega this morning. dystonia this afternoon, invega DCed. took PO ativan, benadryl, cogentin. will attempt with lithium only for the time being, backed up by valium IM. seems less energetic, labile, hyper-sabianism today. 05/10: calm, but perseverative about discharge. taking lithium. continue current mgmt. paranoid delusions we are trying to turn him transgendered. remains focused on object of his stalking. 05/11: much more manic Sx today. re-trial of anti-psychotics. start with low- dose abilify with fluphenazine back-up. lithium switched to liquid formulation today. on 30 min CO after meds. 05/12: Continue current regimen and plans 05/13: Continue current regimen and plans 05/14: blocking MD's egress from room demanding immediate discharge. accepted thorazine 100 and ativan 2 PO. initial rapid pacing up and down the [place], eventually settled. check labs 05/16. 05/15: believes we are giving him medication to turn him into a woman, believes we are trying to get him to have sex with men. required restraint chair for court-ordered medication. required medications IM. 05/16: more subdued today. took meds PO last night and this morning. increase abilify to 15 mg daily. delay labs as pt has missed lithium dosing. 05/17: labs ordered. increase abilify dosing to 20 mg daily as of tomorrow. 05/18: refused labs. less labile and agitated. remains with paranoid delusions. labs ordered again. abilify to 25 mg tonight and 30 mg as of tomorrow night. 05/19: Continue current treatment plan. 05/20: Similar to yesterday's presentation. Continue current treatment plan. 05/21: refused PO meds this morning (took PO all w/e). received IMs. continue current mgmt. 05/22: refused PO last night and got IMs. took PO today. per collateral from KELLY Agudelo, improved insight, increased flexibility in thinking. continue current mgmt. 05/23: calm, appears tired. napping in the morning. PO meds. no singing in the past day. slept 8 hours. declining labs. continue current mgmt. 05/24: calm, quiet. no notable events or behaviors. continues far more subdued than prior. slept well. 05/25: stable presentation. continue current mgmt. 05/26 CTP /6 - some inapp behaviors with staff- keep on 5s, CTP 05/28: touching female RN on shoulders. some wandering into others' rooms. more logical and with more insight than ever previous in interacting with this junior underwriter. allowed lithium level, which is 0.8. labs otherwise reassuring. declined bowel regimen. continue current mgmt. 05/29: appears as yesterday. no notable events. labs reviewed with pt. decrease benadryl to 25 mg QHS. 05/30: DC benadryl. lower abilify from 30 mg QHS to 20 mg QHS due to sedation/confusion for past several days. slept 6.5 hours. appears flat, tired. 05/31: less sedated today. continue current mgmt. 06/01: as for yesterday. attempted to kiss female staff doing CO today. 06/02: appearing more awake than several days ago. c/o blurry vision, stuttering, brain being weakened. continue current mgmt. 06/03: appears more awake. no complaints. continue current mgmt. paying excessive attention to young female peer, making her uncomfortable. 06/04: stable presentation. continue current mgmt. T/C abilify STEVENSON soon. 06/05: declines to change lithium to tab form. had BM with lactulose. agrees to abilify STEVENSON. will give 400 mg IM tomorrow and DC PO abilify after 2 weeks. then continue 400 mg IM Q30 days from first STEVENSON. 06/06: continue current tx plan. 06/07: pt and KELLY Agudelo spoke with [employer] staff; school to send info to pt re disciplinary process. MD requested TE to speak with DA. no notable events or behaviors otherwise, continue current mgmt. 06/08: c/o blurry vision and tiredness. describing his mood as more stable than prior. continue current mgmt. 06/09 continue same treatment. 06/10 continue same treatment. 06/11: stable presentation. not providing consent to speak with DA, canceling his mtg with [employer] therapist and police tomorrow. 06/12: per staff, broached the topic of people he loves and that he cannot mention one of their names. also alleging today, again, that the zoom hearing in which he was committed was illegal. informed he will remain here at least another several weeks to be able to assess how the transition from PO to STEVENSON antipsychotic is working. 06/13: refused lithium this morning, received valium IM. otherwise no notable behaviors since being changed from CO to Q5 min checks yesterday. continue current mgmt. PO abilify DCs 06/20. next maintenna 07/07. 06/14: no change in presentation. T/C increased IM dosing of abilify versus switch to another STEVENSON. appears inadequately treated. 06/15: minimizing his h/o psychotic Sx. denies he has mental illness. continue current mgmt for now. 06/16: Continue current management and treatment plan. Reason for continued inpatient stay Substantial Risk for: harm to others, inability to function and rapid decompensation Time Spent With Patient Time: Total time managing care of this patient today ____ minutes.
[2024-06-16 20:00] VITALS: RESP 18
[2024-06-16] MEDS: ARIPiprazole 20 MG TABLET PO (20:50)
[2024-06-17 09:01] VITALS: BP 165/71; PULSE 90; RESP 16; TEMP 36.9; O2SAT 100
[2024-06-17] MEDS: LITHIUM CITRATE 600 MG PO ×2 (09:03→20:38)
[2024-06-17] MEDS: Docusate Sodium 100 MG CAPSULE 200 MG PO ×2 (09:04→20:38)
--- NOTE | 2024-06-17 11:50 | P.PNPSI_ITS ---
Subjective Subjective Date of Service: 06/17/24 Reason For Visit: stalking behaviors Interim History: calm, cooperative. Guarded. Mostly isolates to self. Adherent to medications. Alert. Talkative. Denies SI. Denies AVH. Slept all NOC. Review of Systems Review of Systems Unremarkable Yes all other systems are reviewed and are negative and Unobtainable due to mental status Constitutional: Reports as per HPI Eyes: Reports as per HPI Reports as per HPI Cardiovascular: Reports as per HPI Respiratory: Reports as per HPI Gastrointestinal: Reports as per HPI Genitourinary: Reports as per HPI Musculoskeletal: Reports as per HPI Skin/Breast: Reports as per HPI Reports as per HPI Psychiatric: Reports as per HPI Endocrine: Reports as per HPI Hematologic/Lymphatic: Reports as per HPI Allergic/Immunologic: Reports as per HPI Mental Status Exam Mental Status Exam Narrative: adequately dressed and groomed. cooperative. no PMA/PMR. speech nml rate, nml amount. decr loudness, nml latency. thoughts linear, superficially logical. affect normo-intense, non-labile, flexible. mood euthymic. no SI/SIBI/HI/AVH expressed. Patient Appearance: Appropriate Patient Orientation: Person and Situation Level of Consciousness: Awake Patient Behavior: Appropriate and Cooperative Mood Description: Calm Affect Description: Constricted Patient Cognition Impaired: Yes Ability to Follow Directions: Good Speech Pattern: Clear Diagnostics Vital Signs (24Hr): Vital Signs - 24 hr 06/16/24 20:00 06/17/24 09:01 Temperature 98.4 F Pulse Rate 90 Respiratory Rate 18 16 Blood Pressure 165/71 H Pulse Oximetry 100 Oxygen Delivery Method Room Air BMI result Body Mass Index 24.7 Labs 04/23/24 13:06 05/28/24 13:24 Medications Medications Current Medications Acetaminophen (Acetaminophen 325 Mg Tablet) 650 mg PO Q6H PRN PRN Reason: Headache/Pain Mild Scale (1-3) Al Hydroxide/Mg Hydroxide (Magnesium Hydrox/Alum Hydrox 30 Ml Oral.Susp) 30 ml PO Q6H PRN PRN Reason: Heartburn/Nausea Aripiprazole (Aripiprazole 20 Mg Tablet) 20 mg PO BEDTIME [facility] Stop: 06/19/24 21:01 Last Admin: 06/16/24 20:50 Dose: 20 mg Aripiprazole (Aripiprazole Er 400 Mg Suser.Syr) 400 mg IM Q30D [facility] Last Admin: 06/06/24 09:34 Dose: 400 mg Diazepam (Diazepam 10 Mg/2 Ml Cartridge) 10 mg IM BID PRN PRN Reason: refusal of lithium or abilify Last Admin: 06/13/24 09:42 Dose: 10 mg Docusate Sodium (Docusate Sodium 100 Mg Capsule) 200 mg PO BID [facility] Last Admin: 06/17/24 09:04 Dose: 200 mg Fluphenazine HCl (Fluphenazine Hcl 2.5 Mg/Ml 10 Ml Vial) 5 mg IM DAILY PRN PRN Reason: refusal of PO abilify Last Admin: 05/21/24 22:48 Dose: 5 mg Hydroxyzine HCl (Hydroxyzine Hcl 25 Mg Tablet) 25 mg PO Q6H PRN PRN Reason: Anxiety Lactulose (Lactulose 20 Gm/30 Ml Solution) 30 gm PO DAILY PRN PRN Reason: Constipation Last Admin: 06/04/24 09:55 Dose: 30 gm [place] Citrate ([place] Citrate Oral Tierney 8 Meq (300 Mg)/5 Ml) 600 mg PO BID [facility] Last Admin: 06/17/24 09:03 Dose: 600 mg Magnesium Hydroxide (Milk Of Magnesia 30 Ml Oral.Susp) 30 ml PO DAILY PRN PRN Reason: Constipation Last Admin: 05/30/24 09:34 Dose: 30 ml Olanzapine (Olanzapine Odt 10 Mg Tab.Rapdis) 10 mg TRANSLINGU Q4H PRN PRN Reason: agitation Polyethylene Glycol (Polyethylene Glycol 3350 17 Gm Powd.Pack) 17 gm PO DAILY PRN PRN Reason: Constipation Last Admin: 06/03/24 08:49 Dose: 17 gm Trazodone HCl (Trazodone Hcl 50 Mg Tablet) 50 mg PO BEDTIME MRX1 PRN PRN Reason: Insomnia Allergies Allergies Allergy/AdvReac Type Severity Reaction Status Date / Time No Known Allergies Allergy Verified 04/23/24 13:03 Assessment & Plan Assessment & Plan (1) Bipolar disorder with psychotic features: Status: Acute Code(s): F31.9 - Bipolar disorder, unspecified Plan 04/25: contain, observe, educate. collect collateral info. 04/26: warrant has been issued for pt's arrest. 12b up tuesday. planning to discharge tuesday unless situation changes. prescribed abilify 5 mg daily, which pt is refusing. 04/27: refusing meds. no change in presentation. planning for discharge friday 03/30, when section 12b expires. student counseling at [facility] has been informed of the discharge plan by KELLY Agudelo. 04/29: No changes 04/30: refusing meds. frankly psychotic/manic today. disorganized thoughts, hyper-cheondoism, labile, delusional, no sleep. accusing staff of witchcraft and trying to turn him into a woman. filed for commitment. kicked an exit door, prompting security to be called. 05/01: kicked exit doors again overnight, send me to [facility] or just shoot me. talking about hospital food being poisoned. i only account to hamzah. you are continuing your evil plans. refusing medications. refused to meet with life insurance specialist today. 05/02 continue tx. 05/03: loud, labile, exit-seeking. required med/phys restraint x 1 due to elopement attempt. demanding discharge. refusing meds. continue to offer meds. hearing scheduled for tuesday. 05/04: calm, trying to get into phone to get numbers. declining same numbers from KELLY Agudelo. sleeping in afternoon. slept most of evening and all NOC last night. 05/05 continue tx. pt declines medications. 05/[address] hearing. 05/07: no change in presentation. 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 committed, ordered medications. 05/08: received IM meds as refused PO. believes we are trying to turn him into a woman. 05/09: asking to leave, saying he does not want meds. took PO invega this morning. dystonia this afternoon, invega DCed. took PO ativan, benadryl, cogentin. will attempt with lithium only for the time being, backed up by valium IM. seems less energetic, labile, hyper-cheondoism today. 05/10: calm, but perseverative about discharge. taking lithium. continue current mgmt. paranoid delusions we are trying to turn him transgendered. remains focused on object of his stalking. 05/11: much more manic Sx today. re-trial of anti-psychotics. start with low- dose abilify with fluphenazine back-up. lithium switched to liquid formulation today. on 30 min CO after meds. 05/12: Continue current regimen and plans 05/13: Continue current regimen and plans 05/14: blocking MD's egress from room demanding immediate discharge. accepted thorazine 100 and ativan 2 PO. initial rapid pacing up and down the [place], eventually settled. check labs 05/16. 05/15: believes we are giving him medication to turn him into a woman, believes we are trying to get him to have sex with men. required restraint chair for court-ordered medication. required medications IM. 05/16: more subdued today. took meds PO last night and this morning. increase abilify to 15 mg daily. delay labs as pt has missed lithium dosing. 05/17: labs ordered. increase abilify dosing to 20 mg daily as of tomorrow. 05/18: refused labs. less labile and agitated. remains with paranoid delusions. labs ordered again. abilify to 25 mg tonight and 30 mg as of tomorrow night. 05/19: Continue current treatment plan. 05/20: Similar to yesterday's presentation. Continue current treatment plan. 05/21: refused PO meds this morning (took PO all w/e). received IMs. continue current mgmt. 05/22: refused PO last night and got IMs. took PO today. per collateral from KELLY Agudelo, improved insight, increased flexibility in thinking. continue current mgmt. 05/23: calm, appears tired. napping in the morning. PO meds. no singing in the past day. slept 8 hours. declining labs. continue current mgmt. 05/24: calm, quiet. no notable events or behaviors. continues far more subdued than prior. slept well. 05/25: stable presentation. continue current mgmt. 05/26 CTP /6 - some inapp behaviors with staff- keep on 5s, CTP 05/28: touching female RN on shoulders. some wandering into others' rooms. more logical and with more insight than ever previous in interacting with this va underwriter. allowed lithium level, which is 0.8. labs otherwise reassuring. declined bowel regimen. continue current mgmt. 05/29: appears as yesterday. no notable events. labs reviewed with pt. decrease benadryl to 25 mg QHS. 05/30: DC benadryl. lower abilify from 30 mg QHS to 20 mg QHS due to sedation/confusion for past several days. slept 6.5 hours. appears flat, tired. 05/31: less sedated today. continue current mgmt. 06/01: as for yesterday. attempted to kiss female staff doing CO today. 06/02: appearing more awake than several days ago. c/o blurry vision, stuttering, brain being weakened. continue current mgmt. 06/03: appears more awake. no complaints. continue current mgmt. paying excessive attention to young female peer, making her uncomfortable. 06/04: stable presentation. continue current mgmt. T/C abilify STEVENSON soon. 06/05: declines to change lithium to tab form. had BM with lactulose. agrees to abilify STEVENSON. will give 400 mg IM tomorrow and DC PO abilify after 2 weeks. then continue 400 mg IM Q30 days from first STEVENSON. 06/06: continue current tx plan. 06/07: pt and KELLY Agudelo spoke with [employer] staff; school to send info to pt re disciplinary process. MD requested TE to speak with DA. no notable events or behaviors otherwise, continue current mgmt. 06/08: c/o blurry vision and tiredness. describing his mood as more stable than prior. continue current mgmt. 06/09 continue same treatment. 06/10 continue same treatment. 06/11: stable presentation. not providing consent to speak with DA, canceling his mtg with [employer] therapist and police tomorrow. 06/12: per staff, broached the topic of people he loves and that he cannot mention one of their names. also alleging today, again, that the zoom hearing in which he was committed was illegal. informed he will remain here at least another several weeks to be able to assess how the transition from PO to STEVENSON antipsychotic is working. 06/13: refused lithium this morning, received valium IM. otherwise no notable behaviors since being changed from CO to Q5 min checks yesterday. continue current mgmt. PO abilify DCs 06/20. next maintenna 07/07. 06/14: no change in presentation. T/C increased IM dosing of abilify versus switch to another STEVENSON. appears inadequately treated. 06/15: minimizing his h/o psychotic Sx. denies he has mental illness. continue current mgmt for now. 06/16: Continue current management and treatment plan. 06/17: Continue current management and treatment plan. Reason for continued inpatient stay Substantial Risk for: inability to function and rapid decompensation Time Spent With Patient Time: Total time managing care of this patient today ____ minutes.
[2024-06-17] MEDS: ARIPiprazole 20 MG TABLET PO (20:38)
[2024-06-18] MEDS: LITHIUM CITRATE 600 MG PO ×2 (09:00→22:19)
[2024-06-18] MEDS: Docusate Sodium 100 MG CAPSULE 200 MG PO (09:00)
--- NOTE | 2024-06-18 15:47 | P.PNPSI_ITS ---
Subjective Subjective Date of Service: 06/18/24 Reason For Visit: stalking behaviors Interim History: calm, cooperative, linear. asking to be able to send money to his family in [facility] to help his siblings pay for school tests. per staff, alone in sensory room with female peer. slept all NOC. Mental Status Exam Mental Status Exam Narrative: adequately dressed and groomed. cooperative. no PMA/PMR. speech nml rate, nml amount. decr loudness, nml latency. thoughts linear, superficially logical. affect normo-intense, non-labile, flexible. mood euthymic. no SI/SIBI/HI/AVH expressed. Diagnostics Vital Signs (24Hr): BMI result Body Mass Index 24.7 Labs 04/23/24 13:06 05/28/24 13:24 Medications Medications Current Medications Acetaminophen (Acetaminophen 325 Mg Tablet) 650 mg PO Q6H PRN PRN Reason: Headache/Pain Mild Scale (1-3) Al Hydroxide/Mg Hydroxide (Magnesium Hydrox/Alum Hydrox 30 Ml Oral.Susp) 30 ml PO Q6H PRN PRN Reason: Heartburn/Nausea Aripiprazole (Aripiprazole 20 Mg Tablet) 20 mg PO BEDTIME [facility] Stop: 06/19/24 21:01 Last Admin: 06/17/24 20:38 Dose: 20 mg Aripiprazole (Aripiprazole Er 400 Mg Suser.Syr) 400 mg IM Q30D [facility] Last Admin: 06/06/24 09:34 Dose: 400 mg Diazepam (Diazepam 10 Mg/2 Ml Cartridge) 10 mg IM BID PRN PRN Reason: refusal of lithium or abilify Last Admin: 06/13/24 09:42 Dose: 10 mg Docusate Sodium (Docusate Sodium 100 Mg Capsule) 200 mg PO BID [facility] Last Admin: 06/18/24 09:00 Dose: 200 mg Fluphenazine HCl (Fluphenazine Hcl 2.5 Mg/Ml 10 Ml Vial) 5 mg IM DAILY PRN PRN Reason: refusal of PO abilify Last Admin: 05/21/24 22:48 Dose: 5 mg Hydroxyzine HCl (Hydroxyzine Hcl 25 Mg Tablet) 25 mg PO Q6H PRN PRN Reason: Anxiety Lactulose (Lactulose 20 Gm/30 Ml Solution) 30 gm PO DAILY PRN PRN Reason: Constipation Last Admin: 06/04/24 09:55 Dose: 30 gm [place] Citrate ([place] Citrate Oral Tierney 8 Meq (300 Mg)/5 Ml) 600 mg PO BID [facility] Last Admin: 06/18/24 09:00 Dose: 600 mg Magnesium Hydroxide (Milk Of Magnesia 30 Ml Oral.Susp) 30 ml PO DAILY PRN PRN Reason: Constipation Last Admin: 05/30/24 09:34 Dose: 30 ml Olanzapine (Olanzapine Odt 10 Mg Tab.Rapdis) 10 mg TRANSLINGU Q4H PRN PRN Reason: agitation Polyethylene Glycol (Polyethylene Glycol 3350 17 Gm Powd.Pack) 17 gm PO DAILY PRN PRN Reason: Constipation Last Admin: 06/03/24 08:49 Dose: 17 gm Trazodone HCl (Trazodone Hcl 50 Mg Tablet) 50 mg PO BEDTIME MRX1 PRN PRN Reason: Insomnia Allergies Allergies Allergy/AdvReac Type Severity Reaction Status Date / Time No Known Allergies Allergy Verified 04/23/24 13:03 Assessment & Plan Assessment & Plan (1) Bipolar disorder with psychotic features: Status: Acute Code(s): F31.9 - Bipolar disorder, unspecified Plan 04/25: contain, observe, educate. collect collateral info. 04/26: warrant has been issued for pt's arrest. 12b up tuesday. planning to discharge tuesday unless situation changes. prescribed abilify 5 mg daily, which pt is refusing. 04/27: refusing meds. no change in presentation. planning for discharge friday 03/30, when section 12b expires. student counseling at [facility] has been informed of the discharge plan by KELLY Agudelo. 04/29: No changes 04/30: refusing meds. frankly psychotic/manic today. disorganized thoughts, hyper-jewish, labile, delusional, no sleep. accusing staff of witchcraft and trying to turn him into a woman. filed for commitment. kicked an exit door, prompting security to be called. 05/01: kicked exit doors again overnight, send me to correction or just shoot me. talking about hospital food being poisoned. i only account to [facility]. you are continuing your evil plans. refusing medications. refused to meet with flower grower today. 05/02 continue tx. 05/03: loud, labile, exit-seeking. required med/phys restraint x 1 due to elopement attempt. demanding discharge. refusing meds. continue to offer meds. hearing scheduled for tuesday. 05/04: calm, trying to get into phone to get numbers. declining same numbers from KELLY Agudelo. sleeping in afternoon. slept most of evening and all NOC last night. 05/05 continue tx. pt declines medications. 05/[address]. 05/07: no change in presentation. 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 committed, ordered medications. 05/08: received IM meds as refused PO. believes we are trying to turn him into a woman. 05/09: asking to leave, saying he does not want meds. took PO invega this morning. dystonia this afternoon, invega DCed. took PO ativan, benadryl, cogentin. will attempt with lithium only for the time being, backed up by valium IM. seems less energetic, labile, hyper-jewish today. 05/10: calm, but perseverative about discharge. taking lithium. continue current mgmt. paranoid delusions we are trying to turn him transgendered. remains focused on object of his stalking. 05/11: much more manic Sx today. re-trial of anti-psychotics. start with low- dose abilify with fluphenazine back-up. lithium switched to liquid formulation today. on 30 min CO after meds. 05/12: Continue current regimen and plans 05/13: Continue current regimen and plans 05/14: blocking MD's egress from room demanding immediate discharge. accepted thorazine 100 and ativan 2 PO. initial rapid pacing up and down the [place], eventually settled. check labs 05/16. 05/15: believes we are giving him medication to turn him into a woman, believes we are trying to get him to have sex with men. required restraint chair for court-ordered medication. required medications IM. 05/16: more subdued today. took meds PO last night and this morning. increase abilify to 15 mg daily. delay labs as pt has missed lithium dosing. 05/17: labs ordered. increase abilify dosing to 20 mg daily as of tomorrow. 05/18: refused labs. less labile and agitated. remains with paranoid delusions. labs ordered again. abilify to 25 mg tonight and 30 mg as of tomorrow night. 05/19: Continue current treatment plan. 05/20: Similar to yesterday's presentation. Continue current treatment plan. 05/21: refused PO meds this morning (took PO all w/e). received IMs. continue current mgmt. 05/22: refused PO last night and got IMs. took PO today. per collateral from KELLY Agudelo, improved insight, increased flexibility in thinking. continue current mgmt. 05/23: calm, appears tired. napping in the morning. PO meds. no singing in the past day. slept 8 hours. declining labs. continue current mgmt. 05/24: calm, quiet. no notable events or behaviors. continues far more subdued than prior. slept well. 05/25: stable presentation. continue current mgmt. 05/26 CTP / - some inapp behaviors with staff- keep on 5s, CTP 05/28: touching female RN on shoulders. some wandering into others' rooms. more logical and with more insight than ever previous in interacting with this principal technical writer. allowed lithium level, which is 0.8. labs otherwise reassuring. declined bowel regimen. continue current mgmt. 05/29: appears as yesterday. no notable events. labs reviewed with pt. decrease benadryl to 25 mg QHS. 05/30: DC benadryl. lower abilify from 30 mg QHS to 20 mg QHS due to sedation/confusion for past several days. slept 6.5 hours. appears flat, tired. 05/31: less sedated today. continue current mgmt. 06/01: as for yesterday. attempted to kiss female staff doing CO today. 06/02: appearing more awake than several days ago. c/o blurry vision, stuttering, brain being weakened. continue current mgmt. 06/03: appears more awake. no complaints. continue current mgmt. paying excessive attention to young female peer, making her uncomfortable. 06/04: stable presentation. continue current mgmt. T/C abilify STEVENSON soon. 06/05: declines to change lithium to tab form. had BM with lactulose. agrees to abilify STEVENSON. will give 400 mg IM tomorrow and DC PO abilify after 2 weeks. then continue 400 mg IM Q30 days from first STEVENSON. 06/06: continue current tx plan. 06/07: pt and KELLY Agudelo spoke with [facility] [employer] staff; [facility] to send info to pt re disciplinary process. requested TE to speak with DA. no notable events or behaviors otherwise, continue current mgmt. 06/08: c/o blurry vision and tiredness. describing his mood as more stable than prior. continue current mgmt. 06/09 continue same treatment. 06/10 continue same treatment. 06/11: stable presentation. not providing consent to speak with DA, canceling his mtg with [place] therapist and police tomorrow. 06/12: per staff, broached the topic of people he loves and that he cannot mention one of their names. also alleging today, again, that the zoom hearing in which he was committed was illegal. informed he will remain here at least another several weeks to be able to assess how the transition from PO to STEVENSON antipsychotic is working. 06/13: refused lithium this morning, received valium IM. otherwise no notable behaviors since being changed from CO to Q5 min checks yesterday. continue current mgmt. PO abilify DCs 06/20. next maintenna 07/07. 06/14: no change in presentation. T/C increased IM dosing of abilify versus switch to another STEVENSON. appears inadequately treated. 06/15: minimizing his h/o psychotic Sx. denies he has mental illness. continue current mgmt for now. 06/16: Continue current management and treatment plan. 06/17: Continue current management and treatment plan. 06/18: appears stable, without psychotic Sx. continue current mgmt. Reason for continued inpatient stay Substantial Risk for: harm to self, harm to others, inability to function and rapid decompensation Time Spent With Patient Time: Total time managing care of this patient today __25__ minutes.
[2024-06-18] MEDS: traZODone HCL 50 MG TABLET PO (22:19)
[2024-06-18] MEDS: ARIPiprazole 20 MG TABLET PO (22:19)
[2024-06-19] MEDS: LITHIUM CITRATE 600 MG PO ×2 (09:30→20:53)
[2024-06-19] MEDS: Docusate Sodium 100 MG CAPSULE 200 MG PO ×2 (09:30→20:53)
--- NOTE | 2024-06-19 16:16 | P.PNPSI_ITS ---
Subjective Subjective Date of Service: 06/19/24 Reason For Visit: stalking behaviors Interim History: no change in presentation. calm, logical. per staff, visible. taking meds. 1 OT group. denies psych Sx. slept 7 hours. Mental Status Exam Mental Status Exam Narrative: adequately dressed and groomed. cooperative. no PMA/PMR. speech nml rate, nml amount. decr loudness, nml latency. thoughts linear, superficially logical. affect normo-intense, non-labile, constricted. mood euthymic. no SI/SIBI/HI/AVH expressed. Diagnostics Vital Signs (24Hr): BMI result Body Mass Index 24.7 Labs 04/23/24 13:06 05/28/24 13:24 Medications Medications Current Medications Acetaminophen (Acetaminophen 325 Mg Tablet) 650 mg PO Q6H PRN PRN Reason: Headache/Pain Mild Scale (1-3) Al Hydroxide/Mg Hydroxide (Magnesium Hydrox/Alum Hydrox 30 Ml Oral.Susp) 30 ml PO Q6H PRN PRN Reason: Heartburn/Nausea Aripiprazole (Aripiprazole 20 Mg Tablet) 20 mg PO BEDTIME [facility] Stop: 06/19/24 21:01 Last Admin: 06/18/24 22:19 Dose: 20 mg Aripiprazole (Aripiprazole Er 400 Mg Suser.Syr) 400 mg IM Q30D [facility] Last Admin: 06/06/24 09:34 Dose: 400 mg Diazepam (Diazepam 10 Mg/2 Ml Cartridge) 10 mg IM BID PRN PRN Reason: refusal of lithium or abilify Last Admin: 06/13/24 09:42 Dose: 10 mg Docusate Sodium (Docusate Sodium 100 Mg Capsule) 200 mg PO BID [facility] Last Admin: 06/19/24 09:30 Dose: 200 mg Fluphenazine HCl (Fluphenazine Hcl 2.5 Mg/Ml 10 Ml Vial) 5 mg IM DAILY PRN PRN Reason: refusal of PO abilify Last Admin: 05/21/24 22:48 Dose: 5 mg Hydroxyzine HCl (Hydroxyzine Hcl 25 Mg Tablet) 25 mg PO Q6H PRN PRN Reason: Anxiety Lactulose (Lactulose 20 Gm/30 Ml Solution) 30 gm PO DAILY PRN PRN Reason: Constipation Last Admin: 06/04/24 09:55 Dose: 30 gm [place] Citrate ([place] Citrate Oral Tierney 8 Meq (300 Mg)/5 Ml) 600 mg PO BID [facility] Last Admin: 06/19/24 09:30 Dose: 600 mg Magnesium Hydroxide (Milk Of Magnesia 30 Ml Oral.Susp) 30 ml PO DAILY PRN PRN Reason: Constipation Last Admin: 05/30/24 09:34 Dose: 30 ml Olanzapine (Olanzapine Odt 10 Mg Tab.Rapdis) 10 mg TRANSLINGU Q4H PRN PRN Reason: agitation Polyethylene Glycol (Polyethylene Glycol 3350 17 Gm Powd.Pack) 17 gm PO DAILY PRN PRN Reason: Constipation Last Admin: 06/03/24 08:49 Dose: 17 gm Trazodone HCl (Trazodone Hcl 50 Mg Tablet) 50 mg PO BEDTIME MRX1 PRN PRN Reason: Insomnia Last Admin: 06/18/24 22:19 Dose: 50 mg Allergies Allergies Allergy/AdvReac Type Severity Reaction Status Date / Time No Known Allergies Allergy Verified 04/23/24 13:03 Assessment & Plan Assessment & Plan (1) Bipolar disorder with psychotic features: Status: Acute Code(s): F31.9 - Bipolar disorder, unspecified Plan 04/25: contain, observe, educate. collect collateral info. 04/26: warrant has been issued for pt's arrest. 12b up tuesday. planning to discharge tuesday unless situation changes. prescribed abilify 5 mg daily, which pt is refusing. 04/27: refusing meds. no change in presentation. planning for discharge friday 03/30, when section 12b expires. student counseling at [facility] has been informed of the discharge plan by KELLY Agudelo. 04/29: No changes 04/30: refusing meds. frankly psychotic/manic today. disorganized thoughts, hyper-orthodox, labile, delusional, no sleep. accusing staff of witchcraft and trying to turn him into a woman. filed for commitment. kicked an exit door, prompting security to be called. 05/01: kicked exit doors again overnight, send me to skilled nursing or just shoot me. talking about hospital food being poisoned. [facility] only account to [facility]. you are continuing your evil plans. refusing medications. refused to meet with orthodontic lab technician today. 05/02 continue tx. 05/03: loud, labile, exit-seeking. required med/phys restraint x 1 due to elopement attempt. demanding discharge. refusing meds. continue to offer meds. hearing scheduled for tuesday. 05/04: calm, trying to get into phone to get numbers. declining same numbers from KELLY Agudelo. sleeping in afternoon. slept most of evening and all NOC last night. 05/05 continue tx. pt declines medications. 05/[address] hearing. 05/07: no change in presentation. 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 committed, ordered medications. 05/08: received IM meds as refused PO. believes we are trying to turn him into a woman. 05/09: asking to leave, saying he does not want meds. took PO invega this morning. dystonia this afternoon, invega DCed. took PO ativan, benadryl, cogentin. will attempt with lithium only for the time being, backed up by valium IM. seems less energetic, labile, hyper-orthodox today. 05/10: calm, but perseverative about discharge. taking lithium. continue current mgmt. paranoid delusions we are trying to turn him transgendered. remains focused on object of his stalking. 05/11: much more manic Sx today. re-trial of anti-psychotics. start with low- dose abilify with fluphenazine back-up. lithium switched to liquid formulation today. on 30 min CO after meds. 05/12: Continue current regimen and plans 05/13: Continue current regimen and plans 05/14: blocking MD's egress from room demanding immediate discharge. accepted thorazine 100 and ativan 2 PO. initial rapid pacing up and down the [place], eventually settled. check labs 05/16. 05/15: believes we are giving him medication to turn him into a woman, believes we are trying to get him to have sex with men. required restraint chair for court-ordered medication. required medications IM. 05/16: more subdued today. took meds PO last night and this morning. increase abilify to 15 mg daily. delay labs as pt has missed lithium dosing. 05/17: labs ordered. increase abilify dosing to 20 mg daily as of tomorrow. 05/18: refused labs. less labile and agitated. remains with paranoid delusions. labs ordered again. abilify to 25 mg tonight and 30 mg as of tomorrow night. 05/19: Continue current treatment plan. 05/20: Similar to yesterday's presentation. Continue current treatment plan. 05/21: refused PO meds this morning (took PO all w/e). received IMs. continue current mgmt. 05/22: refused PO last night and got IMs. took PO today. per collateral from KELYL Agudelo, improved insight, increased flexibility in thinking. continue current mgmt. 05/23: calm, appears tired. napping in the morning. PO meds. no singing in the past day. slept 8 hours. declining labs. continue current mgmt. 05/24: calm, quiet. no notable events or behaviors. continues far more subdued than prior. slept well. 05/25: stable presentation. continue current mgmt. 05/26 CTP 05/27 - some inapp behaviors with staff- keep on 5s, CTP 05/28: touching female RN on shoulders. some wandering into others' rooms. more logical and with more insight than ever previous in interacting with this automotive service writer. allowed lithium level, which is 0.8. labs otherwise reassuring. declined bowel regimen. continue current mgmt. 05/29: appears as yesterday. no notable events. labs reviewed with pt. decrease benadryl to 25 mg QHS. 05/30: DC benadryl. lower abilify from 30 mg QHS to 20 mg QHS due to sedation/confusion for past several days. slept 6.5 hours. appears flat, tired. 05/31: less sedated today. continue current mgmt. 06/01: as for yesterday. attempted to kiss female staff doing CO today. 06/02: appearing more awake than several days ago. c/o blurry vision, stuttering, brain being weakened. continue current mgmt. 06/03: appears more awake. no complaints. continue current mgmt. paying excessive attention to young female peer, making her uncomfortable. 06/04: stable presentation. continue current mgmt. T/C abilify STEVENSON soon. 06/05: declines to change lithium to tab form. had BM with lactulose. agrees to abilify STEVENSON. will give 400 mg IM tomorrow and DC PO abilify after 2 weeks. then continue 400 mg IM Q30 days from first STEVENSON. 06/06: continue current tx plan. 06/07: pt and KELLY Agudelo spoke with [facility] staff; school to send info to pt re disciplinary process. requested TE to speak with DA. no notable events or behaviors otherwise, continue current mgmt. 06/08: c/o blurry vision and tiredness. describing his mood as more stable than prior. continue current mgmt. 06/09 continue same treatment. 06/10 continue same treatment. 06/11: stable presentation. not providing consent to speak with DA, canceling his mtg with [place] therapist and police tomorrow. 06/12: per staff, broached the topic of people he loves and that he cannot mention one of their names. also alleging today, again, that the zoom hearing in which he was committed was illegal. informed he will remain here at least another several weeks to be able to assess how the transition from PO to STEVENSON antipsychotic is working. 06/13: refused lithium this morning, received valium IM. otherwise no notable behaviors since being changed from CO to Q5 min checks yesterday. continue current mgmt. PO abilify DCs 06/20. next maintenna 07/07. 06/14: no change in presentation. T/C increased IM dosing of abilify versus switch to another STEVENSON. appears inadequately treated. 06/15: minimizing his h/o psychotic Sx. denies he has mental illness. continue current mgmt for now. 06/16: Continue current management and treatment plan. 06/17: Continue current management and treatment plan. 06/18: appears stable, without psychotic Sx. continue current mgmt. 06/19: no change. continue current mgmt. tonight is last dose of HS abilify. Reason for continued inpatient stay Substantial Risk for: harm to self, harm to others, inability to function and rapid decompensation Time Spent With Patient Time: Total time managing care of this patient today __25__ minutes.
[2024-06-19] MEDS: ARIPiprazole 20 MG TABLET PO (20:53)
[2024-06-19 20:55] VITALS: BP 142/80; PULSE 82; RESP 16; TEMP 36.6; O2SAT 99
[2024-06-20] MEDS: LITHIUM CITRATE 600 MG PO ×2 (09:48→20:47)
[2024-06-20] MEDS: Docusate Sodium 100 MG CAPSULE 200 MG PO ×2 (09:48→20:47)
--- NOTE | 2024-06-20 13:16 | HO.PSYCHPN ---
Subjective Subjective Date of Service: 06/20/24 Reason For Visit: stalking behaviors Interim History: calm, cooperative. desiring discharge. talking about going to college in [place] opposed to the [place]. feeling abandoned by [place] [employer]. declines to allow MD to speak with irrigation district manager or college staff. per staff, denies dep/anx. taking meds. visible. isolative. Mental Status Exam Mental Status Exam Narrative: adequately dressed and groomed. cooperative. no PMA/PMR. speech nml rate, nml amount. decr loudness, nml latency. thoughts linear, superficially logical. affect normo-intense, non-labile, constricted. mood euthymic. no SI/SIBI/HI/AVH expressed. Diagnostics Vital Signs (24Hr): Vital Signs - 24 hr 06/19/24 20:55 Temperature 97.8 F Pulse Rate 82 Respiratory Rate 16 Blood Pressure 142/80 H Pulse Oximetry 99 Oxygen Delivery Method Room Air BMI result Body Mass Index 24.7 Labs 04/23/24 13:06 05/28/24 13:24 Medications Medications Current Medications Acetaminophen (Acetaminophen 325 Mg Tablet) 650 mg PO Q6H PRN PRN Reason: Headache/Pain Mild Scale (1-3) Al Hydroxide/Mg Hydroxide (Magnesium Hydrox/Alum Hydrox 30 Ml Oral.Susp) 30 ml PO Q6H PRN PRN Reason: Heartburn/Nausea Aripiprazole (Aripiprazole Er 400 Mg Suser.Syr) 400 mg IM Q30D [facility] Last Admin: 06/06/24 09:34 Dose: 400 mg Diazepam (Diazepam 10 Mg/2 Ml Cartridge) 10 mg IM BID PRN PRN Reason: refusal of lithium or abilify Last Admin: 06/13/24 09:42 Dose: 10 mg Docusate Sodium (Docusate Sodium 100 Mg Capsule) 200 mg PO BID [facility] Last Admin: 06/20/24 09:48 Dose: 200 mg Fluphenazine HCl (Fluphenazine Hcl 2.5 Mg/Ml 10 Ml Vial) 5 mg IM DAILY PRN PRN Reason: refusal of PO abilify Last Admin: 05/21/24 22:48 Dose: 5 mg Hydroxyzine HCl (Hydroxyzine Hcl 25 Mg Tablet) 25 mg PO Q6H PRN PRN Reason: Anxiety Lactulose (Lactulose 20 Gm/30 Ml Solution) 30 gm PO DAILY PRN PRN Reason: Constipation Last Admin: 06/04/24 09:55 Dose: 30 gm [place] Citrate ([place] Citrate Oral Tierney 8 Meq (300 Mg)/5 Ml) 600 mg PO BID [facility] Last Admin: 06/20/24 09:48 Dose: 600 mg Magnesium Hydroxide (Milk Of Magnesia 30 Ml Oral.Susp) 30 ml PO DAILY PRN PRN Reason: Constipation Last Admin: 05/30/24 09:34 Dose: 30 ml Olanzapine (Olanzapine Odt 10 Mg Tab.Rapdis) 10 mg TRANSLINGU Q4H PRN PRN Reason: agitation Polyethylene Glycol (Polyethylene Glycol 3350 17 Gm Powd.Pack) 17 gm PO DAILY PRN PRN Reason: Constipation Last Admin: 06/03/24 08:49 Dose: 17 gm Trazodone HCl (Trazodone Hcl 50 Mg Tablet) 50 mg PO BEDTIME MRX1 PRN PRN Reason: Insomnia Last Admin: 06/18/24 22:19 Dose: 50 mg Allergies Allergies Allergy/AdvReac Type Severity Reaction Status Date / Time No Known Allergies Allergy Verified 04/23/24 13:03 Assessment & Plan Assessment & Plan (1) Bipolar disorder with psychotic features: Status: Acute Code(s): F31.9 - Bipolar disorder, unspecified Plan 04/25: contain, observe, educate. collect collateral info. 04/26: warrant has been issued for pt's arrest. 12b up tuesday. planning to discharge tuesday unless situation changes. prescribed abilify 5 mg daily, which pt is refusing. 04/27: refusing meds. no change in presentation. planning for discharge friday 03/30, when section 12b expires. student counseling at [facility] has been informed of the discharge plan by KELLY Agudelo. 04/29: No changes 04/30: refusing meds. frankly psychotic/manic today. disorganized thoughts, hyper-catholic, labile, delusional, no sleep. accusing staff of witchcraft and trying to turn him into a woman. filed for commitment. kicked an exit door, prompting security to be called. 05/01: kicked exit doors again overnight, send me to [facility] or just shoot me. talking about hospital food being poisoned. [facility] account [facility]. you are continuing your evil plans. refusing medications. refused to meet with director mobile today. 05/02 continue tx. 05/03: loud, labile, exit-seeking. required med/phys restraint x 1 due to elopement attempt. demanding discharge. refusing meds. continue to offer meds. hearing scheduled for tuesday. 05/04: calm, trying to get into phone to get numbers. declining same numbers from KELLY Agudelo. sleeping in afternoon. slept most of evening and all NOC last night. 05/05 continue tx. pt declines medications. 05/[address] hearing. 05/07: no change in presentation. 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 committed, ordered medications. 05/08: received IM meds as refused PO. believes we are trying to turn him into a woman. 05/09: asking to leave, saying he does not want meds. took PO invega this morning. dystonia this afternoon, invega DCed. took PO ativan, benadryl, cogentin. will attempt with lithium only for the time being, backed up by valium IM. seems less energetic, labile, hyper-catholic today. 05/10: calm, but perseverative about discharge. taking lithium. continue current mgmt. paranoid delusions we are trying to turn him transgendered. remains focused on object of his stalking. 05/11: much more manic Sx today. re-trial of anti-psychotics. start with low-dose abilify with fluphenazine back-up. lithium switched to liquid formulation today. on 30 min CO after meds. 05/12: Continue current regimen and plans 05/13: Continue current regimen and plans 05/14: blocking MD's egress from room demanding immediate discharge. accepted thorazine 100 and ativan 2 PO. initial rapid pacing up and down the [place], eventually settled. check labs 05/16. 05/15: believes we are giving him medication to turn him into a woman, believes we are trying to get him to have sex with men. required restraint chair for court-ordered medication. required medications IM. 05/16: more subdued today. took meds PO last night and this morning. increase abilify to 15 mg daily. delay labs as pt has missed lithium dosing. 05/17: labs ordered. increase abilify dosing to 20 mg daily as of tomorrow. 05/18: refused labs. less labile and agitated. remains with paranoid delusions. labs ordered again. abilify to 25 mg tonight and 30 mg as of tomorrow night. 05/19: Continue current treatment plan. 05/20: Similar to yesterday's presentation. Continue current treatment plan. 05/21: refused PO meds this morning (took PO all w/e). received IMs. continue current mgmt. 05/22: refused PO last night and got IMs. took PO today. per collateral from KELLY Agudelo, improved insight, increased flexibility in thinking. continue current mgmt. 05/23: calm, appears tired. napping in the morning. PO meds. no singing in the past day. slept 8 hours. declining labs. continue current mgmt. 05/24: calm, quiet. no notable events or behaviors. continues far more subdued than prior. slept well. 05/25: stable presentation. continue current mgmt. 05/26 CTP 05/27 - some inapp behaviors with staff- keep on 5s, CTP 05/28: touching female RN on shoulders. some wandering into others' rooms. more logical and with more insight than ever previous in interacting with this caption writer. allowed lithium level, which is 0.8. labs otherwise reassuring. declined bowel regimen. continue current mgmt. 05/29: appears as yesterday. no notable events. labs reviewed with pt. decrease benadryl to 25 mg QHS. 05/30: DC benadryl. lower abilify from 30 mg QHS to 20 mg QHS due to sedation/confusion for past several days. slept 6.5 hours. appears flat, tired. 05/31: less sedated today. continue current mgmt. 06/01: as for yesterday. attempted to kiss female staff doing CO today. 06/02: appearing more awake than several days ago. c/o blurry vision, stuttering, brain being weakened. continue current mgmt. 06/03: appears more awake. no complaints. continue current mgmt. paying excessive attention to young female peer, making her uncomfortable. 06/04: stable presentation. continue current mgmt. T/C abilify STEVENSON soon. 06/05: declines to change lithium to tab form. had BM with lactulose. agrees to abilify STEVENSON. will give 400 mg IM tomorrow and DC PO abilify after 2 weeks. then continue 400 mg IM Q30 days from first STEVENSON. 06/06: continue current tx plan. 06/07: pt and KELLY Agudelo spoke with [facility] staff; school to send info to pt re disciplinary process. MD requested TE to speak with DA. no notable events or behaviors otherwise, continue current mgmt. 06/08: c/o blurry vision and tiredness. describing his mood as more stable than prior. continue current mgmt. 06/09 continue same treatment. 06/10 continue same treatment. 06/11: stable presentation. not providing consent to speak with DA, canceling his mtg with [place] therapist and police tomorrow. 06/12: per staff, broached the topic of people he loves and that he cannot mention one of their names. also alleging today, again, that the zoom hearing in which he was committed was illegal. informed he will remain here at least another several weeks to be able to assess how the transition from PO to STEVENSON antipsychotic is working. 06/13: refused lithium this morning, received valium IM. otherwise no notable behaviors since being changed from CO to Q5 min checks yesterday. continue current mgmt. PO abilify DCs 06/20. next maintenna 07/07. 06/14: no change in presentation. T/C increased IM dosing of abilify versus switch to another STEVENSON. appears inadequately treated. 06/15: minimizing his h/o psychotic Sx. denies he has mental illness. continue current mgmt for now. 06/16: Continue current management and treatment plan. 06/17: Continue current management and treatment plan. 06/18: appears stable, without psychotic Sx. continue current mgmt. 06/19: no change. continue current mgmt. tonight is last dose of HS abilify. 06/20: continue current mgmt. next IM abilify in 2 weeks. Reason for continued inpatient stay Substantial Risk for: harm to self, harm to others, inability to function and rapid decompensation Time Spent With Patient Time: Total time managing care of this patient today _25___ minutes.
[2024-06-20 20:00] VITALS: RESP 16
[2024-06-21 07:00] VITALS: BMI 26.2
[2024-06-21] MEDS: Docusate Sodium 100 MG CAPSULE 200 MG PO ×2 (09:00→20:29)
[2024-06-21] MEDS: LITHIUM CITRATE 600 MG PO ×2 (09:01→20:29)
--- NOTE | 2024-06-21 10:49 | P.PNPSI_ITS ---
Subjective Subjective Date of Service: 06/21/24 Reason For Visit: stalking behaviors Subjective Notes: Conditional Voluntary Interim History: Observed pacing hallway while listening to headphones. Pleasant. Calm. Keeping to self. Pt discussed [facility] discharged from the hospital. denies any issues at this time. Medication Compliance: Yes Side effects from medications: No Attending Groups: Yes Review of Systems Constitutional: Reports as per HPI Eyes: Reports as per HPI Reports as per HPI Cardiovascular: Reports as per HPI Respiratory: Reports as per HPI Gastrointestinal: Reports as per HPI Genitourinary: Reports as per HPI Musculoskeletal: Reports as per HPI Skin/Breast: Reports as per HPI Reports as per HPI Psychiatric: Reports as per HPI Endocrine: Reports as per HPI Hematologic/Lymphatic: Reports as per HPI Allergic/Immunologic: Reports as per HPI Mental Status Exam Mental Status Exam Patient Appearance: Well Grooomed and Appropriate Patient Orientation: Person, Place and Situation Level of Consciousness: Awake Patient Behavior: Appropriate, Cooperative and Good Eye Contact Mood Description: Calm Affect Description: Calm Patient Cognition Impaired: Yes Ability to Follow Directions: Good Speech Pattern: Clear Thought Process: Goal Oriented Diagnostics Vital Signs (24Hr): Vital Signs - 24 hr 06/20/24 20:00 Respiratory Rate 16 BMI result Body Mass Index 24.7 Labs 04/23/24 13:06 05/28/24 13:24 Medications Medications Current Medications Acetaminophen (Acetaminophen 325 Mg Tablet) 650 mg PO Q6H PRN PRN Reason: Headache/Pain Mild Scale (1-3) Al Hydroxide/Mg Hydroxide (Magnesium Hydrox/Alum Hydrox 30 Ml Oral.Susp) 30 ml PO Q6H PRN PRN Reason: Heartburn/Nausea Aripiprazole (Aripiprazole Er 400 Mg Suser.Syr) 400 mg IM Q30D [facility] Last Admin: 06/06/24 09:34 Dose: 400 mg Diazepam (Diazepam 10 Mg/2 Ml Cartridge) 10 mg IM BID PRN PRN Reason: refusal of lithium or abilify Last Admin: 06/13/24 09:42 Dose: 10 mg Docusate Sodium (Docusate Sodium 100 Mg Capsule) 200 mg PO BID [facility] Last Admin: 06/21/24 09:00 Dose: 200 mg Fluphenazine HCl (Fluphenazine Hcl 2.5 Mg/Ml 10 Ml Vial) 5 mg IM DAILY PRN PRN Reason: refusal of PO abilify Last Admin: 05/21/24 22:48 Dose: 5 mg Hydroxyzine HCl (Hydroxyzine Hcl 25 Mg Tablet) 25 mg PO Q6H PRN PRN Reason: Anxiety Lactulose (Lactulose 20 Gm/30 Ml Solution) 30 gm PO DAILY PRN PRN Reason: Constipation Last Admin: 06/04/24 09:55 Dose: 30 gm [place] Citrate ([place] Citrate Oral Tierney 8 Meq (300 Mg)/5 Ml) 600 mg PO BID [facility] Last Admin: 06/21/24 09:01 Dose: 600 mg Magnesium Hydroxide (Milk Of Magnesia 30 Ml Oral.Susp) 30 ml PO DAILY PRN PRN Reason: Constipation Last Admin: 05/30/24 09:34 Dose: 30 ml Olanzapine (Olanzapine Odt 10 Mg Tab.Rapdis) 10 mg TRANSLINGU Q4H PRN PRN Reason: agitation Polyethylene Glycol (Polyethylene Glycol 3350 17 Gm Powd.Pack) 17 gm PO DAILY PRN PRN Reason: Constipation Last Admin: 06/03/24 08:49 Dose: 17 gm Trazodone HCl (Trazodone Hcl 50 Mg Tablet) 50 mg PO BEDTIME MRX1 PRN PRN Reason: Insomnia Last Admin: 06/18/24 22:19 Dose: 50 mg Allergies Allergies Allergy/AdvReac Type Severity Reaction Status Date / Time No Known Allergies Allergy Verified 04/23/24 13:03 Assessment & Plan Assessment & Plan (1) Bipolar disorder with psychotic features: Status: Acute Code(s): F31.9 - Bipolar disorder, unspecified Plan 04/25: contain, observe, educate. collect collateral info. 04/26: warrant has been issued for pt's arrest. 12b up tuesday. planning to discharge tuesday unless situation changes. prescribed abilify 5 mg daily, which pt is refusing. 04/27: refusing meds. no change in presentation. planning for discharge friday 03/30, when section 12b expires. student counseling at [facility] has been informed of the discharge plan by KELLY Agudelo. 04/29: No changes 04/30: refusing meds. frankly psychotic/manic today. disorganized thoughts, hyper-mandaen, labile, delusional, no sleep. accusing staff of witchcraft and trying to turn him into a woman. filed for commitment. kicked an exit door, prompting security to be called. 05/01: kicked exit doors again overnight, send me to retirement or just shoot me. talking about hospital food being poisoned. i only account to [facility]. you are continuing your evil plans. refusing medications. refused to meet with bottom turner today. 05/02 continue tx. 05/03: loud, labile, exit-seeking. required med/phys restraint x 1 due to elopement attempt. demanding discharge. refusing meds. continue to offer meds. hearing scheduled for tuesday. 05/04: calm, trying to get into phone to get numbers. declining same numbers from KELLY Agudelo. sleeping in afternoon. slept most of evening and all NOC last night. 05/05 continue tx. pt declines medications. 05/[address] hearing. 05/07: no change in presentation. [facility] and that the voice of hamzah was commanding him to preach. committed, ordered medications. 05/08: received IM meds as refused PO. believes we are trying to turn him into a woman. 05/09: asking to leave, saying he does not want meds. took PO invega this morning. dystonia this afternoon, invega DCed. took PO ativan, benadryl, cogentin. will attempt with lithium only for the time being, backed up by valium IM. seems less energetic, labile, hyper-mandaen today. 05/10: calm, but perseverative about discharge. taking lithium. continue current mgmt. paranoid delusions we are trying to turn him transgendered. remains focused on object of his stalking. 05/11: much more manic Sx today. re-trial of anti-psychotics. start with low- dose abilify with fluphenazine back-up. lithium switched to liquid formulation today. on 30 min CO after meds. 05/12: Continue current regimen and plans 05/13: Continue current regimen and plans 05/14: blocking MD's egress from room demanding immediate discharge. accepted thorazine 100 and ativan 2 PO. initial rapid pacing up and down the [place], eventually settled. check labs 05/16. 05/15: believes we are giving him medication to turn him into a woman, believes we are trying to get him to have sex with men. required restraint chair for court-ordered medication. required medications IM. 05/16: more subdued today. took meds PO last night and this morning. increase abilify to 15 mg daily. delay labs as pt has missed lithium dosing. 05/17: labs ordered. increase abilify dosing to 20 mg daily as of tomorrow. 05/18: refused labs. less labile and agitated. remains with paranoid delusions. labs ordered again. abilify to 25 mg tonight and 30 mg as of tomorrow night. 05/19: Continue current treatment plan. 05/20: Similar to yesterday's presentation. Continue current treatment plan. 05/21: refused PO meds this morning (took PO all w/e). received IMs. continue current mgmt. 05/22: refused PO last night and got IMs. took PO today. per collateral from KELLY Agudelo, improved insight, increased flexibility in thinking. continue current mgmt. 05/23: calm, appears tired. napping in the morning. PO meds. no singing in the past day. slept 8 hours. declining labs. continue current mgmt. 05/24: calm, quiet. no notable events or behaviors. continues far more subdued than prior. slept well. 05/25: stable presentation. continue current mgmt. 05/26 CTP 05/27 - some inapp behaviors with staff- keep on 5s, CTP 05/28: touching female RN on shoulders. some wandering into others' rooms. more logical and with more insight than ever previous in interacting with this commercial real estate underwriter. allowed lithium level, which is 0.8. labs otherwise reassuring. declined bowel regimen. continue current mgmt. 05/29: appears as yesterday. no notable events. labs reviewed with pt. decrease benadryl to 25 mg QHS. 05/30: DC benadryl. lower abilify from 30 mg QHS to 20 mg QHS due to sedation/confusion for past several days. slept 6.5 hours. appears flat, tired. 05/31: less sedated today. continue current mgmt. 06/01: as for yesterday. attempted to kiss female staff doing CO today. 06/02: appearing more awake than several days ago. c/o blurry vision, stuttering, brain being weakened. continue current mgmt. 06/03: appears more awake. no complaints. continue current mgmt. paying excessive attention to young female peer, making her uncomfortable. 06/04: stable presentation. continue current mgmt. T/C abilify STEVENSON soon. 06/05: declines to change lithium to tab form. had BM with lactulose. agrees to abilify STEVENSON. will give 400 mg IM tomorrow and DC PO abilify after 2 weeks. then continue 400 mg IM Q30 days from first STEVENSON. 06/06: continue current tx plan. 06/07: pt and KELLY Agudelo spoke with [facility] staff; school to send info to pt re disciplinary process. requested TE to speak with DA. no notable events or behaviors otherwise, continue current mgmt. 06/08: c/o blurry vision and tiredness. describing his mood as more stable than prior. continue current mgmt. 06/09 continue same treatment. 06/10 continue same treatment. 06/11: stable presentation. not providing consent to speak with DA, canceling his mtg with [place] therapist and police tomorrow. 06/12: per staff, broached the topic of people he loves and that he cannot mention one of their names. also alleging today, again, that the zoom hearing in which he was committed was illegal. informed he will remain here at least another several weeks to be able to assess how the transition from PO to STEVENSON antipsychotic is working. 06/13: refused lithium this morning, received valium IM. otherwise no notable behaviors since being changed from CO to Q5 min checks yesterday. continue current mgmt. PO abilify DCs 06/20. next maintenna 07/07. 06/14: no change in presentation. T/C increased IM dosing of abilify versus switch to another STEVENSON. appears inadequately treated. 06/15: minimizing his h/o psychotic Sx. denies he has mental illness. continue current mgmt for now. 06/16: Continue current management and treatment plan. 06/17: Continue current management and treatment plan. 06/18: appears stable, without psychotic Sx. continue current mgmt. 06/19: no change. continue current mgmt. tonight is last dose of HS abilify. 06/20: continue current mgmt. next IM abilify in 2 weeks. 06/21: continue current tx plan. Patient educated on: medication risk/benefits Reason for continued inpatient stay Substantial Risk for: med/psych decompensation Time Spent With Patient Time: Total time managing care of this patient today _20___ minutes.
[2024-06-21 20:00] VITALS: RESP 16
--- NOTE | 2024-06-22 09:21 | HO.PSYCHPN ---
Subjective Subjective Date of Service: 06/22/24 Reason For Visit: stalking behaviors Subjective Notes: Section 8 Interim History: Keeping to self. guarded. observed reading in room. similar to yesterdays presentation. denies any issues at this time. Medication Compliance: Yes Side effects from medications: No Attending Groups: Intermittent Review of Systems Constitutional: Reports as per HPI Eyes: Reports as per HPI Reports as per HPI Cardiovascular: Reports as per HPI Respiratory: Reports as per HPI Gastrointestinal: Reports as per HPI Genitourinary: Reports as per HPI Musculoskeletal: Reports as per HPI Skin/Breast: Reports as per HPI Reports as per HPI Psychiatric: Reports as per HPI Endocrine: Reports as per HPI Hematologic/Lymphatic: Reports as per HPI Allergic/Immunologic: Reports as per HPI Mental Status Exam Mental Status Exam Patient Appearance: Well Grooomed and Appropriate Patient Orientation: Person, Place and Situation Level of Consciousness: Awake Patient Behavior: Appropriate, Cooperative and Good Eye Contact Mood Description: Calm Affect Description: Calm Patient Cognition Impaired: Yes Ability to Follow Directions: Good Speech Pattern: Clear Diagnostics Vital Signs (24Hr): Vital Signs - 24 hr 06/21/24 20:00 Respiratory Rate 16 BMI result Body Mass Index 26.2 Labs 04/23/24 13:06 05/28/24 13:24 Medications Medications Current Medications Acetaminophen (Acetaminophen 325 Mg Tablet) 650 mg PO Q6H PRN PRN Reason: Headache/Pain Mild Scale (1-3) Al Hydroxide/Mg Hydroxide (Magnesium Hydrox/Alum Hydrox 30 Ml Oral.Susp) 30 ml PO Q6H PRN PRN Reason: Heartburn/Nausea Aripiprazole (Aripiprazole Er 400 Mg Suser.Syr) 400 mg IM Q30D ON LICENSE OF [facility] Last Admin: 06/06/24 09:34 Dose: 400 mg Diazepam (Diazepam 10 Mg/2 Ml Cartridge) 10 mg IM BID PRN PRN Reason: refusal of lithium or abilify Last Admin: 06/13/24 09:42 Dose: 10 mg Docusate Sodium (Docusate Sodium 100 Mg Capsule) 200 mg PO BID ON LICENSE OF [facility] Last Admin: 06/21/24 20:29 Dose: 200 mg Fluphenazine HCl (Fluphenazine Hcl 2.5 Mg/Ml 10 Ml Vial) 5 mg IM DAILY PRN PRN Reason: refusal of PO abilify Last Admin: 05/21/24 22:48 Dose: 5 mg Hydroxyzine HCl (Hydroxyzine Hcl 25 Mg Tablet) 25 mg PO Q6H PRN PRN Reason: Anxiety Lactulose (Lactulose 20 Gm/30 Ml Solution) 30 gm PO DAILY PRN PRN Reason: Constipation Last Admin: 06/04/24 09:55 Dose: 30 gm Alsey Citrate (Alsey Citrate Oral Tierney 8 Meq (300 Mg)/5 Ml) 600 mg PO BID ROSETTE Last Admin: 06/21/24 20:29 Dose: 600 mg Magnesium Hydroxide (Milk Of Magnesia 30 Ml Oral.Susp) 30 ml PO DAILY PRN PRN Reason: Constipation Last Admin: 05/30/24 09:34 Dose: 30 ml Olanzapine (Olanzapine Odt 10 Mg Tab.Rapdis) 10 mg TRANSLINGU Q4H PRN PRN Reason: agitation Polyethylene Glycol (Polyethylene Glycol 3350 17 Gm Powd.Pack) 17 gm PO DAILY PRN PRN Reason: Constipation Last Admin: 06/03/24 08:49 Dose: 17 gm Trazodone HCl (Trazodone Hcl 50 Mg Tablet) 50 mg PO BEDTIME MRX1 PRN PRN Reason: Insomnia Last Admin: 06/18/24 22:19 Dose: 50 mg Allergies Allergies Allergy/AdvReac Type Severity Reaction Status Date / Time No Known Allergies Allergy Verified 04/23/24 13:03 Assessment & Plan Assessment & Plan (1) Bipolar disorder with psychotic features: Status: Acute Code(s): F31.9 - Bipolar disorder, unspecified Plan 04/25: contain, observe, educate. collect collateral info. 04/26: warrant has been issued for pt's arrest. 12b up tuesday. planning to discharge tuesday unless situation changes. prescribed abilify 5 mg daily, which pt is refusing. 04/27: refusing meds. no change in presentation. planning for discharge friday 03/30, when section 12b expires. student counseling at [facility] has been informed of the discharge plan by KELLY Agudelo. 04/29: No changes 04/30: refusing meds. frankly psychotic/manic today. disorganized thoughts, hyper-mormonism, labile, delusional, no sleep. accusing staff of witchcraft and trying to turn him into a woman. filed for commitment. kicked an exit door, prompting security to be called. 05/01: kicked exit doors again overnight, send me to [facility] or just shoot me. talking about hospital food being poisoned. i only account to hamzah. you are continuing your evil plans. refusing medications. refused to meet with gambling floor supervisor today. 05/02 continue tx. 05/03: loud, labile, exit-seeking. required med/phys restraint x 1 due to elopement attempt. demanding discharge. refusing meds. continue to offer meds. hearing scheduled for tuesday. 05/04: calm, trying to get into phone to get numbers. declining same numbers from KELLY Agudelo. sleeping in afternoon. slept most of evening and all NOC last night. 05/05 continue tx. pt declines medications. 05/[address]. 05/07: no change in presentation. 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 committed, ordered medications. 05/08: received IM meds as refused PO. believes we are trying to turn him into a woman. 05/09: asking to leave, saying he does not want meds. took PO invega this morning. dystonia this afternoon, invega DCed. took PO ativan, benadryl, cogentin. will attempt with lithium only for the time being, backed up by valium IM. seems less energetic, labile, hyper-mormonism today. 05/10: calm, but perseverative about discharge. taking lithium. continue current mgmt. paranoid delusions we are trying to turn him transgendered. remains focused on object of his stalking. 05/11: much more manic Sx today. re-trial of anti-psychotics. start with low-dose abilify with fluphenazine back-up. lithium switched to liquid formulation today. on 30 min CO after meds. 05/12: Continue current regimen and plans 05/13: Continue current regimen and plans 05/14: blocking MD's egress from room demanding immediate discharge. accepted thorazine 100 and ativan 2 PO. initial rapid pacing up and down the [place], eventually settled. check labs 05/16. 05/15: believes we are giving him medication to turn him into a woman, believes we are trying to get him to have sex with men. required restraint chair for court-ordered medication. required medications IM. 05/16: more subdued today. took meds PO last night and this morning. increase abilify to 15 mg daily. delay labs as pt has missed lithium dosing. 05/17: labs ordered. increase abilify dosing to 20 mg daily as of tomorrow. 05/18: refused labs. less labile and agitated. remains with paranoid delusions. labs ordered again. abilify to 25 mg tonight and 30 mg as of tomorrow night. 05/19: Continue current treatment plan. 05/20: Similar to yesterday's presentation. Continue current treatment plan. 05/21: refused PO meds this morning (took PO all w/e). received IMs. continue current mgmt. 05/22: refused PO last night and got IMs. took PO today. per collateral from KELLY Agudelo, improved insight, increased flexibility in thinking. continue current mgmt. 05/23: calm, appears tired. napping in the morning. PO meds. no singing in the past day. slept 8 hours. declining labs. continue current mgmt. 05/24: calm, quiet. no notable events or behaviors. continues far more subdued than prior. slept well. 05/25: stable presentation. continue current mgmt. 05/26 CTP 05/27 - some inapp behaviors with staff- keep on 5s, CTP 05/28: touching female RN on shoulders. some wandering into others' rooms. more logical and with more insight than ever previous in interacting with this typewriter ribbon winder. allowed lithium level, which is 0.8. labs otherwise reassuring. declined bowel regimen. continue current mgmt. 05/29: appears as yesterday. no notable events. labs reviewed with pt. decrease benadryl to 25 mg QHS. 05/30: DC benadryl. lower abilify from 30 mg QHS to 20 mg QHS due to sedation/confusion for past several days. slept 6.5 hours. appears flat, tired. 05/31: less sedated today. continue current mgmt. 06/01: as for yesterday. attempted to kiss female staff doing CO today. 06/02: appearing more awake than several days ago. c/o blurry vision, stuttering, brain being weakened. continue current mgmt. 06/03: appears more awake. no complaints. continue current mgmt. paying excessive attention to young female peer, making her uncomfortable. 06/04: stable presentation. continue current mgmt. T/C abilify STEVENSON soon. 06/05: declines to change lithium to tab form. had BM with lactulose. agrees to abilify STEVENSON. will give 400 mg IM tomorrow and DC PO abilify after 2 weeks. then continue 400 mg IM Q30 days from first STEVENSON. 06/06: continue current tx plan. 06/07: pt and KELLY Agudelo spoke with [facility] staff; school to send info to pt re disciplinary process. MD requested TE to speak with DA. no notable events or behaviors otherwise, continue current mgmt. 06/08: c/o blurry vision and tiredness. describing his mood as more stable than prior. continue current mgmt. 06/09 continue same treatment. 06/10 continue same treatment. 06/11: stable presentation. not providing consent to speak with DA, canceling his mtg with [place] therapist and police tomorrow. 06/12: per staff, broached the topic of people he loves and that he cannot mention one of their names. also alleging today, again, that the zoom hearing in which he was committed was illegal. informed he will remain here at least another several weeks to be able to assess how the transition from PO to STEVENSON antipsychotic is working. 06/13: refused lithium this morning, received valium IM. otherwise no notable behaviors since being changed from CO to Q5 min checks yesterday. continue current mgmt. PO abilify DCs 06/20. next maintenna 07/07. 06/14: no change in presentation. T/C increased IM dosing of abilify versus switch to another STEVENSON. appears inadequately treated. 06/15: minimizing his h/o psychotic Sx. denies he has mental illness. continue current mgmt for now. 06/16: Continue current management and treatment plan. 06/17: Continue current management and treatment plan. 06/18: appears stable, without psychotic Sx. continue current mgmt. 06/19: no change. continue current mgmt. tonight is last dose of HS abilify. 06/20: continue current mgmt. next IM abilify in 2 weeks. 06/21: continue current tx plan. 06/22: continue tx plan. Reason for continued inpatient stay Substantial Risk for: med/psych decompensation Time Spent With Patient Time: Total time managing care of this patient today _20___ minutes.
[2024-06-22] MEDS: Docusate Sodium 100 MG CAPSULE 200 MG PO ×2 (09:41→20:14)
[2024-06-22] MEDS: LITHIUM CITRATE 600 MG PO ×2 (09:41→20:14)
[2024-06-22 20:00] VITALS: RESP 18
[2024-06-23 08:00] VITALS: RESP 18
--- NOTE | 2024-06-23 08:03 | HO.PSYCHPN ---
Subjective Subjective Date of Service: 06/23/24 Reason For Visit: stalking behaviors Subjective Notes: Lopez Order and Section 8 Interim History: Keeping to self. guarded. In room, reading the Bible. Stated he wants discharge, but also aware of disposition plan and getting second injection of STEVENSON. Otherwise denies any issues or concerns. Medication Compliance: Yes Side effects from medications: No Attending Groups: No Review of Systems Acute medical concerns: No Review of Systems Review of Systems Unremarkable Mental Status Exam Mental Status Exam Narrative: adequately dressed and groomed. cooperative. no PMA/PMR. speech nml rate, nml amount. decr loudness, nml latency. thoughts linear, superficially logical. affect normo-intense, non-labile, constricted. mood euthymic. no SI/SIBI/HI/AVH expressed. Diagnostics Vital Signs (24Hr): Vital Signs - 24 hr 06/22/24 20:00 Respiratory Rate 18 BMI result Body Mass Index 26.2 Labs 04/23/24 13:06 05/28/24 13:24 Medications Medications Current Medications Acetaminophen (Acetaminophen 325 Mg Tablet) 650 mg PO Q6H PRN PRN Reason: Headache/Pain Mild Scale (1-3) Al Hydroxide/Mg Hydroxide (Magnesium Hydrox/Alum Hydrox 30 Ml Oral.Susp) 30 ml PO Q6H PRN PRN Reason: Heartburn/Nausea Aripiprazole (Aripiprazole Er 400 Mg Suser.Syr) 400 mg IM Q30D [facility] Last Admin: 06/06/24 09:34 Dose: 400 mg Diazepam (Diazepam 10 Mg/2 Ml Cartridge) 10 mg IM BID PRN PRN Reason: refusal of lithium or abilify Last Admin: 06/13/24 09:42 Dose: 10 mg Docusate Sodium (Docusate Sodium 100 Mg Capsule) 200 mg PO BID [facility] Last Admin: 06/22/24 20:14 Dose: 200 mg Fluphenazine HCl (Fluphenazine Hcl 2.5 Mg/Ml 10 Ml Vial) 5 mg IM DAILY PRN PRN Reason: refusal of PO abilify Last Admin: 05/21/24 22:48 Dose: 5 mg Hydroxyzine HCl (Hydroxyzine Hcl 25 Mg Tablet) 25 mg PO Q6H PRN PRN Reason: Anxiety Lactulose (Lactulose 20 Gm/30 Ml Solution) 30 gm PO DAILY PRN PRN Reason: Constipation Last Admin: 06/04/24 09:55 Dose: 30 gm [place] Citrate ([place] Citrate Oral Tierney 8 Meq (300 Mg)/5 Ml) 600 mg PO BID ROSETTE Last Admin: 06/22/24 20:14 Dose: 600 mg Magnesium Hydroxide (Milk Of Magnesia 30 Ml Oral.Susp) 30 ml PO DAILY PRN PRN Reason: Constipation Last Admin: 05/30/24 09:34 Dose: 30 ml Olanzapine (Olanzapine Odt 10 Mg Tab.Rapdis) 10 mg TRANSLINGU Q4H PRN PRN Reason: agitation Polyethylene Glycol (Polyethylene Glycol 3350 17 Gm Powd.Pack) 17 gm PO DAILY PRN PRN Reason: Constipation Last Admin: 06/03/24 08:49 Dose: 17 gm Trazodone HCl (Trazodone Hcl 50 Mg Tablet) 50 mg PO BEDTIME MRX1 PRN PRN Reason: Insomnia Last Admin: 06/18/24 22:19 Dose: 50 mg Allergies Allergies Allergy/AdvReac Type Severity Reaction Status Date / Time No Known Allergies Allergy Verified 04/23/24 13:03 Assessment & Plan Assessment & Plan (1) Bipolar disorder with psychotic features: Status: Acute Code(s): F31.9 - Bipolar disorder, unspecified Plan 04/25: contain, observe, educate. collect collateral info. 04/26: warrant has been issued for pt's arrest. 12b up tuesday. planning to discharge tuesday unless situation changes. prescribed abilify 5 mg daily, which pt is refusing. 04/27: refusing meds. no change in presentation. planning for discharge friday 03/30, when section 12b expires. student counseling at [facility] has been informed of the discharge plan by KELLY Agudelo. 04/29: No changes 04/30: refusing meds. frankly psychotic/manic today. disorganized thoughts, hyper-religion, labile, delusional, no sleep. accusing staff of witchcraft and trying to turn him into a woman. filed for commitment. kicked an exit door, prompting security to be called. 05/01: kicked exit doors again overnight, send me to custodial or just shoot me. talking about hospital food being poisoned. i only account to leif. you are continuing your evil plans. refusing medications. refused to meet with lather apprentice today. 05/02 continue tx. 05/03: loud, labile, exit-seeking. required med/phys restraint x 1 due to elopement attempt. demanding discharge. refusing meds. continue to offer meds. hearing scheduled for tuesday. 05/04: calm, trying to get into phone to get numbers. declining same numbers from KELLY Agudelo. sleeping in afternoon. slept most of evening and all NOC last night. 05/05 continue tx. pt declines medications. 05/[address] hearing. 05/07: no change in presentation. 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 committed, ordered medications. 05/08: received IM meds as refused PO. believes we are trying to turn him into a woman. 05/09: asking to leave, saying he does not want meds. took PO invega this morning. dystonia this afternoon, invega DCed. took PO ativan, benadryl, cogentin. will attempt with lithium only for the time being, backed up by valium IM. seems less energetic, labile, hyper-religion today. 05/10: calm, but perseverative about discharge. taking lithium. continue current mgmt. paranoid delusions we are trying to turn him transgendered. remains focused on object of his stalking. 05/11: much more manic Sx today. re-trial of anti-psychotics. start with low-dose abilify with fluphenazine back-up. lithium switched to liquid formulation today. on 30 min CO after meds. 05/12: Continue current regimen and plans 05/13: Continue current regimen and plans 05/14: blocking MD's egress from room demanding immediate discharge. accepted thorazine 100 and ativan 2 PO. initial rapid pacing up and down the [place], eventually settled. check labs 05/16. 05/15: believes we are giving him medication to turn him into a woman, believes we are trying to get him to have sex with men. required restraint chair for court-ordered medication. required medications IM. 05/16: more subdued today. took meds PO last night and this morning. increase abilify to 15 mg daily. delay labs as pt has missed lithium dosing. 05/17: labs ordered. increase abilify dosing to 20 mg daily as of tomorrow. 05/18: refused labs. less labile and agitated. remains with paranoid delusions. labs ordered again. abilify to 25 mg tonight and 30 mg as of tomorrow night. 05/19: Continue current treatment plan. 05/20: Similar to yesterday's presentation. Continue current treatment plan. 05/21: refused PO meds this morning (took PO all w/e). received IMs. continue current mgmt. 05/22: refused PO last night and got IMs. took PO today. per collateral from KELLY Agudelo, improved insight, increased flexibility in thinking. continue current mgmt. 05/23: calm, appears tired. napping in the morning. PO meds. no singing in the past day. slept 8 hours. declining labs. continue current mgmt. 05/24: calm, quiet. no notable events or behaviors. continues far more subdued than prior. slept well. 05/25: stable presentation. continue current mgmt. 05/26 CTP 05/27 - some inapp behaviors with staff- keep on 5s, CTP 05/28: touching female RN on shoulders. some wandering into others' rooms. more logical and with more insight than ever previous in interacting with this sheet writer. allowed lithium level, which is 0.8. labs otherwise reassuring. declined bowel regimen. continue current mgmt. 05/29: appears as yesterday. no notable events. labs reviewed with pt. decrease benadryl to 25 mg QHS. 05/30: DC benadryl. lower abilify from 30 mg QHS to 20 mg QHS due to sedation/confusion for past several days. slept 6.5 hours. appears flat, tired. 05/31: less sedated today. continue current mgmt. 06/01: as for yesterday. attempted to kiss female staff doing CO today. 06/02: appearing more awake than several days ago. c/o blurry vision, stuttering, brain being weakened. continue current mgmt. 06/03: appears more awake. no complaints. continue current mgmt. paying excessive attention to young female peer, making her uncomfortable. 06/04: stable presentation. continue current mgmt. T/C abilify STEVENSON soon. 06/05: declines to change lithium to tab form. had BM with lactulose. agrees to abilify STEVENSON. will give 400 mg IM tomorrow and DC PO abilify after 2 weeks. then continue 400 mg IM Q30 days from first STEVENSON. 06/06: continue current tx plan. 06/07: pt and KELLY Agudelo spoke with [facility] staff; school to send info to pt re disciplinary process. requested TE to speak with DA. no notable events or behaviors otherwise, continue current mgmt. 06/08: c/o blurry vision and tiredness. describing his mood as more stable than prior. continue current mgmt. 06/09 continue same treatment. 06/10 continue same treatment. 06/11: stable presentation. not providing consent to speak with DA, canceling his mtg with [place] therapist and police tomorrow. 06/12: per staff, broached the topic of people he loves and that he cannot mention one of their names. also alleging today, again, that the zoom hearing in which he was committed was illegal. informed he will remain here at least another several weeks to be able to assess how the transition from PO to STEVENSON antipsychotic is working. 06/13: refused lithium this morning, received valium IM. otherwise no notable behaviors since being changed from CO to Q5 min checks yesterday. continue current mgmt. PO abilify DCs 06/20. next maintenna 07/07. 06/14: no change in presentation. T/C increased IM dosing of abilify versus switch to another STEVENSON. appears inadequately treated. 06/15: minimizing his h/o psychotic Sx. denies he has mental illness. continue current mgmt for now. 06/16: Continue current management and treatment plan. 06/17: Continue current management and treatment plan. 06/18: appears stable, without psychotic Sx. continue current mgmt. 06/19: no change. continue current mgmt. tonight is last dose of HS abilify. 06/20: continue current mgmt. next IM abilify in 2 weeks. 06/21: continue current tx plan. 06/23: continue tx plan. Reason for continued inpatient stay Substantial Risk for: rapid decompensation Time Spent With Patient Time: Total time managing care of this patient today ____ minutes.
[2024-06-23] MEDS: LITHIUM CITRATE 600 MG PO ×2 (09:09→20:27)
[2024-06-23] MEDS: Docusate Sodium 100 MG CAPSULE 200 MG PO ×2 (09:09→20:28)
[2024-06-24] MEDS: LITHIUM CITRATE 600 MG PO ×2 (08:32→21:55)
[2024-06-24] MEDS: Docusate Sodium 100 MG CAPSULE 200 MG PO ×2 (08:32→21:56)
--- NOTE | 2024-06-24 10:25 | P.PNPSI_ITS ---
Subjective Subjective Date of Service: 06/24/24 Reason For Visit: stalking behaviors Interim History: Keeping to self. Guarded. In room, with exception of art group this morning so far. No significant changes- wants discharge, but also aware of disposition plan and getting second injection of STEVENSON. Otherwise denies any issues or concerns. Medication Compliance: Yes Side effects from medications: No Attending Groups: Intermittent Review of Systems Acute medical concerns: No Review of Systems Review of Systems Unremarkable Mental Status Exam Mental Status Exam Narrative: adequately dressed and groomed. cooperative. no PMA/PMR. speech nml rate, nml amount. decr loudness, nml latency. thoughts linear, superficially logical. affect normo-intense, non-labile, constricted. mood euthymic. no SI/SIBI/HI/AVH expressed. Diagnostics Vital Signs (24Hr): BMI result Body Mass Index 26.2 Labs 04/23/24 13:06 05/28/24 13:24 Medications Medications Current Medications Acetaminophen (Acetaminophen 325 Mg Tablet) 650 mg PO Q6H PRN PRN Reason: Headache/Pain Mild Scale (1-3) Al Hydroxide/Mg Hydroxide (Magnesium Hydrox/Alum Hydrox 30 Ml Oral.Susp) 30 ml PO Q6H PRN PRN Reason: Heartburn/Nausea Aripiprazole (Aripiprazole Er 400 Mg Suser.Syr) 400 mg IM Q30D [facility] Last Admin: 06/06/24 09:34 Dose: 400 mg Diazepam (Diazepam 10 Mg/2 Ml Cartridge) 10 mg IM BID PRN PRN Reason: refusal of lithium or abilify Last Admin: 06/13/24 09:42 Dose: 10 mg Docusate Sodium (Docusate Sodium 100 Mg Capsule) 200 mg PO BID [facility] Last Admin: 06/24/24 08:32 Dose: 200 mg Fluphenazine HCl (Fluphenazine Hcl 2.5 Mg/Ml 10 Ml Vial) 5 mg IM DAILY PRN PRN Reason: refusal of PO abilify Last Admin: 05/21/24 22:48 Dose: 5 mg Hydroxyzine HCl (Hydroxyzine Hcl 25 Mg Tablet) 25 mg PO Q6H PRN PRN Reason: Anxiety Lactulose (Lactulose 20 Gm/30 Ml Solution) 30 gm PO DAILY PRN PRN Reason: Constipation Last Admin: 06/04/24 09:55 Dose: 30 gm Enoch Citrate (Enoch Citrate Oral Tierney 8 Meq (300 Mg)/5 Ml) 600 mg PO BID [facility] Last Admin: 06/24/24 08:32 Dose: 600 mg Magnesium Hydroxide (Milk Of Magnesia 30 Ml Oral.Susp) 30 ml PO DAILY PRN PRN Reason: Constipation Last Admin: 05/30/24 09:34 Dose: 30 ml Olanzapine (Olanzapine Odt 10 Mg Tab.Rapdis) 10 mg TRANSLINGU Q4H PRN PRN Reason: agitation Polyethylene Glycol (Polyethylene Glycol 3350 17 Gm Powd.Pack) 17 gm PO DAILY PRN PRN Reason: Constipation Last Admin: 06/03/24 08:49 Dose: 17 gm Trazodone HCl (Trazodone Hcl 50 Mg Tablet) 50 mg PO BEDTIME MRX1 PRN PRN Reason: Insomnia Last Admin: 06/18/24 22:19 Dose: 50 mg Allergies Allergies Allergy/AdvReac Type Severity Reaction Status Date / Time No Known Allergies Allergy Verified 04/23/24 13:03 Assessment & Plan Assessment & Plan (1) Bipolar disorder with psychotic features: Status: Acute Code(s): F31.9 - Bipolar disorder, unspecified Plan 04/25: contain, observe, educate. collect collateral info. 04/26: warrant has been issued for pt's arrest. 12b up tuesday. planning to discharge tuesday unless situation changes. prescribed abilify 5 mg daily, which pt is refusing. 04/27: refusing meds. no change in presentation. planning for discharge friday 03/30, when section 12b expires. student counseling at [facility] has been informed of the discharge plan by KELLY Agudelo. 04/29: No changes 04/30: refusing meds. frankly psychotic/manic today. disorganized thoughts, hyper-worship, labile, delusional, no sleep. accusing staff of witchcraft and trying to turn him into a woman. filed for commitment. kicked an exit door, prompting security to be called. 05/01: kicked exit doors again overnight, send me to snf or just shoot me. talking about hospital food being poisoned. i only account to [facility]. you are continuing your evil plans. refusing medications. refused to meet with bar waiter/waitress today. 05/02 continue tx. 05/03: loud, labile, exit-seeking. required med/phys restraint x 1 due to elopement attempt. demanding discharge. refusing meds. continue to offer meds. hearing scheduled for tuesday. 05/04: calm, trying to get into phone to get numbers. declining same numbers from KELLY Agudelo. sleeping in afternoon. slept most of evening and all NOC last night. 05/05 continue tx. pt declines medications. 05/[address] hearing. 05/07: no change in presentation. reported [facility] and that the voice of hamzah was commanding him to preach. committed, ordered medications. 05/08: received IM meds as refused PO. believes we are trying to turn him into a woman. 05/09: asking to leave, saying he does not want meds. took PO invega this morning. dystonia this afternoon, invega DCed. took PO ativan, benadryl, cogentin. will attempt with lithium only for the time being, backed up by valium IM. seems less energetic, labile, hyper-worship today. 05/10: calm, but perseverative about discharge. taking lithium. continue current mgmt. paranoid delusions we are trying to turn him transgendered. remains focused on object of his stalking. 05/11: much more manic Sx today. re-trial of anti-psychotics. start with low- dose abilify with fluphenazine back-up. lithium switched to liquid formulation today. on 30 min CO after meds. 05/12: Continue current regimen and plans 05/13: Continue current regimen and plans 05/14: blocking MD's egress from room demanding immediate discharge. accepted thorazine 100 and ativan 2 PO. initial rapid pacing up and down the [place], eventually settled. check labs 05/16. 05/15: believes we are giving him medication to turn him into a woman, believes we are trying to get him to have sex with men. required restraint chair for court-ordered medication. required medications IM. 05/16: more subdued today. took meds PO last night and this morning. increase abilify to 15 mg daily. delay labs as pt has missed lithium dosing. 05/17: labs ordered. increase abilify dosing to 20 mg daily as of tomorrow. 05/18: refused labs. less labile and agitated. remains with paranoid delusions. labs ordered again. abilify to 25 mg tonight and 30 mg as of tomorrow night. 05/19: Continue current treatment plan. 05/20: Similar to yesterday's presentation. Continue current treatment plan. 05/21: refused PO meds this morning (took PO all w/e). received IMs. continue current mgmt. 05/22: refused PO last night and got IMs. took PO today. per collateral from KELLY Agudelo, improved insight, increased flexibility in thinking. continue current mgmt. 05/23: calm, appears tired. napping in the morning. PO meds. no singing in the past day. slept 8 hours. declining labs. continue current mgmt. 05/24: calm, quiet. no notable events or behaviors. continues far more subdued than prior. slept well. 05/25: stable presentation. continue current mgmt. 05/26 CTP 05/27 - some inapp behaviors with staff- keep on 5s, CTP 05/28: touching female RN on shoulders. some wandering into others' rooms. more logical and with more insight than ever previous in interacting with this chief underwriter. allowed lithium level, which is 0.8. labs otherwise reassuring. declined bowel regimen. continue current mgmt. 05/29: appears as yesterday. no notable events. labs reviewed with pt. decrease benadryl to 25 mg QHS. 05/30: DC benadryl. lower abilify from 30 mg QHS to 20 mg QHS due to sedation/confusion for past several days. slept 6.5 hours. appears flat, tired. 05/31: less sedated today. continue current mgmt. 06/01: as for yesterday. attempted to kiss female staff doing CO today. 06/02: appearing more awake than several days ago. c/o blurry vision, stuttering, brain being weakened. continue current mgmt. 06/03: appears more awake. no complaints. continue current mgmt. paying excessive attention to young female peer, making her uncomfortable. 06/04: stable presentation. continue current mgmt. T/C abilify STEVENSON soon. 06/05: declines to change lithium to tab form. had BM with lactulose. agrees to abilify STEVENSON. will give 400 mg IM tomorrow and DC PO abilify after 2 weeks. then continue 400 mg IM Q30 days from first STEVENSON. 06/06: continue current tx plan. 06/07: pt and KELLY Agudelo spoke with [facility] staff; school to send info to pt re disciplinary process. MD requested TE to speak with DA. no notable events or behaviors otherwise, continue current mgmt. 06/08: c/o blurry vision and tiredness. describing his mood as more stable than prior. continue current mgmt. 06/09 continue same treatment. 06/10 continue same treatment. 06/11: stable presentation. not providing consent to speak with DA, canceling his mtg with [place] therapist and police tomorrow. 06/12: per staff, broached the topic of people he loves and that he cannot mention one of their names. also alleging today, again, that the zoom hearing in which he was committed was illegal. informed he will remain here at least another several weeks to be able to assess how the transition from PO to STEVENSON antipsychotic is working. 06/13: refused lithium this morning, received valium IM. otherwise no notable behaviors since being changed from CO to Q5 min checks yesterday. continue current mgmt. PO abilify DCs 06/20. next maintenna 07/07. 06/14: no change in presentation. T/C increased IM dosing of abilify versus switch to another STEVENSON. appears inadequately treated. 06/15: minimizing his h/o psychotic Sx. denies he has mental illness. continue current mgmt for now. 06/16: Continue current management and treatment plan. 06/17: Continue current management and treatment plan. 06/18: appears stable, without psychotic Sx. continue current mgmt. 06/19: no change. continue current mgmt. tonight is last dose of HS abilify. 06/20: continue current mgmt. next IM abilify in 2 weeks. 06/21: continue current tx plan. 06/24: continue tx plan. Reason for continued inpatient stay Substantial Risk for: rapid decompensation Time Spent With Patient Time: Total time managing care of this patient today ____ minutes.
[2024-06-24 20:00] VITALS: RESP 16
[2024-06-25 08:00] VITALS: RESP 18
[2024-06-25] MEDS: Docusate Sodium 100 MG CAPSULE 200 MG PO ×2 (09:04→20:07)
[2024-06-25] MEDS: LITHIUM CITRATE 600 MG PO ×2 (09:05→20:07)
--- NOTE | 2024-06-25 10:19 | P.PNPSI_ITS ---
Subjective Subjective Date of Service: 06/25/24 Reason For Visit: stalking behaviors Subjective Notes: Section 8 Interim History: Pacing unit hallway. Singing loudly in sensory room. Keeping to self. Reading Bible in room. attending groups. Patient stated, the weekend was boring and I just want to leave here . Medication Compliance: Yes Side effects from medications: No Attending Groups: Yes Mental Status Exam Mental Status Exam Patient Appearance: Well Grooomed Patient Orientation: Person, Place and Situation Level of Consciousness: Awake and Alert Patient Behavior: Appropriate and Guarded Mood Description: Calm and Blunted Affect Description: Calm and Blunted Ability to Follow Directions: Good Speech Pattern: Clear Diagnostics Vital Signs (24Hr): Vital Signs - 24 hr 06/24/24 20:00 06/25/24 08:00 Respiratory Rate 16 18 BMI result Body Mass Index 26.2 Labs 04/23/24 13:06 05/28/24 13:24 Medications Medications Current Medications Acetaminophen (Acetaminophen 325 Mg Tablet) 650 mg PO Q6H PRN PRN Reason: Headache/Pain Mild Scale (1-3) Al Hydroxide/Mg Hydroxide (Magnesium Hydrox/Alum Hydrox 30 Ml Oral.Susp) 30 ml PO Q6H PRN PRN Reason: Heartburn/Nausea Aripiprazole (Aripiprazole Er 400 Mg Suser.Syr) 400 mg IM Q30D [facility] Last Admin: 06/06/24 09:34 Dose: 400 mg Diazepam (Diazepam 10 Mg/2 Ml Cartridge) 10 mg IM BID PRN PRN Reason: refusal of lithium or abilify Last Admin: 06/13/24 09:42 Dose: 10 mg Docusate Sodium (Docusate Sodium 100 Mg Capsule) 200 mg PO BID [facility] Last Admin: 06/25/24 09:04 Dose: 200 mg Fluphenazine HCl (Fluphenazine Hcl 2.5 Mg/Ml 10 Ml Vial) 5 mg IM DAILY PRN PRN Reason: refusal of PO abilify Last Admin: 05/21/24 22:48 Dose: 5 mg Hydroxyzine HCl (Hydroxyzine Hcl 25 Mg Tablet) 25 mg PO Q6H PRN PRN Reason: Anxiety Lactulose (Lactulose 20 Gm/30 Ml Solution) 30 gm PO DAILY PRN PRN Reason: Constipation Last Admin: 06/04/24 09:55 Dose: 30 gm [place] Citrate ([place] Citrate Oral Tierney 8 Meq (300 Mg)/5 Ml) 600 mg PO BID [facility] Last Admin: 06/25/24 09:05 Dose: 600 mg Magnesium Hydroxide (Milk Of Magnesia 30 Ml Oral.Susp) 30 ml PO DAILY PRN PRN Reason: Constipation Last Admin: 05/30/24 09:34 Dose: 30 ml Olanzapine (Olanzapine Odt 10 Mg Tab.Rapdis) 10 mg TRANSLINGU Q4H PRN PRN Reason: agitation Polyethylene Glycol (Polyethylene Glycol 3350 17 Gm Powd.Pack) 17 gm PO DAILY PRN PRN Reason: Constipation Last Admin: 06/03/24 08:49 Dose: 17 gm Trazodone HCl (Trazodone Hcl 50 Mg Tablet) 50 mg PO BEDTIME MRX1 PRN PRN Reason: Insomnia Last Admin: 06/18/24 22:19 Dose: 50 mg Allergies Allergies Allergy/AdvReac Type Severity Reaction Status Date / Time No Known Allergies Allergy Verified 04/23/24 13:03 Assessment & Plan Assessment & Plan (1) Bipolar disorder with psychotic features: Status: Acute Code(s): F31.9 - Bipolar disorder, unspecified Plan 04/25: contain, observe, educate. collect collateral info. 04/26: warrant has been issued for pt's arrest. 12b up tuesday. planning to discharge tuesday unless situation changes. prescribed abilify 5 mg daily, which pt is refusing. 04/27: refusing meds. no change in presentation. planning for discharge friday 03/30, when section 12b expires. student counseling at [facility] has been informed of the discharge plan by KELLY Agudelo. 04/29: No changes 04/30: refusing meds. frankly psychotic/manic today. disorganized thoughts, hyper-protestant, labile, delusional, no sleep. accusing staff of witchcraft and trying to turn him into a woman. filed for commitment. kicked an exit door, prompting security to be called. 05/01: kicked exit doors again overnight, send me to nursing home or just shoot me. talking about hospital food being poisoned. i only account to [facility]. you are continuing your evil plans. refusing medications. refused to meet with sales promotion officer today. 05/02 continue tx. 05/03: loud, labile, exit-seeking. required med/phys restraint x 1 due to elopement attempt. demanding discharge. refusing meds. continue to offer meds. hearing scheduled for tuesday. 05/04: calm, trying to get into phone to get numbers. declining same numbers from KELLY Agudelo. sleeping in afternoon. slept most of evening and all NOC last night. 05/05 continue tx. pt declines medications. 05/[address] hearing. 05/07: no change in presentation. reported he was the [facility] over the weekend and that the voice of hamzah was commanding him to preach. committed, ordered medications. 05/08: received IM meds as refused PO. believes we are trying to turn him into a woman. 05/09: asking to leave, saying he does not want meds. took PO invega this morning. dystonia this afternoon, invega DCed. took PO ativan, benadryl, cogentin. will attempt with lithium only for the time being, backed up by valium IM. seems less energetic, labile, hyper-protestant today. 05/10: calm, but perseverative about discharge. taking lithium. continue current mgmt. paranoid delusions we are trying to turn him transgendered. remains focused on object of his stalking. 05/11: much more manic Sx today. re-trial of anti-psychotics. start with low- dose abilify with fluphenazine back-up. lithium switched to liquid formulation today. on 30 min CO after meds. 05/12: Continue current regimen and plans 05/13: Continue current regimen and plans 05/14: blocking MD's egress from room demanding immediate discharge. accepted thorazine 100 and ativan 2 PO. initial rapid pacing up and down the [place], eventually settled. check labs 05/16. 05/15: believes we are giving him medication to turn him into a woman, believes we are trying to get him to have sex with men. required restraint chair for court-ordered medication. required medications IM. 05/16: more subdued today. took meds PO last night and this morning. increase abilify to 15 mg daily. delay labs as pt has missed lithium dosing. 05/17: labs ordered. increase abilify dosing to 20 mg daily as of tomorrow. 05/18: refused labs. less labile and agitated. remains with paranoid delusions. labs ordered again. abilify to 25 mg tonight and 30 mg as of tomorrow night. 05/19: Continue current treatment plan. 05/20: Similar to yesterday's presentation. Continue current treatment plan. 05/21: refused PO meds this morning (took PO all w/e). received IMs. continue current mgmt. 05/22: refused PO last night and got IMs. took PO today. per collateral from KELLY Agudelo, improved insight, increased flexibility in thinking. continue current mgmt. 05/23: calm, appears tired. napping in the morning. PO meds. no singing in the past day. slept 8 hours. declining labs. continue current mgmt. 05/24: calm, quiet. no notable events or behaviors. continues far more subdued than prior. slept well. 05/25: stable presentation. continue current mgmt. 05/26 CTP 10/ - some inapp behaviors with staff- keep on 5s, CTP 05/28: touching female RN on shoulders. some wandering into others' rooms. more logical and with more insight than ever previous in interacting with this life underwriter. allowed lithium level, which is 0.8. labs otherwise reassuring. declined bowel regimen. continue current mgmt. 05/29: appears as yesterday. no notable events. labs reviewed with pt. decrease benadryl to 25 mg QHS. 05/30: DC benadryl. lower abilify from 30 mg QHS to 20 mg QHS due to sedation/confusion for past several days. slept 6.5 hours. appears flat, tired. 05/31: less sedated today. continue current mgmt. 06/01: as for yesterday. attempted to kiss female staff doing CO today. 06/02: appearing more awake than several days ago. c/o blurry vision, stuttering, brain being weakened. continue current mgmt. 06/03: appears more awake. no complaints. continue current mgmt. paying excessive attention to young female peer, making her uncomfortable. 06/04: stable presentation. continue current mgmt. T/C abilify STEVENSON soon. 06/05: declines to change lithium to tab form. had BM with lactulose. agrees to abilify STEVENSON. will give 400 mg IM tomorrow and DC PO abilify after 2 weeks. then continue 400 mg IM Q30 days from first STEVENSON. 06/06: continue current tx plan. 06/07: pt and KELLY Agudelo spoke with [facility] staff; school to send info to pt re disciplinary process. requested TE to speak with DA. no notable events or behaviors otherwise, continue current mgmt. 06/08: c/o blurry vision and tiredness. describing his mood as more stable than prior. continue current mgmt. 06/09 continue same treatment. 06/10 continue same treatment. 06/11: stable presentation. not providing consent to speak with DA, canceling his mtg with [place] therapist and police tomorrow. 06/12: per staff, broached the topic of people he loves and that he cannot mention one of their names. also alleging today, again, that the zoom hearing in which he was committed was illegal. informed he will remain here at least another several weeks to be able to assess how the transition from PO to STEVENSON antipsychotic is working. 06/13: refused lithium this morning, received valium IM. otherwise no notable behaviors since being changed from CO to Q5 min checks yesterday. continue current mgmt. PO abilify DCs 06/20. next maintenna 07/07. 06/14: no change in presentation. T/C increased IM dosing of abilify versus switch to another STEVENSON. appears inadequately treated. 06/15: minimizing his h/o psychotic Sx. denies he has mental illness. continue current mgmt for now. 06/16: Continue current management and treatment plan. 06/17: Continue current management and treatment plan. 06/18: appears stable, without psychotic Sx. continue current mgmt. 06/19: no change. continue current mgmt. tonight is last dose of HS abilify. 06/20: continue current mgmt. next IM abilify in 2 weeks. 06/21: continue current tx plan. 06/24: continue tx plan. 06/25: continue current tx plan. Patient educated on: therapeutic strategies Reason for continued inpatient stay Substantial Risk for: med/psych decompensation Time Spent With Patient Time: Total time managing care of this patient today _20___ minutes.
[2024-06-25 20:05] VITALS: BP 132/72; PULSE 80; RESP 16; TEMP 36.9; O2SAT 100
[2024-06-26 07:33] VITALS: BP 124/63; PULSE 70; RESP 14; TEMP 36.6; O2SAT 100
[2024-06-26] MEDS: Docusate Sodium 100 MG CAPSULE 200 MG PO ×2 (08:52→20:47)
[2024-06-26] MEDS: LITHIUM CITRATE 600 MG PO ×2 (08:52→20:47)
--- NOTE | 2024-06-26 10:31 | P.PNPSI_ITS ---
Subjective Subjective Date of Service: 06/26/24 Reason For Visit: stalking behaviors Subjective Notes: Section 8 Interim History: Pt slept through the night. He is taking medications as prescribed, awaiting next STEVENSON. Pt appears with increase insight into psychiatric symptoms. He remembers this personal lines underwriter from earlier in the hospitalization when he believed he was the Sanju and needed to preach to others. He reports he no longer believes he is the Sanju. He also denies need for preaching. He reports he agrees with provider's asssessment that he has a mental illness and needs medications. He reports he plans [place] with his mother and brother. He asks if he can take STEVENSON sooner steele due date. Per nursing, no behavioral concerns. Review of Systems Review of Systems Unremarkable Yes all other systems are reviewed and are negative and Unobtainable due to mental status Constitutional: Reports as per HPI Eyes: Reports as per HPI Reports as per HPI Cardiovascular: Reports as per HPI Respiratory: Reports as per HPI Gastrointestinal: Reports as per HPI Genitourinary: Reports as per HPI Musculoskeletal: Reports as per HPI Skin/Breast: Reports as per HPI Reports as per HPI Psychiatric: Reports as per HPI Endocrine: Reports as per HPI Hematologic/Lymphatic: Reports as per HPI Allergic/Immunologic: Reports as per HPI Mental Status Exam Mental Status Exam Narrative: adequately dressed and groomed. cooperative. no PMA/PMR. speech nml rate, nml amount. decr loudness, nml latency. thoughts linear, more coherent. affect normo-intense, non-labile, constricted. mood euthymic. no SI/SIBI/HI/AVH expressed. No overt mandaen delusions but suspect some residual symptoms. Diagnostics Vital Signs (24Hr): Vital Signs - 24 hr 06/25/24 20:05 06/26/24 07:33 Temperature 98.5 F 97.9 F Pulse Rate 80 70 Respiratory Rate 16 14 Blood Pressure 132/72 124/63 Pulse Oximetry 100 100 Oxygen Delivery Method Room Air BMI result Body Mass Index 26.2 Labs 04/23/24 13:06 05/28/24 13:24 Medications Medications Current Medications Acetaminophen (Acetaminophen 325 Mg Tablet) 650 mg PO Q6H PRN PRN Reason: Headache/Pain Mild Scale (1-3) Al Hydroxide/Mg Hydroxide (Magnesium Hydrox/Alum Hydrox 30 Ml Oral.Susp) 30 ml PO Q6H PRN PRN Reason: Heartburn/Nausea Aripiprazole (Aripiprazole Er 400 Mg Suser.Syr) 400 mg IM Q30D [facility] Last Admin: 06/06/24 09:34 Dose: 400 mg Diazepam (Diazepam 10 Mg/2 Ml Cartridge) 10 mg IM BID PRN PRN Reason: refusal of lithium or abilify Last Admin: 06/13/24 09:42 Dose: 10 mg Docusate Sodium (Docusate Sodium 100 Mg Capsule) 200 mg PO BID [facility] Last Admin: 06/26/24 08:52 Dose: 200 mg Fluphenazine HCl (Fluphenazine Hcl 2.5 Mg/Ml 10 Ml Vial) 5 mg IM DAILY PRN PRN Reason: refusal of PO abilify Last Admin: 05/21/24 22:48 Dose: 5 mg Hydroxyzine HCl (Hydroxyzine Hcl 25 Mg Tablet) 25 mg PO Q6H PRN PRN Reason: Anxiety Lactulose (Lactulose 20 Gm/30 Ml Solution) 30 gm PO DAILY PRN PRN Reason: Constipation Last Admin: 06/04/24 09:55 Dose: 30 gm [place] Citrate ([place] Citrate Oral Tierney 8 Meq (300 Mg)/5 Ml) 600 mg PO BID [facility] Last Admin: 06/26/24 08:52 Dose: 600 mg Magnesium Hydroxide (Milk Of Magnesia 30 Ml Oral.Susp) 30 ml PO DAILY PRN PRN Reason: Constipation Last Admin: 05/30/24 09:34 Dose: 30 ml Olanzapine (Olanzapine Odt 10 Mg Tab.Rapdis) 10 mg TRANSLINGU Q4H PRN PRN Reason: agitation Polyethylene Glycol (Polyethylene Glycol 3350 17 Gm Powd.Pack) 17 gm PO DAILY PRN PRN Reason: Constipation Last Admin: 06/03/24 08:49 Dose: 17 gm Trazodone HCl (Trazodone Hcl 50 Mg Tablet) 50 mg PO BEDTIME MRX1 PRN PRN Reason: Insomnia Last Admin: 06/18/24 22:19 Dose: 50 mg Allergies Allergies Allergy/AdvReac Type Severity Reaction Status Date / Time No Known Allergies Allergy Verified 04/23/24 13:03 Assessment & Plan Assessment & Plan (1) Bipolar disorder with psychotic features: Status: Acute Code(s): F31.9 - Bipolar disorder, unspecified Plan 9/4: contain, observe, educate. collect collateral info. 04/26: warrant has been issued for pt's arrest. 12b up tuesday. planning to discharge tuesday unless situation changes. prescribed abilify 5 mg daily, which pt is refusing. 04/27: refusing meds. no change in presentation. planning for discharge friday 03/30, when section 12b expires. student counseling at [facility] has been informed of the discharge plan by KELLY Agudelo. 04/29: No changes 04/30: refusing meds. frankly psychotic/manic today. disorganized thoughts, hyper-mandaen, labile, delusional, no sleep. accusing staff of witchcraft and trying to turn him into a woman. filed for commitment. kicked an exit door, prompting security to be called. 05/01: kicked exit doors again overnight, send me to residential or just shoot me. talking about hospital food being poisoned. i only account to hamzah. you are continuing your evil plans. refusing medications. refused to meet with unbundler today. 05/02 continue tx. 05/03: loud, labile, exit-seeking. required med/phys restraint x 1 due to elopement attempt. demanding discharge. refusing meds. continue to offer meds. hearing scheduled for tuesday. 05/04: calm, trying to get into phone to get numbers. declining same numbers from KELLY Agudelo. sleeping in afternoon. slept most of evening and all NOC last night. 05/05 continue tx. pt declines medications. 05/[address] hearing. 05/07: no change in presentation. reported he was the [facility] over the weekend and that the voice of hamzah was commanding him to preach. committed, ordered medications. 05/08: received IM meds as refused PO. believes we are trying to turn him into a woman. 05/09: asking to leave, saying he does not want meds. took PO invega this morning. dystonia this afternoon, invega DCed. took PO ativan, benadryl, cogentin. will attempt with lithium only for the time being, backed up by valium IM. seems less energetic, labile, hyper-mandaen today. 05/10: calm, but perseverative about discharge. taking lithium. continue current mgmt. paranoid delusions we are trying to turn him transgendered. remains focused on object of his stalking. 05/11: much more manic Sx today. re-trial of anti-psychotics. start with low- dose abilify with fluphenazine back-up. lithium switched to liquid formulation today. on 30 min CO after meds. 05/12: Continue current regimen and plans 05/13: Continue current regimen and plans 05/14: blocking MD's egress from room demanding immediate discharge. accepted thorazine 100 and ativan 2 PO. initial rapid pacing up and down the [place], eventually settled. check labs 05/16. 05/15: believes we are giving him medication to turn him into a woman, believes we are trying to get him to have sex with men. required restraint chair for court-ordered medication. required medications IM. 05/16: more subdued today. took meds PO last night and this morning. increase abilify to 15 mg daily. delay labs as pt has missed lithium dosing. 05/17: labs ordered. increase abilify dosing to 20 mg daily as of tomorrow. 05/18: refused labs. less labile and agitated. remains with paranoid delusions. labs ordered again. abilify to 25 mg tonight and 30 mg as of tomorrow night. 05/19: Continue current treatment plan. 05/20: Similar to yesterday's presentation. Continue current treatment plan. 05/21: refused PO meds this morning (took PO all w/e). received IMs. continue current mgmt. 05/22: refused PO last night and got IMs. took PO today. per collateral from KELLY Agudelo, improved insight, increased flexibility in thinking. continue current mgmt. 05/23: calm, appears tired. napping in the morning. PO meds. no singing in the past day. slept 8 hours. declining labs. continue current mgmt. 05/24: calm, quiet. no notable events or behaviors. continues far more subdued than prior. slept well. 05/25: stable presentation. continue current mgmt. 05/26 CTP 10/6 - some inapp behaviors with staff- keep on 5s, CTP 05/28: touching female RN on shoulders. some wandering into others' rooms. more logical and with more insight than ever previous in interacting with this personal lines underwriter. allowed lithium level, which is 0.8. labs otherwise reassuring. declined bowel regimen. continue current mgmt. 05/29: appears as yesterday. no notable events. labs reviewed with pt. decrease benadryl to 25 mg QHS. 05/30: DC benadryl. lower abilify from 30 mg QHS to 20 mg QHS due to sedation/confusion for past several days. slept 6.5 hours. appears flat, tired. 05/31: less sedated today. continue current mgmt. 06/01: as for yesterday. attempted to kiss female staff doing CO today. 06/02: appearing more awake than several days ago. c/o blurry vision, stuttering, brain being weakened. continue current mgmt. 06/03: appears more awake. no complaints. continue current mgmt. paying excessive attention to young female peer, making her uncomfortable. 06/04: stable presentation. continue current mgmt. T/C abilify STEVENSON soon. 06/05: declines to change lithium to tab form. had BM with lactulose. agrees to abilify STEVENSON. will give 400 mg IM tomorrow and DC PO abilify after 2 weeks. then continue 400 mg IM Q30 days from first STEVENSON. 06/06: continue current tx plan. 06/07: pt and KELLY Agudelo spoke with [facility] [employer] staff; school to send info to pt re disciplinary process. MD requested TE to speak with DA. no notable events or behaviors otherwise, continue current mgmt. 06/08: c/o blurry vision and tiredness. describing his mood as more stable than prior. continue current mgmt. 06/09 continue same treatment. 06/10 continue same treatment. 06/11: stable presentation. not providing consent to speak with DA, canceling his mtg with [place] [facility] therapist and police tomorrow. 06/12: per staff, broached the topic of people he loves and that he cannot mention one of their names. also alleging today, again, that the zoom hearing in which he was committed was illegal. informed he will remain here at least another several weeks to be able to assess how the transition from PO to STEVENSON antipsychotic is working. 06/13: refused lithium this morning, received valium IM. otherwise no notable behaviors since being changed from CO to Q5 min checks yesterday. continue current mgmt. PO abilify DCs 06/20. next maintenna 07/07. 06/14: no change in presentation. T/C increased IM dosing of abilify versus switch to another STEVENSON. appears inadequately treated. 06/15: minimizing his h/o psychotic Sx. denies he has mental illness. continue current mgmt for now. 06/16: Continue current management and treatment plan. 06/17: Continue current management and treatment plan. 06/18: appears stable, without psychotic Sx. continue current mgmt. 06/19: no change. continue current mgmt. tonight is last dose of HS abilify. 06/20: continue current mgmt. next IM abilify in 2 weeks. 06/21: continue current tx plan. 06/24: continue tx plan. 06/25: continue current tx plan. 06/26 continue tx. Abilify STEVENSON can be given as early as 26 days from last IM. He last received abilify on 06/06/24, can be given earliest on 07/01/24. Reason for continued inpatient stay Substantial Risk for: inability to function Time Spent With Patient Time: Total time managing care of this patient today ____ minutes.
[2024-06-26 20:00] VITALS: RESP 16
[2024-06-27 08:00] VITALS: BP 131/84; PULSE 73; RESP 15; RESP 16; TEMP 36.6; O2SAT 100
[2024-06-27] MEDS: Docusate Sodium 100 MG CAPSULE 200 MG PO ×2 (08:49→20:34)
[2024-06-27] MEDS: LITHIUM CITRATE 600 MG PO ×2 (08:49→20:35)
--- NOTE | 2024-06-27 13:08 | P.PNPSI_ITS ---
Subjective Subjective Date of Service: 06/27/24 Reason For Visit: stalking behaviors Subjective Notes: Section 8 Interim History: Pt slept through the night. He has been mostly in his room, but visible for meals and some teams. He reports he no longer believes he is the Sanju. He also denies need for preaching. He reports he agrees with provider's assessment that he has a mental illness and needs medications. He reports he plans to [place] to [place] with his mother and brother. He asks again if he can take STEVENSON sooner than due date. Per nursing, no behavioral concerns. Review of Systems Review of Systems Unremarkable Yes all other systems are reviewed and are negative and Unobtainable due to mental status Constitutional: Reports as per HPI Eyes: Reports as per HPI Reports as per HPI Cardiovascular: Reports as per HPI Respiratory: Reports as per HPI Gastrointestinal: Reports as per HPI Genitourinary: Reports as per HPI Musculoskeletal: Reports as per HPI Skin/Breast: Reports as per HPI Reports as per HPI Psychiatric: Reports as per HPI Endocrine: Reports as per HPI Hematologic/Lymphatic: Reports as per HPI Allergic/Immunologic: Reports as per HPI Mental Status Exam Mental Status Exam Narrative: adequately dressed and groomed. cooperative. no PMA/PMR. speech nml rate, nml amount. decr loudness, nml latency. thoughts linear, more coherent. affect normo-intense, non-labile, constricted. mood euthymic. no SI/SIBI/HI/AVH expressed. No overt advent delusions but suspect some residual symptoms. Diagnostics Vital Signs (24Hr): Vital Signs - 24 hr 06/26/24 20:00 06/27/24 08:00 06/27/24 08:00 Temperature 97.9 F 97.9 F Pulse Rate 73 73 Respiratory Rate 16 15 16 Blood Pressure 131/84 131/84 Pulse Oximetry 100 100 Oxygen Delivery Method Room Air Room Air BMI result Body Mass Index 26.2 Labs 04/23/24 13:06 05/28/24 13:24 Medications Medications Current Medications Acetaminophen (Acetaminophen 325 Mg Tablet) 650 mg PO Q6H PRN PRN Reason: Headache/Pain Mild Scale (1-3) Al Hydroxide/Mg Hydroxide (Magnesium Hydrox/Alum Hydrox 30 Ml Oral.Susp) 30 ml PO Q6H PRN PRN Reason: Heartburn/Nausea Aripiprazole (Aripiprazole Er 400 Mg Suser.Syr) 400 mg IM Q30D [facility] Last Admin: 06/06/24 09:34 Dose: 400 mg Diazepam (Diazepam 10 Mg/2 Ml Cartridge) 10 mg IM BID PRN PRN Reason: refusal of lithium or abilify Last Admin: 06/13/24 09:42 Dose: 10 mg Docusate Sodium (Docusate Sodium 100 Mg Capsule) 200 mg PO BID [facility] Last Admin: 06/27/24 08:49 Dose: 200 mg Fluphenazine HCl (Fluphenazine Hcl 2.5 Mg/Ml 10 Ml Vial) 5 mg IM DAILY PRN PRN Reason: refusal of PO abilify Last Admin: 05/21/24 22:48 Dose: 5 mg Hydroxyzine HCl (Hydroxyzine Hcl 25 Mg Tablet) 25 mg PO Q6H PRN PRN Reason: Anxiety Lactulose (Lactulose 20 Gm/30 Ml Solution) 30 gm PO DAILY PRN PRN Reason: Constipation Last Admin: 06/04/24 09:55 Dose: 30 gm [place] Citrate ([place] Citrate Oral Tierney 8 Meq (300 Mg)/5 Ml) 600 mg PO BID [facility] Last Admin: 06/27/24 08:49 Dose: 600 mg Magnesium Hydroxide (Milk Of Magnesia 30 Ml Oral.Susp) 30 ml PO DAILY PRN PRN Reason: Constipation Last Admin: 05/30/24 09:34 Dose: 30 ml Olanzapine (Olanzapine Odt 10 Mg Tab.Rapdis) 10 mg TRANSLINGU Q4H PRN PRN Reason: agitation Polyethylene Glycol (Polyethylene Glycol 3350 17 Gm Powd.Pack) 17 gm PO DAILY PRN PRN Reason: Constipation Last Admin: 06/03/24 08:49 Dose: 17 gm Trazodone HCl (Trazodone Hcl 50 Mg Tablet) 50 mg PO BEDTIME MRX1 PRN PRN Reason: Insomnia Last Admin: 06/18/24 22:19 Dose: 50 mg Allergies Allergies Allergy/AdvReac Type Severity Reaction Status Date / Time No Known Allergies Allergy Verified 04/23/24 13:03 Assessment & Plan Assessment & Plan (1) Bipolar disorder with psychotic features: Status: Acute Code(s): F31.9 - Bipolar disorder, unspecified Plan 04/25: contain, observe, educate. collect collateral info. 04/26: warrant has been issued for pt's arrest. 12b up tuesday. planning to discharge tuesday unless situation changes. prescribed abilify 5 mg daily, which pt is refusing. 04/27: refusing meds. no change in presentation. planning for discharge friday 03/30, when section 12b expires. student counseling at [facility] has been informed of the discharge plan by KELLY Agudelo. 04/29: No changes 04/30: refusing meds. frankly psychotic/manic today. disorganized thoughts, hyper-advent, labile, delusional, no sleep. accusing staff of witchcraft and trying to turn him into a woman. filed for commitment. kicked an exit door, prompting security to be called. 05/01: kicked exit doors again overnight, send me to skilled nursing or just shoot me. talking about hospital food being poisoned. i only account to hamzah. you are continuing your evil plans. refusing medications. refused to meet with trial lawyer today. 05/02 continue tx. 05/03: loud, labile, exit-seeking. required med/phys restraint x 1 due to elopement attempt. demanding discharge. refusing meds. continue to offer meds. hearing scheduled for tuesday. 05/04: calm, trying to get into phone to get numbers. declining same numbers from KELLY Agudelo. sleeping in afternoon. slept most of evening and all NOC last night. 05/05 continue tx. pt declines medications. 05/[address] hearing. 05/07: no change in presentation. reported he was the [facility] over the weekend and that the voice of hamzah was commanding him to preach. committed, ordered medications. 05/08: received IM meds as refused PO. believes we are trying to turn him into a woman. 05/09: asking to leave, saying he does not want meds. took PO invega this morning. dystonia this afternoon, invega DCed. took PO ativan, benadryl, cogentin. will attempt with lithium only for the time being, backed up by valium IM. seems less energetic, labile, hyper-advent today. 05/10: calm, but perseverative about discharge. taking lithium. continue current mgmt. paranoid delusions we are trying to turn him transgendered. remains focused on object of his stalking. 05/11: much more manic Sx today. re-trial of anti-psychotics. start with low- dose abilify with fluphenazine back-up. lithium switched to liquid formulation today. on 30 min CO after meds. 05/12: Continue current regimen and plans 05/13: Continue current regimen and plans 05/14: blocking MD's egress from room demanding immediate discharge. accepted thorazine 100 and ativan 2 PO. initial rapid pacing up and down the [place], eventually settled. check labs 05/16. 05/15: believes we are giving him medication to turn him into a woman, believes we are trying to get him to have sex with men. required restraint chair for court-ordered medication. required medications IM. 05/16: more subdued today. took meds PO last night and this morning. increase abilify to 15 mg daily. delay labs as pt has missed lithium dosing. 05/17: labs ordered. increase abilify dosing to 20 mg daily as of tomorrow. 05/18: refused labs. less labile and agitated. remains with paranoid delusions. labs ordered again. abilify to 25 mg tonight and 30 mg as of tomorrow night. 05/19: Continue current treatment plan. 05/20: Similar to yesterday's presentation. Continue current treatment plan. 05/21: refused PO meds this morning (took PO all w/e). received IMs. continue current mgmt. 05/22: refused PO last night and got IMs. took PO today. per collateral from KELLY Agudelo, improved insight, increased flexibility in thinking. continue current mgmt. 05/23: calm, appears tired. napping in the morning. PO meds. no singing in the past day. slept 8 hours. declining labs. continue current mgmt. 05/24: calm, quiet. no notable events or behaviors. continues far more subdued than prior. slept well. 05/25: stable presentation. continue current mgmt. 05/26 CTP /6 - some inapp behaviors with staff- keep on 5s, CTP 05/28: touching female RN on shoulders. some wandering into others' rooms. more logical and with more insight than ever previous in interacting with this engineering technical writer. allowed lithium level, which is 0.8. labs otherwise reassuring. declined bowel regimen. continue current mgmt. 05/29: appears as yesterday. no notable events. labs reviewed with pt. decrease benadryl to 25 mg QHS. 05/30: DC benadryl. lower abilify from 30 mg QHS to 20 mg QHS due to sedation/confusion for past several days. slept 6.5 hours. appears flat, tired. 05/31: less sedated today. continue current mgmt. 06/01: as for yesterday. attempted to kiss female staff doing CO today. 06/02: appearing more awake than several days ago. c/o blurry vision, stuttering, brain being weakened. continue current mgmt. 06/03: appears more awake. no complaints. continue current mgmt. paying excessive attention to young female peer, making her uncomfortable. 06/04: stable presentation. continue current mgmt. T/C abilify STEVENSON soon. 06/05: declines to change lithium to tab form. had BM with lactulose. agrees to abilify STEVENSON. will give 400 mg IM tomorrow and DC PO abilify after 2 weeks. then continue 400 mg IM Q30 days from first STEVENSON. 06/06: continue current tx plan. 06/07: pt and KELLY Agudelo spoke with [employer] staff; school to send info to pt re disciplinary process. requested TE to speak with DA. no notable events or behaviors otherwise, continue current mgmt. 06/08: c/o blurry vision and tiredness. describing his mood as more stable than prior. continue current mgmt. 06/09 continue same treatment. 06/10 continue same treatment. 06/11: stable presentation. not providing consent to speak with DA, canceling his mtg with [employer] therapist and police tomorrow. 06/12: per staff, broached the topic of people he loves and that he cannot mention one of their names. also alleging today, again, that the zoom hearing in which he was committed was illegal. informed he will remain here at least another several weeks to be able to assess how the transition from PO to STEVENSON antipsychotic is working. 06/13: refused lithium this morning, received valium IM. otherwise no notable behaviors since being changed from CO to Q5 min checks yesterday. continue current mgmt. PO abilify DCs 06/20. next maintenna 07/07. 06/14: no change in presentation. T/C increased IM dosing of abilify versus switch to another STEVENSON. appears inadequately treated. 06/15: minimizing his h/o psychotic Sx. denies he has mental illness. continue current mgmt for now. 06/16: Continue current management and treatment plan. 06/17: Continue current management and treatment plan. 06/18: appears stable, without psychotic Sx. continue current mgmt. 06/19: no change. continue current mgmt. tonight is last dose of HS abilify. 06/20: continue current mgmt. next IM abilify in 2 weeks. 06/21: continue current tx plan. 06/24: continue tx plan. 06/25: continue current tx plan. 06/26 continue tx. Abilify STEVENSON can be given as early as 26 days from last IM. He last received abilify on 06/06/24, can be given earliest on 07/01/24. 06/27 continue tx. may consider giving STEVENSON abilify on 07/01/2024 Reason for continued inpatient stay Substantial Risk for: inability to function Time Spent With Patient Time: Total time managing care of this patient today ____ minutes.
[2024-06-27 19:05] VITALS: BP 122/62; PULSE 77; RESP 16; TEMP 36.2; O2SAT 99
[2024-06-28 07:00] VITALS: BMI 26.8
[2024-06-28 08:00] VITALS: BP 117/65; PULSE 66; RESP 16; TEMP 37.3; O2SAT 100
[2024-06-28] MEDS: LITHIUM CITRATE 600 MG PO ×2 (09:24→20:39)
[2024-06-28] MEDS: Docusate Sodium 100 MG CAPSULE 200 MG PO ×2 (09:24→20:39)
--- NOTE | 2024-06-28 11:07 | PC.NURSE ---
Patient accepted AM medication without difficulty. Engaged in game of cards with contract technical writer, stated he was calm. Approximately 1 hour later patient observed to carry the chair from his room over his head and threw it at the door. Repeatedly stating he wants to leave. Patient difficult to direct away from door. Security called to floor, Dr. Robin notified, requested he meet with patient. Dr. Robin met with patient without further incidence. ,
--- NOTE | 2024-06-28 14:00 | P.PNPSI_ITS ---
Subjective Subjective Date of Service: 06/28/24 Reason For Visit: stalking behaviors Interim History: agitated, threw chair at exit door today. demanding discharge. MD arrived on unit, pt surrounded by and security staff. pt able to remove himself from the area of conflict and retreat to interview room for discussion with MD. pt feels he should have been discharged by now. discuss discharge date of next , to receive STEVENSON and then DC. pt appeared mollified by the plan. per staff, otherwise has had no behavioral incidents in the past week. Mental Status Exam Mental Status Exam Narrative: adequately dressed and groomed. cooperative. no PMA/PMR. speech nml rate, nml amount. decr loudness, nml latency. thoughts linear, logical. affect hyper- intense, non-labile, constricted. mood angry. no SI/SIBI/HI/AVH expressed. Diagnostics Vital Signs (24Hr): Vital Signs - 24 hr 06/27/24 19:05 06/28/24 08:00 Temperature 97.2 F 99.1 F Pulse Rate 77 66 Respiratory Rate 16 16 Blood Pressure 122/62 117/65 Pulse Oximetry 99 100 Oxygen Delivery Method Room Air Room Air BMI result Body Mass Index 26.8 Labs 04/23/24 13:06 05/28/24 13:24 Medications Medications Current Medications Acetaminophen (Acetaminophen 325 Mg Tablet) 650 mg PO Q6H PRN PRN Reason: Headache/Pain Mild Scale (1-3) Al Hydroxide/Mg Hydroxide (Magnesium Hydrox/Alum Hydrox 30 Ml Oral.Susp) 30 ml PO Q6H PRN PRN Reason: Heartburn/Nausea Aripiprazole (Aripiprazole Er 400 Mg Suser.Syr) 400 mg IM Q30D [facility] Last Admin: 06/06/24 09:34 Dose: 400 mg Diazepam (Diazepam 10 Mg/2 Ml Cartridge) 10 mg IM BID PRN PRN Reason: refusal of lithium or abilify Last Admin: 06/13/24 09:42 Dose: 10 mg Docusate Sodium (Docusate Sodium 100 Mg Capsule) 200 mg PO BID [facility] Last Admin: 06/28/24 09:24 Dose: 200 mg Fluphenazine HCl (Fluphenazine Hcl 2.5 Mg/Ml 10 Ml Vial) 5 mg IM DAILY PRN PRN Reason: refusal of PO abilify Last Admin: 05/21/24 22:48 Dose: 5 mg Hydroxyzine HCl (Hydroxyzine Hcl 25 Mg Tablet) 25 mg PO Q6H PRN PRN Reason: Anxiety Lactulose (Lactulose 20 Gm/30 Ml Solution) 30 gm PO DAILY PRN PRN Reason: Constipation Last Admin: 06/04/24 09:55 Dose: 30 gm Effort Citrate (Effort Citrate Oral Tierney 8 Meq (300 Mg)/5 Ml) 600 mg PO BID [facility] Last Admin: 06/28/24 09:24 Dose: 600 mg Magnesium Hydroxide (Milk Of Magnesia 30 Ml Oral.Susp) 30 ml PO DAILY PRN PRN Reason: Constipation Last Admin: 05/30/24 09:34 Dose: 30 ml Olanzapine (Olanzapine Odt 10 Mg Tab.Rapdis) 10 mg TRANSLINGU Q4H PRN PRN Reason: agitation Polyethylene Glycol (Polyethylene Glycol 3350 17 Gm Powd.Pack) 17 gm PO DAILY PRN PRN Reason: Constipation Last Admin: 06/03/24 08:49 Dose: 17 gm Trazodone HCl (Trazodone Hcl 50 Mg Tablet) 50 mg PO BEDTIME MRX1 PRN PRN Reason: Insomnia Last Admin: 06/18/24 22:19 Dose: 50 mg Allergies Allergies Allergy/AdvReac Type Severity Reaction Status Date / Time No Known Allergies Allergy Verified 04/23/24 13:03 Assessment & Plan Assessment & Plan (1) Bipolar disorder with psychotic features: Status: Acute Code(s): F31.9 - Bipolar disorder, unspecified Plan 04/25: contain, observe, educate. collect collateral info. 04/26: warrant has been issued for pt's arrest. 12b up tuesday. planning to discharge tuesday unless situation changes. prescribed abilify 5 mg daily, which pt is refusing. 04/27: refusing meds. no change in presentation. planning for discharge friday 03/30, when section 12b expires. student counseling at [facility] has been informed of the discharge plan by KELLY Agudelo. 04/29: No changes 04/30: refusing meds. frankly psychotic/manic today. disorganized thoughts, hyper-zoroastrianism, labile, delusional, no sleep. accusing staff of witchcraft and trying to turn him into a woman. filed for commitment. kicked an exit door, prompting security to be called. 05/01: kicked exit doors again overnight, send me to [facility] or just shoot me. talking about hospital food being poisoned. i only account to [facility]. you are continuing your evil plans. refusing medications. refused to meet with comic illustrator today. 05/02 continue tx. 05/03: loud, labile, exit-seeking. required med/phys restraint x 1 due to elopement attempt. demanding discharge. refusing meds. continue to offer meds. hearing scheduled for tuesday. 05/04: calm, trying to get into phone to get numbers. declining same numbers from KELLY Agudelo. sleeping in afternoon. slept most of evening and all NOC last night. 05/05 continue tx. pt declines medications. 05/[address]. 05/07: no change in presentation. 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 committed, ordered medications. 05/08: received IM meds as refused PO. believes we are trying to turn him into a woman. 05/09: asking to leave, saying he does not want meds. took PO invega this morning. dystonia this afternoon, invega DCed. took PO ativan, benadryl, cogentin. will attempt with lithium only for the time being, backed up by valium IM. seems less energetic, labile, hyper-zoroastrianism today. 05/10: calm, but perseverative about discharge. taking lithium. continue current mgmt. paranoid delusions we are trying to turn him transgendered. remains focused on object of his stalking. 05/11: much more manic Sx today. re-trial of anti-psychotics. start with low- dose abilify with fluphenazine back-up. lithium switched to liquid formulation today. on 30 min CO after meds. 05/12: Continue current regimen and plans 05/13: Continue current regimen and plans 05/14: blocking MD's egress from room demanding immediate discharge. accepted thorazine 100 and ativan 2 PO. initial rapid pacing up and down the [place], eventually settled. check labs 05/16. 05/15: believes we are giving him medication to turn him into a woman, believes we are trying to get him to have sex with men. required restraint chair for court-ordered medication. required medications IM. 05/16: more subdued today. took meds PO last night and this morning. increase abilify to 15 mg daily. delay labs as pt has missed lithium dosing. 05/17: labs ordered. increase abilify dosing to 20 mg daily as of tomorrow. 05/18: refused labs. less labile and agitated. remains with paranoid delusions. labs ordered again. abilify to 25 mg tonight and 30 mg as of tomorrow night. 05/19: Continue current treatment plan. 05/20: Similar to yesterday's presentation. Continue current treatment plan. 05/21: refused PO meds this morning (took PO all w/e). received IMs. continue current mgmt. 05/22: refused PO last night and got IMs. took PO today. per collateral from KELLY Agudelo, improved insight, increased flexibility in thinking. continue current mgmt. 05/23: calm, appears tired. napping in the morning. PO meds. no singing in the past day. slept 8 hours. declining labs. continue current mgmt. 05/24: calm, quiet. no notable events or behaviors. continues far more subdued than prior. slept well. 05/25: stable presentation. continue current mgmt. 05/26 CTP 05/27 - some inapp behaviors with staff- keep on 5s, CTP 05/28: touching female RN on shoulders. some wandering into others' rooms. more logical and with more insight than ever previous in interacting with this mortgage or loan underwriter. allowed lithium level, which is 0.8. labs otherwise reassuring. declined bowel regimen. continue current mgmt. 05/29: appears as yesterday. no notable events. labs reviewed with pt. decrease benadryl to 25 mg QHS. 05/30: DC benadryl. lower abilify from 30 mg QHS to 20 mg QHS due to sedation/confusion for past several days. slept 6.5 hours. appears flat, tired. 05/31: less sedated today. continue current mgmt. 06/01: as for yesterday. attempted to kiss female staff doing CO today. 06/02: appearing more awake than several days ago. c/o blurry vision, stuttering, brain being weakened. continue current mgmt. 06/03: appears more awake. no complaints. continue current mgmt. paying excessive attention to young female peer, making her uncomfortable. 06/04: stable presentation. continue current mgmt. T/C abilify STEVENSON soon. 06/05: declines to change lithium to tab form. had BM with lactulose. agrees to abilify STEVENSON. will give 400 mg IM tomorrow and DC PO abilify after 2 weeks. then continue 400 mg IM Q30 days from first STEVENSON. 06/06: continue current tx plan. 06/07: pt and KELLY Agudelo spoke with [facility] [employer] staff; school to send info to pt re disciplinary process. requested TE to speak with DA. no notable events or behaviors otherwise, continue current mgmt. 06/08: c/o blurry vision and tiredness. describing his mood as more stable than prior. continue current mgmt. 06/09 continue same treatment. 06/10 continue same treatment. 06/11: stable presentation. not providing consent to speak with DA, canceling his mtg with [place] therapist and police tomorrow. 06/12: per staff, broached the topic of people he loves and that he cannot mention one of their names. also alleging today, again, that the zoom hearing in which he was committed was illegal. informed he will remain here at least another several weeks to be able to assess how the transition from PO to STEVENSON antipsychotic is working. 06/13: refused lithium this morning, received valium IM. otherwise no notable behaviors since being changed from CO to Q5 min checks yesterday. continue current mgmt. PO abilify DCs 06/20. next maintenna 07/07. 06/14: no change in presentation. T/C increased IM dosing of abilify versus switch to another STEVENSON. appears inadequately treated. 06/15: minimizing his h/o psychotic Sx. denies he has mental illness. continue current mgmt for now. 06/16: Continue current management and treatment plan. 06/17: Continue current management and treatment plan. 06/18: appears stable, without psychotic Sx. continue current mgmt. 06/19: no change. continue current mgmt. tonight is last dose of HS abilify. 06/20: continue current mgmt. next IM abilify in 2 weeks. 06/21: continue current tx plan. 06/24: continue tx plan. 06/25: continue current tx plan. 06/26 continue tx. Abilify STEVENSON can be given as early as 26 days from last IM. He last received abilify on 06/06/24, can be given earliest on 07/01/24. 06/27 continue tx. may consider giving STEVENSON abilify on 07/01/2024. 06/28: planning to give STEVENSON abilify next and discharge same day. agitated today re continued [id number], threw chair at exit door, security called. able to be verbally de-escalated. Reason for continued inpatient stay Substantial Risk for: rapid decompensation Time Spent With Patient Time: Total time managing care of this patient today __35__ minutes.
[2024-06-28 20:00] VITALS: BP 118/65; PULSE 76; RESP 14; TEMP 36.8; O2SAT 99
[2024-06-29 07:42] VITALS: BP 136/75; PULSE 65; RESP 16; TEMP 36.5; O2SAT 100
[2024-06-29] MEDS: LITHIUM CITRATE 600 MG PO ×2 (09:21→20:47)
--- NOTE | 2024-06-29 11:47 | HO.PSYCHPN ---
Subjective Subjective Date of Service: 06/29/24 Reason For Visit: stalking behaviors Interim History: calm, cooperative. expressing insight re mental illness, states he was having AH early in his stay here. informed he will receive IM tuesday morning and DC on tuesday. planning to depart for [facility] after discharge. per staff, no notable events or behaviors aside from as cited in yesterday's note. Mental Status Exam Mental Status Exam Narrative: adequately dressed and groomed. cooperative. no PMA/PMR. speech nml rate, nml amount. decr loudness, nml latency. thoughts linear, logical. affect normo-intense, non-labile, constricted. mood euthymic. no SI/SIBI/HI/AVH expressed. Diagnostics Vital Signs (24Hr): Vital Signs - 24 hr 06/28/24 20:00 06/29/24 07:42 Temperature 98.3 F 97.7 F Pulse Rate 76 65 Respiratory Rate 14 16 Blood Pressure 118/65 136/75 Pulse Oximetry 99 100 Oxygen Delivery Method Room Air Room Air BMI result Body Mass Index 26.8 Labs 04/23/24 13:06 05/28/24 13:24 Medications Medications Current Medications Acetaminophen (Acetaminophen 325 Mg Tablet) 650 mg PO Q6H PRN PRN Reason: Headache/Pain Mild Scale (1-3) Al Hydroxide/Mg Hydroxide (Magnesium Hydrox/Alum Hydrox 30 Ml Oral.Susp) 30 ml PO Q6H PRN PRN Reason: Heartburn/Nausea Aripiprazole (Aripiprazole Er 400 Mg Suser.Syr) 400 mg IM Q30D [facility] Diazepam (Diazepam 10 Mg/2 Ml Cartridge) 10 mg IM BID PRN PRN Reason: refusal of lithium or abilify Last Admin: 06/13/24 09:42 Dose: 10 mg Docusate Sodium (Docusate Sodium 100 Mg Capsule) 200 mg PO BID [facility] Last Admin: 06/29/24 09:25 Dose: Not Given Fluphenazine HCl (Fluphenazine Hcl 2.5 Mg/Ml 10 Ml Vial) 5 mg IM DAILY PRN PRN Reason: refusal of PO abilify Last Admin: 05/21/24 22:48 Dose: 5 mg Hydroxyzine HCl (Hydroxyzine Hcl 25 Mg Tablet) 25 mg PO Q6H PRN PRN Reason: Anxiety Lactulose (Lactulose 20 Gm/30 Ml Solution) 30 gm PO DAILY PRN PRN Reason: Constipation Last Admin: 06/04/24 09:55 Dose: 30 gm Bradner Citrate (Bradner Citrate Oral Tierney 8 Meq (300 Mg)/5 Ml) 600 mg PO BID [facility] Last Admin: 06/29/24 09:21 Dose: 600 mg Magnesium Hydroxide (Milk Of Magnesia 30 Ml Oral.Susp) 30 ml PO DAILY PRN PRN Reason: Constipation Last Admin: 05/30/24 09:34 Dose: 30 ml Olanzapine (Olanzapine Odt 10 Mg Tab.Rapdis) 10 mg TRANSLINGU Q4H PRN PRN Reason: agitation Polyethylene Glycol (Polyethylene Glycol 3350 17 Gm Powd.Pack) 17 gm PO DAILY PRN PRN Reason: Constipation Last Admin: 06/03/24 08:49 Dose: 17 gm Trazodone HCl (Trazodone Hcl 50 Mg Tablet) 50 mg PO BEDTIME MRX1 PRN PRN Reason: Insomnia Last Admin: 06/18/24 22:19 Dose: 50 mg Allergies Allergies Allergy/AdvReac Type Severity Reaction Status Date / Time No Known Allergies Allergy Verified 04/23/24 13:03 Assessment & Plan Assessment & Plan (1) Bipolar disorder with psychotic features: Status: Acute Code(s): F31.9 - Bipolar disorder, unspecified Plan 04/25: contain, observe, educate. collect collateral info. 04/26: warrant has been issued for pt's arrest. 12b up tuesday. planning to discharge tuesday unless situation changes. prescribed abilify 5 mg daily, which pt is refusing. 04/27: refusing meds. no change in presentation. planning for discharge friday 03/30, when section 12b expires. student counseling at [facility] has been informed of the discharge plan by KELLY Agudelo. 04/29: No changes 04/30: refusing meds. frankly psychotic/manic today. disorganized thoughts, hyper-christianity, labile, delusional, no sleep. accusing staff of witchcraft and trying to turn him into a woman. filed for commitment. kicked an exit door, prompting security to be called. 05/01: kicked exit doors again overnight, send me to long-term or just shoot me. talking about hospital food being poisoned. i only account to [facility]. you are continuing your evil plans. refusing medications. refused to meet with nozzle operator today. 05/02 continue tx. 05/03: loud, labile, exit-seeking. required med/phys restraint x 1 due to elopement attempt. demanding discharge. refusing meds. continue to offer meds. hearing scheduled for tuesday. 05/04: calm, trying to get into phone to get numbers. declining same numbers from KELLY Agudelo. sleeping in afternoon. slept most of evening and all NOC last night. 05/05 continue tx. pt declines medications. 05/[address] hearing. 05/07: no change in presentation. 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 committed, ordered medications. 05/08: received IM meds as refused PO. believes we are trying to turn him into a woman. 05/09: asking to leave, saying he does not want meds. took PO invega this morning. dystonia this afternoon, invega DCed. took PO ativan, benadryl, cogentin. will attempt with lithium only for the time being, backed up by valium IM. seems less energetic, labile, hyper-christianity today. 05/10: calm, but perseverative about discharge. taking lithium. continue current mgmt. paranoid delusions we are trying to turn him transgendered. remains focused on object of his stalking. 05/11: much more manic Sx today. re-trial of anti-psychotics. start with low-dose abilify with fluphenazine back-up. lithium switched to liquid formulation today. on 30 min CO after meds. 05/12: Continue current regimen and plans 05/13: Continue current regimen and plans 05/14: blocking MD's egress from room demanding immediate discharge. accepted thorazine 100 and ativan 2 PO. initial rapid pacing up and down the [place], eventually settled. check labs 05/16. 05/15: believes we are giving him medication to turn him into a woman, believes we are trying to get him to have sex with men. required restraint chair for court-ordered medication. required medications IM. 05/16: more subdued today. took meds PO last night and this morning. increase abilify to 15 mg daily. delay labs as pt has missed lithium dosing. 05/17: labs ordered. increase abilify dosing to 20 mg daily as of tomorrow. 05/18: refused labs. less labile and agitated. remains with paranoid delusions. labs ordered again. abilify to 25 mg tonight and 30 mg as of tomorrow night. 05/19: Continue current treatment plan. 05/20: Similar to yesterday's presentation. Continue current treatment plan. 05/21: refused PO meds this morning (took PO all w/e). received IMs. continue current mgmt. 05/22: refused PO last night and got IMs. took PO today. per collateral from KELLY Agudelo, improved insight, increased flexibility in thinking. continue current mgmt. 05/23: calm, appears tired. napping in the morning. PO meds. no singing in the past day. slept 8 hours. declining labs. continue current mgmt. 05/24: calm, quiet. no notable events or behaviors. continues far more subdued than prior. slept well. 05/25: stable presentation. continue current mgmt. 05/26 CTP 05/27 - some inapp behaviors with staff- keep on 5s, CTP 05/28: touching female RN on shoulders. some wandering into others' rooms. more logical and with more insight than ever previous in interacting with this writer editor. allowed lithium level, which is 0.8. labs otherwise reassuring. declined bowel regimen. continue current mgmt. 05/29: appears as yesterday. no notable events. labs reviewed with pt. decrease benadryl to 25 mg QHS. 05/30: DC benadryl. lower abilify from 30 mg QHS to 20 mg QHS due to sedation/confusion for past several days. slept 6.5 hours. appears flat, tired. 05/31: less sedated today. continue current mgmt. 06/01: as for yesterday. attempted to kiss female staff doing CO today. 06/02: appearing more awake than several days ago. c/o blurry vision, stuttering, brain being weakened. continue current mgmt. 06/03: appears more awake. no complaints. continue current mgmt. paying excessive attention to young female peer, making her uncomfortable. 06/04: stable presentation. continue current mgmt. T/C abilify STEVENSON soon. 06/05: declines to change lithium to tab form. had BM with lactulose. agrees to abilify STEVENSON. will give 400 mg IM tomorrow and DC PO abilify after 2 weeks. then continue 400 mg IM Q30 days from first STEVENSON. 06/06: continue current tx plan. 06/07: pt and KELLY Agudelo spoke with [facility] staff; school to send info to pt re disciplinary process. requested TE to speak with DA. no notable events or behaviors otherwise, continue current mgmt. 06/08: c/o blurry vision and tiredness. describing his mood as more stable than prior. continue current mgmt. 06/09 continue same treatment. 06/10 continue same treatment. 06/11: stable presentation. not providing consent to speak with DA, canceling his mtg with [place] therapist and police tomorrow. 06/12: per staff, broached the topic of people he loves and that he cannot mention one of their names. also alleging today, again, that the zoom hearing in which he was committed was illegal. informed he will remain here at least another several weeks to be able to assess how the transition from PO to STEVENSON antipsychotic is working. 06/13: refused lithium this morning, received valium IM. otherwise no notable behaviors since being changed from CO to Q5 min checks yesterday. continue current mgmt. PO abilify DCs 06/20. next maintenna 07/07. 06/14: no change in presentation. T/C increased IM dosing of abilify versus switch to another STEVENSON. appears inadequately treated. 06/15: minimizing his h/o psychotic Sx. denies he has mental illness. continue current mgmt for now. 06/16: Continue current management and treatment plan. 06/17: Continue current management and treatment plan. 06/18: appears stable, without psychotic Sx. continue current mgmt. 06/19: no change. continue current mgmt. tonight is last dose of HS abilify. 06/20: continue current mgmt. next IM abilify in 2 weeks. 06/21: continue current tx plan. 06/24: continue tx plan. 06/25: continue current tx plan. 06/26 continue tx. Abilify STEVENSON can be given as early as 26 days from last IM. He last received abilify on 06/06/24, can be given earliest on 07/01/24. 06/27 continue tx. may consider giving STEVENSON abilify on 07/01/2024. 06/28: planning to give STEVENSON abilify next and discharge same day. agitated today re continued [id number], threw chair at exit door, security called. able to be verbally de-escalated. 06/29: give maintenna next tuesday and discharge tuesday, when KELLY Agudelo has returned from vacation. acknowledges mental illness, specifically cites VH early in hospitalization, expressing gratitude for care. check lithium and BMP tonight. otherwise continue current mgmt. Reason for continued inpatient stay Substantial Risk for: rapid decompensation Time Spent With Patient Time: Total time managing care of this patient today __25__ minutes.
[2024-06-29 19:42] VITALS: BP 130/58; PULSE 81; TEMP 37.2; O2SAT 99
[2024-06-29 19:57] LABS: Anion Gap 15 (12-20); Blood Urea Nitrogen 11 mg/dL (9-16); Calcium 9.9 mg/dL (8.4-10.2); Carbon Dioxide 22 mmol/L (22-29); Chloride 106 mmol/L (96-108); Creatinine Clr Calc Pharmacy 118.6; Estimated Glomerular Filt Rate > 60; Glucose Random 192 mg/dL (60-115); Sodium 139 mmol/L (135-145)
[2024-06-29 20:37] LABS: Lithium 0.48 mmol/L (0.60-1.20)
[2024-06-30 07:20] VITALS: BP 115/55; PULSE 65; RESP 14; TEMP 37; O2SAT 100
[2024-06-30 08:36] VITALS: BP 115/55; PULSE 65; RESP 14; TEMP 37; O2SAT 100
[2024-06-30] MEDS: LITHIUM CITRATE 600 MG PO ×2 (09:17→20:54)
[2024-06-30] MEDS: Docusate Sodium 100 MG CAPSULE 200 MG PO (09:18)
--- NOTE | 2024-06-30 11:33 | HO.PSYCHPN ---
Subjective Subjective Date of Service: 06/30/24 Reason For Visit: stalking behaviors Interim History: Discussed with RN. He was overly friendly with some nursing students and asked them to help him hang some wall art with him and asked about their plans for the future. No behavioral issues. He is calm and cooperative. He is appropriate and described as cheerful. He denies SI/HI/AVH. Li level 0.48 (lower than previous.) Review of Systems Review of Systems Unremarkable Yes all other systems are reviewed and are negative and Unobtainable due to mental status Constitutional: Reports as per HPI Eyes: Reports as per HPI Reports as per HPI Cardiovascular: Reports as per HPI Respiratory: Reports as per HPI Gastrointestinal: Reports as per HPI Genitourinary: Reports as per HPI Musculoskeletal: Reports as per HPI Skin/Breast: Reports as per HPI Reports as per HPI Psychiatric: Reports as per HPI Endocrine: Reports as per HPI Hematologic/Lymphatic: Reports as per HPI Allergic/Immunologic: Reports as per HPI Mental Status Exam Mental Status Exam Narrative: adequately dressed and groomed. cooperative. no PMA/PMR. speech nml rate, nml amount. decr loudness, nml latency. thoughts linear, logical. affect normo-intense, non-labile, constricted. mood euthymic. no SI/SIBI/HI/AVH expressed. Patient Appearance: Well Grooomed Patient Orientation: Person, Place and Situation Level of Consciousness: Awake and Alert Patient Behavior: Appropriate and Guarded Mood Description: Calm and Blunted Affect Description: Calm and Blunted Patient Cognition Impaired: Yes Ability to Follow Directions: Good Speech Pattern: Clear Diagnostics Vital Signs (24Hr): Vital Signs - 24 hr 06/29/24 19:42 06/30/24 07:20 06/30/24 08:36 Temperature 98.9 F 98.6 F 98.6 F Pulse Rate 81 65 65 Respiratory Rate 14 14 Blood Pressure 130/58 L 115/55 L 115/55 L Pulse Oximetry 99 100 100 Oxygen Delivery Method Room Air Room Air Room Air BMI result Body Mass Index 26.8 Labs 04/23/24 13:06 06/29/24 19:33 Labs: Laboratory Results - last 48 hr 06/29/24 19:33 Sodium 139 Potassium 4.0 Chloride 106 Carbon Dioxide 22 Anion Gap 15 BUN 11 Creatinine 1.00 Estim Creat Clear Calc 118.6 Estimated GFR > 60 Random Glucose 192 H Calcium 9.9 Tushka 0.48 L Medications Medications Current Medications Acetaminophen (Acetaminophen 325 Mg Tablet) 650 mg PO Q6H PRN PRN Reason: Headache/Pain Mild Scale (1-3) Al Hydroxide/Mg Hydroxide (Magnesium Hydrox/Alum Hydrox 30 Ml Oral.Susp) 30 ml PO Q6H PRN PRN Reason: Heartburn/Nausea Aripiprazole (Aripiprazole Er 400 Mg Suser.Syr) 400 mg IM Q30D [facility] Diazepam (Diazepam 10 Mg/2 Ml Cartridge) 10 mg IM BID PRN PRN Reason: refusal of lithium or abilify Last Admin: 06/13/24 09:42 Dose: 10 mg Docusate Sodium (Docusate Sodium 100 Mg Capsule) 200 mg PO BID [facility] Last Admin: 06/30/24 09:18 Dose: 200 mg Fluphenazine HCl (Fluphenazine Hcl 2.5 Mg/Ml 10 Ml Vial) 5 mg IM DAILY PRN PRN Reason: refusal of PO abilify Last Admin: 05/21/24 22:48 Dose: 5 mg Hydroxyzine HCl (Hydroxyzine Hcl 25 Mg Tablet) 25 mg PO Q6H PRN PRN Reason: Anxiety Lactulose (Lactulose 20 Gm/30 Ml Solution) 30 gm PO DAILY PRN PRN Reason: Constipation Last Admin: 06/04/24 09:55 Dose: 30 gm [place] Citrate ([place] Citrate Oral Tierney 8 Meq (300 Mg)/5 Ml) 600 mg PO BID [facility] Last Admin: 06/30/24 09:17 Dose: 600 mg Magnesium Hydroxide (Milk Of Magnesia 30 Ml Oral.Susp) 30 ml PO DAILY PRN PRN Reason: Constipation Last Admin: 05/30/24 09:34 Dose: 30 ml Olanzapine (Olanzapine Odt 10 Mg Tab.Rapdis) 10 mg TRANSLINGU Q4H PRN PRN Reason: agitation Polyethylene Glycol (Polyethylene Glycol 3350 17 Gm Powd.Pack) 17 gm PO DAILY PRN PRN Reason: Constipation Last Admin: 06/03/24 08:49 Dose: 17 gm Trazodone HCl (Trazodone Hcl 50 Mg Tablet) 50 mg PO BEDTIME MRX1 PRN PRN Reason: Insomnia Last Admin: 06/18/24 22:19 Dose: 50 mg Allergies Allergies Allergy/AdvReac Type Severity Reaction Status Date / Time No Known Allergies Allergy Verified 04/23/24 13:03 Assessment & Plan Assessment & Plan (1) Bipolar disorder with psychotic features: Status: Acute Code(s): F31.9 - Bipolar disorder, unspecified Plan 04/25: contain, observe, educate. collect collateral info. 04/26: warrant has been issued for pt's arrest. 12b up tuesday. planning to discharge tuesday unless situation changes. prescribed abilify 5 mg daily, which pt is refusing. 04/27: refusing meds. no change in presentation. planning for discharge friday 03/30, when section 12b expires. student counseling at [facility] has been informed of the discharge plan by KELLY Agudelo. 04/29: No changes 04/30: refusing meds. frankly psychotic/manic today. disorganized thoughts, hyper-jain, labile, delusional, no sleep. accusing staff of witchcraft and trying to turn him into a woman. filed for commitment. kicked an exit door, prompting security to be called. 05/01: kicked exit doors again overnight, send me to nursing home or just shoot me. talking about hospital food being poisoned. i only account to hamzah. you are continuing your evil plans. refusing medications. refused to meet with meat wrapper today. 05/02 continue tx. 05/03: loud, labile, exit-seeking. required med/phys restraint x 1 due to elopement attempt. demanding discharge. refusing meds. continue to offer meds. hearing scheduled for tuesday. 05/04: calm, trying to get into phone to get numbers. declining same numbers from KELLY Agudelo. sleeping in afternoon. slept most of evening and all NOC last night. 05/05 continue tx. pt declines medications. 05/[address] hearing. 05/07: no change in presentation. 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 committed, ordered medications. 05/08: received IM meds as refused PO. believes we are trying to turn him into a woman. 05/09: asking to leave, saying he does not want meds. took PO invega this morning. dystonia this afternoon, invega DCed. took PO ativan, benadryl, cogentin. will attempt with lithium only for the time being, backed up by valium IM. seems less energetic, labile, hyper-jain today. 05/10: calm, but perseverative about discharge. taking lithium. continue current mgmt. paranoid delusions we are trying to turn him transgendered. remains focused on object of his stalking. 05/11: much more manic Sx today. re-trial of anti-psychotics. start with low-dose abilify with fluphenazine back-up. lithium switched to liquid formulation today. on 30 min CO after meds. 05/12: Continue current regimen and plans 05/13: Continue current regimen and plans 05/14: blocking MD's egress from room demanding immediate discharge. accepted thorazine 100 and ativan 2 PO. initial rapid pacing up and down the [place], eventually settled. check labs 05/16. 05/15: believes we are giving him medication to turn him into a woman, believes we are trying to get him to have sex with men. required restraint chair for court-ordered medication. required medications IM. 05/16: more subdued today. took meds PO last night and this morning. increase abilify to 15 mg daily. delay labs as pt has missed lithium dosing. 05/17: labs ordered. increase abilify dosing to 20 mg daily as of tomorrow. 05/18: refused labs. less labile and agitated. remains with paranoid delusions. labs ordered again. abilify to 25 mg tonight and 30 mg as of tomorrow night. 05/19: Continue current treatment plan. 05/20: Similar to yesterday's presentation. Continue current treatment plan. 05/21: refused PO meds this morning (took PO all w/e). received IMs. continue current mgmt. 05/22: refused PO last night and got IMs. took PO today. per collateral from KELLY Agudelo, improved insight, increased flexibility in thinking. continue current mgmt. 05/23: calm, appears tired. napping in the morning. PO meds. no singing in the past day. slept 8 hours. declining labs. continue current mgmt. 05/24: calm, quiet. no notable events or behaviors. continues far more subdued than prior. slept well. 05/25: stable presentation. continue current mgmt. 05/26 CTP 05/27 - some inapp behaviors with staff- keep on 5s, CTP 05/28: touching female RN on shoulders. some wandering into others' rooms. more logical and with more insight than ever previous in interacting with this blog writer. allowed lithium level, which is 0.8. labs otherwise reassuring. declined bowel regimen. continue current mgmt. 05/29: appears as yesterday. no notable events. labs reviewed with pt. decrease benadryl to 25 mg QHS. 05/30: DC benadryl. lower abilify from 30 mg QHS to 20 mg QHS due to sedation/confusion for past several days. slept 6.5 hours. appears flat, tired. 05/31: less sedated today. continue current mgmt. 06/01: as for yesterday. attempted to kiss female staff doing CO today. 06/02: appearing more awake than several days ago. c/o blurry vision, stuttering, brain being weakened. continue current mgmt. 06/03: appears more awake. no complaints. continue current mgmt. paying excessive attention to young female peer, making her uncomfortable. 06/04: stable presentation. continue current mgmt. T/C abilify STEVENSON soon. 06/05: declines to change lithium to tab form. had BM with lactulose. agrees to abilify STEVENSON. will give 400 mg IM tomorrow and DC PO abilify after 2 weeks. then continue 400 mg IM Q30 days from first STEVENSON. 06/06: continue current tx plan. 06/07: pt and KELLY Agudelo spoke with [employer] staff; school to send info to pt re disciplinary process. requested TE to speak with DA. no notable events or behaviors otherwise, continue current mgmt. 06/08: c/o blurry vision and tiredness. describing his mood as more stable than prior. continue current mgmt. 06/09 continue same treatment. 06/10 continue same treatment. 06/11: stable presentation. not providing consent to speak with DA, canceling his mtg with [facility] therapist and police tomorrow. 06/12: per staff, broached the topic of people he loves and that he cannot mention one of their names. also alleging today, again, that the zoom hearing in which he was committed was illegal. informed he will remain here at least another several weeks to be able to assess how the transition from PO to STEVENSON antipsychotic is working. 06/13: refused lithium this morning, received valium IM. otherwise no notable behaviors since being changed from CO to Q5 min checks yesterday. continue current mgmt. PO abilify DCs 06/20. next maintenna 07/07. 06/14: no change in presentation. T/C increased IM dosing of abilify versus switch to another STEVENSON. appears inadequately treated. 06/15: minimizing his h/o psychotic Sx. denies he has mental illness. continue current mgmt for now. 06/16: Continue current management and treatment plan. 06/17: Continue current management and treatment plan. 06/18: appears stable, without psychotic Sx. continue current mgmt. 06/19: no change. continue current mgmt. tonight is last dose of HS abilify. 06/20: continue current mgmt. next IM abilify in 2 weeks. 06/21: continue current tx plan. 06/24: continue tx plan. 06/25: continue current tx plan. 06/26 continue tx. Abilify STEVENSON can be given as early as 26 days from last IM. He last received abilify on 06/06/24, can be given earliest on 07/01/24. 06/27 continue tx. may consider giving STEVENSON abilify on 07/01/2024. 06/28: planning to give STEVENSON abilify next and discharge same day. agitated today re continued [id number], threw chair at exit door, security called. able to be verbally de-escalated. 06/29: give maintenna next tuesday and discharge tuesday, when KELLY Agudelo has returned from vacation. acknowledges mental illness, specifically cites VH early in hospitalization, expressing gratitude for care. check lithium and BMP tonight. otherwise continue current mgmt. 06/30: Continue current management and treatment plan. Reason for continued inpatient stay Substantial Risk for: harm to others, inability to function and rapid decompensation Time Spent With Patient Time: Total time managing care of this patient today ____ minutes.
[2024-06-30 20:00] VITALS: BP 132/61; PULSE 73; RESP 16; TEMP 37.3; O2SAT 100
[2024-06-30] MEDS: Acetaminophen 325 MG TABLET 650 MG PO (20:53)
[2024-07-01 07:36] VITALS: BP 115/69; PULSE 93; RESP 16; TEMP 37.2; O2SAT 100
[2024-07-01] MEDS: LITHIUM CITRATE 600 MG PO ×2 (08:15→21:00)
[2024-07-01 20:00] VITALS: BP 116/64; PULSE 72; RESP 16; TEMP 37.2; O2SAT 97
[2024-07-01] MEDS: Docusate Sodium 100 MG CAPSULE 200 MG PO (20:59)
--- NOTE | 2024-07-02 00:24 | HO.PSYCHPN ---
Subjective Subjective Date of Service: 07/01/24 Reason For Visit: stalking behaviors Interim History: No change in presentation. he is cooperative and engaged. No inappropriate behaviors. Mood is good Affect is more appropriate. Denies complaints. Review of Systems Review of Systems Unremarkable Yes all other systems are reviewed and are negative and Unobtainable due to mental status Constitutional: Reports as per HPI Eyes: Reports as per HPI Reports as per HPI Cardiovascular: Reports as per HPI Respiratory: Reports as per HPI Gastrointestinal: Reports as per HPI Genitourinary: Reports as per HPI Musculoskeletal: Reports as per HPI Skin/Breast: Reports as per HPI Reports as per HPI Psychiatric: Reports as per HPI Endocrine: Reports as per HPI Hematologic/Lymphatic: Reports as per HPI Allergic/Immunologic: Reports as per HPI Mental Status Exam Mental Status Exam Narrative: adequately dressed and groomed. cooperative. no PMA/PMR. speech nml rate, nml amount. decr loudness, nml latency. thoughts linear, logical. affect normo-intense, non-labile, constricted. mood euthymic. no SI/SIBI/HI/AVH expressed. Patient Appearance: Well Grooomed Patient Orientation: Person, Place and Situation Level of Consciousness: Awake and Alert Patient Behavior: Appropriate and Guarded Mood Description: Calm and Blunted Affect Description: Calm and Blunted Patient Cognition Impaired: Yes Ability to Follow Directions: Good Speech Pattern: Clear Diagnostics Vital Signs (24Hr): Vital Signs - 24 hr 07/01/24 07:36 07/01/24 20:00 Temperature 99.0 F 99.0 F Pulse Rate 93 72 Respiratory Rate 16 16 Blood Pressure 115/69 116/64 Pulse Oximetry 100 97 Oxygen Delivery Method Room Air Room Air BMI result Body Mass Index 26.8 Labs 04/23/24 13:06 06/29/24 19:33 Medications Medications Current Medications Acetaminophen (Acetaminophen 325 Mg Tablet) 650 mg PO Q6H PRN PRN Reason: Headache/Pain Mild Scale (1-3) Last Admin: 06/30/24 20:53 Dose: 650 mg Al Hydroxide/Mg Hydroxide (Magnesium Hydrox/Alum Hydrox 30 Ml Oral.Susp) 30 ml PO Q6H PRN PRN Reason: Heartburn/Nausea Aripiprazole (Aripiprazole Er 400 Mg Suser.Syr) 400 mg IM Q30D [facility] Diazepam (Diazepam 10 Mg/2 Ml Cartridge) 10 mg IM BID PRN PRN Reason: refusal of lithium or abilify Last Admin: 06/13/24 09:42 Dose: 10 mg Docusate Sodium (Docusate Sodium 100 Mg Capsule) 200 mg PO BID [facility] Last Admin: 07/01/24 20:59 Dose: 200 mg Fluphenazine HCl (Fluphenazine Hcl 2.5 Mg/Ml 10 Ml Vial) 5 mg IM DAILY PRN PRN Reason: refusal of PO abilify Last Admin: 05/21/24 22:48 Dose: 5 mg Hydroxyzine HCl (Hydroxyzine Hcl 25 Mg Tablet) 25 mg PO Q6H PRN PRN Reason: Anxiety Lactulose (Lactulose 20 Gm/30 Ml Solution) 30 gm PO DAILY PRN PRN Reason: Constipation Last Admin: 06/04/24 09:55 Dose: 30 gm [place] Citrate ([place] Citrate Oral Tierney 8 Meq (300 Mg)/5 Ml) 600 mg PO BID [facility] Last Admin: 07/01/24 21:00 Dose: 600 mg Magnesium Hydroxide (Milk Of Magnesia 30 Ml Oral.Susp) 30 ml PO DAILY PRN PRN Reason: Constipation Last Admin: 05/30/24 09:34 Dose: 30 ml Olanzapine (Olanzapine Odt 10 Mg Tab.Rapdis) 10 mg TRANSLINGU Q4H PRN PRN Reason: agitation Polyethylene Glycol (Polyethylene Glycol 3350 17 Gm Powd.Pack) 17 gm PO DAILY PRN PRN Reason: Constipation Last Admin: 06/03/24 08:49 Dose: 17 gm Trazodone HCl (Trazodone Hcl 50 Mg Tablet) 50 mg PO BEDTIME MRX1 PRN PRN Reason: Insomnia Last Admin: 06/18/24 22:19 Dose: 50 mg Allergies Allergies Allergy/AdvReac Type Severity Reaction Status Date / Time No Known Allergies Allergy Verified 04/23/24 13:03 Assessment & Plan Assessment & Plan (1) Bipolar disorder with psychotic features: Status: Acute Code(s): F31.9 - Bipolar disorder, unspecified Plan 04/25: contain, observe, educate. collect collateral info. 04/26: warrant has been issued for pt's arrest. 12b up tuesday. planning to discharge tuesday unless situation changes. prescribed abilify 5 mg daily, which pt is refusing. 04/27: refusing meds. no change in presentation. planning for discharge friday 03/30, when section 12b expires. student counseling at [facility] has been informed of the discharge plan by KELLY Agudelo. 04/29: No changes 04/30: refusing meds. frankly psychotic/manic today. disorganized thoughts, hyper-sikh, labile, delusional, no sleep. accusing staff of witchcraft and trying to turn him into a woman. filed for commitment. kicked an exit door, prompting security to be called. 05/01: kicked exit doors again overnight, send me to half-way or just shoot me. talking about hospital food being poisoned. i only account to hamzah. you are continuing your evil plans. refusing medications. refused to meet with psychological operations officer today. 05/02 continue tx. 05/03: loud, labile, exit-seeking. required med/phys restraint x 1 due to elopement attempt. demanding discharge. refusing meds. continue to offer meds. hearing scheduled for tuesday. 05/04: calm, trying to get into phone to get numbers. declining same numbers from KELLY Agudelo. sleeping in afternoon. slept most of evening and all NOC last night. 05/05 continue tx. pt declines medications. 05/[address] hearing. 05/07: no change in presentation. reported he was the over the weekend and that the voice of hamzah was commanding him to preach. committed, ordered medications. 05/08: received IM meds as refused PO. believes we are trying to turn him into a woman. 05/09: asking to leave, saying he does not want meds. took PO invega this morning. dystonia this afternoon, invega DCed. took PO ativan, benadryl, cogentin. will attempt with lithium only for the time being, backed up by valium IM. seems less energetic, labile, hyper-sikh today. 05/10: calm, but perseverative about discharge. taking lithium. continue current mgmt. paranoid delusions we are trying to turn him transgendered. remains focused on object of his stalking. 05/11: much more manic Sx today. re-trial of anti-psychotics. start with low-dose abilify with fluphenazine back-up. lithium switched to liquid formulation today. on 30 min CO after meds. 05/12: Continue current regimen and plans 05/13: Continue current regimen and plans 05/14: blocking MD's egress from room demanding immediate discharge. accepted thorazine 100 and ativan 2 PO. initial rapid pacing up and down the [place], eventually settled. check labs 05/16. 05/15: believes we are giving him medication to turn him into a woman, believes we are trying to get him to have sex with men. required restraint chair for court-ordered medication. required medications IM. 05/16: more subdued today. took meds PO last night and this morning. increase abilify to 15 mg daily. delay labs as pt has missed lithium dosing. 05/17: labs ordered. increase abilify dosing to 20 mg daily as of tomorrow. 05/18: refused labs. less labile and agitated. remains with paranoid delusions. labs ordered again. abilify to 25 mg tonight and 30 mg as of tomorrow night. 05/19: Continue current treatment plan. 05/20: Similar to yesterday's presentation. Continue current treatment plan. 05/21: refused PO meds this morning (took PO all w/e). received IMs. continue current mgmt. 05/22: refused PO last night and got IMs. took PO today. per collateral from KELLY Agudelo, improved insight, increased flexibility in thinking. continue current mgmt. 05/23: calm, appears tired. napping in the morning. PO meds. no singing in the past day. slept 8 hours. declining labs. continue current mgmt. 05/24: calm, quiet. no notable events or behaviors. continues far more subdued than prior. slept well. 05/25: stable presentation. continue current mgmt. 05/26 CTP /6 - some inapp behaviors with staff- keep on 5s, CTP 05/28: touching female RN on shoulders. some wandering into others' rooms. more logical and with more insight than ever previous in interacting with this marketing writer. allowed lithium level, which is 0.8. labs otherwise reassuring. declined bowel regimen. continue current mgmt. 05/29: appears as yesterday. no notable events. labs reviewed with pt. decrease benadryl to 25 mg QHS. 05/30: DC benadryl. lower abilify from 30 mg QHS to 20 mg QHS due to sedation/confusion for past several days. slept 6.5 hours. appears flat, tired. 05/31: less sedated today. continue current mgmt. 06/01: as for yesterday. attempted to kiss female staff doing CO today. 06/02: appearing more awake than several days ago. c/o blurry vision, stuttering, brain being weakened. continue current mgmt. 06/03: appears more awake. no complaints. continue current mgmt. paying excessive attention to young female peer, making her uncomfortable. 06/04: stable presentation. continue current mgmt. T/C abilify STEVENSON soon. 06/05: declines to change lithium to tab form. had BM with lactulose. agrees to abilify STEVENSON. will give 400 mg IM tomorrow and DC PO abilify after 2 weeks. then continue 400 mg IM Q30 days from first STEVENSON. 06/06: continue current tx plan. 06/07: pt and KELLY Agudelo spoke with [employer] staff; school to send info to pt re disciplinary process. requested TE to speak with DA. no notable events or behaviors otherwise, continue current mgmt. 06/08: c/o blurry vision and tiredness. describing his mood as more stable than prior. continue current mgmt. 06/09 continue same treatment. 06/10 continue same treatment. 06/11: stable presentation. not providing consent to speak with DA, canceling his mtg with [employer] therapist and police tomorrow. 06/12: per staff, broached the topic of people he loves and that he cannot mention one of their names. also alleging today, again, that the zoom hearing in which he was committed was illegal. informed he will remain here at least another several weeks to be able to assess how the transition from PO to STEVENSON antipsychotic is working. 06/13: refused lithium this morning, received valium IM. otherwise no notable behaviors since being changed from CO to Q5 min checks yesterday. continue current mgmt. PO abilify DCs 06/20. next maintenna 07/07. 06/14: no change in presentation. T/C increased IM dosing of abilify versus switch to another STEVENSON. appears inadequately treated. 06/15: minimizing his h/o psychotic Sx. denies he has mental illness. continue current mgmt for now. 06/16: Continue current management and treatment plan. 06/17: Continue current management and treatment plan. 06/18: appears stable, without psychotic Sx. continue current mgmt. 06/19: no change. continue current mgmt. tonight is last dose of HS abilify. 06/20: continue current mgmt. next IM abilify in 2 weeks. 06/21: continue current tx plan. 06/24: continue tx plan. 06/25: continue current tx plan. 06/26 continue tx. Abilify STEVENSON can be given as early as 26 days from last IM. He last received abilify on 06/06/24, can be given earliest on 07/01/24. 06/27 continue tx. may consider giving STEVENSON abilify on 07/01/2024. 06/28: planning to give STEVENSON abilify next and discharge same day. agitated today re continued [id number], threw chair at exit door, security called. able to be verbally de-escalated. 06/29: give maintenna next tuesday and discharge tuesday, when KELLY Agudelo has returned from vacation. acknowledges mental illness, specifically cites VH early in hospitalization, expressing gratitude for care. check lithium and BMP tonight. otherwise continue current mgmt. 06/30: Continue current management and treatment plan. 07/01: Continue current management and treatment plan. Reason for continued inpatient stay Substantial Risk for: harm to others, inability to function and rapid decompensation Time Spent With Patient Time: Total time managing care of this patient today ____ minutes.
[2024-07-02 08:00] VITALS: BP 125/56; PULSE 82; RESP 14; TEMP 36.9; O2SAT 100
[2024-07-02] MEDS: LITHIUM CITRATE 600 MG PO ×2 (08:45→20:05)
[2024-07-02] MEDS: ARIPiprazole ER 400 MG SUSER.SYR IM (12:28)
--- NOTE | 2024-07-02 16:08 | P.PNPSI_ITS ---
Subjective Subjective Date of Service: 07/02/24 Reason For Visit: stalking behaviors Subjective Notes: Section 8 Interim History: Pt will be d/c tomorrow. will leave early in the AM to [place] to catch a flight to [facility]. he is cooperative and engaged. No SI/HI. some residual religiosity but minimal. pt with much increased insight. No inappropriate behaviors. Mood is good Affect is more appropriate. Denies complaints. Review of Systems Review of Systems Unremarkable Yes all other systems are reviewed and are negative and Unobtainable due to mental status Constitutional: Reports as per HPI Eyes: Reports as per HPI Reports as per HPI Cardiovascular: Reports as per HPI Respiratory: Reports as per HPI Gastrointestinal: Reports as per HPI Genitourinary: Reports as per HPI Musculoskeletal: Reports as per HPI Skin/Breast: Reports as per HPI Reports as per HPI Psychiatric: Reports as per HPI Endocrine: Reports as per HPI Hematologic/Lymphatic: Reports as per HPI Allergic/Immunologic: Reports as per HPI Mental Status Exam Mental Status Exam Narrative: adequately dressed and groomed. cooperative. no PMA/PMR. speech nml rate, nml amount. decr loudness, nml latency. thoughts linear, logical. affect normo- intense, non-labile, constricted. mood euthymic. no SI/SIBI/HI/AVH expressed. Diagnostics Vital Signs (24Hr): Vital Signs - 24 hr 07/01/24 20:00 07/02/24 08:00 Temperature 99.0 F 98.5 F Pulse Rate 72 82 Respiratory Rate 16 14 Blood Pressure 116/64 125/56 L Pulse Oximetry 97 100 Oxygen Delivery Method Room Air Room Air BMI result Body Mass Index 26.8 Labs 04/23/24 13:06 06/29/24 19:33 Medications Medications Current Medications Acetaminophen (Acetaminophen 325 Mg Tablet) 650 mg PO Q6H PRN PRN Reason: Headache/Pain Mild Scale (1-3) Last Admin: 06/30/24 20:53 Dose: 650 mg Al Hydroxide/Mg Hydroxide (Magnesium Hydrox/Alum Hydrox 30 Ml Oral.Susp) 30 ml PO Q6H PRN PRN Reason: Heartburn/Nausea Aripiprazole (Aripiprazole Er 400 Mg Suser.Syr) 400 mg IM Q30D ROSETTE Last Admin: 07/02/24 12:28 Dose: 400 mg Diazepam (Diazepam 10 Mg/2 Ml Cartridge) 10 mg IM BID PRN PRN Reason: refusal of lithium or abilify Last Admin: 06/13/24 09:42 Dose: 10 mg Docusate Sodium (Docusate Sodium 100 Mg Capsule) 200 mg PO BID [facility] Last Admin: 07/02/24 09:23 Dose: Not Given Fluphenazine HCl (Fluphenazine Hcl 2.5 Mg/Ml 10 Ml Vial) 5 mg IM DAILY PRN PRN Reason: refusal of PO abilify Last Admin: 05/21/24 22:48 Dose: 5 mg Hydroxyzine HCl (Hydroxyzine Hcl 25 Mg Tablet) 25 mg PO Q6H PRN PRN Reason: Anxiety Lactulose (Lactulose 20 Gm/30 Ml Solution) 30 gm PO DAILY PRN PRN Reason: Constipation Last Admin: 06/04/24 09:55 Dose: 30 gm [place] Citrate ([place] Citrate Oral Tierney 8 Meq (300 Mg)/5 Ml) 600 mg PO BID [facility] Last Admin: 07/02/24 08:45 Dose: 600 mg Magnesium Hydroxide (Milk Of Magnesia 30 Ml Oral.Susp) 30 ml PO DAILY PRN PRN Reason: Constipation Last Admin: 05/30/24 09:34 Dose: 30 ml Olanzapine (Olanzapine Odt 10 Mg Tab.Rapdis) 10 mg TRANSLINGU Q4H PRN PRN Reason: agitation Polyethylene Glycol (Polyethylene Glycol 3350 17 Gm Powd.Pack) 17 gm PO DAILY PRN PRN Reason: Constipation Last Admin: 06/03/24 08:49 Dose: 17 gm Trazodone HCl (Trazodone Hcl 50 Mg Tablet) 50 mg PO BEDTIME MRX1 PRN PRN Reason: Insomnia Last Admin: 06/18/24 22:19 Dose: 50 mg Allergies Allergies Allergy/AdvReac Type Severity Reaction Status Date / Time No Known Allergies Allergy Verified 04/23/24 13:03 Assessment & Plan Assessment & Plan (1) Bipolar disorder with psychotic features: Status: Acute Code(s): F31.9 - Bipolar disorder, unspecified Plan 04/25: contain, observe, educate. collect collateral info. 04/26: warrant has been issued for pt's arrest. 12b up tuesday. planning to discharge tuesday unless situation changes. prescribed abilify 5 mg daily, which pt is refusing. 04/27: refusing meds. no change in presentation. planning for discharge friday 03/30, when section 12b expires. student counseling at [facility] has been informed of the discharge plan by KELLY Agudelo. 04/29: No changes 04/30: refusing meds. frankly psychotic/manic today. disorganized thoughts, hyper-amish, labile, delusional, no sleep. accusing staff of witchcraft and trying to turn him into a woman. filed for commitment. kicked an exit door, prompting security to be called. 05/01: kicked exit doors again overnight, send me to half-way or just shoot me. talking about hospital food being poisoned. i only account to leif. you are continuing your evil plans. refusing medications. refused to meet with silk spooler today. 05/02 continue tx. 05/03: loud, labile, exit-seeking. required med/phys restraint x 1 due to elopement attempt. demanding discharge. refusing meds. continue to offer meds. hearing scheduled for tuesday. 05/04: calm, trying to get into phone to get numbers. declining same numbers from KELLY Agudelo. sleeping in afternoon. slept most of evening and all NOC last night. 05/05 continue tx. pt declines medications. 05/[address] hearing. 05/07: no change in presentation. reported he was the [facility] over the weekend and that the voice of hamzah was commanding him to preach. committed, ordered medications. 05/08: received IM meds as refused PO. believes we are trying to turn him into a woman. 05/09: asking to leave, saying he does not want meds. took PO invega this morning. dystonia this afternoon, invega DCed. took PO ativan, benadryl, cogentin. will attempt with lithium only for the time being, backed up by valium IM. seems less energetic, labile, hyper-amish today. 05/10: calm, but perseverative about discharge. taking lithium. continue current mgmt. paranoid delusions we are trying to turn him transgendered. remains focused on object of his stalking. 05/11: much more manic Sx today. re-trial of anti-psychotics. start with low- dose abilify with fluphenazine back-up. lithium switched to liquid formulation today. on 30 min CO after meds. 05/12: Continue current regimen and plans 05/13: Continue current regimen and plans 05/14: blocking MD's egress from room demanding immediate discharge. accepted thorazine 100 and ativan 2 PO. initial rapid pacing up and down the [place], eventually settled. check labs 05/16. 05/15: believes we are giving him medication to turn him into a woman, believes we are trying to get him to have sex with men. required restraint chair for court-ordered medication. required medications IM. 05/16: more subdued today. took meds PO last night and this morning. increase abilify to 15 mg daily. delay labs as pt has missed lithium dosing. 05/17: labs ordered. increase abilify dosing to 20 mg daily as of tomorrow. 05/18: refused labs. less labile and agitated. remains with paranoid delusions. labs ordered again. abilify to 25 mg tonight and 30 mg as of tomorrow night. 05/19: Continue current treatment plan. 05/20: Similar to yesterday's presentation. Continue current treatment plan. 05/21: refused PO meds this morning (took PO all w/e). received IMs. continue current mgmt. 05/22: refused PO last night and got IMs. took PO today. per collateral from KELLY Agudelo, improved insight, increased flexibility in thinking. continue current mgmt. 05/23: calm, appears tired. napping in the morning. PO meds. no singing in the past day. slept 8 hours. declining labs. continue current mgmt. 05/24: calm, quiet. no notable events or behaviors. continues far more subdued than prior. slept well. 05/25: stable presentation. continue current mgmt. 05/26 CTP / - some inapp behaviors with staff- keep on 5s, CTP 05/28: touching female RN on shoulders. some wandering into others' rooms. more logical and with more insight than ever previous in interacting with this typewriters functional tester. allowed lithium level, which is 0.8. labs otherwise reassuring. declined bowel regimen. continue current mgmt. 05/29: appears as yesterday. no notable events. labs reviewed with pt. decrease benadryl to 25 mg QHS. 05/30: DC benadryl. lower abilify from 30 mg QHS to 20 mg QHS due to sedation/confusion for past several days. slept 6.5 hours. appears flat, tired. 05/31: less sedated today. continue current mgmt. 06/01: as for yesterday. attempted to kiss female staff doing CO today. 06/02: appearing more awake than several days ago. c/o blurry vision, stuttering, brain being weakened. continue current mgmt. 06/03: appears more awake. no complaints. continue current mgmt. paying excessive attention to young female peer, making her uncomfortable. 06/04: stable presentation. continue current mgmt. T/C abilify STEVENSON soon. 06/05: declines to change lithium to tab form. had BM with lactulose. agrees to abilify STEVENSON. will give 400 mg IM tomorrow and DC PO abilify after 2 weeks. then continue 400 mg IM Q30 days from first STEVENSON. 06/06: continue current tx plan. 06/07: pt and KELLY Agudelo spoke with [facility] staff; school to send info to pt re disciplinary process. MD requested TE to speak with DA. no notable events or behaviors otherwise, continue current mgmt. 06/08: c/o blurry vision and tiredness. describing his mood as more stable than prior. continue current mgmt. 06/09 continue same treatment. 06/10 continue same treatment. 06/11: stable presentation. not providing consent to speak with DA, canceling his mtg with [facility] therapist and police tomorrow. 06/12: per staff, broached the topic of people he loves and that he cannot mention one of their names. also alleging today, again, that the zoom hearing in which he was committed was illegal. informed he will remain here at least another several weeks to be able to assess how the transition from PO to STEVENSON antipsychotic is working. 06/13: refused lithium this morning, received valium IM. otherwise no notable behaviors since being changed from CO to Q5 min checks yesterday. continue current mgmt. PO abilify DCs 06/20. next maintenna 07/07. 06/14: no change in presentation. T/C increased IM dosing of abilify versus switch to another STEVENSON. appears inadequately treated. 06/15: minimizing his h/o psychotic Sx. denies he has mental illness. continue current mgmt for now. 06/16: Continue current management and treatment plan. 06/17: Continue current management and treatment plan. 06/18: appears stable, without psychotic Sx. continue current mgmt. 06/19: no change. continue current mgmt. tonight is last dose of HS abilify. 06/20: continue current mgmt. next IM abilify in 2 weeks. 06/21: continue current tx plan. 06/24: continue tx plan. 06/25: continue current tx plan. 06/26 continue tx. Abilify STEVENSON can be given as early as 26 days from last IM. He last received abilify on 06/06/24, can be given earliest on 07/01/24. 06/27 continue tx. may consider giving STEVENSON abilify on 07/01/2024. 06/28: planning to give STEVENSON abilify next and discharge same day. agitated today re continued [id number], threw chair at exit door, security called. able to be verbally de-escalated. 06/29: give maintenna next tuesday and discharge tuesday, when KELLY Agudelo has returned from vacation. acknowledges mental illness, specifically cites VH early in hospitalization, expressing gratitude for care. check lithium and BMP tonight. otherwise continue current mgmt. 06/30: Continue current management and treatment plan. 07/01: Continue current management and treatment plan. Reason for continued inpatient stay Substantial Risk for: stable for discharge Time Spent With Patient Time: Total time managing care of this patient today ____ minutes.
--- NOTE | 2024-07-02 16:09 | P.DS_ITS ---
DS: Providers Provider Date of Service: 07/03/24 Date of admission: 04/25/24 10:56 Date of discharge: 07/03/24 Primary care physician: Unknown Physician DS: Diagnosis Discharge Diagnosis (1) Bipolar disorder with psychotic features: Status: Acute DS: Medications Discharge Medications Home Medications: Previous Rx's ?Medication ?Instructions ?Recorded lithium carbonate 600 mg capsule 600 mg PO BID 30 days #60 caps 06/29/24 aripiprazole 400 mg suspension, 400 mg IM Q30D #3 ea 07/02/24 extended rel.intramuscular syringe (Meche Lee) docusate sodium 100 mg capsule 200 mg (2 x 100 mg) PO BID #120 07/02/24 caps lithium carbonate 600 mg capsule 600 mg PO BID #240 caps 07/02/24 polyethylene glycol 3350 17 17 g PO DAILY #119 grams 07/02/24 gram/dose oral powder Mental Status Exam Mental Status Exam Narrative: adequately dressed and groomed. cooperative. no PMA/PMR. speech nml rate, nml amount. decr loudness, nml latency. thoughts linear, logical. affect normo- intense, non-labile, constricted. mood euthymic. no SI/SIBI/HI/AVH expressed. Data Data Completed and Pending Completed studies during hospitalization [Text1]: 06/29/24 19:33 Sodium 139 Potassium 4.0 Chloride 106 Carbon Dioxide 22 Anion Gap 15 BUN 11 Creatinine 1.00 Estim Creat Clear Calc 118.6 Estimated GFR > 60 Random Glucose 192 H Calcium 9.9 [place] 0.48 L DS: Summary Hospital Course Hospital Course: per CARE team myrtle, pt was expelled from [employer] the day of presentation due to stalking behaviors. the [employer] had bought a ticket for him back to [facility] and transported him to [facility]. he did not get on the plane and made his way back to [place] and returned to campus, from which he is trespassed, and began to [place] for the object of his stalking again. he was taken into custody, not without a fight with police and being chemically restrained by EMS, and brought to [facility], where once again he required chemical/mechanical restraint. on interview with CARE team, pt was sedated and answering questions monosyllabically. he stated he does not know why he is at [facility] and wanted to return to his dorm. 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 she reported multiple attempts had been made to curb student's behavior in the past 8 months. pt would express understanding of the need to stay away, then return to his usual stalking behaviors. she reported pt had contacted the object of his stalking the day prior to presentation and said to her that either she, him or someone else will . pt had been seen by student counselling, DDx included OCPD or delusional disorder, no Dx was made. a bunch or printed pictures of the object of his stalking were found in his dorm room, apparently taken without her knowledge, as well as notes about her s chedule and where he had looked for her. the female student reportedly took out a restraining order against him. on interview with MD, pt was a bit hyperverbal and hyper-intense in affect. he stated he had not been told he was expelled and is not sure of that. he stated this girl is the only one i need, and compared her to a medicine he must have. he was often vague and evasive in his answers, and he informed MD on several occasions he could not explain something to MD valerye MD would not understand. he refused to acknowledge that the object of his attentions might not want to see him or communicate with him. he insisted she is a shy or passive person and is waiting for him to come to her. in addition, he intimated her mother is somehow influencing her to keep him at bay. states if he has in fact been expelled from pending sale to [facility], he would be willing to return to [facility]. also insisted once being expelled from the [facility] [employer] it is not within the college's purview where he should be. denied he has mental illness or ever has and refused to consider taking medications. Past Psychiatric History: denies hosps, SA, SIBI, HIB. the only outpatient treatment he has had has been through college counseling service at pending sale to [facility]. no meds Hx. Medical Evaluation Reviewed: Yes HOSPITAL COURSE On the unit, pt was admitted on a Sec12b. He presented with pentecostal and grandiose delusions of being the Messiah. He also present with some erotomanic delusions were he was harassing a peer at his college and believed despite restraining orders that female was looking for him and it was other people who were preventing them from being together. He initially refused medication and treatment. He did not sleep for several days. Petition was filed for involuntary treatment, which was granted. He was initially started on paliperidone but had dystonic rx. He was switched to abilify which he tolerated well. He was also on lithium. Gradually, he presented with much less pentecostal and grandiose delusions. His thought process was much more organized and coherent. His insight into mental illness and need for treatment improved somewhat and he was to some extend grateful for treatment as he could see how his actions and behaviors were illogical and scary for others (referring to harassing female peer). He denied SI/HI. Plan was for him to return to his home [place], [facility], on discharge. Time Spent with Patient Time attestation: Total time managing care of this patient today ____ minutes. Discharge Plan Discharge Anticipated Discharge Date/Time: 07/02/24 15:59 Patient Disposition: Home, Self-Care Discharge Diagnosis: bipolar disorder type 1 Referrals: [facility] [Other] - 1 Week (*You can present to the clinic above, Tuesday through Tuesday during the hours of 9am and 4pm, with assistance in finding a homeless assisted placement. ) [facility] [Other] - 1 Week () [facility] [Other] - 1 Week (*You can present to [facility] for support while in the community. ) [facility] [Provider Group] - 1 Week ([facility] was added to patients chart. Please call [phone] for follow up appt.) Discharge Medications: New lithium carbonate 600 mg capsule 600 mg PO BID 30 Days Qty: 60 0RF Abilify Maintena 400 mg Suspension,Extended Rel Syring 400 mg IM Q30D Qty: 3 0RF docusate sodium 100 mg Capsule 200 mg PO BID Qty: 120 0RF polyethylene glycol 3350 17 gram/dose powder 17 g PO DAILY Qty: 119 0RF lithium carbonate 600 mg capsule 600 mg PO BID Qty: 240 0RF Discharge Orders: Discharge Order (Routine); Ordered 07/03/24 Ordered By: Odalis Cortés Diet: Regular diet Activity on Discharge: As tolerated Stand Alone Forms: Patient Portal Discharge page, Community Support Print Language: Georgian Care Plan Goals: maintain mood no si/hi Health Concerns: follow up with medical provider in [facility] Plan of Treatment: 1. take medications as prescribed. Assessment: pt presents less labile, no SI/HI. NO VH/AH. less pentecostal and eromanic delusions. sleeping and eating Discharge Date/Time: 07/03/24 06:02
[2024-07-02 20:00] VITALS: BP 141/72; PULSE 73; RESP 16; TEMP 36.8; O2SAT 100
[2024-07-02] MEDS: Docusate Sodium 100 MG CAPSULE 200 MG PO (20:04)
[2024-07-03] MEDS: LITHIUM CITRATE 600 MG PO (05:59)
[2024-07-03] MEDS: Docusate Sodium 100 MG CAPSULE 200 MG PO (06:00)
== END 2024-07-03 06:02 | disposition home or self-care (01) | DRG 753 ==
LOC: HO.ED 04-24 15:54 → HO.PADLT16 04-25 11:07
PROVIDERS: Admitting Provider Psychiatry & Neurology Psychiatry; Emergency Provider Emergency Medicine; Visit Provider Psychiatry & Neurology Psychiatry
DX: F31.9 Bipolar disorder, unspecified (principal); K59.00 Constipation, unspecified; Z78.1 Physical restraint status; Z79.899 Other long term (current) drug therapy
CPT/HCPCS: 36415; 80048; 80061; 80076; 80178; 80307; 81003; 82607; 82746; 83036; 84439; 84443; 85025; 99285; J0401; J1200; J1630; J2060; J2359; J2679; J3360; J7120; S9485

== ENCOUNTER → 2024-04-25 10:56 | Outpatient (BNV) | payer BC, SELFPAY | PROVIDERS: Admitting Provider Psychiatry & Neurology Psychiatry; Emergency Provider Emergency Medicine; Visit Provider Psychiatry & Neurology Psychiatry | DX: F31.2 Bipolar disorder, current episode manic severe with psychotic features (principal) | CPT/HCPCS: 90792; 99231; 99232; 99233; 99238; 99499 ==